=== PATIENT | male | born 1940 | race African-American/Black ===

== ENCOUNTER 2019-05-12 14:08 | Emergency (ER) | payer OTHER ==
[~2019-05-12] VITALS: Ht 182.9 cm; Wt 136.1 kg
[2019-05-12 16:12] LABS: BASOPHILS % 0.4 % (0.0-1.0); EOSINOPHILS # (AUTO) 0.2 (0.0-0.4); EOSINOPHILS % 2.2 % (0.0-6.0); HEMATOCRIT 32.4 % (38.2-49.6); HEMOGLOBIN 9.3 g/dL (14.0-18.0); LYMPHOCYTES # (AUTO) 1.9 (1.0-3.2); LYMPHOCYTES % 24.6 % (18.0-39.1); MEAN CORPUSCULAR HGB CONC 28.7 g/dL (31-35); MEAN CORPUSCULAR VOLUME 80.2 fL (81-99); MONOCYTES # (AUTO) 0.6 (0.2-0.8); MONOCYTES % 7.8 % (4.4-11.3); NEUTROPHILS # (AUTO) 4.9 (2.1-6.9); NEUTROPHILS % 64.7 % (38.7-80.0); PLATELET COUNT 280 x10e3/uL (140-360); RED BLOOD COUNT 4.04 x10e6/uL (4.3-5.7); RED CELL DISTRIBUTION WIDTH 19.4 % (11.7-14.4)
[2019-05-12 16:19] LABS: BILIRUBIN,URINE NEGATIVE (NEGATIVE); CLARITY,URINE CLEAR (CLEAR); COLOR,URINE YELLOW (YELLOW); KETONES,URINE NEGATIVE (NEGATIVE); LEUKOCYTE ESTERASE ,URINE TRACE (NEGATIVE); NITRITE,URINE NEGATIVE (NEGATIVE); PROTEIN,URINE DIPSTICK NEGATIVE (NEGATIVE); URINE UROBILINOGEN 0.2 mg/dL (0.2 - 1)
[2019-05-12 16:20] LABS: INR 1.26; PROTHROMBIN TIME 16.4 seconds (11.9-14.5)
[2019-05-12 16:21] LABS: PARTIAL THROMBOPLASTIN TIME 36.1 seconds (23.8-35.5)
[2019-05-12 16:31] LABS: BACTERIA,URINE FEW /HPF; WBC,URINE (MAN) 0-5 /HPF (0-5)
--- NOTE | 2019-05-12 17:16 | Diagnostic Imaging Report ---
CT Abdomen and Pelvis without contrast INDICATION: Hematuria ^HEMATURIA PER SCHATTE ^[id number] ^[id number] TECHNIQUE: Thin collimation axial images obtained from the diaphragm to the level of the pubic symphysis without nonionic intravenous contrast. Dose reduction techniques used: Automated exposure control, adjustment of the mAs and/or kVp according to patient size, standardized low-dose protocol, and/or iterative reconstruction technique. Images are compromised due to patient's arm positioning resulting in artifact. RADIATION DOSE: Total DLP: 822.14 mGy*cm Estimated effective dose: (DLP x 0.015 x size factor) mSv CTDIvol has been reviewed. It is below the limits set by the Radiation Protocol Committee (RPC). COMPARISON: None. ABDOMEN FINDINGS: Artifact present throughout the upper abdomen. Lung Bases: Mild bibasilar atelectasis and small posterior layering left pleural effusion. The visualized portion of the mediastinum is normal. Liver: No gross evidence of mass. Gallbladder: Present and contains subcentimeter calcified gallstones. No gallbladder wall thickening or pericholecystic fluid. No ductal dilatation. Pancreas: Diffusely atrophic without mass or ductal dilatation. No calcification. Spleen: Normal size without mass. Adrenal Glands: Poorly visualized due to artifact. The adrenal glands are thickened. A discrete mass cannot be identified. Kidneys: Right: Measures 10 cm in length. No collecting system dilatation. No calculus Left: Measures 11 cm in length No calculus. No cortical mass or hydronephrosis Lymph Nodes: No lymphadenopathy. Aorta: Normal in diameter. There are calcifications throughout. PELVIS FINDINGS: Bowel: Stomach: Contains a small amount of fluid and is grossly normal. Small Bowel: Normal in caliber with normal wall thickness. Large Bowel: Moderate burden of stool throughout. No focal mural thickening or pericolonic inflammation. Appendix: Normal. Bladder: Contains a Cleaning catheter and nondependent air. No intraluminal calculi. Prostate: Not enlarged. Ureters: No ureteral dilatation or calculus. Peritoneum/retroperitoneum: No free fluid or fluid collection.. Bones: Diffusely demineralized. No compression deformities or listhesis. Degenerative changes of the lower thoracic and lower lumbar spine. No focal osseous lesions. Soft tissues: Bilateral gynecomastia. Lipoma in the right rectus abdominis measures 2.5 x 5.6 cm. Fat-containing supraumbilical hernia measures 3.5 cm. There is a small fat-containing left inguinal hernia that may contain a small amount of fluid. IMPRESSION: 1. Compromised examination due to beam hardening artifact. 2. No evidence of renal calculus or obstructive uropathy. 3. Bilateral adrenal hyperplasia. Underlying nodules cannot be excluded. 4. No evidence for bowel obstruction or inflammation. Normal appendix. 5. Cholelithiasis. Signed by: Dr. Janel Sun MD on 05/12/2019 5:13 PM
[2019-05-12 17:40] LABS: ALBUMIN 3.3 g/dL (3.5-5.0); ALBUMIN/GLOBULIN RATIO 0.9 (0.8-2.0); ANION GAP 14.5 mmol/L (8-16); CALCIUM 10.6 mg/dL (8.4-10.2); CREATININE, SERUM 1.43 mg/dL (0.72-1.25); POTASSIUM 4.5 mmol/L (3.5-5.1)
== END 2019-05-12 18:38 | disposition home or self-care (01) ==
LOC: ER 14:08
DX: R31.29 Other microscopic hematuria (principal)
CPT/HCPCS: 36415; 74176; 80053; 81001; 85025; 85610; 85730; 99284

== ENCOUNTER 2019-07-29 11:08 | Emergency (ER) | payer MEDICARE ==
[~2019-07-29] VITALS: Ht 182.9 cm; Wt 136.1 kg
[~2019-07-29 11:08] MED LIST: CEFDINIR300 MG PO
--- OUTSIDE RECORDS SUMMARY | 2019-07-29 11:11 | XMS REPORT | Encounter Summary ---
Author Organization Unknown Address [address] [place] [address] Phone [phone] Care Team Providers Care Plastics Supervisor Name Role Phone Dr. Luis M Barrera 3 [phone] Luis M Barrera Jr, MD 3 [phone] Reason for Visit hyperlipidemia; Advance Care Plan; AWV Annual Wellness Visit Male (VFP); hypertension; diabetes Instructions 1. Adult health examination 2. Morbid obesity learning about healthy weight 3. Advance directive discussed with patient advance care planning: care instructions 4. Depression screening 5. Type 2 diabetes mellitus HbA1c (hemoglobin A1c), blood glucose, fingerstick, blood 6. Hypertensive heart disease with congestive heart failure CMP, serum or plasma CBC w/ auto diff TSH, serum or plasma 7. Atrial fibrillation 8. Hypertriglyceridemia lipid panel, serum 9. Secondary hyperparathyroidism PTH (parathyroid hormone), intact, serum or plasma 10. Stasis dermatitis and venous ulcer of lower extremity due to chronic peripheral venous hypertension 11. Gouty arthritis of multiple sites 12. Screening for malignant neoplasm of prostate PSA, serum or plasma 13. Major depression in remission 14. Indwelling urethral urinary catheter in situ urology referral 15. Blood in urine 16. Urinary catheter in situ Discussion Note: None recorded. Plan of Care Patient Instructions It was good to see you in the office today for your Medicare Annual Wellness Visit. You have been provided some information on healthy nutrition, including a diet rich in fruits and vegetables, minimizing simple carbohydrates, salt, and saturated fats. I want to encourage regular cardiovascular exercise such as walking at least 30 minutes daily, 5 times per week. Please remember to schedule any preventive health measures that we talked about today. You have also been provided education on fall prevention and community- based lifestyle interventions to help reduce health risks and promote healthy living in your Annual Wellness folder. Screening Recommendations 1. Vaccines Pneumonia: Influenza: 2. Colorectal Cancer Screenin. Annual Prostate Screening 4. Annual Depression Screening 5. Annual Alcohol Screening 6. Annual Fall Risk Screening 7. Annual Health Risk Assessment Patient Instructions on Filing Advance Directives Be sure that you have easy access to your paperwork for your medical power of patent attorney and advanced directives. Be sure that the designated person as well as important family members have copies of those forms as well. Please have contact information of your designee readily available. In the event of hospitalization, please bring those important documents with you for reference. Reminders Provider Appointments Home Visit 08/06/2019 9:30AM Brittni Acevedo NP Lab HbA1C (Hemoglobin a1C), Blood 07/10/2019 [facility] Glucose, Fingerstick, Blood 07/10/2019 [facility] CMP, Serum or Plasma 07/10/2019 [facility] CBC W/ Auto Diff 07/10/2019 [facility] TSH, Serum or Plasma 07/10/2019 [facility] Lipid Panel, Serum 07/10/2019 [facility] PTH (Parathyroid Hormone), Intact, Serum or Plasma 07/10/2019 [facility] PSA, Serum or Plasma 07/10/2019 [facility] Referral Urology Referral 07/10/2019 Shaka Canales MD Procedures None recorded. Surgeries None recorded. Imaging None recorded. Medications Name Start Date allopurinol 100 mg tablet TAKE 1 TABLET BY MOUTH EVERY DAY amlodipine 10 mg tablet TAKE 1 TABLET BY MOUTH EVERY DAY atorvastatin 10 mg tablet TAKE 1 TABLET BY MOUTH EVERY DAY doxazosin 8 mg tablet TAKE 1 TABLET BY MOUTH EVERY DAY Eliquis 5 mg tablet Take 1 tablet twice a day by oral route for 90 days. finasteride 5 mg tablet Take 1 tablet every day by oral route. fluticasone propionate 50 mcg/actuation nasal spray,suspension SPRAY 1 SPRAY INTO EACH NOSTRIL EVERY DAY furosemide 40 mg tablet Take 1 tablet every day by oral route for 30 days. glimepiride 1 mg tablet Take 1 tablet every day by oral route. metformin ER 500 mg 24 hr tablet,extended release Take 1 tablet every day by oral route for 90 days. olmesartan 40 mg tablet TAKE 1 TABLET BY MOUTH EVERY DAY OneTouch Delica Lancets 33 gauge USE TO TEST BLOOD GLUCOSE THREE TIMES DAILY OneTouch Verio strips USE TO TEST BLOOD GLUCOSE THREE TIMES DAILY potassium chloride ER 20 mEq tablet,extended release Take 1 tablet every day by oral route. tamsulosin 0.4 mg capsule Take 1 capsule every day by oral route. Ventolin HFA 90 mcg/actuation aerosol inhaler Inhale 2 puffs every 4 hours by inhalation route as needed. Medications Administered None recorded. Vitals Height Weight BMI Blood Pressure 6 ft 1 in 290 lbs 38.3 kg/m2 124/66 mm[Hg] Results Lab Results None recorded. 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 Hypertriglyceridemia Active 10/25/2016 Gouty Arthritis of Multiple Sites Active 10/25/2016 Morbid Obesity Active 10/25/2016 Benign Hypertensive Heart Disease without Congestive Heart Failure Active 10/25/2016 Cardiomyopathy Active 10/25/2016 Atrial Fibrillation Active 10/25/2016 Chronic Back Pain Active 10/25/2016 Long-term Current Use of Anticoagulant Active 10/25/2016 Lower Urinary Tract Symptoms Due to Benign Prostatic Hypertrophy Active 10/25/2016 Anemia Active 07/26/2017 History of Malignant Neoplasm of Prostate Active 10/29/2017 Peripheral Vascular Disease Active 12/07/2017 Lymphedema of Lower Extremity Active 12/07/2017 Type 2 Diabetes Mellitus Active 01/28/2018 Secondary Hyperparathyroidism Active 01/29/2018 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 Vaccine List Vaccine Type influenza, high dose seasonal 04/03/20170.5 mL 04/24/20180.5 mL 03/28/20190.5 mL influenza, unspecified formulation 07/27/20160.5 mL pneumococcal conjugate PCV 13 04/03/20170.5 mL pneumococcal polysaccharide PPV23 07/30/20140.5 mL Tdap 09/06/20180.5 mL zoster live 0.65 mL Social History Tobacco Smoking Status Former Smoker Past Encounters 07/10/2019 Adult Health Examination; Morbid Obesity; Advance Directive Discussed with Patient; Depression Screening; Type 2 Diabetes Mellitus; Hypertensive Heart Disease with Congestive Heart Failure; Atrial Fibrillation; Hypertriglyceridemia; Secondary Hyperparathyroidism; Stasis Dermatitis and Venous Ulcer of Lower Extremity Due to Chronic Peripheral Venous Hypertension; Gouty Arthritis of Multiple Sites; Screening for Malignant Neoplasm of Prostate; Major Depression in Remission; Indwelling Urethral Urinary Catheter in Situ; Blood in Urine; Urinary Catheter in Situ Luis M Barrera Jr, MD: [address] [facility], [address], [place] [address], Ph. 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 History of Present Illness Diabetes F/U Reported By: Patient HPI: Labs: last A1C result: 7.4. Context: no side effects from medications. Associated Symptoms: no dizziness, no sweats, no headaches, no confusion, no increased thirst, no increased appetite, no increased urination, no blurred vision, no numbness of feet Notes: Endorses medication compliance. Hypertension Reported By: Patient HPI: Severity: mild. Onset/Timing: gradual onset. Alleviating Factors: relieved with rest, medication. Self Care: not under emotional stress, blood pressure goal: 130/80. Associated Symptoms: no shortness of breath, no fatigue, no decline in exercise capacity Mini Cog Reported By: Patient Functional Ability: Personal/Social/ Draw a clock and write in the numbers in the correct place, and set the time to 10 minutes after 11 o'clock was completed correctly? Yes, 3 word recall: Your nurse or doctor will ask you to remember 3 words. In 5 minutes, they will ask you to repeat them. Patient recalled 3 words Hyperlipidemia Reported By: Patient HPI: Type of hyperlipidemia: combined, hypercholesterolemia. Duration: chronic. Control: usually well controlled, at goal. Current Therapy: currently taking: atorvastatin, last LDL level: 51 date: 51. Compliance: compliant. Complications: no coronary artery disease. Risk Factors: diabetes, hypertension, obesity Opioid Use Assessment Reported By: Patient Opioid Use Assessment:: Current Use of Opioids : no use of opioids (no further questions required) Note:I'd like to talk about what is ahead with your illness and do some thinking in advance about what is important to you so I can make sure we provide you with the care you want-is that okay? {{Yes*|No}} Review of Systems Comprehensive General Adult ROS, Diabetes F/U ROS Reported By: Patient Constitutional: Constitutional: no fever, no significant weight gain, no significant weight loss, no exercise intolerance Eyes: Eyes: no vision change Cardiovascular: Cardiovascular: no chest pain, no shortness of breath when walking, no palpitations, no lightheadedness, no SOB Respiratory: Respiratory: no cough, no wheezing, no shortness of breath Gastrointestinal: Gastrointestinal: no abdominal pain, no nausea, no vomiting, no constipation, normal appetite, no diarrhea Genitourinary: Genitourinary: no increased frequency, difficulty urinating, hematuria, incomplete emptying Musculoskeletal: Musculoskeletal: no muscle weakness, no arthralgias/joint pain Integumentary: Skin: no rashes, no laceration Neurologic: Neurologic: no weakness, no numbness, no dizziness Endocrine: Endocrine: no fatigue Extremities: Extremities: no edema, no ulcers Physical Exam General Adult Exam (male), Cardiology Exam, Diabetes, Diabetic Foot Exam Reported By: Patient Constitutional: General Appearance: well-developed, appears stated age, morbidly obese. Level of Distress: NAD, chronically ill Psychiatric: Mental Status: active and alert, no diffuse anxiety, no paranoid ideations, lethargic, depressed. Orientation: to time, to place, to person. Memory: recent memory normal, remote memory normal Lungs: Auscultation: good air movement, CTA except as noted, no wheezing, no rales/crackles, no rhonchi Cardiovascular: Heart Auscultation: RRR, normal S1, no rubs, no gallops, physiologically split S2, no click. Pulses including femoral / pedal: full and equal in all extremities except if noted. Systolic Murmur: not heard. Diastolic Murmur: not heard Musculoskeletal:: Extremities: no cyanosis, no edema, no peripheral signs of emboli Skin: Inspection and palpation: warm and dry Back: Thoracolumbar Appearance: no chest wall tenderness"
--- OUTSIDE RECORDS SUMMARY | 2019-07-29 11:12 | XMS REPORT | Encounter Summary ---
Author Organization Unknown Address [address] [place] [address] Phone [phone] Care Team Providers Care Kitchen Supervisor Name Role Phone Dr. Luis M Barrera 3 [phone] Luis M Barrera Jr, MD 3 [phone] Reason for Visit hospital follow up - TCM (LEXI); diabetes Instructions 1. Type 2 diabetes mellitus glimepiride 1 mg tablet glucose, fingerstick, blood 2. Hypertensive heart disease with congestive heart failure amlodipine 10 mg tablet 3. Acute congestive heart failure furosemide 40 mg tablet potassium chloride ER 20 mEq tablet,extended release 4. Atrial fibrillation Eliquis 5 mg tablet 5. Morbid obesity 6. Secondary hyperparathyroidism 7. Major depression in remission 8. 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 Retention of urine 10. Indwelling urethral urinary catheter in situ Discussion Note: None recorded. Patient educational handouts: No information available. Plan of Care Patient Instructions Thank you for scheduling your post hospital visit. Please let us know if you need help in scheduling follow up tests or specialist visits. Knowing what medicines to keep taking and which to ones to stop after a hospital stay can be confusing. Contact your physicians with your questions about what medications you should be taking. Our [facility] can also help you in this area. Contact them at . [facility] can help you choose the best Home Health agency. We can also help you with social work coordinator and community resources. Call us we are here to help. If you experience any new or concerning symptoms, call us immediately at . Evening and Sunday clinic hours are now available. If you have problems after hours, you can reach the [facility] Practice doctor astronomy department chair at [phone] . Please follow up with your doctor in two weeks. Reminders Provider Appointments Home Visit 08/06/2019 9:30AM Brittni L Kristina, SERVICE STATION HELPER Lab Glucose, Fingerstick, Blood 07/14/2019 [email or web address] Referral None recorded. Procedures None recorded. Surgeries None recorded. Imaging None recorded. Medications Name Start Date allopurinol 100 mg tablet TAKE 1 TABLET BY MOUTH EVERY DAY amlodipine 10 mg tablet Take 1 tablet every day by oral route for 90 days. atorvastatin 10 mg tablet TAKE 1 TABLET BY MOUTH EVERY DAY cefdinir 300 mg capsule doxazosin 8 mg tablet TAKE 1 TABLET [...] day by oral route for 90 days. glimepiride 1 mg tablet Take 1 [...] BMI Blood Pressure 6 ft 1 in 292 lbs 38.5 kg/m2 126/66 mm[Hg] Results Lab Results Date Name Specimen Result Interpretation Description Value Range Status Address 07/10/2019 PTH (Parathyroid Hormone), Intact, Serum or Plasma High Parathyroid Hormone, Intact 224 pg/mL 14-64 pg/mL Final [facility] Laboratory: [address] 07/10/2019 Glucose, Fingerstick, Blood Blood Glucose: mg/dl 103 [facility]: [address] Allergies Code Code System Name Reaction Severity [...] Tobacco Smoking Status Former Smoker Past Encounters 07/14/2019 Type 2 Diabetes Mellitus; Hypertensive Heart Disease with Congestive Heart Failure; Acute Congestive Heart Failure; Atrial Fibrillation; Morbid Obesity; Secondary Hyperparathyroidism; Major Depression in Remission; Stasis Dermatitis and Venous Ulcer of Lower 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 07/10/2019 Adult Health Examination; Morbid Obesity; Advance [...] in Situ Luis M Barrera Jr, MD: [address], [facility] [address], [place] [address], Ph. 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 History of Present Illness Diabetes F/U Reported By: Patient HPI: Labs: last A1C result: . Context: no side effects from medications. Associated Symptoms: no dizziness, no sweats, no headaches, no confusion, no increased thirst, no increased appetite, no increased urination, no blurred vision, no numbness of feet Notes: Endorses medication compliance. Hospital Follow Up (TCM) Reported By: Patient Review of Systems Comprehensive General Adult ROS, Diabetes F/U ROS Reported By: Patient Constitutional: Constitutional: no fever, no significant weight gain, no significant weight loss, no exercise intolerance Eyes: Eyes: no vision change Cardiovascular: Cardiovascular: no chest pain, no palpitations, no lightheadedness, no SOB Respiratory: Respiratory: no wheezing, no shortness of breath Gastrointestinal: Gastrointestinal: no abdominal pain, no nausea, no vomiting, no constipation, normal appetite, no diarrhea Genitourinary: Genitourinary: no difficulty urinating, no increased frequency Musculoskeletal: Musculoskeletal: no muscle weakness, no arthralgias/joint pain Integumentary: Skin: no rashes, no laceration Neurologic: Neurologic: no weakness, no numbness, no dizziness Endocrine: Endocrine: no fatigue Extremities: Extremities: no edema, no ulcers Physical Exam General Adult Exam (male), Cardiology Exam, Diabetes, Diabetic Foot Exam Reported By: Patient Constitutional: General Appearance: well-nourished, well-developed, appears stated age. Level of Distress: NAD Lungs: Auscultation: good air movement, CTA except [...] dry Back: Thoracolumbar Appearance: no chest wall tenderness
--- OUTSIDE RECORDS SUMMARY | 2019-07-29 11:12 | XMS REPORT | Encounter Summary ---
Author Organization Unknown Address [address] [place] [address] Phone [phone] Care Team Providers Care Property Developer Name Role Phone Dr. Luis M Barrera 3 [phone] Luis M Barrera Jr, MD 3 [phone] Reason for Visit hospital follow up - TCM (LEXI); diabetes Instructions 1. Type 2 diabetes mellitus glimepiride 1 mg tablet glucose, fingerstick, blood 2. Hypertensive heart disease with congestive heart failure amlodipine 10 mg tablet 3. Acute congestive heart failure furosemide 40 mg tablet potassium chloride ER 20 mEq tablet,extended release 4. Atrial fibrillation 5. Morbid obesity 6. Secondary hyperparathyroidism 7. Major depression in remission 8. 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 Retention of urine 10. Indwelling urethral urinary catheter in situ tamsulosin 0.4 mg capsule doxazosin 8 mg tablet 11. Unable to afford medication warfarin 5 mg tablet Discussion Note: None recorded. Patient educational handouts: [...] what medications you should be taking. Our [facility] can also help you in this area. Contact them at . [facility] can help you choose the best Home Health agency. We can also help you with social service director and community resources. Call us we are here to help. If you experience any new or concerning symptoms, call us immediately at . Evening and Sunday clinic hours are now available. If you have problems after hours, you can reach the [facility] Practice doctor certification engineer at . Please follow up with your doctor in two weeks. Reminders Provider Appointments Home Visit 08/06/2019 9:30AM Brittni Acevedo NP Lab Glucose, Fingerstick, Blood 07/14/2019 [email or web address] Referral None recorded. Procedures None recorded. Surgeries [...] TAKE 1 TABLET BY MOUTH EVERY DAY finasteride 5 mg tablet Take 1 tablet [...] Take 1 capsule every day by oral route for 90 days. Ventolin HFA 90 mcg/actuation aerosol inhaler Inhale 2 puffs every 4 hours by inhalation route as needed. warfarin 5 mg tablet Take 1.5 tablets every day by oral route for 90 days. Medications Administered None recorded. Vitals Height Weight BMI Blood Pressure 6 ft 1 in 292 lbs 38.5 kg/m2 126/66 mm[Hg] Results Lab Results Date Name Specimen Result Interpretation Description Value Range Status Address 07/14/2019 Glucose, Fingerstick, Blood Blood Glucose: mg/dl 159 [facility]: [address] 07/10/2019 PTH (Parathyroid Hormone), Intact, Serum or Plasma High Parathyroid Hormone, Intact 224 pg/mL 14-64 pg/mL Final [facility] Laboratory: [address] [place] [address] 07/10/2019 Glucose, Fingerstick, Blood Blood Glucose: mg/dl 103 [facility]: [address] Allergies Code Code System Name Reaction [...] of Urine; Indwelling Urethral Urinary Catheter in Situ; Unable to Afford Medication Luis M Barrera Jr, MD: [address], [address], [place] [address], Ph. 07/10/2019 Adult Health Examination; Morbid Obesity; [...] Situ Luis M Barrera Jr, MD: [address] [facility], [address], [place] [address], Ph. 06/18/2019 Indwelling Urethral Urinary Catheter in Situ; Acute Congestive Heart Failure; Chronic Obstructive Lung Disease; Stasis Dermatitis and Venous Ulcer of Lower Extremity Due to Chronic Peripheral Venous Hypertension; Gouty Arthritis of Multiple Sites; Chronic Back Pain; Morbid Obesity Brittni Acevedo STOVE REFINISHER: [address] [facility], [address], [place] [address], Ph. History of Present Illness Diabetes F/U [...]
--- OUTSIDE RECORDS SUMMARY | 2019-07-29 11:12 | XMS REPORT | Encounter Summary ---
Author Organization Unknown Address [address] [place] [address] Phone [phone] Care Team Providers Care Fisher Seal Name Role Phone Dr. Luis M Barrera 3 [phone] Luis M Barrera Jr, MD 3 [phone] Reason for Visit Atrial fibrillation; hypertension; diabetes Instructions 1. Benign hypertensive heart disease without congestive heart failure 2. Atrial fibrillation INR, plasma 3. Long-term current use of anticoagulant 4. Type 2 diabetes mellitus glucose, fingerstick, blood 5. Low blood pressure 6. Anemia 7. Malaise and fatigue CBC w/ auto diff CMP, serum or plasma 8. Blood in urine Discussion Note: None recorded. Patient educational handouts: No information available. Plan of Care Reminders Provider Appointments Home Visit 08/06/2019 9:30AM Brittni Acevedo NP Lab INR, Plasma 07/23/2019 [facility] Glucose, Fingerstick, Blood 07/23/2019 [facility] CBC W/ Auto Diff 07/23/2019 [facility] CMP, Serum or Plasma 07/23/2019 [facility] Referral None recorded. Procedures None recorded. Surgeries [...] 1 tablet every day by oral route. 07/25/2019 olmesartan 40 mg tablet TAKE 1 TABLET [...] BMI Blood Pressure 6 ft 1 in 189 lbs 24.9 kg/m2 106/48 mm[Hg] Results Lab Results Date Name Specimen Result Interpretation Description Value Range Status Address 07/24/2019 CMP, Serum or Plasma Normal Glucose 71 mg/dL 65-99 mg/dL Final [facility] Laboratory: [address] [place] [address], [place] Urea Nitrogen (BUN) 39 mg/dL 7-25 mg/dL Final [facility] - Laboratory: [address] High Creatinine 1.87 mg/dL 0.70-1.18 mg/dL Final [facility] - Laboratory: [address] [place] [address], [place] Low eGFR Non-afr. Togolese 34 mL/min/1.73m2 > or=60 mL/min/1.73m2 Final [facility] Laboratory: [address] [place] [address], [place] Low eGFR 39 mL/min/1.73m2 > or=60 mL/min/1.73m2 Final [facility]: [address] [place] [address], [place] Normal BUN/creatinine Ratio 21 (calc) 6-22 (calc) Final [facility]: [address] [place] [address], [place] Normal Sodium 143 mmol/L 135-146 mmol/L Final [facility]: [address] [place] [address], [place] Normal Potassium 4.9 mmol/L 3.5-5.3 mmol/L Final [facility]: [address] [place] [address], [place] Chloride 112 mmol/L 98-110 mmol/L Final [facility]: [address] [place] [address], [place] Normal Carbon Dioxide 24 mmol/L 20-32 mmol/L Final [facility]: [address] [place] [address], [place] Normal Calcium 10.1 mg/dL 8.6-10.3 mg/dL Final [facility]: [address] [facility] [facility] Protein, Total 6.5 g/dL 6.1-8.1 g/dL Final [facility]: [address] [facility] [facility] Normal Albumin 3.9 g/dL 3.6-5.1 g/dL Final [facility]: [facility] Normal Globulin 2.6 g/dL (calc) 1.9-3.7 g/dL (calc) Final [facility]: [address] [facility] [facility] Normal Albumin/globulin Ratio 1.5 (calc) 1.0-2.5 (calc) Final [facility]: [facility] Normal Bilirubin, Total 0.7 mg/dL 0.2-1.2 mg/dL Final [facility]: [facility] High Alkaline Phosphatase 116 U/L 40-115 U/L Final [facility]: [facility] Normal Ast 19 U/L 10-35 U/L Final [facility]: [address] [place] [address] Normal Alt 15 U/L 9-46 U/L Final [facility]: [facility] 07/[facility]/2019 CBC W/ Auto Diff Normal White Blood Cell Count 6.4 thousand/uL 3.8-10.8 thousand/uL Final [facility]: [facility] Low Red Blood Cell Count 3.75 million/uL 4.20-5.80 million/uL Final [facility]: [address] [facility] Low Hemoglobin 8.8 g/dL 13.2-17.1 g/dL Final [facility]: [address] [facility] Hematocrit 29.6 % 38.5-50.0 % Final [facility]: [address] [facility] Low Mcv 78.9 fL 80.0-100.0 fL Final [facility]: [address] [facility] Low Mch 23.5 pg 27.0-33.0 pg Final [facility]: [address] Low Mchc 29.7 g/dL 32.0-36.0 g/dL Final [facility]: [address]w 17.4 % 11.0-15.0 % Final [facility]: [address], [place] Normal Platelet Count 242 thousand/uL 140-400 thousand/uL Final [facility]: [address] BenderlulyMalcolm Mcguire Normal Mpv 10.4 fL 7.5-12.5 fL Final [facility]: [address], [place] Normal Absolute Neutrophils 3539 cells/uL 5462-2419 cells/uL Final [facility]: [address] [place] Normal Absolute Lymphocytes 2010 cells/uL 850-3900 cells/uL Final [facility]: [address] [place] Normal Absolute Monocytes 608 cells/uL 200-950 cells/uL Final [facility]: [address] [place] Normal Absolute Eosinophils 192 cells/uL 15-500 cells/uL Final [facility]: [address] [place] Normal Absolute Basophils 51 cells/uL 0-200 cells/uL Final [facility]: [address], [place] Normal Neutrophils 55.3 % Final [facility]: [address], [place] Normal Lymphocytes 31.4 % Final [facility]: [address], [place] Normal Monocytes 9.5 % Final [facility] Laboratory: [address] Philip [facility], [place] Normal Eosinophils 3.0 % Final [facility]: [address], [place] Normal Basophils 0.8 % Final [facility]: [address] Philip [facility], [place] 07/23/2019 Glucose, Fingerstick, Blood Blood Glucose: mg/dl 83 [facility]: [address] [place] [address], [place] 07/14/2019 Glucose, Fingerstick, Blood Blood Glucose: mg/dl 159 [facility]: [address] [place] [address], [place] 07/10/2019 PTH (Parathyroid Hormone), Intact, Serum or Plasma High Parathyroid Hormone, Intact 224 pg/mL 14-64 pg/mL Final [facility]: [address] [facility] 07/10/2019 PSA, Serum or Plasma Normal PSA, Total <0.1 NG/mL < or=4.0 NG/mL Final [facility]: [address] [facility] [facility] 07/10/2019 CBC W/ Auto Diff Normal White Blood Cell Count 6.9 thousand/uL 3.8-10.8 thousand/uL Final [facility]: [address] [facility] [facility] Low Red Blood Cell Count 4.07 million/uL 4.20-5.80 million/uL Final [facility]: [address] [place] Hemoglobin 9.6 g/dL 13.2-17.1 g/dL Final [facility]: [address] [facility] [facility] Hematocrit 32.5 % 38.5-50.0 % Final [facility]: [address] [facility] Low Mcv 79.9 fL 80.0-100.0 fL Final [facility]: [address] [facility] [facility] Low Mch 23.6 pg 27.0-33.0 pg Final [facility]: [address] [place] Mchc 29.5 g/dL 32.0-36.0 g/dL Final [facility]: [address] [facility] High Rdw 18.1 % 11.0-15.0 % Final [facility]: [address] [facility] Normal Platelet Count 283 thousand/uL 140-400 thousand/uL Final [facility]: [address] [place] [address] Normal Mpv 11.6 fL 7.5-12.5 fL Final [facility]: [address] [facility] Normal Absolute Neutrophils 3636 cells/uL 1058-8826 cells/uL Final [facility]: [address] [facility] [facility] Normal Absolute Lymphocytes 2491 cells/uL 850-3900 cells/uL Final [facility]: [address] [place] [address] Normal Absolute Monocytes 531 cells/uL 200-950 cells/uL Final [facility]: [address] Philip [facility], [place] Normal Absolute Eosinophils 214 cells/uL 15-500 cells/uL Final [facility]: [address] [facility] [facility] Normal Absolute Basophils 28 cells/uL 0-200 cells/uL Final [facility]: [address] [place] [address], [place] Normal Neutrophils 52.7 % Final [facility]: [address] [place] [address], [place] Normal Lymphocytes 36.1 % Final [facility]: [address] [place] [address], [place] Normal Monocytes 7.7 % Final [facility]: [address] Normal Eosinophils 3.1 % Final [facility]: [address] [place] [address], [place] Normal Basophils 0.4 % Final [facility]: [address] [facility] [facility] 07/10/2019 CMP, Serum or Plasma Alt 13 U/L 0-55 U/L Final [facility]: [address] Ast 17 U/L 5-34 U/L Final [facility]: [address] High Bun 27.4 mg/dL 8.4-25.0 mg/dL Final [facility]: [address] Alk Phos 148 unit/L 40-150 unit/L Final [facility]: [address] Glucose 78 mg/dL 70-99 mg/dL Final [facility]: [address] Albumin 4.0 g/dL 3.4-5.1 g/dL Final [facility]: [address] High Creatinine 1.49 mg/dL 0.72-1.25 mg/dL Final [facility]: [address] ABNORMAL eGFR Non- 46 mL/min/1.73m2 Final [facility]: [address] Total Bilirubin 0.6 mg/dL 0.2-1.2 mg/dL Final [facility]: [address] ABNORMAL eGFR - 55 mL/min/1.73m2 Final [facility]: [address] [place] [address], [place] Sodium 143 mEq/L 135-145 mEq/L Final [facility]: [address] [place] [address], [place] Potassium 4.9 mEq/L 3.5-5.1 mEq/L Final [facility]: [address] [place] [address], [place] Chloride 109 mmol/L 98-110 mmol/L Final [facility]: [address] [place] [address], [place] Total Protein 7.1 g/dL 6.1-8.2 g/dL Final [facility]: [address] [place] [address], [place] Calcium 10.4 mg/dL 9.0-10.2 mg/dL Final [facility]: [address] [place] [address], [place] Co2 23.2 mmol/L 20.0-32.0 mmol/L Final [facility]: [address] [place] [address], [place] Anion Gap 11 calc Final [facility]: [address] 07/10/2019 Lipid Panel, Serum Hdl 65 mg/dL Final [facility]: [address] Triglyceride 66 mg/dL 0-150 mg/dL Final [facility]: [address] VLDL (Calculated) 13 mg/dL Final [facility]: [address] cholesterol/HDL Ratio 2.2 mg/dL Final [facility]: [address] non-HDL Cholesterol (Calculated) 76 mg/dL 0-160 mg/dL Final [facility]: [address] Cholesterol 141 mg/dL 0-200 mg/dL Final [facility]: [address] LDL (Calculated) 63 mg/dL 0-130 mg/dL Final [facility]: [address] 07/10/2019 TSH, Serum or Plasma Tsh 1.578 uIU/mL 0.350-4.940 uIU/mL Final [facility]: [facility] [address] 07/10/2019 HbA1C (Hemoglobin a1C), Blood High A1C W/eag 6.6 % 1.0-5.7 % Final [facility]: [address] Average Blood Glucose 143 mg/dL Final [facility]: [address] 07/10/2019 Iron + Total Iron-binding Capacity (TIBC), Serum Low Iron, Total 43 mcg/dL 50-180 mcg/dL Final [facility]: [facility] [address] Normal Iron Binding Capacity 412 mcg/dL (calc) 250-425 mcg/dL (calc) Final [facility]: [address] Low % Saturation 10 % (calc) 20-48 % (calc) Final [facility]: [facility] [address] 07/10/2019 Transferrin, Serum Normal Transferrin 330 mg/dL 188-341 mg/dL Final [facility]: [address] 07/10/2019 Vitamin B12 + Folate, Serum or Blood Folate 9.4 NG/mL Final [facility]: [facility] [address] Vitamin B12 364 pg/mL 213-816 pg/mL Final [facility]: [address] 07/10/2019 Glucose, Fingerstick, Blood Blood Glucose: mg/dl 103 [facility] [place]: [address] Allergies Code Code System Name Reaction [...] Tobacco Smoking Status Former Smoker Past Encounters 07/23/2019 Benign Hypertensive Heart Disease without Congestive Heart Failure; Atrial Fibrillation; Long-term Current Use of Anticoagulant; Type 2 Diabetes Mellitus; Low Blood Pressure; Anemia; Malaise and Fatigue; Blood in Urine Luis M Barrera Jr, MD: [address], [facility] [address] [address], Ph. 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 07/10/2019 Adult Health Examination; Morbid Obesity; [...] Luis M Barrera Jr, MD: [address], [address], [place] [address], Ph. History of Present Illness Diabetes F/U Reported By: Patient HPI: Labs: last A1C result: 6.6. Context: no side effects from medications. Associated [...] Reported By: Patient HPI: Type of hyperlipidemia: hypercholesterolemia. Duration: chronic. Control: usually well controlled, at goal. Current Therapy: currently taking: atorvastatin, last LDL level: 63 date: 63. Compliance: compliant. Complications: no coronary artery disease. Risk Factors: diabetes, hypertension, obesity Hospital Follow Up ([facility]) Reported By: Patient Opioid Use Assessment Reported By: Patient Opioid Use Assessment:: Current Use of Opioids : no use of opioids (no further questions required) Hypertension Reported By: Patient Note:{{Yes|No}} Review of Systems Comprehensive General Adult ROS, Diabetes F/U ROS Reported By: Patient Constitutional: Constitutional: no significant weight gain, no significant weight loss Cardiovascular: Cardiovascular: no chest pain, no shortness of breath when walking Respiratory: Respiratory: no cough, no wheezing, no shortness of breath Endocrine: Endocrine: fatigue Physical Exam General Adult Exam (male), Cardiology Exam, Diabetes, Diabetic Foot Exam Reported By: Patient Constitutional: General Appearance: healthy-appearing, well-developed, appears stated age, no signs of discomfort, no pain, not difficult to engage. Level of Distress: chronically ill Psychiatric: Insight: good judgement, good insight. Mental Status: active and alert, no diffuse anxiety, no paranoid ideations, depressed. Orientation: to time, to place, to person, oriented to time, place, and person. Memory: recent memory normal, remote memory normal Lungs: Respiratory effort: no dyspnea. Percussion: no dullness, flatness, or hyperresonance, resonant. Auscultation: breath sounds normal, good air movement, CTA except as noted, no wheezing, no rales/crackles, no rhonchi Cardiovascular: Apical Impulse: not displaced. Heart Auscultation: RRR, normal S1, normal S2, no murmurs, no rubs, no gallops, physiologically split S2, no click. Neck vessels: no carotid bruits, no jugular vein distention. Pulses including femoral / pedal: normal throughout, full and equal in all extremities except if noted. Precordial Exam: non displaced focal PMI, no heaves, no precordial thrills. Systolic Murmur: not heard. Diastolic Murmur: not heard. Right Pulses: normal dorsalis pedis pulse, normal posterior tibial pulse, no varicosities. Left Pulses: normal dorsalis pedis pulse, normal posterior tibial pulse, no varicosities"
[2019-07-29] MEDS ORDERED: PANTOPRAZOLE 40 MG 10ML VIAL IV STA (11:38)
--- NOTE | 2019-07-29 13:23 | Diagnostic Imaging Report ---
EXAMINATION: CHEST SINGLE (PORTABLE) INDICATION: Weakness, lower extremity swelling COMPARISON: None FINDINGS: LINES/TUBES:None LUNGS:The lungs are well-inflated. No focal consolidation or pulmonary edema. PLEURA:No pleural effusion or pneumothorax. MEDIASTINUM:The cardiomediastinal silhouette appears mildly enlarged, possibly due to portable technique. Atherosclerotic calcifications of the thoracic aorta. BONES/SOFT TISSUES:No acute osseous injury. ABDOMEN:No free air under the diaphragm. IMPRESSION: No focal pneumonia or pulmonary edema. Signed by: Rose Marie Lobato MD on 07/29/2019 1:20 PM
[2019-07-29 14:09] LABS: BASOPHILS % 0.7 % (0.0-1.0); EOSINOPHILS # (AUTO) 0.3 (0.0-0.4); EOSINOPHILS % 4.1 % (0.0-6.0); HEMATOCRIT 29.9 % (38.2-49.6); LYMPHOCYTES # (AUTO) 1.8 (1.0-3.2); MEAN CORPUSCULAR HEMOGLOBIN 24.1 pg (28-32); MEAN CORPUSCULAR HGB CONC 30.1 g/dL (31-35); MEAN CORPUSCULAR VOLUME 79.9 fL (81-99); MONOCYTES # (AUTO) 0.6 (0.2-0.8); MONOCYTES % 9.8 % (4.4-11.3); NEUTROPHILS # (AUTO) 3.5 (2.1-6.9); NEUTROPHILS % 56.2 % (38.7-80.0); PLATELET COUNT 208 x10e3/uL (140-360); RED BLOOD COUNT 3.74 x10e6/uL (4.3-5.7); RED CELL DISTRIBUTION WIDTH 19.8 % (11.7-14.4)
[2019-07-29 14:25] LABS: INR 2.29; PROTHROMBIN TIME 25.9 seconds (11.9-14.5)
[2019-07-29 14:26] LABS: PARTIAL THROMBOPLASTIN TIME 43.9 seconds (23.8-35.5)
[2019-07-29 14:35] LABS: ALBUMIN 3.5 g/dL (3.5-5.0); ALBUMIN/GLOBULIN RATIO 1.1 (0.8-2.0); ANION GAP 12.4 mmol/L (8-16); CALCIUM 10.2 mg/dL (8.4-10.2); CREATININE, SERUM 1.59 mg/dL (0.72-1.25); POTASSIUM 4.4 mmol/L (3.5-5.1)
[2019-07-29 14:42] LABS: CREATINE KINASE MB 2.7 ng/mL (0-5.0)
[2019-07-29 15:25] LABS: BILIRUBIN,URINE NEGATIVE (NEGATIVE); CLARITY,URINE SL CLOUDY (CLEAR); COLOR,URINE YELLOW (YELLOW); KETONES,URINE NEGATIVE (NEGATIVE); LEUKOCYTE ESTERASE ,URINE TRACE (NEGATIVE); NITRITE,URINE POSITIVE (NEGATIVE); PROTEIN,URINE DIPSTICK TRACE (NEGATIVE); URINE UROBILINOGEN 0.2 mg/dL (0.2 - 1)
[2019-07-29 15:42] LABS: BACTERIA,URINE MANY /HPF; EPITHELIAL CELLS,URINE RARE /LPF
--- NOTE | 2019-07-29 16:03 | NUR ---
PT'S PRESCRIPTION CALLED INTO [facility] @ [phone] ; PT CALLED AND NOTIFIED
[2019-08-02] MEDS ORDERED: FUROSEMIDE40 MG PO (16:19)
[2019-08-02] MEDS ORDERED: FINASTERIDE5 MG PO (16:19)
[2019-08-02] MEDS ORDERED: BENICAR20 MG PO (16:19)
[2019-08-02] MEDS ORDERED: AMLODIPINE BESY10 MG PO (16:19)
[2019-08-02] MEDS ORDERED: GLIMEPIRIDE1 MG PO (16:19)
[2019-08-02] MEDS ORDERED: ATORVASTATIN CA10 MG PO (16:19)
[2019-08-02] MEDS ORDERED: POTASSIUM CHLO20 MEQ PO (16:19)
== END 2019-07-29 15:10 | disposition home or self-care (01) ==
LOC: ER 11:16
DX: I48.20 Chronic atrial fibrillation, unspecified (principal); D63.1 Anemia in chronic kidney disease; E11.9 Type 2 diabetes mellitus without complications; I50.9 Heart failure, unspecified
CPT/HCPCS: 36415; 71045; 80053; 81001; 82550; 82553; 83735; 83880; 84484; 85025; 85610; 85730; 86850; 86900; 87040; 87086; 87186; 93005; 99284; C9113

== ENCOUNTER 2019-08-26 12:10 | Observation (INO) | payer MEDICARE, OTHER ==
[~2019-08-26] VITALS: Ht 185.4 cm; Wt 141.5 kg
[~2019-08-26 12:10] MED LIST changes: +AMLODIPINE BESY10 MG PO; +ATORVASTATIN CA10 MG PO; +BENICAR20 MG PO; +FINASTERIDE5 MG PO; +FUROSEMIDE40 MG PO; +GLIMEPIRIDE1 MG PO; +POTASSIUM CHLO20 MEQ PO
--- OUTSIDE RECORDS SUMMARY | 2019-08-26 12:15 | XMS REPORT | Encounter Summary ---
Author Organization Unknown Address [address] [place] [address] Phone [phone] Care Team Providers Care Chemical Engineering Teacher Name Role Phone Dr. Luis M Barrera 3 [phone] Luis M Barrera Jr, MD 3 [phone] Lalo Canales MD 115 [phone] Reason for Visit Type 2 diabetes mellitus; Benign hypertensive heart disease without congestive heart failure; Proteinuric nephropathy due to diabetes mellitus; Hypertensive heart disease with congestive heart failure Instructions 1. Hypertensive heart disease with congestive heart failure CMP, serum or plasma 2. Type 2 diabetes mellitus 3. Proteinuric nephropathy due to diabetes mellitus 4. Benign hypertensive heart AND renal disease 5. Chronic kidney disease stage 3 6. Suprapubic urinary catheter in situ urology referral 7. Atrial fibrillation INR, plasma 8. Anemia CBC w/ auto diff 9. Chronic pain syndrome Tylenol-Codeine #3 300 mg-30 mg tablet Discussion Note: None recorded. Patient educational handouts: No information available. Plan of Care Reminders Provider Appointments Return to Office on or around 09/11/2019 Brittni Acevedo NP Lab INR, Plasma 08/20/2019 [facility] - Laboratory CBC W/ Auto Diff 08/20/2019 [facility] - Laboratory CMP, Serum or Plasma 08/20/2019 [facility] - Laboratory Referral Urology Referral 08/20/2019 Lalo Canales MD Procedures None recorded. Surgeries None [...] day by oral route for 90 days. Tylenol-Codeine #3 300 mg-30 mg tablet Take 1 tablet twice a day by oral route as needed for 60 days. Ventolin HFA 90 mcg/actuation aerosol inhaler Inhale 2 puffs every 4 hours by inhalation route as needed. warfarin 5 mg tablet Take 1.5 tablets every day by oral route for 90 days. Medications Administered None recorded. Vitals Height Weight BMI Blood Pressure 6 ft 1 in 311 lbs 41 kg/m2 140/72 mm[Hg] Results Lab Results Date Name Specimen Result Interpretation Description Value Range Status Address 07/24/2019 CMP, Serum or Plasma Normal Glucose 71 mg/dL 65-99 mg/dL Final [facility] - Laboratory: [address] High Urea Nitrogen (BUN) 39 mg/dL 7-25 mg/dL Final [facility] - Laboratory: [address] High Creatinine 1.87 mg/dL 0.70-1.18 mg/dL Final [facility] - Laboratory: [address] Low eGFR Non-afr. Cypriot 34 mL/min/1.73m2 > or=60 mL/min/1.73m2 Final [facility] - Laboratory: [address] [place] [address], [place] Low eGFR 39 mL/min/1.73m2 > or=60 mL/min/1.73m2 Final [facility] - Laboratory: [address] [place] [address], [place] Normal BUN/creatinine Ratio 21 (calc) 6-22 (calc) Final [facility] - Laboratory: [address] [place] [address], [place] Normal Sodium 143 mmol/L 135-146 mmol/L Final [facility] - Laboratory: [address] Normal Potassium 4.9 mmol/L 3.5-5.3 mmol/L Final [facility] - Laboratory: [address] High Chloride 112 mmol/L 98-110 mmol/L Final [facility] - Laboratory: [address] [place] Normal Carbon Dioxide 24 mmol/L 20-32 mmol/L Final [facility] - Laboratory: [address] [place] Normal Calcium 10.1 mg/dL 8.6-10.3 mg/dL Final [facility] - Laboratory: [address] WadeFormerly [facility] Normal Protein, Total 6.5 g/dL 6.1-8.1 g/dL Final [facility] - Laboratory: [address], [place] Normal Albumin 3.9 g/dL 3.6-5.1 g/dL Final [facility] - Laboratory: [address] WadeFormerly [facility], [facility] Normal Globulin 2.6 g/dL (calc) 1.9-3.7 g/dL (calc) Final [facility] - Laboratory: [address] WadeFormerly [facility], [facility] Normal Albumin/globulin Ratio 1.5 (calc) 1.0-2.5 (calc) Final [facility] - Laboratory: [address] WadeFormerly [facility], [facility] Normal Bilirubin, Total 0.7 mg/dL 0.2-1.2 mg/dL Final [facility] - Laboratory: [address] WadeFormerly [facility], [facility] High Alkaline Phosphatase 116 U/L 40-115 U/L Final [facility] - Laboratory: [address] WadeFormerly [facility], [facility] Normal Ast 19 U/L 10-35 U/L Final [facility] - Laboratory: [address] WadeFormerly [facility], [facility] Normal Alt 15 U/L 9-46 U/L Final [facility] - Laboratory: [address] [place] 07/24/2019 CBC W/ Auto Diff Normal White Blood Cell Count 6.4 thousand/uL 3.8-10.8 thousand/uL Final [facility] - Laboratory: [address] WadeFormerly [facility], [facility] Low Red Blood Cell Count 3.75 million/uL 4.20-5.80 million/uL Final [facility] - Laboratory: [address] WadeFormerly [facility], [facility] Low Hemoglobin 8.8 g/dL 13.2-17.1 g/dL Final [facility] - Laboratory: [address] WadeFormerly [facility], [facility] Low Hematocrit 29.6 % 38.5-50.0 % [facility] - Laboratory: [address] Low Mcv 78.9 fL 80.0-100.0 fL Final [facility] - Laboratory: [address], [place] Low Mch 23.5 pg 27.0-33.0 pg Final [facility] - Laboratory: [address] Low Mchc 29.7 g/dL 32.0-36.0 g/dL Final [facility] - Laboratory: [address] 17.4 % 11.0-15.0 % Final [facility] - Laboratory: [address]ender[address] [place] Normal Platelet Count 242 thousand/uL 140-400 thousand/uL Final [facility] - Laboratory: [address]enderluly[address]colm [place] Normal Mpv 10.4 fL 7.5-12.5 fL Final [facility] - Laboratory: [address]enderluly[address] [place] Normal Absolute Neutrophils 3539 cells/uL 0030-9586 cells/uL Final [facility] - Laboratory: [address]enderluly[address] [place] Normal Absolute Lymphocytes 2010 cells/uL 850-3900 cells/uL Final [facility] - Laboratory: [address]enderluly[address] [place] Normal Absolute Monocytes 608 cells/uL 200-950 cells/uL Final [facility] - Laboratory: [address] [place] Normal Absolute Eosinophils 192 cells/uL 15-500 cells/uL Final [facility] - Laboratory: [address] [place] Normal Absolute Basophils 51 cells/uL 0-200 cells/uL Final [facility] - Laboratory: [address] [place] Normal Neutrophils 55.3 % Final [facility] - Laboratory: [address] [place] Normal Lymphocytes 31.4 % Final [facility] - Laboratory: [address] Arguello [place] Normal Monocytes 9.5 % Final [facility] - Laboratory: [address] [place] Normal Eosinophils 3.0 % Final [facility] - Laboratory: [address] [place] Normal Basophils 0.8 % Final [facility] - Laboratory: [address] 07/23/2019 INR, Plasma High Inr 1.5 Final [facility] - Laboratory: [address] [facility] [address], [place] High Pt 15.8 sec 9.0-11.5 sec Final [facility] - Laboratory: [address], [place] 07/23/2019 Glucose, Fingerstick, Blood Blood Glucose: mg/dl 83 [facility] - Hobby: [address], [place] CMP, Serum or Plasma No observation recorded. [facility] [address] [place] CBC W/ Auto Diff No observation recorded. 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 Vaccine List Vaccine Type influenza, high dose seasonal 04/03/20170.5 mL 04/24/20180.5 mL 03/28/20190.5 mL influenza, unspecified formulation 07/27/20160.5 mL pneumococcal conjugate PCV 13 04/03/20170.5 mL pneumococcal polysaccharide PPV23 07/30/20140.5 mL Tdap 09/06/20180.5 mL zoster live 0.65 mL Social History Tobacco Smoking Status Former Smoker Past Encounters 08/20/2019 Hypertensive Heart Disease with Congestive Heart Failure; Type 2 Diabetes Mellitus; Proteinuric Nephropathy Due to Diabetes Mellitus; Benign Hypertensive Heart and Renal Disease; Chronic Kidney Disease Stage 3; Suprapubic Urinary Catheter in Situ; Atrial Fibrillation; Anemia; Chronic Pain Syndrome Luis M Barrera Jr, MD: [address], [address], [place] [address], Ph. 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 07/23/2019 Benign Hypertensive Heart Disease without Congestive Heart Failure; Atrial Fibrillation; Long-term Current Use of Anticoagulant; Type 2 Diabetes Mellitus; Low Blood Pressure; Anemia; Malaise and Fatigue; Blood in Urine Luis M Barrera Jr, MD: [address], [address], [place] [address], Ph. History of Present Illness Diabetes F/U [...] no fatigue, no decline in exercise capacity Hyperlipidemia Reported By: Patient HPI: Type of hyperlipidemia: hypercholesterolemia. Duration: chronic. Control: usually well controlled, at goal. Current Therapy: currently taking: atorvastatin, last LDL level: 63 date: 63. Compliance: compliant. Complications: no coronary artery disease. Risk Factors: diabetes, hypertension, obesity Note:{{Yes|No}} Review of Systems Comprehensive General Adult [...] pedis pulse, normal posterior tibial pulse, no varicosities Abdomen: Hernia: ; suprapubic catheter site clean dry intact"
--- OUTSIDE RECORDS SUMMARY | 2019-08-26 12:15 | XMS REPORT | Encounter Summary ---
Author Organization Unknown Address [address] [place] [address] Phone [phone] Care Team Providers Care Product Development Engineer Name Role Phone Dr. 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 Lower urinary tract symptoms due to benign prostatic hypertrophy 3. Peripheral vascular disease 4. Type 2 diabetes mellitus 5. Lymphedema of lower extremity Discussion Note: None recorded. Patient educational handouts: No information available. Plan of Care Reminders Provider Appointments Return to Office on or around 09/11/2019 Brittni Acevedo NP Lab None recorded. Referral None recorded. Procedures None recorded. Surgeries None recorded. Imaging None recorded. Medications Name Start Date acetaminophen 300 mg-codeine 30 mg tablet allopurinol 100 mg tablet TAKE 1 TABLET BY MOUTH EVERY DAY atorvastatin 10 mg tablet TAKE 1 TABLET BY MOUTH EVERY DAY cefdinir 300 mg capsule ciprofloxacin 500 mg tablet doxazosin 8 mg tablet TAKE 1 TABLET [...] BMI Blood Pressure 6 ft 1 in 304.2 lbs 40.1 kg/m2 162/88 mm[Hg] Results Lab Results Date Name Specimen Result Interpretation Description Value Range Status Address 07/24/2019 CMP, Serum or Plasma Normal Glucose 71 mg/dL 65-99 mg/dL Final [facility] - Laboratory: [address] [place] [address], [place] High Urea Nitrogen (BUN) 39 mg/dL 7-25 mg/dL Final [facility] - Laboratory: [address] High Creatinine 1.87 mg/dL 0.70-1.18 mg/dL Final [facility] Laboratory: [address] Low eGFR Non-afr. Palauan 34 mL/min/1.73m2 > or=60 mL/min/1.73m2 Final [facility] - Laboratory: [address] [place] [address], [place] Low eGFR 39 mL/min/1.73m2 > or=60 mL/min/1.73m2 Final [facility] - Laboratory: [address] [place] [address], [place] Normal BUN/creatinine Ratio 21 (calc) 6-22 (calc) Final [facility] Laboratory: [address] [place] [address], [place] Normal Sodium 143 mmol/L 135-146 mmol/L Final [facility] - Laboratory: [address] [place] [address], [place] Normal Potassium 4.9 mmol/L 3.5-5.3 mmol/L Final [facility] - Laboratory: [address] [place] [address], [place] High Chloride 112 mmol/L 98-110 mmol/L Final [facility] Laboratory: [address] [place] [address], [place] Normal Carbon Dioxide 24 mmol/L 20-32 mmol/L Final [facility] Laboratory: [address] [place] [address], [place] Normal Calcium 10.1 mg/dL 8.6-10.3 mg/dL Final [facility] - Laboratory: [address], [place] Normal Protein, Total 6.5 g/dL 6.1-8.1 g/dL Final [facility] - Laboratory: [address], [place] Normal Albumin 3.9 g/dL 3.6-5.1 g/dL Final [facility] - Laboratory: [address] [place] Normal Globulin 2.6 g/dL (calc) 1.9-3.7 g/dL (calc) Final [facility]: [address] [facility] Normal Albumin/globulin Ratio 1.5 (calc) 1.0-2.5 (calc) Final [facility]: [address] [place] Normal Bilirubin, Total 0.7 mg/dL 0.2-1.2 mg/dL Final [facility] Laboratory: [address] [facility] High Alkaline Phosphatase 116 U/L 40-115 U/L Final [facility] Laboratory: [address] [facility] To [facility] Normal Ast 19 U/L 10-35 U/L Final [facility] Laboratory: [address] [facility] To [facility] Normal Alt 15 U/L 9-46 U/L Final [facility]: [address] [place] 07/24/2019 CBC W/ Auto Diff Normal White Blood Cell Count 6.4 thousand/uL 3.8-10.8 thousand/uL Final [facility] - Laboratory: [address] [place] Low Red Blood Cell Count 3.75 million/uL 4.20-5.80 million/uL Final [facility] - Laboratory: [address] [place] Low Hemoglobin 8.8 g/dL 13.2-17.1 g/dL Final [facility] Laboratory: [address] [place] Low Hematocrit 29.6 % 38.5-50.0 % Final [facility] Laboratory: [address] [place] Low Mcv 78.9 fL 80.0-100.0 fL Final [facility] Laboratory: [address] [place] Low Mch 23.5 pg 27.0-33.0 pg Final [facility] Laboratory: [address] [place] Low Mchc 29.7 g/dL 32.0-36.0 g/dL Final [facility] - Laboratory: [address], [place] [address] 17.4 % 11.0-15.0 % Final [facility] - Laboratory: [address], [place] Normal Platelet Count 242 thousand/uL 140-400 thousand/uL Final [facility] - Laboratory: [address] [place] Normal Mpv 10.4 fL 7.5-12.5 fL Final [facility] - Laboratory: [address], [place] Normal Absolute Neutrophils 3539 cells/uL 7677-8314 cells/uL Final [facility] Laboratory: [address], [place] Normal Absolute Lymphocytes 2010 cells/uL 850-3900 cells/uL Final [facility] Laboratory: [address], [place] Normal Absolute Monocytes 608 cells/uL 200-950 cells/uL Final [facility] Laboratory: [address] [place] Normal Absolute Eosinophils 192 cells/uL 15-500 cells/uL Final [facility] Laboratory: [address], [place] Normal Absolute Basophils 51 cells/uL 0-200 cells/uL Final [facility]: [address], [place] Normal Neutrophils 55.3 % Final [facility] Laboratory: [address], [place] Normal Lymphocytes 31.4 % Final [facility] Laboratory: [address], [place] Normal Monocytes 9.5 % Final [facility] Laboratory: [address], [place] Normal Eosinophils 3.0 % Final [facility] Laboratory: [address], [place] Normal Basophils 0.8 % Final [facility] Laboratory: [address], [place] 07/23/2019 INR, Plasma High Inr 1.5 Final [facility] - Laboratory: [address] High Pt 15.8 sec 9.0-11.5 sec Final [facility] - Laboratory: [address], [place] 07/23/2019 Glucose, Fingerstick, Blood Blood Glucose: mg/dl [address] [place] [address] Medical - Hobby: [address], [place] 07/14/2019 Glucose, Fingerstick, Blood Blood Glucose: mg/dl 159 [facility]: [address] [facility] 5, [place] CMP, Serum or Plasma No observation recorded. [facility] [address] [place] CBC W/ Auto Diff No observation recorded. [facility] [address], [place] Allergies Code Code System Name Reaction Severity [...] Tobacco Smoking Status Former Smoker Past Encounters 08/13/2019 Stasis Dermatitis and Venous Ulcer of Lower Extremity Due to Chronic Peripheral Venous Hypertension; Lower Urinary Tract Symptoms Due to Benign Prostatic Hypertrophy; Peripheral Vascular Disease; Type 2 Diabetes Mellitus; Lymphedema of Lower Extremity Brittni Acevedo PORTFOLIO MANAGER: [address], [address], [place] [address], Ph. 07/23/2019 Benign Hypertensive Heart Disease without Congestive Heart Failure; Atrial Fibrillation; Long-term Current Use of Anticoagulant; Type 2 Diabetes Mellitus; Low Blood Pressure; Anemia; Malaise and Fatigue; Blood in Urine Luis M Barrera Jr, MD: [address], [facility] [address], [place] [address], Ph. 07/14/2019 Type 2 Diabetes Mellitus; Hypertensive Heart Disease with Congestive Heart Failure; Acute Congestive Heart Failure; Atrial Fibrillation; Morbid Obesity; Secondary Hyperparathyroidism; Major Depression in Remission; Stasis Dermatitis and Venous Ulcer of Lower Extremity Due to Chronic Peripheral Venous Hypertension; Retention of Urine; Indwelling Urethral Urinary Catheter in Situ; Unable to Afford Medication Luis M Barrera Jr, MD: [address], [facility] [address], [place] [address], Ph. History of Present Illness TCM Provider Visit Reported By: Patient HPI: Timing: Date of admit:, Date of discharge:, Date of Initial Contact:, Please describe what events led up to this hospitalization:. Discharge Information: Discharge Diagnoses:, Discharged from: Other, Discharged to: Home, Hospital Records (H&P, DC Summary, Transition of Care Document) reviewed and scanned? Yes, Current Caregivers:family, Home health ordered? no, no, . Functional Status Taking medications as prescribed, Understands missed doses, Following recommended activity level, Does patient need help getting medications filled? no, Is the patient dependent upon others to leave the home? yes Review of Systems Comprehensive General Adult ROS Reported By: Patient Constitutional: Constitutional: no fever Eyes: Eyes: no dry eyes ENMT: Ears: no ear pain. Nose: no sinus problems. Mouth/Throat: no sore throat, no mouth ulcers, no teeth problems Cardiovascular: Cardiovascular: no chest pain, no shortness of breath when walking, no shortness of breath when lying down, no palpitations Respiratory: Respiratory: no cough, no wheezing, no shortness of breath Gastrointestinal: Gastrointestinal: no abdominal pain, no nausea, no vomiting, no diarrhea Genitourinary: Genitourinary: no difficulty urinating, no increased frequency, urinary loss of control; indwelling Cleaning cath Musculoskeletal: Musculoskeletal: muscle aches, muscle weakness, arthralgias/joint pain, back pain, swelling in the extremities Integumentary: Skin: no abnormal mole, rash, dry skin, growths/lesions Neurologic: Neurologic: no loss of consciousness, no weakness, no numbness, no dizziness Psychiatric: Psych: no sleep disturbances, no alcohol abuse, no suicidal thoughts Endocrine: Endocrine: no fatigue Hematologic/Lymphatic: Hematologic/Lymphatic no swollen glands Allergic/Immunologic: Allergy/Immunologic: no runny nose, no sinus pressure Physical Exam General Adult Exam (male) Reported By: Patient Constitutional: General Appearance: healthy-appearing, well-developed, morbidly obese. Level of Distress: NAD. Ambulation: limited ambulation Eyes: Lids and Conjunctivae: non-injected. Pupils: PERRLA. EOM: EOMI ENMT: Ears: no lesions on external ear. Nose: no lesions on external nose, no sinus tenderness, nasal discharge--rhinorrhea. Oropharynx: moist mucous membranes, no erythema Neck: Neck: supple. Lymph Nodes: no cervical LAD Lungs: Auscultation: breath sounds normal, good air movement, no wheezing Cardiovascular: Apical Impulse: not displaced. Heart Auscultation: RRR, normal S1, normal S2 Male : Penis: ; suprapubic catheter in place Musculoskeletal:: Motor Strength and Tone: normal tone. Joints, Bones, and Muscles: normal movement of all extremities Neurologic: Gait and Station: normal gait Skin: Inspection and palpation: no rash, ulcer; lymphedema and venous stasis ulcers, stablized at this time. Nails: normal Back: Thoracolumbar Appearance: normal curvature
--- OUTSIDE RECORDS SUMMARY | 2019-08-26 12:15 | XMS REPORT | Encounter Summary ---
Author Organization Unknown Address [address] [place] [id number] Phone [phone] Care Team Providers Care Real Estate Clerk Name Role Phone Dr. Luis M Barrera 3 [phone] Luis M Barrera Jr, MD 3 [phone] Lalo Canales MD 115 [phone] Reason for Visit Stasis dermatitis and venous [...] Normal Glucose 71 mg/dL 65-99 mg/dL Final [facility] - Laboratory: [address] [place] [address], [place] High Urea Nitrogen (BUN) 39 mg/dL 7-25 mg/dL Final [facility] - Laboratory: [address] High Creatinine 1.87 mg/dL 0.70-1.18 mg/dL Final [facility] - Laboratory: [address] Low eGFR Non-afr. German 34 mL/min/1.73m2 > or=60 mL/min/1.73m2 Final [facility] - Laboratory: [address] [place] [address], [place] Low eGFR 39 mL/min/1.73m2 > or=60 mL/min/1.73m2 Final [facility] - Laboratory: [address] [place] [address], [place] Normal BUN/creatinine Ratio 21 (calc) 6-22 (calc) Final [facility] - Laboratory: [address] [place] [address], [place] Normal Sodium 143 mmol/L 135-146 mmol/L Final [facility] - Laboratory: [address] [place] [address], [place] Normal Potassium 4.9 mmol/L 3.5-5.3 mmol/L Final [facility] - Laboratory: [address] [place] [address], [place] High Chloride 112 mmol/L 98-110 mmol/L Final [facility] - Laboratory: [address] [place] [address], [place] Normal Carbon Dioxide 24 mmol/L 20-32 mmol/L Final [facility] - Laboratory: [address] [place] [address], [place] Normal Calcium 10.1 mg/dL 8.6-10.3 mg/dL Final [facility] - Laboratory: [address], [place] Normal Protein, Total 6.5 g/dL 6.1-8.1 g/dL Final [facility] - Laboratory: [address], [place] Normal Albumin 3.9 g/dL 3.6-5.1 g/dL Final [facility] - Laboratory: [address] [place] Normal Globulin 2.6 g/dL (calc) 1.9-3.7 g/dL (calc) Final [facility] [address] [facility] Albumin/globulin Ratio 1.5 (calc) 1.0-2.5 (calc) Final [facility] - Laboratory: [address] [place] Normal Bilirubin, Total 0.7 mg/dL 0.2-1.2 mg/dL Final [facility] [address] [facility] Alkaline Phosphatase 116 U/L 40-115 U/L Final [facility]: [address] [facility] Normal Ast 19 U/L 10-35 U/L Final [facility]: [address] [facility] Alt 15 U/L 9-46 U/L Final [facility] - Laboratory: [address] [place] 07/24/2019 CBC W/ Auto Diff Normal White Blood Cell Count 6.4 thousand/uL 3.8-10.8 thousand/uL Final [facility] - Laboratory: [address] [place] Low Red Blood Cell Count 3.75 million/uL 4.20-5.80 million/uL Final [facility] - Laboratory: [address] [place] Low Hemoglobin 8.8 g/dL 13.2-17.1 g/dL Final [facility] - Laboratory: [address] [place] Low Hematocrit 29.6 % 38.5-50.0 % Final [facility] - Laboratory: [address] [place] Low Mcv 78.9 fL 80.0-100.0 fL Final [facility] - Laboratory: [address] [place] Low Mch 23.5 pg 27.0-33.0 pg Final [facility] - Laboratory: [address] [place] Low Mchc 29.7 g/dL 32.0-36.0 g/dL Final [facility] - Laboratory: [address], [place] High Rdw 17.4 % 11.0-15.0 % Final [facility] - Laboratory: [address], [place] Normal Platelet Count 242 thousand/uL 140-400 thousand/uL Final [facility] - Laboratory: [address] Normal Mpv 10.4 fL 7.5-12.5 fL Final [facility] - Laboratory: [address], [place] Normal Absolute Neutrophils 3539 cells/uL 6795-6041 cells/uL Final [facility] - Laboratory: [address], [place] Normal Absolute Lymphocytes 2010 cells/uL 850-3900 cells/uL Final [facility] - Laboratory: [address], [place] Normal Absolute Monocytes 608 cells/uL 200-950 cells/uL Final [facility] - Laboratory: [address] Normal Absolute Eosinophils 192 cells/uL 15-500 cells/uL Final [facility] - Laboratory: [address], [place] Normal Absolute Basophils 51 cells/uL 0-200 cells/uL Final [facility] - Laboratory: [address], [place] Normal Neutrophils 55.3 % Final [facility] - Laboratory: [address], [place] Normal Lymphocytes 31.4 % Final [facility] - Laboratory: [address], [place] Normal Monocytes 9.5 % Final [facility] - Laboratory: [address], [place] Normal Eosinophils 3.0 % Final [facility] - Laboratory: [address], [place] Normal Basophils 0.8 % Final [facility] - Laboratory: [address], [place] 07/23/2019 INR, Plasma High Inr 1.5 Final [facility] - Laboratory: [address] High Pt 15.8 sec 9.0-11.5 sec Final [facility] - Laboratory: [address], [place] 07/23/2019 Glucose, Fingerstick, Blood Blood Glucose: mg/dl [address] [place] [address] Medical - [facility]obby: [address], [place] 07/14/2019 Glucose, Fingerstick, Blood Blood Glucose: mg/dl [address] [facility]: [address] [facility] 5, [place] CMP, Serum or Plasma No observation recorded. [facility] [address] [place] CBC W/ Auto Diff No observation recorded. [facility] [address], [place] Allergies Code Code System Name Reaction Severity [...] Mellitus; Lymphedema of Lower Extremity Brittni Acevedo OPTICAL LAB TECHNICIAN: [address], [address], [place] [address], Ph. 07/23/2019 Benign Hypertensive Heart Disease without Congestive Heart Failure; Atrial Fibrillation; Long-term Current Use of Anticoagulant; Type 2 Diabetes Mellitus; Low Blood Pressure; Anemia; Malaise and Fatigue; Blood in Urine Luis M Barrera Jr, MD: [address], [facility] [address], [place] [address], Ph. 07/14/2019 Type 2 Diabetes Mellitus; Hypertensive [...] MD: [address], [facility] [address], [place] [address], Ph. History of Present Illness TCM Provider [...]
[2019-08-26] MEDS ORDERED: SODIUM CHLORIDE 0.9% 1000ML 1,000 ML IV SCH (12:22)
[2019-08-26 12:59] LABS: CLARITY,URINE CLOUDY (CLEAR); COLOR,URINE YELLOW (YELLOW)
[2019-08-26 13:00] LABS: BILIRUBIN,URINE NEGATIVE (NEGATIVE); KETONES,URINE NEGATIVE (NEGATIVE); LEUKOCYTE ESTERASE ,URINE SMALL (NEGATIVE); NITRITE,URINE POSITIVE (NEGATIVE); PROTEIN,URINE DIPSTICK 1+ (NEGATIVE); URINE UROBILINOGEN 0.2 mg/dL (0.2 - 1)
[2019-08-26] MEDS ORDERED: PIPER-TAZ 3.375 GM 50 ML IV SCH (13:00)
[2019-08-26 13:09] LABS: BACTERIA,URINE MANY /HPF; EPITHELIAL CELLS,URINE FEW /LPF; RBC,URINE 21-50 /HPF (0-5); WBC,URINE (MAN) >50 /HPF (0-5)
[2019-08-26 13:52] LABS: BASOPHILS % 0.4 % (0.0-1.0); EOSINOPHILS # (AUTO) 0.1 (0.0-0.4); EOSINOPHILS % 2.9 % (0.0-6.0); HEMATOCRIT 31.7 % (38.2-49.6); HEMOGLOBIN 9.5 g/dL (14.0-18.0); LYMPHOCYTES # (AUTO) 1.4 (1.0-3.2); LYMPHOCYTES % 29.3 % (18.0-39.1); MEAN CORPUSCULAR HEMOGLOBIN 24.7 pg (28-32); MEAN CORPUSCULAR VOLUME 82.6 fL (81-99); MONOCYTES # (AUTO) 0.4 (0.2-0.8); MONOCYTES % 8.8 % (4.4-11.3); NEUTROPHILS # (AUTO) 2.9 (2.1-6.9); NEUTROPHILS % 58.4 % (38.7-80.0); PLATELET COUNT 225 x10e3/uL (140-360); RED BLOOD COUNT 3.84 x10e6/uL (4.3-5.7); RED CELL DISTRIBUTION WIDTH 19.9 % (11.7-14.4)
[2019-08-26 14:06] LABS: ALBUMIN 3.7 g/dL (3.5-5.0); ALBUMIN/GLOBULIN RATIO 1.1 (0.8-2.0); CALCIUM 10.1 mg/dL (8.4-10.2); CREATININE, SERUM 1.52 mg/dL (0.72-1.25)
[2019-08-26] MEDS: ACETAMINOPHEN/CODEINE 300MG - 30MG TAB PO PRN (21:30)
[2019-08-26] MEDS: PIPER-TAZ 3.375 GM 50 ML IV SCH (21:32)
[2019-08-26 22:44] VITALS: BP 145/76
--- NOTE | 2019-08-26 22:45 | NUR ---
patient arrived to the floor via gurney, oriented to the floor and staff, AOX3, able to make needs known, NPO after midnight procedure in the am, patient and staff made aware,
[2019-08-26 22:54] VITALS: BP 145/76
[2019-08-26 23:07] VITALS: BP 145/76
[2019-08-27] VITALS (9 sets, daily range): BP systolic 117–155; BP diastolic 60–85
[2019-08-27] MEDS: PIPER-TAZ 3.375 GM 50 ML IV SCH ×4 (01:57→20:12)
--- NOTE | 2019-08-27 05:30 | NUR ---
PATIENT AWAKEN CONCERNED ABOUT INCONTIENCE BRIEF BEING SOAKED, STATING "iM URINATING OUT MY PENIS, IT HAS NEVER DONE THAT BEFORE", BLADDER SCAN RESULTED 180CC/URINE IN BLADDER, MEDICAL RESEARCHER CARLIN REPORTED OVER 300CC URINE COLLECTED FROM SUPRAPUBIC BAG, PATIENT INCONTINENCE BRIEF DRY, PATIENT MADE AWARE
[2019-08-27 05:36] LABS: BASOPHILS % 0.4 % (0.0-1.0); EOSINOPHILS # (AUTO) 0.2 (0.0-0.4); EOSINOPHILS % 4.4 % (0.0-6.0); HEMATOCRIT 28.5 % (38.2-49.6); HEMOGLOBIN 8.6 g/dL (14.0-18.0); LYMPHOCYTES # (AUTO) 1.4 (1.0-3.2); LYMPHOCYTES % 31.6 % (18.0-39.1); MEAN CORPUSCULAR HEMOGLOBIN 24.5 pg (28-32); MEAN CORPUSCULAR HGB CONC 30.2 g/dL (31-35); MEAN CORPUSCULAR VOLUME 81.2 fL (81-99); MONOCYTES # (AUTO) 0.5 (0.2-0.8); MONOCYTES % 9.9 % (4.4-11.3); NEUTROPHILS # (AUTO) 2.4 (2.1-6.9); NEUTROPHILS % 53.5 % (38.7-80.0); PLATELET COUNT 189 x10e3/uL (140-360); RED BLOOD COUNT 3.51 x10e6/uL (4.3-5.7); RED CELL DISTRIBUTION WIDTH 19.6 % (11.7-14.4)
[2019-08-27 06:01] LABS: ALANINE AMINOTRANSFERASE 12 IU/L (0-55); ALBUMIN 3.1 g/dL (3.5-5.0); ALBUMIN/GLOBULIN RATIO 1.1 (0.8-2.0); ALKALINE PHOSPHATASE 112 IU/L (40-150); ANION GAP 11.2 mmol/L (8-16); BLOOD UREA NITROGEN 17 mg/dL (7-26); BUN/CREATININE RATIO 13 (6-25); CALCIUM 9.6 mg/dL (8.4-10.2); CARBON DIOXIDE 24 mmol/L (22-29); CHLORIDE 112 mmol/L (98-107); CREATININE, SERUM 1.33 mg/dL (0.72-1.25); EST GLOMERULAR FILTRATION RATE > 60 ML/MIN (60-); GLUCOSE 126 mg/dL (74-118); POTASSIUM 4.2 mmol/L (3.5-5.1); SODIUM 143 mmol/L (136-145)
--- NOTE | 2019-08-27 07:26 | NUR ---
patient made aware of procedure to revise or replace suprapubic catheter, during rounding c/o lower abdomen pain, no urine seen in catheter bag, RN kortney assess patient, unkinked line, pt obtained relief, urine now in bag,resting comfortably
[2019-08-27] MEDS: FINASTERIDE 5 MG TAB PO SCH (08:52)
[2019-08-27] MEDS: FUROSEMIDE 40 MG TAB PO SCH (08:52)
[2019-08-27] MEDS: AMLODIPINE BESYLATE 10 MG TAB PO SCH (08:52)
[2019-08-27] MEDS: OLMESARTAN 20 MG TAB PO SCH (08:52)
[2019-08-27] MEDS ORDERED: DEXTROSE 50% SYRINGE 50 ML IV PRN (09:00)
[2019-08-27 09:52] LABS: INR 2.25; PROTHROMBIN TIME 26.5 seconds (11.9-14.5)
[2019-08-27 09:53] LABS: PARTIAL THROMBOPLASTIN TIME 42.2 seconds (23.8-35.5)
[2019-08-27] MEDS ORDERED: LIDOCAINE HCL 1% LOCAL INJ 20 ML VIAL ONE ×2 (10:04→20:27)
[2019-08-27] MEDS ORDERED: IOPAMIDOL 300MG/ML 100 ML INFUS..BTL IV ONE ×2 (10:04→20:26)
[2019-08-27] MEDS: INSULIN LISPRO 100 UNIT/1 ML 3ML VIAL SQ SCH ×3 (11:30→22:17)
[2019-08-27] MEDS ORDERED: IOPAMIDOL 370 MG/ML 200 ML INFUS..BTL INJ ONE (13:56)
[2019-08-27] MEDS ORDERED: FENTANYL CITRATE/PF 100MCG/2 ML INJ ONE (15:15)
[2019-08-27] MEDS ORDERED: MIDAZOLAM HCL 2 MG/2 ML VIAL ONE (15:15)
--- NOTE | 2019-08-27 15:45 | NUR ---
patient back from IR with 12f SPC in place. patient tolerated well.
--- NOTE | 2019-08-27 16:34 | Diagnostic Imaging Report ---
Fluoroscopic guided suprapubic catheter exchange/conversion Clinical History: Urethral stricture. Patient with indwelling 10 Grenadian pigtail suprapubic catheter. Catheter exchange and conversion to balloon retention Cleaning requested. Modality: Fluoroscopy. Correspondence School Instructor: Abilio Weems MD. Pasta Maker: None. Conscious sedation: 2 mg Versed, 100 mcg fentanyl IV. The patient was continuously monitored throughout the procedure by the nurse. Vital signs remained stable throughout. Estimated Blood Loss: Less than 10 cc. Specimen: None. Fluoroscopy Time: 3.5 min. Reference Air Kerma (Ka, r): 69.9 mGy. Technique: Discussion of risks, benefits, and alternatives were made with the patient. The patient expressed understanding and agreed to proceed. After informed consent was obtained, which included the risks of bleeding, infection, injury to adjacent structures/bowel, adverse medication reaction, the patient's abdomen was prepped and draped in the usual sterile manner. All elements maximal sterile barrier technique was utilized for this procedure, including utilization of sterile scrub solution for skin prep, a large sterile sheet to cover the areas of the patient that were not prepped, and hand hygiene, mask, head covering, and sterile gown for performing radiologist and scrub technologist. Contrast was injected via the indwelling catheter confirming position within the urinary bladder. 1% lidocaine was used for local anesthesia. The existing catheter was cut and a 0.035 wire was advanced into the catheter and coiled within the urinary bladder. Initially, a new 10 Grenadian pigtail catheter was advanced over wire into the urinary bladder. However, order clarification was obtained and request for conversion to balloon retention Cleaning was obtained. The 10 Grenadian pigtail catheter was removed over a 0.035 wire. The tract was serially dilated. A 18 Grenadian peel-away sheath (largest available) was placed. The 16 Grenadian balloon retention Cleaning could not be placed through the largest available peel-away sheath. Subsequently, a 12 Grenadian balloon retention Cleaning catheter was placed through the peel-away sheath into the urinary bladder. The balloon was inflated with 10 cc of fluid. Contrast injection confirmed intraluminal position. The patient was discharged from the department in stable condition. Impression: Successful fluoroscopic guided suprapubic catheter exchange and conversion/upsize to a 12 Grenadian balloon retention Cleaning. Please note conversion to a larger balloon retention catheter could not be performed as a larger peel-away sheath was not available at the time of the procedure. Signed by: Dr. Abilio Weems MD on 08/27/2019 4:31 PM
[2019-08-27] MEDS: ACETAMINOPHEN/CODEINE 300MG - 30MG TAB PO PRN ×2 (18:06→20:00)
--- NOTE | 2019-08-27 18:59 | NUR ---
during shift change patient c/o urinary retention, attempted to flush garcia, unable to flush, no fluid return, no urine noted, MD freedman paged for orders
--- NOTE | 2019-08-27 19:12 | NUR ---
MD FERRER CALLED BACK MADE AWARE OF THE SITUATION OF THE CLOGGED MESA CATH, IR WAS CONTACTED BY TELEPHONE TALKED WITH THE TECH MADE HIM AWARE OF THE SITUATION PER MD ORDER, TECH STATED HE WILL CALL IR DEPT DOCTOR TO MAKE HIM AWARE, OUTSIDE LABORER FREDDY MADE AWARE OF THE SITUATION, INFORMED THAT PATIENT IS AOX3 NO IV FLUIDS RUNNING, PT IS C/O SEVERE PAIN AT THIS TIME, SEEN MOANING IN PAIN
--- NOTE | 2019-08-27 19:42 | NUR ---
PATIENT SEEN STANDING AT BEDSIDE, SCREAMING IN PAIN, PATIENT PLACED BACK IN BED, CATHETER ASSESSED, APPEARS TO BE DISLODGED, TIP SITTING AT THE SUPRAPUBIC SITE, BLOODY WET DRESSING TAKEN OFF SITE, SMALL BLOOD CLOT SEEN SITTING AT WOUND OPENING, SITE CLEANSED, IR UPDATED WITH CURRENT FINDINGS
--- NOTE | 2019-08-27 19:54 | NUR ---
ATTEMPTED TO CALL IR DEPT, BOTH EXTENSION BUSY MULTIPLE TIMES, PULMONARY FELLOW MEME MADE AWARE SHE ATTMEPTED TO WALK DOWN TO THE DEPT AND ADVISED THEM, UNABLE TO GET IN TOUCH WITH ONCEDUARDO WALTER, PERIPHERAL EDP EQUIPMENT OPERATOR FREDDY MADE AWARE OF THE SITUATION, PER MD FERRER, "ADVISE YOUR PERIPHERAL EDP EQUIPMENT OPERATOR AND LIFT SUPERVISOR ABOUT THE SITUATION, THE SOLID WASTE ENGINEER IR DOCTOR NEEDS TO COME IN AND FIX IT", CONTACT PERIPHERAL EDP EQUIPMENT OPERATOR FREDDY CAMEJO AGAIN VIA TELEPHONE, SHE STATED "i HAVE THE LIFT SUPERVISOR AND EVERYONE ON THE PHONE THEY WILL CALL MD FERRER REGARDING THE SITUATION WE ARE ON IT"
[2019-08-27] MEDS ORDERED: MORPHINE SULFATE 2 MG/ML SYR 1ML IV NR (20:10)
--- NOTE | 2019-08-27 20:33 | NUR ---
informed by IR that MD Leah De La O will be performed emergent procedure for patient, patient informed consent for revision and replacement of suprapubic catheter consent signed, placed in chart,
[2019-08-27] MEDS ORDERED: ATORVASTATIN 10 MG TAB PO SCH (21:00)
--- NOTE | 2019-08-27 22:00 | NUR ---
PATIENT RETURN FROM IR VIA BED SUPRAPUBIC CATH REPLACED, BLOODY DRAINAGE NOTED IN BAG, 200CC EMPTIED, PATIENT REPORTS PAIN LEVEL DECREASED AND ABLE TO REST W/O DIFFICULTY, CALL LIGHT WITHIN REACH
[2019-08-28] VITALS (7 sets, daily range): BP systolic 133–152; BP diastolic 69–77
[2019-08-28] MEDS: PIPER-TAZ 3.375 GM 50 ML IV SCH ×2 (03:34→08:18)
--- NOTE | 2019-08-28 06:56 | NUR ---
BSSR GIVEN CHUY KHALIL PATIENT AT BEDSIDE, PATIENT AWAKE ALERT, NO DISTRESS NOTED, SKIN WARM DRY CALL LIGHT WITHIN REACH
[2019-08-28] MEDS: INSULIN LISPRO 100 UNIT/1 ML 3ML VIAL SQ SCH (07:23)
[2019-08-28] MEDS: FINASTERIDE 5 MG TAB PO SCH (08:18)
[2019-08-28] MEDS: AMLODIPINE BESYLATE 10 MG TAB PO SCH (08:18)
[2019-08-28] MEDS: OLMESARTAN 20 MG TAB PO SCH (08:18)
[2019-08-28] MEDS: FUROSEMIDE 40 MG TAB PO SCH (08:18)
--- NOTE | 2019-08-28 09:35 | Diagnostic Imaging Report ---
SUPRAPUBIC BLADDER CATHETER PLACEMENT 08/27/2019 Indication: 78-year-old male with urinary retention and an indwelling suprapubic catheter. The catheter fell out following attempted exchange earlier in the day. Replacement is requested. Comparison: Images from suprapubic catheter exchange from 08/27/2019 Sedation: None Fluoroscopy Time: 0.2 minutes Radiation Dose: 5.07 mGy Procedure: Informed consent was obtained. The patient was placed in a supine position on the fluoroscopy table. Inspection of the patient's pelvis revealed a partially closed suprapubic catheter tract. The overlying skin was prepped and draped in the usual sterile fashion. 1% lidocaine was instilled for topical analgesia. Attempts were made to access the bladder through the existing tract using a Kumpe catheter. Unfortunately, the bladder could not be accessed through the existing tract. As a result, the decision was made to create a new tract for catheter placement. Pelvic sonography revealed marked distention of the urinary bladder. Under ultrasound guidance, an 18-gauge needle was advanced into the urinary bladder through the existing skin opening. Bloody urine was encountered from the needle. An Amplatz wire was advanced through the needle and coiled within the bladder under fluoroscopic guidance. The tract was dilated up to 12 British. An attempt was made to advance a Bard 12 Fr balloon retention suprapubic catheter over the wire into the bladder; however, the balloon retention catheter would not completely track. As a result, a 12 British all-purpose pigtail drain was advanced over the wire into the urinary bladder without difficulty. The pigtail was formed within the central aspect of the urinary bladder. Contrast injection through the drain confirmed appropriate position of the catheter within the urinary bladder. Bloody urine with clots was aspirated through the new drain. The bladder was irrigated. The drain was connected to a drainage bag. The catheter was sutured to the skin and a dressing was applied. There were no immediate complications. IMPRESSION: Replacement of a suprapubic bladder catheter under ultrasound and fluoroscopic guidance. Direct access to the bladder through the existing tract could not be obtained and therefore a new tract was created through the existing skin entrance site. A 12 British pigtail catheter was placed. This may be exchanged for a balloon retention suprapubic catheter once the tract is mature. Signed by: Milo De La O MD on 08/28/2019 9:32 AM
--- NOTE | 2019-08-28 10:52 | NUR ---
Dr Mc spoke with Dr Perdomo and patient is to discharge and follow up outpatient with Dr Perdomo. waiting for transportation now.
== END 2019-08-28 11:32 | disposition home or self-care (01) ==
LOC: ER 12:10 → ERHOLD 13:00 → IMCU 22:21
PROVIDERS: ADMIT Internal Medicine; ATTEND Internal Medicine
DX: T83.090A Other mechanical complication of cystostomy catheter, initial encounter (principal); T83.510A Infection and inflammatory reaction due to cystostomy catheter, initial encounter; I50.9 Heart failure, unspecified; E66.9 Obesity, unspecified; Z85.46 Personal history of malignant neoplasm of prostate; Z68.41 Body mass index [BMI] 40.0-44.9, adult; Z86.718 Personal history of other venous thrombosis and embolism; D64.9 Anemia, unspecified; E11.22 Type 2 diabetes mellitus with diabetic chronic kidney disease; N18.9 Chronic kidney disease, unspecified; B96.20 Unspecified Escherichia coli [E. coli] as the cause of diseases classified elsewhere; B95.2 Enterococcus as the cause of diseases classified elsewhere; B96.89 Other specified bacterial agents as the cause of diseases classified elsewhere
CPT/HCPCS: 36415 ×3; 51102; 51710; 74470; 77002; 80053 ×2; 81001; 82948 ×3; 85025 ×2; 85610; 85730; 87086; 87186; 96372; 99284; C1729; C1769 ×2; G0378 ×3; J2001; J2250; J2270; J2543 ×3; J3010; J7030; Q9967 ×2; 51705; 99152

== ENCOUNTER 2019-09-07 19:13 | Inpatient (IN) | payer MEDICARE ==
[~2019-09-07] VITALS: Ht 185.4 cm; Wt 141.5 kg
--- NOTE | 2019-09-07 20:07 | Diagnostic Imaging Report ---
Examination: Single AP view of the chest. COMPARISON: 08/05/2019 INDICATION: Shortness of breath DISCUSSION: Lungs are well-inflated. New patchy consolidation in the right lower lobe. Lungs are otherwise clear. Stable enlargement of the cardiac silhouette with tortuous thoracic aorta and atherosclerotic calcification. No overt pulmonary edema. No acute osseous abnormalities. IMPRESSION: Patchy right lower lobe consolidation is concerning for pneumonia or aspiration pneumonitis. A left chest radiograph in 6-8 weeks is suggested to document resolution after appropriate treatment. Signed by: Dr. Kyle Johnson M.D. on 09/07/2019 8:05 PM
[2019-09-07] MEDS ORDERED: CEFTRIAXONE SOD 1 GM/NS 50 ML 50 ML IV ONE (20:15)
[2019-09-07] MEDS ORDERED: AZITHROMYCIN 250 MG TAB PO ONE (20:15)
[2019-09-07 20:18] LABS: BASOPHILS % 0.2 % (0.0-1.0); HEMATOCRIT 30.2 % (38.2-49.6); HEMOGLOBIN 9.4 g/dL (14.0-18.0); LYMPHOCYTES # (AUTO) 0.5 (1.0-3.2); LYMPHOCYTES % 3.6 % (18.0-39.1); MEAN CORPUSCULAR HEMOGLOBIN 25.1 pg (28-32); MEAN CORPUSCULAR HGB CONC 31.1 g/dL (31-35); MEAN CORPUSCULAR VOLUME 80.5 fL (81-99); MONOCYTES # (AUTO) 0.7 (0.2-0.8); MONOCYTES % 5.2 % (4.4-11.3); NEUTROPHILS # (AUTO) 11.8 (2.1-6.9); NEUTROPHILS % 89.6 % (38.7-80.0); PLATELET COUNT 191 x10e3/uL (140-360); RED BLOOD COUNT 3.75 x10e6/uL (4.3-5.7); RED CELL DISTRIBUTION WIDTH 18.8 % (11.7-14.4)
[2019-09-07] MEDS ORDERED: ACETAMINOPHEN 325 MG TAB PO ONE (20:30)
[2019-09-07 20:35] LABS: ALBUMIN 3.2 g/dL (3.5-5.0); ANION GAP 10.9 mmol/L (8-16); CALCIUM 10.2 mg/dL (8.4-10.2); CREATININE, SERUM 1.46 mg/dL (0.72-1.25); POTASSIUM 3.9 mmol/L (3.5-5.1)
[2019-09-07 20:41] LABS: CREATINE KINASE MB 0.9 ng/mL (0-5.0)
--- NOTE | 2019-09-07 20:55 | NUR ---
RT called for breathing treatment.
[2019-09-07] MEDS ORDERED: LEVALBUTEROL HCL SOLN NEBU 0.63 MG/3 ML NEB INH ONE (21:00)
[2019-09-07 21:10] LABS: BAND NEUTROPHILS % (MANUAL) 42 %; EOSINOPHILS % (MANUAL) 1 % (0-7); HYPOCHROMASIA SLIGHT; LYMPHOCYTES % (MANUAL) 6 % (19-48); MONOCYTES % (MANUAL) 3 % (3.4-9.0); NEUTROPHILS % (MANUAL) 47 % (40-74); POIKILOCYTOSIS SLIGHT; PROMYELOCYTES % (MANUAL) 1 % (0-0)
[2019-09-07 21:11] LABS: PLATELET ESTIMATE ADEQUATE; PLATELET MORPHOLOGY COMMENT NORMAL
[2019-09-07] MEDS ORDERED: CEFTRIAXONE SOD 1 GRAM/0.9% SOD CHL 50ML BAG IV SCH (22:00)
[2019-09-07] MEDS ORDERED: VANCOMYCIN HCL 1GM/NS 250 ML BAG IV SCH (22:30)
[2019-09-07 23:00] VITALS: BP 106/68
[2019-09-07 23:28] VITALS: BP 125/54
[2019-09-07 23:55] VITALS: BP 125/54
[2019-09-08] VITALS (11 sets, daily range): BP systolic 95–125; BP diastolic 41–70
[2019-09-08] MEDS ORDERED: DEXTROSE 50% SYRINGE 50 ML IV PRN (08:45)
[2019-09-08 09:07] LABS: INR 2.86; PROTHROMBIN TIME 32.2 seconds (11.9-14.5)
[2019-09-08] MEDS ORDERED: SODIUM CHLORIDE 0.9% 250ML 250 ML ONE (09:38)
[2019-09-08] MEDS: MEROPENEM 1GM 100 ML IV SCH ×2 (09:57→16:08)
[2019-09-08] MEDS: FINASTERIDE 5 MG TAB PO SCH (09:57)
--- NOTE | 2019-09-08 10:55 | NUR ---
LEFT FOR CT CHEST VIA W.C.
--- NOTE | 2019-09-08 12:00 | NUR ---
Had CT done this am. In no apparent distress. Calls to have leg bag emptied at times appropreiatly. Appreciative of care. Cont to have IV abx.
[2019-09-08] MEDS: INSULIN LISPRO 100 UNIT/1 ML 3ML VIAL SQ SCH ×3 (12:19→21:17)
--- NOTE | 2019-09-08 13:25 | Diagnostic Imaging Report ---
CT of the chest, without contrast, 09/08/2019 History: Pneumonia. Comparison: No chest CT comparisons available for review, comparison is made to chest radiograph dated 09/07/2019. Technique: Multidetector CT scanning of the chest was performed from the level of the thoracic inlet to the upper abdomen without IV or oral contrast. Dose reduction: The examination was performed according to departmental dose-optimization program which includes automated exposure control, adjustment of the mA and/or kV according to patient size and/or use of iterative reconstruction technique. Findings: There is no axillary lymphadenopathy. There is an anterior mediastinal mass versus a conglomeration anterior mediastinal lymph nodes which measures approximately 2.8 x 12.6 cm. The heart is mildly enlarged. There is no pericardial effusion. The thoracic aorta is of normal course and caliber. The trachea and central airways are clear. There is patchy consolidation in the right middle, right lower, lingula, and left lower lobes concerning for multifocal pneumonia. Small bilateral pleural effusions are present. There is no pneumothorax. Bilateral gynecomastia is present. Remote fracture deformity of the right sixth rib. No acute osseous abnormalities. Limited evaluation of the upper abdomen demonstrates no focal hepatic lesions in the visualized portions of the liver. IMPRESSION: 1. Multifocal pneumonia involving the right middle, right lower, lingula, and left lower lobes. 2. 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 Further evaluation can be performed with PET/CT. Of note the patient had multiple enlarged bilateral inguinal lymph nodes on abdominal CT dated 05/12/2019 which could be sampled percutaneously. 3. Mild cardiomegaly. 4. Small bilateral pleural effusions. 5. Gynecomastia. Signed by: Baldev Trevizo MD on 09/08/2019 1:22 PM
--- NOTE | 2019-09-08 13:59 | History and Physical ---
PRIMARY CARE PHYSICIAN: Pancho Germain MD CHIEF COMPLAINT: Fever and cough. HISTORY OF PRESENT ILLNESS: The patient is a 78-year-old male, morbidly obese with atrial fibrillation on anticoagulant therapy. The patient also has suprapubic catheter. The patient is on warfarin at home for his atrial fibrillation. He also has a suprapubic catheter. Apparently, he was having increase in cough and fever, came to the emergency room for evaluation. Here in the emergency room, the patient was found to have on the chest x-ray, one view right lower lobe pneumonia. He also has a fever of 100. The patient's baseline atrial fibrillation is stable. PAST MEDICAL HISTORY: 1. Atrial fibrillation. 2. Anticoagulant therapy. 3. DVT of the bilateral lower extremity. 4. Chronic lymphedema. 5. Morbid obesity. 6. Anticoagulant therapy. 7. History of prostate cancer with enlarged prostate. 8. Urinary retention with suprapubic catheter. 9. Hypertension. 10. Compensated congestive heart failure. 11. Recurrent urinary tract infection due to catheter. 12. Dyslipidemia. 13. Diabetes type 2. 14. Medical debility. PAST SURGICAL HISTORY: The patient has a suprapubic catheter. SOCIAL HISTORY: The patient does not smoke or use alcohol. No recreational drugs. ALLERGIES: NO KNOWN ALLERGIES. HOME MEDICATIONS: List will be available for review. REVIEW OF SYSTEMS: Cough and shortness of breath, but much improved. PHYSICAL EXAMINATION: VITAL SIGNS: Temperature is 100.2, blood pressure 113/62, pulse rate 93, respirations 20. GENERAL: The patient is not in acute distress. He is awake, he is resting. HEENT: Normocephalic and atraumatic. Anicteric. NECK: Supple grossly. PULMONARY: Diminished breath sounds, poor body habitus, difficult to assess, but no wheezing. No coarses. CARDIOVASCULAR: Atrial fibrillation, rate controlled. ABDOMEN: Morbidly obese. Positive bowel sounds non-distention. Suprapubic catheter. EXTREMITIES: No gross cyanosis. Positive for edema. NEUROLOGIC: The patient moving all extremities without any focal deficit. LABORATORY DATA: WBC 13, hemoglobin 9.4, hematocrit 30, platelet is 191. Chemistry; sodium 144, potassium 3.9, chloride 114, bicarb 23, BUN 24, creatinine 1.5, glucose 123. Chest x-ray, one view in the emergency room done showed patchy right lower lobe consolidation. IMPRESSION: 1. Right lower lobe consolidation pneumonia. 2. Chronic urinary tract infection with suprapubic catheter. 3. Baseline atrial fibrillation on anticoagulant therapy. 4. Multiple baseline problems. PLAN: Continue with antibiotics, meropenem and azithromycin for now. Consultation with Dr. Jin. Consultation with Dr. Perdomo for followup on the suprapubic catheter. Home medication resumed. Obtain a PT/INR first before resuming the patient on warfarin. Resume other home medication. Hold all blood pressure medication for now. Insulin sliding scale coverage. Incentive spirometry. The patient will be admitted. We will obtain a CT scan of the chest without contrast to document the stability of the pneumonia. Watch for patient lab work repeated. Check WBC. We will monitor the patient closely and adjust his medication accordingly. MD CORTEZ Tovar/AJAY /[id number]
[2019-09-08] MEDS ORDERED: AZITHROMYCIN 250MG/NS 100 ML 100 ML IV SCH (20:00)
[2019-09-08] MEDS: ATORVASTATIN 10 MG TAB PO SCH (20:53)
[2019-09-08] MEDS: VANCOMYCIN 1GM/NS 250 ML 250 ML IV SCH (20:53)
[2019-09-09] VITALS (7 sets, daily range): BP systolic 92–129; BP diastolic 53–71
--- NOTE | 2019-09-09 00:06 | Consultation ---
DATE OF CONSULTATION: 09/08/2019 REASON FOR CONSULTATION: Pneumonia. HISTORY OF PRESENT ILLNESS: This is a very pleasant 78-year-old male, history of obesity, atrial fibrillation, anticoagulation, suprapubic catheter. The patient was on Coumadin for atrial fibrillation, comes in with fever and chills, chest pain. The pain is in the lower part on his right side. The patient came to emergency room, he was found to have pneumonia by chest x-ray, he was found to have also UTI, he is on antibiotics. He is currently lying in bed comfortably. He said since he came to the hospital, he is feeling better. PAST MEDICAL HISTORY: Atrial fibrillation, on anticoagulation, DVT, bilateral lower extremities, chronic lymphedema, morbidly obese patient, history of prostate cancer with enlarged prostate, urinary retention, suprapubic catheter placement, hypertension, congestive heart failure, compensated bacteriuria, recurrent UTI, hyperlipidemia, diabetes mellitus, and morbidly obese. PAST SURGICAL HISTORY: Suprapubic catheter as above. SOCIAL HISTORY: There is no smoking, drug abuse or alcohol abuse. ALLERGIES: NKA. Medications list reviewed. REVIEW OF SYSTEMS: GENERAL: At present time, he is feeling much better. HEENT: Negative. PULMONARY: Negative. CARDIAC: Negative. : Negative. GI: Negative. SKIN: There are no other rashes. LABORATORY DATA: Reviewed. Blood cultures showing gram-positive cocci. His white count 13.15, hemoglobin 9.4. His sodium 144, potassium 3.9, creatinine 1.46. A chest x-ray was reviewed. CT of the chest showed multifocal pneumonia throughout the right middle and right lower and the lingula, also the left lower lobes. MEDICATION LIST: Currently on: 1. Meropenem. 2. Azithromycin. 3. Vancomycin. PHYSICAL EXAMINATION: GENERAL: He is currently alert, oriented, does not seem to be in acute distress. VITAL SIGNS: Stable, currently afebrile. HEENT: Not icteric. NECK: Supple. CHEST: Clear bilateral. COR: S1 and S2. No S3 or murmur. ABDOMEN: Soft. Bowel sounds present. No tenderness. No hepatomegaly. EXTREMITIES: No edema. SKIN: No rash. IMPRESSION: 1. I think the patient have sepsis present on admission. We will put him on vancomycin 1 g q.24 hours. 2. Chronic kidney disease, may be acute component. Recheck CBC. Recheck Chem panel. 3. Bacteremia, gram-positive cocci. Further recommendation depending on the type of bacteria. 4. Pneumonia, this could be pneumonia with bacteremia, concern about septic emboli with pneumonia. I think it would benefit from doing an echocardiogram. 5. Bacteriuria, suprapubic bacteria, atrial fibrillation. Further recommendations to follow. Discussed with the patient, discussed with the medical team. MD KEYANNA Acosta/AJAY /[id number]
[2019-09-09 05:14] LABS: BASOPHILS % 0.2 % (0.0-1.0); EOSINOPHILS % 0.3 % (0.0-6.0); HEMATOCRIT 28.6 % (38.2-49.6); HEMOGLOBIN 8.7 g/dL (14.0-18.0); MEAN CORPUSCULAR HEMOGLOBIN 24.9 pg (28-32); MEAN CORPUSCULAR HGB CONC 30.4 g/dL (31-35); MEAN CORPUSCULAR VOLUME 81.9 fL (81-99); MONOCYTES # (AUTO) 0.8 (0.2-0.8); MONOCYTES % 6.4 % (4.4-11.3); NEUTROPHILS % 82.2 % (38.7-80.0); PLATELET COUNT 162 x10e3/uL (140-360); RED BLOOD COUNT 3.49 x10e6/uL (4.3-5.7); RED CELL DISTRIBUTION WIDTH 18.4 % (11.7-14.4)
[2019-09-09 05:36] LABS: ANION GAP 9.8 mmol/L (8-16); BLOOD UREA NITROGEN 27 mg/dL (7-26); BUN/CREATININE RATIO 23 (6-25); CALCIUM 9.5 mg/dL (8.4-10.2); CARBON DIOXIDE 23 mmol/L (22-29); CHLORIDE 111 mmol/L (98-107); EST GLOMERULAR FILTRATION RATE > 60 ML/MIN (60-); GLUCOSE 119 mg/dL (74-118); POTASSIUM 3.8 mmol/L (3.5-5.1); SODIUM 140 mmol/L (136-145)
[2019-09-09] MEDS: INSULIN LISPRO 100 UNIT/1 ML 3ML VIAL SQ SCH ×4 (07:02→20:24)
[2019-09-09] MEDS: FINASTERIDE 5 MG TAB PO SCH (09:56)
[2019-09-09] MEDS: HYDROCODONE/APAP 7.5MG-325MG 1 EA TAB PO PRN ×2 (10:10→18:20)
[2019-09-09] MEDS ORDERED: WARFARIN SODIUM5 MG (10:51)
[2019-09-09] MEDS ORDERED: COUMADIN2 MG PO (10:51)
[2019-09-09 11:41] LABS: INR 2.1; PROTHROMBIN TIME 25.1 seconds (11.9-14.5)
--- NOTE | 2019-09-09 12:21 | Consultation ---
DATE OF CONSULTATION: 09/09/2019 Pulmonary Consultation REASON FOR CONSULT: Abnormal CT chest. HISTORY OF PRESENT ILLNESS: Mr. Flaherty is a 78-year-old male. He came to the emergency room because of shortness of breath. The patient was having cough and fever. He has smoked for few years in the past, quit many years ago. His mobility is also limited. The patient has chronic leg edema with chronic skin changes and he also has suprapubic catheter. I do not know the exact reason why suprapubic was placed. He has history of atrial fibrillation and currently, the patient's rate is controlled. He has atrial fibrillation, on Coumadin. INR is 2.86. When he came in, his white cell count was 13,000. The patient underwent Gram stain, blood cultures, then blood culture shows strep pneumonia. He underwent a CT of the chest, which I have reviewed the images that is showing an anterior mediastinal mass, looks like lymph node conglomeration 2.8 x 12.6 cm and there is multilobar consolidation as well. He denies any nausea, vomiting, or diarrhea. REVIEW OF SYSTEMS: GENERAL: Denies any fever or chills. HEAD: Denies any head trauma. ENT: Denies any earaches. CVS: Denies any chest pain. RESPIRATORY: Shortness of breath. GI: Denies any nausea or vomiting. The rest of the review of systems are negative except as in HPI. PAST MEDICAL HISTORY: Hypertension, obesity, chronic leg edema, etiology is not very clear, also has chronic skin changes, suprapubic catheter, which was placed recently. Denies any history of cancer, atrial fibrillation, on long-term anticoagulation. FAMILY AND SOCIAL HISTORY: Ex-smoker, smoked for 10 to 15 years. He is not sure and quit many years ago. PHYSICAL EXAMINATION: VITAL SIGNS: Temperature 97.3, pulse of 85, blood pressure 152/77, respiratory rate of 18, and O2 saturation 97% on room air. HEENT: Head is atraumatic and normocephalic. NECK: Supple. CHEST: Clear to auscultation bilaterally. No wheezing. HEART: S1 and S2 audible. ABDOMEN: Soft. EXTREMITIES: Pedal edema and chronic skin changes. LABORATORY DATA: White count of 13,000, hemoglobin 9.4, and platelets 191. This is from 09/07/2019, and chemistry also reviewed from 09/09/2019, came in with a creatinine of 1.46, now normal. INR on 09/07 is 2.86. Blood cultures are growing strep pneumonia. CT chest images reviewed. The patient has an anterior mediastinal mass, appears to be a conglomerate of lymph nodes. It is probably the para-aortic chain that is enlarged, which is extending in front of the pulmonary artery in the anterior mediastinum. There is small hiatal lymph node and possibly there is inguinal lymph node as well. Multilobar infiltrate, right more than the left. ASSESSMENT/PLAN: 1. Mr. Flaherty is a 78-year-old male. He is septic with two blood cultures positive for strep pneumonia. In this context, it appears to be due to multilobar pneumonia. The lymph node enlargement in the para-aortic chain possibly and anterior mediastinum could be reactive, but the size is too big to be reactive and will need biopsy. It cannot be biopsied with a bronchoscopy. I had a detailed discussion with the interventional radiologist and they recommended that they will try the inguinal lymph node biopsy first. IV antibiotics per ID recommendations. Oxygen as needed to keep the O2 saturation more than or equal to 92%. 2. Chronic atrial fibrillation. INR is 2.86. Possibly need to recheck the INR and Coumadin need to be on hold for possible biopsy. Thank you for this consult. MD BORIS Yañez/AJAY /[id number]
--- NOTE | 2019-09-09 13:40 | NUR ---
Visit made by the Spiritual Care Department Pastoral Visitor, Brenda Stpaleton. PV provided pastoral presence, hospitality, and supportive listening. Pastoral Visitor informed pt/family of the scope of [employer] and availability. [employer]N [employer] Spiritual Care Department O: [phone]
--- NOTE | 2019-09-09 14:06 | NUR ---
pt went for biopsy. stable
--- NOTE | 2019-09-09 16:00 | Diagnostic Imaging Report ---
PROCEDURE: Ultrasound-guided biopsy Procedural Personnel Attending physician(s): Rose Marie Lobato MD Fellow physician(s): None Resident physician(s): None Advanced practice provider(s): None Pre-procedure diagnosis: Lymphadenopathy Post-procedure diagnosis: Same Indication: Histopathologic diagnosis Previous biopsy of same target (QCDR): No Additional clinical history: None Complications: No immediate complications. IMPRESSION: Ultrasound-guided biopsy of right inguinal lymphadenopathy. Plan: Specimen(s) sent for evaluation. PROCEDURE SUMMARY: - Percutaneous US-guided right inguinal lymph node biopsy - Additional procedure(s): None PROCEDURE DETAILS: Pre-procedure Reference imaging for biopsy target: None Consent: Informed consent for the procedure including risks, benefits and alternatives was obtained and time-out was performed prior to the procedure. Preparation: The site was prepared and draped using maximal sterile barrier technique including cutaneous antisepsis. Anesthesia/sedation Level of anesthesia/sedation: No sedation Anesthesia/sedation administered by: Independent trained observer under attending supervision with continuous monitoring of the patient?s level of consciousness and physiologic status Total intra-service sedation time (minutes): NA Imaging prior to biopsy The patient was positioned supine. Initial ultrasound was performed. Biopsy target: - Maximal diameter (cm): 1.5 - Location: Right inguinal Other findings: None Biopsy Local anesthesia was administered. Under US guidance, the biopsy needle was advanced to the target and biopsy was performed. Coaxial needle: N/A Core needle biopsy device: Argon Core needle size: 18g Number of core specimens: 2 Fine needle aspiration device: Chiba Fine needle size: 22g Number of FNA specimens: 3 On-site biopsy touch preparation: Yes Additional sampling recommendations: None Preliminary assessment of sample adequacy: Not applicable Needle removal The biopsy needle was removed and a sterile dressing was applied. Tract embolization: None Imaging following biopsy Immediate post-biopsy ultrasound was performed. Post-biopsy imaging findings: No complications Additional Details Additional description of procedure: None Equipment details: None Specimens removed: Biopsy samples as detailed above Estimated blood loss (mL): Less than 10 Standardized report: [id number] Attestation Signer name: Rose Marie Lobato MD I attest that I was present for the entire procedure. I reviewed the stored images and agree with the report as written. Signed by: Rose Marie Lobato MD on 09/09/2019 3:56 PM
--- NOTE | 2019-09-09 19:47 | Consultation ---
DATE OF CONSULTATION: 09/08/2019 REASON FOR CONSULTATION: Sepsis. DICTATION ENDS HERE. MD KEYANNA Acosta/AJAY /[id number] LISA
[2019-09-09] MEDS: ATORVASTATIN 10 MG TAB PO SCH (20:27)
[2019-09-09] MEDS: VANCOMYCIN 1GM/NS 250 ML 250 ML IV SCH (20:32)
[2019-09-10] VITALS (8 sets, daily range): BP systolic 115–149; BP diastolic 59–75
[2019-09-10 06:19] LABS: BASOPHILS % 0.3 % (0.0-1.0); EOSINOPHILS # (AUTO) 0.1 (0.0-0.4); EOSINOPHILS % 1.5 % (0.0-6.0); HEMATOCRIT 30.3 % (38.2-49.6); HEMOGLOBIN 9.2 g/dL (14.0-18.0); LYMPHOCYTES # (AUTO) 1.1 (1.0-3.2); LYMPHOCYTES % 15.2 % (18.0-39.1); MEAN CORPUSCULAR HEMOGLOBIN 24.8 pg (28-32); MEAN CORPUSCULAR HGB CONC 30.4 g/dL (31-35); MEAN CORPUSCULAR VOLUME 81.7 fL (81-99); MONOCYTES # (AUTO) 0.6 (0.2-0.8); NEUTROPHILS # (AUTO) 5.5 (2.1-6.9); NEUTROPHILS % 74.5 % (38.7-80.0); PLATELET COUNT 176 x10e3/uL (140-360); RED BLOOD COUNT 3.71 x10e6/uL (4.3-5.7); RED CELL DISTRIBUTION WIDTH 18.4 % (11.7-14.4)
[2019-09-10 06:33] LABS: ANION GAP 7.9 mmol/L (8-16); BLOOD UREA NITROGEN 26 mg/dL (7-26); BUN/CREATININE RATIO 25 (6-25); CALCIUM 9.3 mg/dL (8.4-10.2); CARBON DIOXIDE 24 mmol/L (22-29); CHLORIDE 111 mmol/L (98-107); CREATININE, SERUM 1.05 mg/dL (0.72-1.25); EST GLOMERULAR FILTRATION RATE > 60 ML/MIN (60-); GLUCOSE 113 mg/dL (74-118); POTASSIUM 3.9 mmol/L (3.5-5.1); SODIUM 139 mmol/L (136-145)
[2019-09-10] MEDS: INSULIN LISPRO 100 UNIT/1 ML 3ML VIAL SQ SCH ×4 (07:30→21:07)
--- NOTE | 2019-09-10 07:30 | NUR ---
The pt. was received in stable condition from the off-going . Bedside rails are elevated time 2. The pt. advised to please call for assistance to get out of bed.
[2019-09-10] MEDS: FINASTERIDE 5 MG TAB PO SCH (09:15)
[2019-09-10] MEDS: CEFTRIAXONE SOD 1 GM/NS 50 ML 50 ML IV SCH ×2 (10:38→21:07)
[2019-09-10] MEDS ORDERED: WARFARIN SOD 3 MG TAB PO SCH (17:00)
--- NOTE | 2019-09-10 19:04 | NUR ---
Bedside rounding completed with the oncoming nurse.
[2019-09-10] MEDS: ATORVASTATIN 10 MG TAB PO SCH (20:55)
[2019-09-10] MEDS: HYDROCODONE/APAP 7.5MG-325MG 1 EA TAB PO PRN (21:20)
[2019-09-11] VITALS: BP 134/73
[2019-09-11] MEDS: HYDROCODONE/APAP 7.5MG-325MG 1 EA TAB PO PRN (01:36)
[2019-09-11 05:56] LABS: INR 1.47; PROTHROMBIN TIME 18.8 seconds (11.9-14.5)
[2019-09-11 06:04] LABS: ANION GAP 10.2 mmol/L (8-16); BLOOD UREA NITROGEN 22 mg/dL (7-26); BUN/CREATININE RATIO 21 (6-25); CALCIUM 9.4 mg/dL (8.4-10.2); CARBON DIOXIDE 23 mmol/L (22-29); CHLORIDE 111 mmol/L (98-107); CREATININE, SERUM 1.06 mg/dL (0.72-1.25); EST GLOMERULAR FILTRATION RATE > 60 ML/MIN (60-); GLUCOSE 97 mg/dL (74-118); POTASSIUM 4.2 mmol/L (3.5-5.1); SODIUM 140 mmol/L (136-145)
[2019-09-11] MEDS: INSULIN LISPRO 100 UNIT/1 ML 3ML VIAL SQ SCH ×4 (07:30→21:32)
[2019-09-11 07:42] VITALS: BP 141/83
[2019-09-11] MEDS ORDERED: ACETAMINOPHEN 325 MG TAB PO PRN (08:45)
[2019-09-11] MEDS: OLMESARTAN 20 MG TAB PO SCH (09:42)
[2019-09-11] MEDS: FINASTERIDE 5 MG TAB PO SCH (09:42)
[2019-09-11] MEDS: FUROSEMIDE 40 MG TAB PO SCH (09:43)
[2019-09-11 10:00] VITALS: BP 141/83
[2019-09-11] MEDS: CEFTRIAXONE SOD 1 GM/NS 50 ML 50 ML IV SCH ×2 (10:03→21:31)
[2019-09-11 11:45] VITALS: BP 146/74
[2019-09-11] MEDS: FLUCONAZOLE 200 MG/100 ML 100 ML IV SCH (14:42)
[2019-09-11 15:43] VITALS: BP 145/70
--- NOTE | 2019-09-11 20:00 | NUR ---
pt received. pt assessed. no ss of distress noted. no co pain at time. tele in place. suprapubic cath noted and draining to leg bag. will cont to follow poc. call teresa within reach.
[2019-09-11 20:19] VITALS: BP 151/72
[2019-09-11] MEDS: ATORVASTATIN 10 MG TAB PO SCH (21:29)
[2019-09-12] VITALS (8 sets, daily range): BP systolic 135–159; BP diastolic 57–89
--- NOTE | 2019-09-12 | NUR ---
pt made npo at time per orders. pt verbalized understanding. call teresa within reach.
--- NOTE | 2019-09-12 06:12 | NUR ---
assisted pt up to bathroom. bm noted. assisted pt to chair. instructed pt to call for assistance with ambulation. verbalized understanding. call teresa within reach.
[2019-09-12] MEDS: INSULIN LISPRO 100 UNIT/1 ML 3ML VIAL SQ SCH ×4 (07:30→20:23)
[2019-09-12] MEDS: FINASTERIDE 5 MG TAB PO SCH (09:00)
[2019-09-12] MEDS: FUROSEMIDE 40 MG TAB PO SCH (09:00)
[2019-09-12] MEDS: OLMESARTAN 20 MG TAB PO SCH (09:00)
[2019-09-12] MEDS: CEFTRIAXONE SOD 1 GM/NS 50 ML 50 ML IV SCH ×2 (10:45→22:01)
[2019-09-12] MEDS ORDERED: SODIUM CHLORIDE 0.9% 250ML 250 ML ONE (11:05)
[2019-09-12] MEDS ORDERED: LIDOCAINE HCL 1% LOCAL INJ 20 ML VIAL ONE (11:05)
[2019-09-12] MEDS: FLUCONAZOLE 200 MG/100 ML 100 ML IV SCH (11:27)
[2019-09-12] MEDS ORDERED: FENTANYL CITRATE/PF 100MCG/2 ML INJ ONE ×2 (12:10→12:49)
[2019-09-12] MEDS ORDERED: MIDAZOLAM HCL 2 MG/2 ML VIAL ONE ×2 (12:10→12:49)
[2019-09-12] MEDS ORDERED: IOPAMIDOL 300MG/ML 100 ML INFUS..BTL IV ONE (12:30)
--- NOTE | 2019-09-12 15:19 | Diagnostic Imaging Report ---
SUPRAPUBIC CATHETER EXCHANGE, 09/12/2019 Indication: Urinary retention. Comparison: 08/27/2019. Animation Camera Operator: Dr. Mcwilliams. Medication: 5 cc of 1% lidocaine without epinephrine. Conscious sedation: 4 mg Versed, 200 mcg fentanyl IV. Patient's vital signs were continuously monitored by radiology nursing and remained stable throughout. Physician intraservice sedation time: 40 minutes. Fluoroscopy Time: 1.2 minutes Radiation Dose: 21.3 mGy (SHAHEEN) EBL: 1 ml. Technique: After informed consent and timeout procedure, the access site was prepped and draped with the standard maximal sterile barrier technique. The patient was placed in a supine position on the fluoroscopy table. The skin was anesthetized with lidocaine. Contrast was injected through the existing suprapubic catheter. An Amplatz wire was advanced through the catheter and curled within the bladder. The old catheter was removed and serial dilatation was performed for placement of a 22 Frisian peel-away sheath, through which an 18-gauge Cleaning catheter was advanced into the bladder. Retention balloon was inflated with 10 mL of air. Evaluation is was removed. Contrast was injected confirming positioning within the bladder. There were no complications. IMPRESSION: Uncomplicated exchange of suprapubic catheter with conscious sedation. Signed by: Vikas Mcwilliams on 09/12/2019 3:17 PM
--- NOTE | 2019-09-12 19:00 | NUR ---
Received patient from day nurse, patient stable, no complains, safety and fall precautions maintained.
[2019-09-12] MEDS: ATORVASTATIN 10 MG TAB PO SCH (20:11)
[2019-09-12] MEDS: HYDROCODONE/APAP 7.5MG-325MG 1 EA TAB PO PRN (20:12)
--- NOTE | 2019-09-12 21:59 | NUR ---
patient transferred to Med surg 2, room 207.
--- NOTE | 2019-09-12 22:15 | NUR ---
Received patient from [facility]. Patient awake and resting in bed, no s/s of distress or c/o pain at this time. All safety measures in place. Will continue to monitor.
[2019-09-13] VITALS (9 sets, daily range): BP systolic 137–163; BP diastolic 67–75
--- NOTE | 2019-09-13 07:00 | NUR ---
Bedside report given to day nurse. Patient resting in bed, no s/s of distress at this time. All safety measures in place.
--- NOTE | 2019-09-13 07:00 | NUR ---
RECEIVED PATIENT RESTING IN BED. NO S/S OF DISTRESS. BED LOW, WHEELS LOCKED, SIDE RAILS X2. CALL LIGHT IN REACH WILL CONTINUE TO MONITOR PATIENT.
[2019-09-13] MEDS: INSULIN LISPRO 100 UNIT/1 ML 3ML VIAL SQ SCH ×4 (07:30→21:00)
[2019-09-13] MEDS: FINASTERIDE 5 MG TAB PO SCH (08:41)
[2019-09-13] MEDS: FUROSEMIDE 40 MG TAB PO SCH (08:41)
[2019-09-13] MEDS: OLMESARTAN 20 MG TAB PO SCH (08:41)
[2019-09-13] MEDS: CEFTRIAXONE SOD 1 GM/NS 50 ML 50 ML IV SCH ×2 (10:40→21:45)
[2019-09-13] MEDS: FLUCONAZOLE 200 MG/100 ML 100 ML IV SCH (11:59)
--- NOTE | 2019-09-13 14:58 | Progress Note ---
DATE: 09/13/2019 SUBJECTIVE: Mr. Flaherty is doing better. He is up in a chair. He said his breathing is better. He has no other complaints. This 78-year-old male with history of obesity, bilateral lower extremities lymphedema, severe with chronic venous stasis, dermatitis and ulcers, suprapubic catheter. Came in with sepsis and bacteremia with strep pneumonia on September 06. He is currently on Rocephin, clinically doing better. REVIEW OF SYSTEMS: HEENT: Negative. PULMONARY: Negative. CARDIAC: Negative. PHYSICAL EXAMINATION: GENERAL: He is currently alert, oriented, does not seem to be in acute distress. VITAL SIGNS: Stable, currently afebrile. HEENT: Not icteric. NECK: Supple. CHEST: Clear. HEART: S1, S2. No murmurs. ABDOMEN: Soft. EXTREMITIES: Legs, there is significant edema with venous stasis changes. IMPRESSION: 1. Sepsis on admission, streptococcal pneumonia. Continue Rocephin. We will recheck blood cultures. 2. Anemia of chronic disease on bilateral lower extremities, lymphedema. 3. Diabetes mellitus. 4. Component of congestive heart failure. We will follow. MD KEYANNA Acosta/AJAY /[id number]
--- NOTE | 2019-09-13 15:36 | NUR ---
Nutrition Screen Note RD Recommendation for Physician: -Continue ADA 1800 diet as ordered Plan of Care: RD following, monitoring for tolerance and adequacy Nutrition reason for involvement: LOS Primary Diagnose(s): Sepsis on admission, streptococcal pneumonia PMH: obesity, bilateral lower extremities lymphedema, severe with chronic venous stasis, dermatitis and ulcers Ht: 73in Wt: 312lb BMI: 41.2kg/m2 IBW: 184lb +/- 10% RD Assessment: (09/12) Chart reviewed. Labs and meds reviewed. 78yo M, who was admitted for PNA. Visited pt in the room. Pt reported good appetite with 75-100% recorded PO intake. Pt denied any nausea or vomiting. No complains of chewing or swallowing difficulty. Weight has been stable. Will continue to monitor and follow. Current Diet: ADA 1800 Malnutrition Evaluation (09/13/2019) The patient does not meet criteria for a specified degree of malnutrition at this time. Will re-evaluate at follow-up as appropriate. Diet Education Needs Assessment: Diet education not indicated. Pt reported BG being well controlled at home without taking any diabetic meds. Nutrition Care Level: low Signed: Verito Arreguin, MS, RD, LD
[2019-09-13] MEDS: ATORVASTATIN 10 MG TAB PO SCH (21:45)
--- NOTE | 2019-09-13 21:45 | NUR ---
PATIENT IS RESTING IN BED IN STABLE CONDITION, NO SIGNS OF RESPIRATORY DISTRESS NOTED. BREATHING IS UNLABORED AND PATIENT VOICES NO PAIN AT THIS TIME. IV ANTIBIOTICS ARE RUNNING AT ORDERED RATE. BED IS IN LOWEST POSITION, BOTH SIDE RAILS ARE UP, CALL LIGHT IS WITHIN EASY REACH, WILL CONTINUE TO MONITOR.
[2019-09-14] VITALS: BP 132/63
[2019-09-14 04:00] VITALS: BP 139/82
--- NOTE | 2019-09-14 07:00 | NUR ---
RECEIVED PATIENT RESTING IN BED NO S/S OF DISTRESS. BED LOW, WHEELS LOCKED, SIDE RAILS X2. CALL LIGHT IN REACH WILL CONTINUE TO MONITOR PATIENT.
[2019-09-14] MEDS: INSULIN LISPRO 100 UNIT/1 ML 3ML VIAL SQ SCH ×2 (07:30→11:19)
[2019-09-14 08:05] VITALS: BP 110/53
[2019-09-14] MEDS: OLMESARTAN 20 MG TAB PO SCH (08:28)
[2019-09-14] MEDS: FINASTERIDE 5 MG TAB PO SCH (08:28)
[2019-09-14] MEDS: FUROSEMIDE 40 MG TAB PO SCH (08:28)
[2019-09-14 08:42] VITALS: BP 110/53
[2019-09-14] MEDS: CEFTRIAXONE SOD 1 GM/NS 50 ML 50 ML IV SCH (10:06)
[2019-09-14] MEDS: FLUCONAZOLE 200 MG/100 ML 100 ML IV SCH (10:48)
--- NOTE | 2019-09-14 11:19 | NUR ---
Educated patient on IMM letter. Verbalized understanding and signed. Copy to pt transition folder, and original placed in chart
[2019-09-14 11:21] VITALS: BP 153/70
[2019-09-14] MEDS ORDERED: KEFLEX500 MG PO (12:43)
[2019-09-14] MEDS ORDERED: TYLENOL WITH C1 EACH PO (12:43)
[2019-09-14] MEDS ORDERED: TESSALON PERLE100 MG PO (12:44)
--- NOTE | 2019-09-14 12:55 | NUR ---
removed patients iv. catheter tip intact and pressure dressing applied.
--- NOTE | 2019-09-14 13:03 | NUR ---
PATIENT DISCHARGED FROM FACILITY. PATIENT GATHERED ALL PERSONAL BELONGINGS, DISCHARGE INSTRUCTIONS AND FOLLOW UP INFORMATION. PATIENT LEFT UNIT IN WHEELCHAIR AND WENT HOME VIA PRIVATE AUTO.
--- NOTE | 2019-09-15 05:38 | Discharge Summary ---
CONSULTANTS: 1. Dr. Concha Jin. 2. Dr. Sp Perdomo. 3. Dr. Kyle Hair. FINAL DIAGNOSES: 1. Multilobar pneumonia associated with Strep pneumonia. 2. Status post sepsis and bacteremia. 3. Baseline suprapubic catheter due to urinary retention. SUMMARY: The patient is a 78-year-old male with recurrent hospitalizations, but this time for increase in breathing problem. Apparently, the patient was septic on admission. There was no shock, however. The patient also had complicated urinary tract infection with his suprapubic catheter, which has been managed. The patient's CT scan show multilobe pneumonia, found now that the patient has Strep pneumonia in his blood and the patient has been receiving Rocephin since. The patient is doing much better. He is afebrile. He is slept well, eat well, and comfortable. He does want to go home. The patient is otherwise stable. Leukocytosis resolved. He is doing well. The patient will go home with Keflex 500 mg 3 times a day for 7 days. He will continue with his home medication. Tylenol No. 3 refill for his pain. The patient is otherwise stable, comfortable. He did have a pneumonia vaccine. I advised the patient to revaccinate probably in the near future. The patient is otherwise stable, discharged home today. MD CORTEZ Tovar/AJAY /[id number]
== END 2019-09-14 13:03 | disposition home or self-care (01) | DRG 853 ==
LOC: ER 19:13 → ERHOLD 21:48 → IMCU 23:14 → OBSVTOIN 09-08 08:43 → MED/SURG2 09-12 21:44
PROVIDERS: ADMIT Internal Medicine; ATTEND Internal Medicine
PROC: 07BH3ZX Excision of Right Inguinal Lymphatic, Percutaneous Approach, Diagnostic (ICD-10-PCS; principal; 2019-09-09)
PROC: 0T2BX0Z Change Drainage Device in Bladder, External Approach (ICD-10-PCS; 2019-09-14)
DX: A40.3 Sepsis due to Streptococcus pneumoniae (principal); J15.9 Unspecified bacterial pneumonia; I50.33 Acute on chronic diastolic (congestive) heart failure; T83.510A Infection and inflammatory reaction due to cystostomy catheter, initial encounter; I13.0 Hypertensive heart and chronic kidney disease with heart failure and stage 1 through stage 4 chronic kidney disease, or unspecified chronic kidney disease; N17.9 Acute kidney failure, unspecified; I48.20 Chronic atrial fibrillation, unspecified; Z68.41 Body mass index [BMI] 40.0-44.9, adult; B37.41 Candidal cystitis and urethritis; E66.01 Morbid (severe) obesity due to excess calories; Z79.01 Long term (current) use of anticoagulants; E78.5 Hyperlipidemia, unspecified; Z85.46 Personal history of malignant neoplasm of prostate; N18.9 Chronic kidney disease, unspecified; Z87.891 Personal history of nicotine dependence; R59.0 Localized enlarged lymph nodes; D63.8 Anemia in other chronic diseases classified elsewhere; I87.2 Venous insufficiency (chronic) (peripheral)
CPT/HCPCS: 10005; 36415; 38505; 51102; 51700; 71045; 71250; 74470; 80048; 80053; 82550; 82553; 82948; 83605; 83880; 84484; 85025; 85379; 85610; 87040; 87071; 87086; 87186; 87205; 88112; 88172; 88173; 88304; 88305; 93005; 94640; 96367; 96372; 97139; 99152; 99153; 99284; G0378; J0696; J1450; J2001; J2250; J3010; J3370; J7050; Q9967

== ENCOUNTER 2020-05-29 09:19 | Emergency (ER) | payer MEDICARE ==
[~2020-05-29] VITALS: Ht 185.4 cm; Wt 131.1 kg
[~2020-05-29 09:19] MED LIST changes: +COUMADIN2 MG PO; +KEFLEX500 MG PO; +TESSALON PERLE100 MG PO; +TYLENOL WITH C1 EACH PO; +WARFARIN SODIUM5 MG
--- NOTE | 2020-05-29 09:58 | Emergency Department Note ---
History of Present Illnes History of Present Illness Chief Complaint: General Medicine Complaints History of Present Illness This is a 79 year old male arrived to the ED with complaints of suprapubic abdominal pain and inability to urinate after his suprapubic catheter. Chief Complaint Comment PATIENT IN FROM HOME WITH COMPLAINTS OF SUPRAPUBIC CATHETER COMING OUT LAST NIGHT; RATES PAIN 10/10, STATES THAT HE HAS URINE COM ING OUT OF HIS RECTUM. PATIENT ALERT AND ORIENTED, RESP EVEN AND NONLABORED, APPEARS IN NO DISTRESS Historian: Patient Arrival Mode: Car Onset (how long ago): hour(s) Severity: mild Onset quality: sudden Duration (how long): hour(s) Timing of current episode: constant Progression: worsening Chronicity: recurrent Past Medical/Family History Physician Review I have reviewed the patient's past medical and family history. Any updates have been documented here. Past Medical History Recent Fever: No Clinical Suspicion of Infectio: No New/Unexplained Change in Ment: No Past Medical History: Hypertension, Diabetes, CHF, Cancer, UTI's, DVT/PE Other Medical History: BPH ,PROSTRATE CANCER AND LYMPH EDEMA Past Surgical History: None Other Surgery: suprapubic cath Social History Physically hurt or threatened: No Other Last Tetanus: UNK Review of Systems Review of Systems Constitutional: Reports no symptoms EENTM: Reports no symptoms Cardiovascular: Reports no symptoms Respiratory: Reports no symptoms Gastrointestinal: Reports no symptoms Genitourinary: Reports as per HPI Musculoskeletal: Reports no symptoms Integumentary: Reports no symptoms Neurological: Reports no symptoms Psychological: Reports no symptoms Endocrine: Reports no symptoms Hematological/Lymphatic: Reports no symptoms Physical Exam Related Data Allergies: Coded Allergies: No Known Allergies (Unverified , 05/12/19) Triage Vital Signs Vital Signs Date Time Temp Pulse Resp B/P (MAP) Pulse Ox O2 Delivery O2 Flow Rate FiO2 05/29/20 09:36 97.8 96 22 155/72 100 Room Air Vital signs reviewed: Yes Physical Exam CONSTITUTIONAL Constitutional: Present well-developed, Present well-nourished HENT HENT: Present normocephalic, Present atraumatic, Present oropharynx clear/moist, Present nose normal HENT L/R: Present left ext ear normal, Present right ext ear normal EYES Eyes: Reports PERRL, Reports conjunctivae normal NECK Neck: Present ROM normal PULMONARY Pulmonary: Present effort normal, Present breath sounds normal CARDIOVASCULAR Cardiovascular: Present regular rhythm, Present heart sounds normal, Present capillary refill normal, Present normal rate GASTROINTESTINAL Abdominal: Present soft, Present nontender, Present bowel sounds normal, Present other (stoma patent, no superimposed cellulitis) GENITOURINARY Genitourinary: Present exam deferred SKIN Skin: Present warm, Present dry MUSCULOSKELETAL Musculoskeletal: Present ROM normal NEUROLOGICAL Neurological: Present alert, Present oriented x 3, Present no gross motor or sensory deficits PSYCHOLOGICAL Psychological: Present mood/affect normal, Present judgement normal Results Imaging Imaging results reviewed: Yes Assessment & Plan Medical Decision Making MDM 79-year-old male arrived to the ED with complaints of suprapubic abdominal pain and urinary retention after his suprapubic catheter fell out yesterday. Patient's urologist Dr. Snider consulted, recommended IR. Unable to pass Bedside, patient required IR for catheter placement. Catheter successfully passed the patient stable for discharge home. Assessment & Plan Final Impression: (1) Cleaning catheter problem (2) Stricture, urethra (3) Urinary retention Depart Disposition: HOME, SELF-CARE Last Vital Signs Date Time Temp Pulse Resp B/P (MAP) Pulse Ox O2 Delivery O2 Flow Rate FiO2 05/29/20 09:36 97.8 96 22 155/72 100 Room Air Home Meds Active Scripts Cefuroxime Axetil (CEFUROXIME) 250 Mg Tablet, 250 MG PO Q12H, #20 TAB Prov:OLIVIA NGUYEN DO 05/29/20 Reported Medications Benzonatate (TESSALON PERLE) 100 Mg Capsule, 100 MG PO Q6H PRN for COUGH 09/14/19 Cephalexin Monohydrate (KEFLEX) 500 Mg Capsule, 500 MG PO TID 09/14/19 Acetaminophen With Codeine (TYLENOL WITH CODEINE #3 TABLET) 1 Each Tablet, 300 MG PO Q6H PRN for Mild Pain (1-3) or Fever>100.8, TAB 09/14/19 Warfarin Sodium (COUMADIN) 2 Mg Tablet, 3 MG PO 1700, #7 TAB 09/09/19 Warfarin Sodium (COUMADIN) 5 Mg Tablet, DAILY 5mg in am and 3mg in pm for daily total of 8mg 09/09/19 Furosemide (FUROSEMIDE) 40 Mg Tablet, 40 MG PO Daily, #30 TAB 08/02/19 Finasteride (FINASTERIDE) 5 Mg Tablet, 5 MG PO DAILY, #30 TAB 08/02/19 Atorvastatin Calcium (ATORVASTATIN CALCIUM) 10 Mg Tablet, 10 MG PO 2100, #30 TAB 08/02/19 Amlodipine Besylate (AMLODIPINE BESYLATE) 10 Mg Tablet, 10 MG PO DAILY, #30 TAB 08/02/19 Olmesartan Medoxomil (BENICAR) 20 Mg Tablet, 40 MG PO DAILY, #30 TAB 08/02/19 Potassium Chloride (POTASSIUM CHLORIDE) 20 Meq Packet, MEQ PO DAILY 08/02/19 Glimepiride (GLIMEPIRIDE) 1 Mg Tablet, MG PO DAILY 08/02/19 OLIVIA NGUYEN, May 29, 2020 09:58
--- OUTSIDE RECORDS SUMMARY | 2020-05-29 10:37 | XMS REPORT | Continuity of Care Document ---
Author Author [facility] t Organization [facility] Address [address] [place] [address] Phone Unavailable Care Team Providers Care Tower Observer Name Role Phone Ciera PERSAUD MD PCP MIL, VELMA Attphys Unavailable SWEET, A LAIRD Attphys Unavailable SANDHIROLIVIA Attphys Unavailable JAEGER, VELMA Admphys Unavailable Payers Payer Name Policy Type Policy Number Effective Date Expiration Date Sha palomo [facility] [id number] 2019 00:00:00 [facility] [id number] 2019 00:00:00 [facility] Problems Condition Name Condition Details Condition Category Status Onset Date Resolution Date Last Treatment Date Treating Clinician Comments Source Care of suprapubic urinary catheter Care of Suprapubic Urinary C atheter Problem Active 2020-02-13 00:00:00 [facility] Chronic kidney disease stage 3 Chronic Kidney Disease Stage 3 Probl em Active 2019-09-17 00:00:00 [facility] 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 Ty pe 2 Diabetes Mellitus with Peripheral Angiopathy Problem Active 2019-08-28 00:00:00 [facility] Hyperparathyroidism due to renal insufficiency Hyperpa rathyroidism Due to Renal Insufficiency Problem Active 2019-08-07 00:00:00 [facility] Hypertensive heart disease with congestive heart failu re Hypertensive Heart Disease with Congestive Heart Failure Problem Active 2019-04-16 00:00:00 [facility] Stasis dermatitis and venous ulcer of lo wer extremity due to chronic peripheral venous hypertension Stasis Dermatitis and Venous Ulcer of Lo wer Extremity Due to Chronic Peripheral Venous Hypertension Problem Active 2018-03-15 00:00:00 [facility] Peripheral vascular disease Peripheral Vascular Disease Problem Active 2017-12-07 00:00:00 [facility] Lymphedema of lower extremity Lymphedema of Lower Extremity Problem Active 2017-12-07 00:00:00 [facility] History of malignant neoplasm of prostate History of M alignant Neoplasm of Prostate Problem Active 2017-10-29 00:00:00 Radha mouna [facility] Anemia Anemia Problem Active 2017-07-26 00:00:00 [facility] 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 Due to Diabetes Mellitus Problem Active 2016-10-25 00:00:00 [facility] Hypertriglyceridemia Hypertriglyceridemia Problem Active 00:00:00 [facility] Gouty arthritis of multiple sites Gouty Arthritis of Multiple Si carine Problem Active 2016-10-25 00:00:00 Luis [facility] Morbid obesity Morbid Obesity Problem Active 2016-10-25 00:00:00 [facility] Cardiomyopathy Cardiomyopathy Problem Active 2016-10-25 00:00:00 [facility] Atrial fibrillation Atrial Fibrillation Problem Active 2016-10-25 00:00 :00 [facility] Chronic back pain Chronic Back Pain Problem Active 2016-10-25 00:00:00 [facility] Long-term current use of anticoagulant Long-term Current Use of Anticoagulant Problem Active 2016-10-25 00:00:00 [facility] Lower urinary tract symptoms due to benign prostatic h ypertrophy Lower Urinary Tract Symptoms Due to Benign Prostatic Hypertrophy Problem Active 2016-10-25 00:00:00 [facility] Urethral stricture Stricture, urethra Problem Active [facility] Urinary tract infection UTI (urinary tract infection) Problem Active [facility] Retention of urine Urinary retention Problem Active [facility] Pneumonia Pneumonia Problem Active [facility] Allergies, Adverse Reactions, Alerts This patient has no known allergies or adverse reactions. Social History Smoking Status Start Date Stop Date Source Former Smoker [facility]ayne Medications Ordered Medication Name Filled Medication Name Start Date Stop Da te Current Medication? Ordering Clinician Indication Dosage Frequency Signature (SIG) Comments Components Source Cefdinir (Omnicef) 300 Mg Capsule, 300 Mg Oral Cefdini r (Omnicef) 300 Mg Capsule, 300 Mg Oral 2019-07-11 00:00:00 2019-08-08 00:00:00 No Ines Magallanes [employer] 300 Twice A Day [facility] amlodipine 10 mg tablet TAKE 1 TABLET BY MOUTH EVERY D AY amlodipine 10 mg tablet TAKE 1 TABLET BY MOUTH EVERY DAY No amlodipine 10 mg tablet TAKE 1 TABLET BY MOUTH EVERY DAY [facility] atorvastatin 10 mg tablet TAKE 1 TABLET BY MOUTH EVERY DAY atorvastatin 10 mg tablet TAKE 1 TABLET BY MOUTH EVERY DAY No atorvastatin 10 mg tablet TAKE 1 TABLET BY MOUTH EVERY DAY [facility] Colcrys 0.6 mg tablet Take 1 tablet every day by oral route. Colcrys 0.6 mg tablet Take 1 tablet every day by oral route. No Colcrys 0.6 mg tablet Take 1 tablet every day by oral route. [facility] donepezil 10 mg tablet Take 1 tablet every day by oral route for 90 days. donepezil 10 mg tablet Take 1 tablet every day by oral route for 90 days. No donepezil 10 mg tablet Take 1 tablet every day by oral route for 90 days. [facility] doxazosin 8 mg tablet TAKE 1 TABLET BY MOUTH EVERY DAY doxazosin 8 mg tablet TAKE 1 TABLET BY MOUTH EVERY DAY No doxazosin 8 mg tablet TAKE 1 TABLET BY MOUTH EVERY DAY [facility] ferrous sulfate 325 mg (65 mg iron) tablet TAKE 1 TABL ET BY MOUTH EVERY DAY ferrous sulfate 325 mg (65 mg iron) tablet TAKE 1 TABLET BY MOUTH EVERY DAY No ferrous sulfate 325 mg (65 mg iron) tablet TAKE 1 TABLET BY MOUTH EVERY DAY [facility] finasteride 5 mg tablet Take 1 tablet every day by ora l route for 90 days. finasteride 5 mg tablet Take 1 tablet every day by oral route for 90 days. No finasteride 5 m g tablet Take 1 tablet every day by oral route for 90 days. [facility] furosemide 40 mg tablet TAKE 1 TABLET BY MOUTH EVERY D AY furosemide 40 mg tablet TAKE 1 TABLET BY MOUTH EVERY DAY No furosemide 40 mg tablet TAKE 1 TABLET BY MOUTH EVERY DAY [facility] glimepiride 1 mg tablet TAKE 1 TABLET BY MOUTH EVERY D AY glimepiride 1 mg tablet TAKE 1 TABLET BY MOUTH EVERY DAY No glimepiride 1 mg tablet TAKE 1 TABLET BY MOUTH EVERY DAY [facility] nitrofurantoin monohydrate/macrocrystals 100 mg capsul e nitrofurantoin monohydrate/macrocrystals 100 mg capsule No nitrofurantoin monohydrate/macrocrystals 100 mg capsule [facility] olmesartan 40 mg tablet TAKE 1 TABLET BY MOUTH EVERY D AY olmesartan 40 mg tablet TAKE 1 TABLET BY MOUTH EVERY DAY No olmesartan 40 mg tablet TAKE 1 TABLET BY MOUTH EVERY DAY [facility] OneTouch Delica Lancets 33 gauge USE TO TEST BLOOD GLU COSE THREE TIMES DAILY OneTouch Delica Lancets 33 gauge USE TO TEST BLOOD GLUCOSE THREE TIMES DAILY No OneTouch Delic a Lancets 33 gauge USE TO TEST BLOOD GLUCOSE THREE TIMES DAILY [facility] OneTouch Verio test strips USE TO TEST BLOOD GLUCOSE T HREE TIMES DAILY OneTouch Verio test strips USE TO TEST BLOOD GLUCOSE THREE TIMES DAILY No OneTouch Verio test strips USE TO TEST BLOOD GLUCOSE THREE TIMES DAILY [facility] potassium chloride ER 20 mEq tablet,exte nded release TAKE 1 TABLET BY MOUTH EVERY DAY potassium chloride ER 20 mEq tablet,exte nded release TAKE 1 TABLET BY MOUTH EVERY DAY No potassiu m chloride ER 20 mEq tablet,extended release TAKE 1 TABLET BY MOUTH EVERY DAY [facility] Ventolin HFA 90 mcg/actuation aerosol in haler Inhale 2 puffs every 4 hours by inhalation route as needed. Ventolin HFA 90 mcg/actuation aerosol in haler Inhale 2 puffs every 4 hours by inhalation route as needed. No Ventolin HFA 90 mcg/actuation aerosol inhaler Inhale 2 puffs every 4 hours by inhalation route as needed. [facility] Vitamin C 500 mg tablet Take 1 tablet ev berna day by oral route as directed for 90 days. Vitamin C 500 mg tablet Take 1 tablet ev berna day by oral route as directed for 90 days. No 1 Q1D Vitamin C 5 00 mg tablet Take 1 tablet every day by oral route as directed for 90 days. [facility] Vitamin D3 2000 IU one cap Qday Vitamin D3 2000 IU one cap Qday No Vitamin D3 2000 IU one cap Qday [facility] warfarin 3 mg tablet TAKE 1 TABLET BY MOUTH EVERY DAY warfarin 3 mg tablet TAKE 1 TABLET BY MOUTH EVERY DAY No warfarin 3 mg tablet TAKE 1 TABLET BY MOUTH EVERY DAY [facility] warfarin 5 mg tablet TAKE 1 TABLET BY MOUTH EVERY DAY warfarin 5 mg tablet TAKE 1 TABLET BY MOUTH EVERY DAY No warfarin 5 mg tablet TAKE 1 TABLET BY MOUTH EVERY DAY [facility] Acetaminophen With Codeine (Tylenol With Codeine #3 Ta blet) 1 Each Tablet Acetaminophen With Codeine (Tylenol With Codeine #3 Tablet) 1 Each Tablet Yes 300 Every 6 Hours as needed for Mild Pain (1 -3) Or Fever>100.8 [facility] Amlodipine Besylate 10 Mg Tablet Amlodipine Besylate 10 Mg Tablet Yes 10 Daily [facility] Atorvastatin Calcium 10 Mg Tablet Atorvastatin Calcium 10 Mg Tablet Yes 10 Today At 9:00PM [facility] Benzonatate (Tessalon Perle) 100 Mg Capsule Benzonatat e (Tessalon Perle) 100 Mg Capsule Yes 100 Every 6 Hours as needed for Co ugh [facility] Cephalexin Monohydrate (Keflex) 500 Mg Capsule Cephale ade Monohydrate (Keflex) 500 Mg Capsule Yes 500 Three Times A Day [facility] Finasteride 5 Mg Tablet Finasteride 5 Mg Tablet Yes 5 Daily [facility] Furosemide 40 Mg Tablet Furosemide 40 Mg Tablet Yes 40 Daily [facility] Glimepiride 1 Mg Tablet Glimepiride 1 Mg Tablet Yes Daily [facility] Olmesartan Medoxomil (Benicar) 20 Mg Tablet Olmesartan Medoxomil (Benicar) 20 Mg Tablet Yes 40 Daily [facility] Potassium Chloride 20 Meq Packet Potassium Chloride 20 Meq Packet Yes Daily [facility] Warfarin Sodium (Coumadin) 2 Mg Tablet Warfarin Sodium (Coumadin ) 2 Mg Tablet Yes 3 Today At 5:00PM [facility] Warfarin Sodium (Coumadin) 5 Mg Tablet Warfarin Sodium (Coumadin ) 5 Mg Tablet Yes Daily [facility] Immunizations Ordered Immunization Name Filled Immunization Name Date Status Comments Source influenza, high-dose, quadrivalent influenza, high-dose, yudi drivalent 2020-04-07 14:23:00 Completed [facility] influenza, high dose seasonal influenza, high dose seasonal 2018 13:26:00 Completed [facility] Tdap Tdap 2018-09-06 00:00:00 Completed Luis [facility] influenza, high dose seasonal influenza, high dose seasonal 2017 18:51:00 Completed [facility] influenza, high dose seasonal influenza, high dose seasonal 2016 10:34:23 Completed [facility] pneumococcal conjugate PCV 13 pneumococcal conjugate PCV 13 2016 10:33:31 Completed [facility] influenza, unspecified formulation influenza, unspecified fo rmulation 2016-07-27 00:00:00 Completed [facility] ice pneumococcal polysaccharide PPV23 pneumococcal polysaccharid e PPV23 2014-07-30 00:00:00 Completed [facility] ice zoster live zoster live Unknown Completed [facility] Vital Signs Vital Name Observation Time Observation Value Comments Source BP Diastolic 2020-04-07 00:00:00 68 mm[Hg] [facility] Height 2020-04-07 00:00:00 73 [in_i] [facility] BMI (Body Mass Index) 2020-04-07 00:00:00 39.6 kg/m2 [facility] BP Systolic 2020-04-07 00:00:00 138 mm[Hg] [facility] Body Weight 2020-04-07 00:00:00 299.8 [lb_av] [facility] BP Diastolic 2020-03-11 00:00:00 58 mm[Hg] [facility] Height 2020-03-11 00:00:00 73 [in_i] [facility] BMI (Body Mass Index) 2020-03-11 00:00:00 38.9 kg/m2 [facility] BP Systolic 2020-03-11 00:00:00 132 mm[Hg] [facility] Body Weight 2020-03-11 00:00:00 295 [lb_av] [facility] BP Diastolic 2020-02-02 00:00:00 75 mm[Hg] [facility] Height 2020-02-02 00:00:00 73 [in_i] [facility] BMI (Body Mass Index) 2020-02-02 00:00:00 41 kg/m2 [facility] BP Systolic 2020-02-02 00:00:00 155 mm[Hg] [facility] Body Weight 2020-02-02 00:00:00 311 [lb_av] [facility] BP Diastolic 2019-09-18 00:00:00 70 mm[Hg] [facility] Height 2019-09-18 00:00:00 73 [in_i] [facility] BMI (Body Mass Index) 2019-09-18 00:00:00 41 kg/m2 [facility] BP Systolic 2019-09-18 00:00:00 142 mm[Hg] [facility] Body Weight 2019-09-18 00:00:00 311 [lb_av] [facility] BP Diastolic 2019-08-20 00:00:00 72 mm[Hg] [facility] Height 2019-08-20 00:00:00 73 [in_i] [facility] BMI (Body Mass Index) 2019-08-20 00:00:00 41 kg/m2 [facility] BP Systolic 2019-08-20 00:00:00 140 mm[Hg] [facility] Body Weight 2019-08-20 00:00:00 311 [lb_av] [facility] BP Diastolic 2019-08-13 00:00:00 88 mm[Hg] [facility] Height 2019-08-13 00:00:00 73 [in_i] [facility] BMI (Body Mass Index) 2019-08-13 00:00:00 40.1 kg/m2 [facility] BP Systolic 2019-08-13 00:00:00 162 mm[Hg] [facility] Body Weight 2019-08-13 00:00:00 304.2 [lb_av] [facility] BP Diastolic 2019-07-23 00:00:00 48 mm[Hg] [facility] Height 2019-07-23 00:00:00 73 [in_i] [facility] BMI (Body Mass Index) 2019-07-23 00:00:00 24.9 kg/m2 [facility] BP Systolic 2019-07-23 00:00:00 106 mm[Hg] [facility] Body Weight 2019-07-23 00:00:00 189 [lb_av] [facility] BP Diastolic 2019-07-14 00:00:00 66 mm[Hg] [facility] Height 2019-07-14 00:00:00 73 [in_i] [facility] BMI (Body Mass Index) 2019-07-14 00:00:00 38.5 kg/m2 [facility] BP Systolic 2019-07-14 00:00:00 126 mm[Hg] [facility] Body Weight 2019-07-14 00:00:00 292 [lb_av] [facility] BP Diastolic 2019-07-10 00:00:00 66 mm[Hg] [facility] Height 2019-07-10 00:00:00 73 [in_i] [facility] BMI (Body Mass Index) 2019-07-10 00:00:00 38.3 kg/m2 [facility] BP Systolic 2019-07-10 00:00:00 124 mm[Hg] [facility] Body Weight 2019-07-10 00:00:00 290 [lb_av] [facility] BP Diastolic 2019-06-18 00:00:00 82 mm[Hg] [facility] Height 2019-06-18 00:00:00 73 [in_i] [facility] BMI (Body Mass Index) 2019-06-18 00:00:00 37.3 kg/m2 [facility] BP Systolic 2019-06-18 00:00:00 137 mm[Hg] [facility] Body Weight 2019-06-18 00:00:00 282.9 [lb_av] [facility] BP Diastolic 2019-05-27 00:00:00 78 mm[Hg] [facility] Height 2019-05-27 00:00:00 73 [in_i] [facility] BMI (Body Mass Index) 2019-05-27 00:00:00 37.7 kg/m2 [facility] BP Systolic 2019-05-27 00:00:00 124 mm[Hg] [facility] Body Weight 2019-05-27 00:00:00 286 [lb_av] [facility] BP Diastolic 2019-04-16 00:00:00 68 mm[Hg] [facility] Height 2019-04-16 00:00:00 73 [in_i] [facility] BMI (Body Mass Index) 2019-04-16 00:00:00 46.6 kg/m2 [facility] BP Systolic 2019-04-16 00:00:00 120 mm[Hg] [facility] Body Weight 2019-04-16 00:00:00 353 [lb_av] [facility] BP Diastolic 2019-04-03 00:00:00 88 mm[Hg] [facility] Height 2019-04-03 00:00:00 73 [in_i] [facility] BMI (Body Mass Index) 2019-04-03 00:00:00 48.6 kg/m2 [facility] BP Systolic 2019-04-03 00:00:00 156 mm[Hg] [facility] Body Weight 2019-04-03 00:00:00 368 [lb_av] [facility] BP Diastolic 2019-03-28 00:00:00 84 mm[Hg] [facility] Height 2019-03-28 00:00:00 73 [in_i] [facility] BMI (Body Mass Index) 2019-03-28 00:00:00 50 kg/m2 [facility] BP Systolic 2019-03-28 00:00:00 162 mm[Hg] [facility] Body Weight 2019-03-28 00:00:00 379 [lb_av] [facility] BP Diastolic 2018-12-26 00:00:00 72 mm[Hg] [facility] Height 2018-12-26 00:00:00 73 [in_i] [facility] BMI (Body Mass Index) 2018-12-26 00:00:00 47.8 kg/m2 [facility] BP Systolic 2018-12-26 00:00:00 134 mm[Hg] [facility] Body Weight 2018-12-26 00:00:00 362 [lb_av] [facility] BP Diastolic 2018-10-25 00:00:00 70 mm[Hg] [facility] Height 2018-10-25 00:00:00 73 [in_i] [facility] BMI (Body Mass Index) 2018-10-25 00:00:00 48.4 kg/m2 [facility] BP Systolic 2018-10-25 00:00:00 152 mm[Hg] [facility] Body Weight 2018-10-25 00:00:00 367 [lb_av] [facility] BP Diastolic 2018-09-20 00:00:00 76 mm[Hg] [facility] Height 2018-09-20 00:00:00 73 [in_i] [facility] BMI (Body Mass Index) 2018-09-20 00:00:00 46.6 kg/m2 [facility] BP Systolic 2018-09-20 00:00:00 122 mm[Hg] [facility] Body Weight 2018-09-20 00:00:00 353 [lb_av] [facility] BP Diastolic 2018-09-18 00:00:00 82 mm[Hg] [facility] Height 2018-09-18 00:00:00 73 [in_i] [facility] BMI (Body Mass Index) 2018-09-18 00:00:00 46.2 kg/m2 [facility] BP Systolic 2018-09-18 00:00:00 122 mm[Hg] [facility] Body Weight 2018-09-18 00:00:00 350 [lb_av] [facility] BP Diastolic 2018-09-10 00:00:00 64 mm[Hg] [facility] Height 2018-09-10 00:00:00 73 [in_i] [facility] BMI (Body Mass Index) 2018-09-10 00:00:00 46.2 kg/m2 [facility] BP Systolic 2018-09-10 00:00:00 128 mm[Hg] [facility] Body Weight 2018-09-10 00:00:00 350 [lb_av] [facility] BP Diastolic 2018-08-29 00:00:00 66 mm[Hg] [facility] Height 2018-08-29 00:00:00 73 [in_i] [facility] BMI (Body Mass Index) 2018-08-29 00:00:00 47.8 kg/m2 [facility] BP Systolic 2018-08-29 00:00:00 126 mm[Hg] [facility] Body Weight 2018-08-29 00:00:00 362 [lb_av] [facility] Procedures Procedure Date / Time Performed Performing Clinician [facility] e Computed tomography of chest without contrast 2019-09-08 00:00:0 0 VELMA JAEGER [facility] CHANGE OF BLADDER TUBE 2019-08-26 00:00:00 ABILIO WEEMS [facility] NEEDLE LOCALIZATION BY XRAY 2019-08-26 00:00:00 MILO ALARCON [facility] EXCISION OF DUODENUM, ENDO, DIAGN 2019-08-07 00:00:00 Emile EPSTEIN [facility] EXCISION OF STOMACH, PYLORUS, ENDO, DIAGN 2019-08-07 00:00:00 TEENA RED [facility] EXCISION OF LOWER ESOPHAGUS, ENDO, DIAGN 2019-08-07 00:00:00 TEENA PURI [facility] INSERTION OF INFUSION DEV INTO SUP VENA CAVA, PERC APPROACH 2019-08-05 00:00:00 DALIA SMITH [facility] Testicular ultrasound 2019-08-04 00:00:00 DIPESH TAVARES [facility] Dup-scan artl syed abdl/pel/scrot&/RPR orgn lmt 2019-08-04 00 :00:00 DIPESH TAVARES [facility] Echo guide for biopsy 2019-08-02 00:00:00 DIPESH TAVARES [facility] DRAINAGE OF BLADDER WITH DRAINAGE DEVICE, VIA OPENING 08-02 00:00:00 DALIA SMITH [facility] INSERT TEMP BLADDER CATH 2019-07-30 00:00:00 MADONNA YUSUF [facility] CT of abdomen and pelvis without contrast 2019-05-12 00:00:00 SA NDJEFFOLIVIA Carballo [facility] electrocardiogram 2019-04-03 00:00:00 [facility] X-RAY OF CHEST 2 VIEW 2018-09-18 00:00:00 [facility] X-RAY OF CHEST 2 VIEW 2018-08-29 00:00:00 [facility] Plan of Care Planned Activity Planned Date Details Comments Source Future Appointment 2020-06-07 00:00:00 [place]omy [place], [address]; [address], [place] [address] [facility] Instructions [facility] Encounters Start Date/Time End Date/Time Encounter Type Admission Type Attendi [facility] Facility Care Department Encounter ID Source 2018-12-11 12:17:36 Outpatient [facility] PUL [id number] [facility] 2020-05-10 00:00:00 2020-05-10 00:00:00 Romy Grove, [employer] TEACHER: [id number], [address], [place] [address], Ph. [facility] - _HOU_[facility] [id number] [facility] 2020-04-15 00:00:00 2020-04-15 00:00:00 Shavonne Durhamom: [address], [address], [place] [address], Ph. [facility] - _HOU_Care Management [id number] [facility] 2020-04-07 00:00:00 2020-04-07 00:00:00 Luis M Barrera Jr, MD: [id number], [address], [place] [address], Ph. [facility] - VM_HOU_[facility] [id number] [facility] 2020-03-18 00:00:00 2020-03-18 00:00:00 Shavonnealan Durhamom: [address], [address], [place] [address], Ph. [facility] - VM_HOU_Care Management [id number] [facility] 2020-03-11 00:00:00 2020-03-11 00:00:00 Romy [place], [employer] TEACHER: [address], [address], [place] [address], Ph. [facility] VM[facility] [id number] [facility] 2020-02-27 00:00:00 2020-02-27 00:00:00 Romy Grove, VISION IMP[employer] TEACHER: [address], [address], [place] [address], Ph. [facility] - VM[facility] [id number] [facility] 2020-02-16 00:00:00 2020-02-16 00:00:00 Romy [place], VISION IMP[employer] TEACHER: [address], [address], [place] [address], Ph. [facility] - VM_HOU_[facility] [id number] [facility] 2020-02-11 00:00:00 2020-02-11 00:00:00 Shavonne Durhamom: [address], [address], [place] [address], Ph. [facility] - VM_HOU_[facility] [id number] [facility] 2020-02-02 00:00:00 2020-02-02 00:00:00 Joann Madsen, Elda P: [id number] [facility], [address], [place] [address], Ph. [facility] - VM_HOU_[facility] [id number] [facility] 2020-01-14 00:00:00 2020-01-14 00:00:00 Romy Grove, VISION [employer] TEACHER: [address], [address], [place] [address], Ph. [facility] - [facility] [id number] [facility] 2020-01-13 00:00:00 2020-01-13 00:00:00 Shavonnealan Durhamom: [address] [facility], [address], [place] [address], Ph. [facility] - VM_HOU_Care Management [id number] [facility] 2019-12-15 00:00:00 2019-12-15 00:00:00 Romy rGove, VISION IMPAIRED TEACHER: [address] [facility], [address], [place] [address], Ph. [facility] - VM_HOU_Village at Home [id number] [facility] 2019-12-11 00:00:00 2019-12-11 00:00:00 Shavonne Durhamom: [address] [facility], [address], [place] [address], Ph. [facility] Medical - VM_HOU_Care Management [id number] [facility] 2019-12-05 00:00:00 2019-12-05 00:00:00 Luis M Barrera Jr, MD: [address] [facility], [facility] [address], [place] [address], Ph. [facility] Medical - VM_HOU_Hobby [id number] [facility] 2019-11-20 00:00:00 2019-11-20 00:00:00 Luis M Barrera Jr, MD: [address], [address], [place] [address], Ph. [facility] - VM_HOU_Care Management [id number] [facility] 2019-11-18 00:00:2019-11-18 00:00:00 Romy Grove, VISION IMPAIRED TEACHER: [address], [address], [place] [address], Ph. [facility] [place] - [facility] Medical - VM_MAGDALENOU_Azra at Home [id number] [facility] 2019-10-28 00:00:00 2019-10-28 00:00:00 Romy Grove, VISION IMPAIRED TEACHER: [address], [address], [place] [address], Ph. [facility] [place] [facility] Medical - VM_HOU_Village at Home [id number] [facility] 2019-10-07 00:00:00 2019-10-07 00:00:00 oRmy Grove, VISION IMPAIRED TEACHER: [address] [facility], [address], [place] [address], Ph. [facility] - [facility] Medical - VM_MAGDALENOU_Village at Home [id number] [facility] 2019-09-18 00:00:00 2019-09-18 00:00:00 Romy Grove, VISION IMPAIRED TEACHER: [address] [facility], [address], [place] [address], Ph. [facility] - [facility] Medical - VM_MAGDALENOU_Azra at Home [id number] [facility] 2019-09-08 08:43:00 2019-09-14 13:03:00 Discharged Inpatient 1 MIL [facility] [id number] [facility] 2019-08-26 13:00:00 2019-08-28 11:32:00 Discharged Inpatient (obs) 1 JAEGER [facility] [id number] [facility] 2019-08-20 00:00:00 2019-08-20 00:00:00 Luis M Barrera Jr, MD: [address], [address], [place] [address], Ph. [facility] - VMGuruby [id number] [facility] 2019-08-13 00:00:00 2019-08-13 00:00:00 Elda Rahman P: [address] [facility] [facility], [place] [address], Ph. [facility] - [facility] Medical - VM_HOU_Village at Home [id number] [facility] 2019-08-02 12:31:00 2019-08-08 13:04:00 Discharged Inpatient 1 VELMA JAEGER [facility] [id number] [facility] 2019-07-30 09:50:00 2019-07-30 12:34:00 Departed Emergency Room [facility] [id number] [facility] 2019-07-29 11:16:00 2019-07-29 15:10:00 Departed Emergency Room 1 DIPESH TAVARES [facility] [id number] [facility] 2019-07-23 00:00:00 2019-07-23 00:00:00 Luis M Barrera Jr, MD: [address] [facility], [facility] [address] [address], Ph. [facility] - VM_HOU_Hobby [id number] [facility] 2019-07-14 00:00:00 2019-07-14 00:00:00 Luis M Barrera Jr, MD: [address] [facility], [facility] [address], [place] [address], Ph. [facility] - VM_HOU_Hobby [id number] [facility] 2019-07-11 12:38:00 2019-07-11 15:12:00 Departed Emergency Room [facility] [id number] [facility] 2019-07-10 00:00:00 2019-07-10 00:00:00 Luis M Barrera Jr, MD: [address], [facility] [address], [place] [address], Ph. [facility] - VM_HOU_Hobby [id number] [facility] 2019-06-18 00:00:00 2019-06-18 00:00:00 Elda Rahman P: [address], [address], [place] [address], Ph. [facility] - VM_HOU_[facility] at Home [id number] [facility] y Practice 2019-06-01 00:57:00 2019-06-01 00:57:00 Emergency E [facility] [id number] [facility] 2019-05-27 00:00:00 2019-05-27 00:00:00 Luis M Barrera Jr, MD: [address], [address], [place] [address], Ph. [facility] - _HOU_Hobby [id number] [facility] 2019-05-12 14:08:00 2019-05-12 18:38:00 Departed Emergency Room 1 OLIVIA NGUYEN [facility] [id number] [facility] 2019-04-18 21:19:00 2019-04-18 21:19:00 Outpatient E MHSE MED [id number] [facility] 2019-04-17 00:00:00 2019-04-17 00:00:00 Luis M Barrera Jr, MD: [address], [address], [place] [address], Ph. [facility] - VFP-Hobby [id number] [facility] 2019-04-16 00:00:00 2019-04-16 00:00:00 Luis M Barrera Jr, MD: [address], [facility] [address], [place] [address], Ph. [facility] - VFP-Hobby [id number] [facility] 2019-04-04 11:24:00 2019-04-03 18:18:00 Inpatient E MHSE MED [id number] [facility] 2019-04-03 00:00:00 2019-04-03 00:00:00 Luis M Barrera Jr, MD: [address], [address], [place] [address], Ph. [facility] - P-Hobby [id number] [facility] 2019-04-01 00:00:00 2019-04-01 00:00:00 Luis M Barrera Jr, MD: [address], [address], [place] [address], Ph. [facility] - VFP-Hobby [id number] [facility] 2019-03-28 00:00:00 2019-03-28 00:00:00 Luis M Barrera Jr, MD: [address], [address], [place] [address], Ph. [facility] - VFP-Hobby [id number] [facility] 2019-01-30 14:00:00 2019-01-30 14:00:00 [facility] [id number] [facility] 2018-12-26 00:00:00 2018-12-26 00:00:00 Luis M Barrera Jr, MD: [address], [address], [place] [address], Ph. [facility] - VFP-Hobby [id number] [facility] 2018-12-24 09:08:00 2018-12-24 09:08:00 [facility] [id number] [facility] 2018-11-12 08:40:00 2018-11-12 08:40:00 [facility] [id number] [facility] 2018-10-25 00:00:00 2018-10-25 00:00:00 Luis M Barrera Jr, MD: [address], [address], [place] [address], Ph. [facility] - VFP-Hobby [id number] [facility] 2018-09-20 00:00:00 2018-09-20 00:00:00 Luis M Barrera Jr, MD: [address], [address], [place] [address], Ph. [facility] - VFP-Hobby [id number] [facility] 2018-09-18 00:00:00 2018-09-18 00:00:00 Luis M Barrera Jr, MD: [address], [address], [place] [address], Ph. [facility] [id number] [facility] 2018-09-10 00:00:00 2018-09-10 00:00:00 Luis M Barrera Jr, MD: [address], [address], [place] [address], Ph. [facility] [id number] [facility] 2018-08-29 00:00:00 2018-08-29 00:00:00 Luis M Barrera Jr, MD: [address], [address], [place] [address], Ph. [facility] [id number] [facility] Results Test Description Test Time Test Comments Results Result Comments Source Glucose [Mass/volume] in Capillary blood 2020-04-07 13:59:00 Test Item Blood Glucose: mg/dl (test code = Blood Glucose: mg/dl) 92 [facility] W Auto Differential panel - [id number] 00:00:00 * Test Item Value Reference Range Interpretation Comments white blood cell count (test code = white blood cell count) 4.7 thousand/uL 3.8-10.8 red blood cell count (test code = red blood cell count) 3.60 million/uL 4.20-5.80 L hemoglobin (test code = hemoglobin) 9.3 g/dL 13.2-17.1 L hematocrit (test code = hematocrit) 30.9 % 38.5-50.0 L MCV (test code = MCV) 85.8 fL 80.0-100.0 MCH (test code = MCH) 25.8 pg 27.0-33.0 L MCHC (test code = MCHC) 30.1 g/dL 32.0-36.0 L RDW (test code = RDW) 16.7 % 11.0-15.0 H platelet count (test code = platelet count) 176 thousand/uL 140-400 MPV (test code = MPV) 11.0 fL 7.5-12.5 absolute neutrophils (test code = absolute neutrophils) 2839 mariam ls/uL 9980-2022 absolute lymphocytes (test code = absolute lymphocytes) 1217 mariam ls/uL 850-3900 absolute monocytes (test code = absolute monocytes) 418 cells/uL 20 0-950 absolute eosinophils (test code = absolute eosinophils) 197 cells/u L 15-500 absolute basophils (test code = absolute basophils) 28 cells/uL 0- 200 neutrophils (test code = neutrophils) 60.4 % lymphocytes (test code = lymphocytes) 25.9 % monocytes (test code = monocytes) 8.9 % eosinophils (test code = eosinophils) 4.2 % basophils (test code = basophils) 0.6 % [facility] Platelet poor plasma by Coagulation assay 2020-03-12 00:00:00* Test Item Value Reference Range Interpretation Comments INR (test code = INR) 3.2 H PT (test code = PT) 32.3 sec 9.0-11.5 H [facility] CenterLipid 1995 panel - Serum or [id number] 18:28:00* Test Item Value Reference Range Interpretation Comments HDL (test code = HDL) 67 mg/dL triglyceride (test code = triglyceride) 33 mg/dL <150 VLDL (calculated) (test code = VLDL (calculated)) 7 mg/dL cholesterol/HDL ratio (test code = cholesterol/HDL ratio) 2.1 mg/dL non-HDL cholesterol (calculated) (test code = non-HDL cholesterol (calculated)) 71 mg/dL <160 cholesterol (test code = cholesterol) 138 mg/dL <200 Cholesterol in LDL [Mass/volume] in Serum or Plasma (t est code = 2089-1) 64 mg/dL <130 [facility] Center[facility] + TIBC + ferritin, [id number] 18:28:00* Test Item Value Reference Range Interpretation Comments ferritin (test code = ferritin) 35.86 NG/mL 21.81-274.66 iron, total (test code = iron, total) 76 mcg/dL 50-180 transferrin (test code = transferrin) 288 mg/dL 163-344 total iron binding capacity (calculated) (test code = total iron binding capacity (calculated)) 412 mcg/dL 250-425 % saturation (test code = % saturation) 18.5 % 15.0-60.0 [facility] CenterComprehensive metabolic 2000 panel - Serum or Plasma 2020-03-11 00:00:00* Test Item Value Reference Range Interpretation Comments ALT (test code = ALT) 18 U/L 0-55 AST (test code = AST) 20 U/L 5-34 BUN (test code = BUN) 30.7 mg/dL 8.4-25.0 H alk phos (test code = alk phos) 128 unit/L 40-150 glucose (test code = glucose) 173 mg/dL 70-99 H albumin (test code = albumin) 3.5 g/dL 3.4-5.1 creatinine (test code = creatinine) 1.50 mg/dL 0.72-1.25 H eGFR non- (test code = eGFR non-pasquale n chinese) 45 mL/min/1.73m2 A total bilirubin (test code = total bilirubin) 1.0 mg/dL 0.2-1.2 eGFR - (test code = eGFR - ) 55 mL/min/1.73m2 A sodium (test code = sodium) 141 mEq/L 135-145 potassium (test code = potassium) 4.3 mEq/L 3.5-5.3 chloride (test code = chloride) 109 mmol/L 98-110 total protein (test code = total protein) 6.3 g/dL 6.1-8.2 calcium (test code = calcium) 9.9 mg/dL 9.0-10.2 CO2 (test code = CO2) 25.2 mmol/L 20.0-32.0 anion gap (test code = anion gap) 7 calc [facility] CenterHemoglobin A1c/Hemoglobin.total in [id number] 00:00:00* Test Item Value Reference Range Interpretation Comments Hemoglobin A1c/Hemoglobin.total in Blood (test code = 4548-4) 6.1 % 1.0-5.7 H average blood glucose (calculated) (test code = average blood glucose (calculated)) 128 mg/dL [facility] Center[facility] in Platelet poor plasma by Coagulation assay 2019-10-24 04:21:00* Test Item Value Reference Range Interpretation Comments INR (test code = INR) 3.2 H PT (test code = PT) 32.6 sec 9.0-11.5 H [facility] Center[facility] in Platelet poor plasma by Coagulation assay 2019-10-24 04:21:00* Test Item Value Reference Range Interpretation Comments INR (test code = INR) 3.2 H PT (test code = PT) 32.6 sec 9.0-11.5 H [facility] Practice[facility] in Platelet poor plasma by Coagulation assay 2019-10-24 04:21:00* Test Item Value Reference Range Interpretation Comments INR (test code = INR) 3.2 H PT (test code = PT) 32.6 sec 9.0-11.5 H [facility] PracticeINR in Platelet poor plasma by Coagulation assay 2019-10-24 04:21:00* Test Item Value Reference Range Interpretation Comments INR (test code = INR) 3.2 H PT (test code = PT) 32.6 sec 9.0-11.5 H [facility] PracticeINR in Platelet poor plasma by Coagulation assay 2019-10-24 04:21:00* Test Item Value Reference Range Interpretation Comments INR (test code = INR) 3.2 H PT (test code = PT) 32.6 sec 9.0-11.5 H [facility] PracticeINR in Platelet poor plasma by Coagulation assay 2019-10-24 04:21:00* Test Item Value Reference Range Interpretation Comments INR (test code = INR) 3.2 H PT (test code = PT) 32.6 sec 9.0-11.5 H [facility] PracticeB[facility] Dufiyrz1407-89-93 11:24:00* Test Item Value Reference Range Interpretation Comments Bedside Glucose (test code = 28963-6) 111 70-120 Meter ID: [id number] [facility] 2019-09-13 08:16:00* Test Item Value Reference Range Interpretation Comments Urine Culture (test code = 630-4) No Result Data Provided [facility] Hospital[facility] ADD 15 MIN>6SYX3623-40-17 15:11:00 [facility] [address] [place] [address] Patient Name: AMAURI FLAHERTY MR #: [id number] : 1940 Age/Sex: 78/M Req #: [id number] Adm Physician: VELMA JAEGER MD Ordered by: VIKAS MCWILLIAMS MD Report #: [id number] Location: MED/SURG2 Room/Bed: [facility] Procedure: [id number] DX/MO D SEDATE ADD 15 MIN>5YRS Exam Date: 09/12/19 Exam Time: 1258 REPORT STATUS: Signed SUPRAPUBIC CATHETER EXCHANGE, 09/12/2019 Indication: Urinary retention. Comparison: 08/27/2019. Grain Elevator Motor Starter: Dr. Mcwilliams. Medication: 5 cc of 1% lidocaine without epinephrine. Conscious sedation: 4 mg Versed, 200 mcg fentanyl IV. Patient's vital signs were continuously monitored by radiology nursing and remained stable throughout. Physician intraservice sedation time: 40 minutes. Fluoroscopy Time: 1.2 minutes Radiation Dose: 21.3 mGy (SHAHEEN) EBL: 1 ml. Technique: After informed consent and timeout procedure, the access site was prepped and draped with the standard maximal sterile barrier technique. The patient was placed in a supine position on the fluoroscopy table. The skin was anesthetized with lidocaine. Contrast was injected through the existing suprapubic catheter. An Amplatz wire was advanced through the catheter and curled within the bladder. The old catheter was removed and serial dilatation was performed for placement of a 22 [place] peel-away sheath, through which an 18-gauge Cleaning catheter was advanced into the bladder. Retention balloon was inflated with 10 mL of air. Evaluation is was removed. Contrast was injected confirming positioning within the bladder. There were no complications. IMPRESSION: Uncomplicated exchange of suprapubic catheter with conscious sedation. Signed by: Vikas Mcwilliams on 09/12/2019 3:17 PM Dictated By: VIKAS MCWILLIAMS MD 1440 Transcribed By: JEB on 09/23/19 1440 COPY TO: VIKAS MCWILLIAMS MD MOD SEDATE INITIAL >5 [id number] 15:11:00 [facility] [address] [address] Patient Name: AMAURI FLAHERTY MR #: [id number] : 1940 Age/Sex: 78/M Req #: [id number] [facility] Physician: VELMA JAEGER MD Ordered by: VIKAS MCWILLIAMS MD Report #: [id number] Location: MED/SURG2 Room/Bed: [facility] Procedure: [id number] DX/MO D SEDATE INITIAL >5 YRS Exam Date: 09/12/19 Exam Time: 1227 REPORT STATUS: Signed SUPRAPUBIC CATHETER EXCHANGE, 09/12/2019 Indication: Urinary retention. Comparison: 08/27/2019. Grain Elevator Motor Starter: Dr. Mcwilliams. Medication: 5 cc of 1% lidocaine without epinephrine. Conscious sedation: 4 mg Versed, 200 mcg fentanyl IV. Patient's vital signs were continuously monitored by radiology nursing and remained stable throughout. Physician intraservice sedation time: 40 minutes. Fluoroscopy Time: 1.2 minutes Radiation Dose: 21.3 mGy (SHAHEEN) EBL: 1 ml. Technique: After informed consent and timeout procedure, the access site was prepped and draped with the standard maximal sterile barrier technique. The patient was placed in a supine position on the fluoroscopy table. The skin was anesthetized with lidocaine. Contrast was injected through the existing suprapubic catheter. An Amplatz wire was advanced through the catheter and curled within the bladder. The old catheter was removed and serial dilatation was performed for placement of a 22 [place] peel-away sheath, through which an 18-gauge Cleaning catheter was advanced into the bladder. Retention balloon was inflated with 10 mL of air. Evaluation is was removed. Contrast was injected confirming positioning within the bladder. There were no complications. IMPRESSION: Uncomplicated exchange of suprapubic catheter with conscious sedation. Signed by: Vikas Mcwilliams on 09/12/2019 3:17 PM Dictated By: VIKAS MCWILLIAMS MD 1440 Transcribed By: JEB on 09/23/19 1440 COPY TO: VIKAS MCWILLIAMS MD SUPRAPUBIC CATHETER [id number] 15:11:[address] [place] [address] Patient Name: AMAURI FLAHERTY MR #: [id number] : 1940 Age/Sex: 78/M Req #: [id number] Adm Physician: VELMA JAEGER MD Ordered by: SONAM RIVERA MD Report #: [id number] Location: [facility]/SURG Room/Bed: [facility] Procedure: [id number] IR/SUPRA PUBIC CATHETER PLACEMENT Exam Date: 09/12/19 Exam Ti me: 1230 REPORT STATUS: Signed S UPRAPUBIC CATHETER EXCHANGE, 09/12/2019 Indication: Urinary retention. Comparison: 08/27/2019. Grain Elevator Motor Starter: Dr. Mcwilliams. Medication: 5 cc of 1% li docaine without epinephrine. Conscious sedation: 4 mg Versed, 200 mcg fent anyl IV. Patient's vital signs were continuously monitored by radiology ricardo desai and remained stable throughout. Physician intraservice sedation time: 40 min utes. Fluoroscopy Time: 1.2 minutes Radiation Dose: 21.3 mGy (SHAHEEN) EBL: 1 ml. Technique: After informed consent and timeout procedure, the a ccess site was prepped and draped with the standard maximal sterile barrier te chnique. The patient was placed in a supine position on the fluoroscopy table. The skin was anesthetized with lidocaine. Contrast was injected through the existing suprapubic catheter. An Amplatz wire was advanced through the cathete r and curled within the bladder. The old catheter was removed and serial dilat ation was performed for placement of a 22 [place] peel-away sheath, through [facility] an 18-gauge Cleaning catheter was advanced into the bladder. Retention balloon was inflated with 10 mL of air. Evaluation is was removed. Contrast was injec robert confirming positioning within the bladder. There were no complications. IMPRESSION: Uncomplicated exchange of suprapubic catheter with conscious se dation. Signed by: Vikas Mcwilliams on 09/12/2019 3:17 PM Dictated By: YOKASTA MCWILLIAMS MD 1440 Tra nscribed By: JEB on 09/23/19 1440 COPY TO: SONAM RIVERA MD D- Dimer Quantitative (PE/DVT)2019-09-11 09:11:00* Test Item Value Reference Range Interpretation Comments D-Dimer Quantitative (PE/DVT) (test code = 73360-9) 403 0- 400 H The Triage D-Dimer Test has not been evaluated for use as sole evidence for the presence or absence of PE or DVT. As with all in vitro diagnostic tests, the te st results should be interpreted by the physician in conjunction with clinical f indings and other test results.Test results are reported in D-dimer units.[facility] Centerodium Arwgx2534-88-83 06:19:00* Test Item Value Reference Range Interpretation Comments Sodium Level (test code = 2951-2) 140 136-145 [facility] HospitalPotassium Ucrkf7025-49-69 06:19:00* Test Item Value Reference Range Interpretation Comments Potassium Level (test code = 2823-3) 4.2 3.5-5.1 [facility] HospitalChloride Flzzt0307-65-17 06:19:00* Test Item Value Reference Range Interpretation Comments Chloride Level (test code = 2075-0) 111 98-107 H [facility] HospitalCarbon Dioxide Dwmre0137-75-63 06:19:00* Test Item Value Reference Range Interpretation Comments Carbon Dioxide Level (test code = 2028-9) 23 22-29 [facility] HospitalAnion Avb1181-78-62 06:19:00* Test Item Value Reference Range Interpretation Comments Anion Gap (test code = 58723-5) 10.2 8-16 [facility] HospitalBlood Urea Njnebfvq8017-13-89 06:19:00* Test Item Value Reference Range Interpretation Comments Blood Urea Nitrogen (test code = 3094-0) 22 7-26 [facility] HospitalCreatinine2020-03-05 06:19:00* Test Item Value Reference Range Interpretation Comments Creatinine (test code = 2160-0) 1.06 0.72-1.25 [facility] HospitalBUN/Creatinine Iomyt9606-53-96 06:19:00* Test Item Value Reference Range Interpretation Comments BUN/Creatinine Ratio (test code = 3097-3) 21 6- [facility] HospitalEstimat Glomerular Filtration Rate 2019-09-11 06:19:00* Test Item Value Reference Range Interpretation Comments Estimat Glomerular Filtration Rate (test code = 659535644) > 60 >60 Ranges were taken from the National Kidney Disease Education Program and the [facility] Kidney Foundation literature.Reference ranges:60 or greater: Koxpvy29-33 ( for 3 consecutive months): Chronic kidney disease 15 or less: Kidney failureHouston Methodist West HospitalGlucose Oqcen8327-54-16 06:19:00* Test Item Value Reference Range Interpretation Comments Glucose Level (test code = TRH5167) 97 74-118 [facility] HospitalCalcium Ozhfw7562-13-10 06:19:00* Test Item Value Reference Range Interpretation Comments Calcium Level (test code = 45709-3) 9.4 8.4-10.2 [facility] HospitalProthrombin Uvsi1197-25-57 05:58:00* Test Item Value Reference Range Interpretation Comments Prothrombin Time (test code = 5902-2) 18.8 11.9-14.5 H [facility] HospitalProthromb Time International Ratio 2019-09-11 05:58:00* Test Item Value Reference Range Interpretation Comments Prothromb Time International Ratio (test code = 6301-6) 1.47 Oral Anticoagulant Therapy INR Values:1. Low Intensity Therapy 1.5 - 2.02 . Moderate Intensity Therapy 2.0 - 3.03. High Intensity Therapy(1) 2.5 - 3. 54. High Intensity Therapy(2) 3.0 - 4.05. Panic Value INR > 5.0 [facility] HospitalBlood Bbgyhmn1984-00-50 08:27:00* Test Item Value Reference Range Interpretation Comments Blood Culture (test code = 600-7) No Result Data Provided [facility] HospitalWhite Blood Xyjcu5100-24-83 06:20:00* Test Item Value Reference Range Interpretation Comments White Blood Count (test code = 6690-2) 7.42 4.8-10.8 [facility] HospitalRed Blood Vntml9189-50-25 06:20:00* Test Item Value Reference Range Interpretation Comments Red Blood Count (test code = 789-8) 3.71 4.3-5.7 L [facility] HospitalHemoglobin2020-03-04 06:20:00* Test Item Value Reference Range Interpretation Comments Hemoglobin (test code = 35899-3) 9.2 14.0-18.0 L [facility] HospitalHematocrit2020-03-04 06:20:00* Test Item Value Reference Range Interpretation Comments Hematocrit (test code = 4544-3) 30.3 38.2-49.6 L [facility] HospitalMean Corpuscular Vnwckp5063-08-96 06:20:00* Test Item Value Reference Range Interpretation Comments Mean Corpuscular Volume (test code = 787-2) 81.7 81-99 [facility] HospitalMean Corpuscular Syvrblzlpl5824-06-12 06:20:00* Test Item Value Reference Range Interpretation Comments Mean Corpuscular Hemoglobin (test code = 785-6) 24.8 28-32 L [facility] Hospital[facility] Corpuscular Hemoglobin Concent 2019-09-10 06:20:00* Test Item Value Reference Range Interpretation Comments Mean Corpuscular Hemoglobin Concent (test code = 786-4) 30.4 31-35 L [facility] HospitalRed Cell Distribution Eggey2492-79-27 06:20:00* Test Item Value Reference Range Interpretation Comments Red Cell Distribution Width (test code = 72794-5) 18.4 11.7 -14.4 H [facility] HospitalPlatelet Tasdv1868-77-87 06:20:00* Test Item Value Reference Range Interpretation Comments Platelet Count (test code = 777-3) 176 140-360 [facility] HospitalNeutrophils (%) (Auto)2019-09-10 06:20:00 * Test Item Value Reference Range Interpretation Comments Neutrophils (%) (Auto) (test code = 89412-7) 74.5 38.7-80.0 [facility] HospitalLymphocytes (%) (Auto)2019-09-10 06:20:00 * Test Item Value Reference Range Interpretation Comments Lymphocytes (%) (Auto) (test code = 736-9) 15.2 18.0-39.1 L [facility] HospitalMonocytes (%) (Auto)2019-09-10 06:20:00* Test Item Value Reference Range Interpretation Comments Monocytes (%) (Auto) (test code = 5905-5) 8.0 4.4-11.3 [facility] HospitalEosinophils (%) (Auto)2019-09-10 06:20:00 * Test Item Value Reference Range Interpretation Comments Eosinophils (%) (Auto) (test code = 713-8) 1.5 0.0-6.0 [facility] HospitalBasophils (%) (Auto)2019-09-10 06:20:00* Test Item Value Reference Range Interpretation Comments Basophils (%) (Auto) (test code = 706-2) 0.3 0.0-1.0 [facility] HospitalIM GRANULOCYTES %2019-09-10 06:20:00* Test Item Value Reference Range Interpretation Comments IM GRANULOCYTES % (test code = IM GRANULOCYTES %) 0.5 0.0- 1.0 [facility] HospitalNeutrophils # (Auto)2019-09-10 06:20:00* Test Item Value Reference Range Interpretation Comments Neutrophils # (Auto) (test code = 751-8) 5.5 2.1-6.9 [facility] HospitalLymphocytes # (Auto)2019-09-10 06:20:00* Test Item Value Reference Range Interpretation Comments Lymphocytes # (Auto) (test code = 93669-9) 1.1 1.0-3.2 [facility] HospitalMonocytes # (Auto)2019-09-10 06:20:00* Test Item Value Reference Range Interpretation Comments Monocytes # (Auto) (test code = 742-7) 0.6 0.2-0.8 [facility] HospitalEosinophils # (Auto)2019-09-10 06:20:00* Test Item Value Reference Range Interpretation Comments Eosinophils # (Auto) (test code = 711-2) 0.1 0.0-0.4 [facility] HospitalBasophils # (Auto)2019-09-10 06:20:00* Test Item Value Reference Range Interpretation Comments Basophils # (Auto) (test code = 704-7) 0.0 0.0-0.1 [facility] HospitalAbsolute Immature Granulocyte (auto 2019-09-10 06:20:00* Test Item Value Reference Range Interpretation Comments Absolute Immature Granulocyte (auto (carine t code = Absolute Immature Granulocyte (auto) 0.04 0-0.1 [facility] HospitalIR [id number] 15:54:00 [facility] [address] [place] [address] Patient Name: AMUARI FLAHERTY MR #: [id number] : 1940 Age/Sex: 78/M Req #: [id number] Adm Physician: VELMA JAEGER MD Ordered by: EDER SYLVESTER MD Report #: [id number] Location: [facility] Room/Bed: [place] [address] Procedure: [id number] DX/ IR CONSULT Exam Date: Exam Time: REPORT STATUS: Signed PROCEDURE: Ultrasound-guide d biopsy Procedural Personnel Attending physician(s): MD Lizeth Gutierrezw physician(s): None Resident physician(s): None Advanced practice provid er(s): None Pre-procedure diagnosis: Lymphadenopathy Post-procedure diagn osis: Same Indication: Histopathologic diagnosis Previous biopsy of same tar get (QCDR): No Additional clinical history: None Complications: No immedi ate complications. IMPRESSION: Ultrasound-guided biopsy of right ingui nal lymphadenopathy. Plan: Specimen(s) sent for evaluation. PROCEDURE SUMMARY: - Percutaneous US-guided right inguinal lymph node biopsy - Additional proc edure(s): None PROCEDURE DETAILS: Pre-procedure Reference imaging fo r biopsy target: None Consent: Informed consent for the procedure including ri sks, benefits and alternatives was obtained and time-out was performed prior t o the procedure. Preparation: The site was prepared and draped using maximal s terile barrier technique including cutaneous antisepsis. Anesthesia/sedat ion Level of anesthesia/sedation: No sedation Anesthesia/sedation administer ed by: Independent trained observer under attending supervision with continuou s monitoring of the patient?s level of consciousness and physiologic status Total intra-service sedation time (minutes): NA Imaging prior to biopsy T he patient was positioned supine. Initial ultrasound was performed. Biopsy tar get: - Maximal diameter (cm): 1.5 - Location: Right inguinal Other finding s: None Biopsy Local anesthesia was administered. Under US guidance, the biopsy needle was advanced to the target and biopsy was performed. Coaxial needle: N/A Core needle biopsy device: Argon Core needle size: 18g Numb er of core specimens: 2 Fine needle aspiration device: Chiba Fine needle size: 22g Number of FNA specimens: 3 On-site biopsy touch preparation: Malcolm decker Additional sampling recommendations: None Preliminary assessment of samp le adequacy: Not applicable Needle removal The biopsy needle was removed and a sterile dressing was applied. Tract embolization: None Imaging foll owing biopsy Immediate post-biopsy ultrasound was performed. Post-biopsy janie ging findings: No complications Additional Details Additional description of procedure: None Equipment details: None Specimens removed: Biopsy sample s as detailed above Estimated blood loss (mL): Less than 10 Standardized rep ort: [id number] Attestation Signer name: Tere Pope MD I attest t hat I was present for the entire procedure. I reviewed the stored images and a gree with the report as written. Signed by: Tere Pope MD on 09/09/2019 3:56 PM Dictated By: TERE POPE MD 55 COPY TO: EDER RAMIREZ MD FNA US GUIDED 1ST [id number] 15:54:00 [place] [address] Patient Name: AMAURI FLAHERTY MR #: [id number] : 1940 Age/Sex: 78/M Req #: [id number] Adm Physician: VELMA JAEGER MD Ordered by: VELMA JAEGER MD Report #: [id number] Location: [facility]/Bed: [facility] 198-1 Procedure: [id number] IR/FNA U S GUIDED 1ST LESION Exam Date: 09/09/19 Exam Time: 1 400 REPORT STATUS: Signed PROCED URE: Ultrasound-guided biopsy Procedural Personnel Attending physician(s) : Tere Pope MD Fellow physician(s): None Resident physician(s): None Adv anced practice provider(s): None Pre-procedure diagnosis: Lymphadenopathy Post-procedure diagnosis: Same Indication: Histopathologic diagnosis Previo us biopsy of same target (QCDR): No Additional clinical history: None Com plications: No immediate complications. IMPRESSION: Ultrasound-guided biopsy of right inguinal lymphadenopathy. Plan: Specimen(s) sent for evaluation. PROCEDURE SUMMARY: - Percutaneous US-guided right inguinal lymph node biops y - Additional procedure(s): None PROCEDURE DETAILS: Pre-procedure Reference imaging for biopsy target: None Consent: Informed consent for the p rocedure including risks, benefits and alternatives was obtained and time-out was performed prior to the procedure. Preparation: The site was prepared and d raped using maximal sterile barrier technique including cutaneous antisepsis. Anesthesia/sedation Level of anesthesia/sedation: No sedation Anesthesi a/sedation administered by: Independent trained observer under attending super vision with continuous monitoring of the patient?s level of consciousness and physiologic status Total intra-service sedation time (minutes): NA Imagin g prior to biopsy The patient was positioned supine. Initial ultrasound was pe rformed. Biopsy target: - Maximal diameter (cm): 1.5 - Location: Right ing uinal Other findings: None Biopsy Local anesthesia was administered. U nder US guidance, the biopsy needle was advanced to the target and biopsy was performed. Coaxial needle: N/A Core needle biopsy device: Argon Core ne edle size: 18g Number of core specimens: 2 Fine needle aspiration device: Chiba Fine needle size: 22g Number of FNA specimens: 3 On-site biopsy touch preparation: Yes Additional sampling recommendations: None Prelimina ry assessment of sample adequacy: Not applicable Needle removal The biops y needle was removed and a sterile dressing was applied. Tract embolization: N one Imaging following biopsy Immediate post-biopsy ultrasound was perform ed. Post-biopsy imaging findings: No complications Additional Details A dditional description of procedure: None Equipment details: None Specimens r emoved: Biopsy samples as detailed above Estimated blood loss (mL): Less than 10 Standardized report: [id number]_v3 Attestation Signer name: Lacy Pope MD I attest that I was present for the entire procedure. I reviewed the stored images and agree with the report as written. Signed by: Tere Pope MD on 09/09/2019 3:56 PM Dictated By: TERE POPE MD Electronically Rachelle d By: TERE POPE MD on 09/09/191555 Transcribed By: JEB on 09/09/191555 COPY TO: VELMA JAEGER MD BIOPSY LYMPH [id number] 15:54:00 [place] [address] Patient Name: AMAURI FLAHERTY MR #: [id number] : 1940 Age/Sex: 78/M Req #: [id number] [facility] Physician: VELMA JAEGER MD Ordered by: VELMA JAEGER MD Report #: [id number] Location: [facility]/Bed: [facility] 198-1 Procedure: [id number] IR/BIOPS Y LYMPH NODE Exam Date: 09/09/19 Exam Time: 1401 REPORT STATUS: Signed PROCEDURE: Ul trasound-guided biopsy Procedural Personnel Attending physician(s): Daniel Pope MD Fellow physician(s): None Resident physician(s): None Advanced p ractice provider(s): None Pre-procedure diagnosis: Lymphadenopathy Post-p rocedure diagnosis: Same Indication: Histopathologic diagnosis Previous biop sy of same target (QCDR): No Additional clinical history: None Complicati ons: No immediate complications. IMPRESSION: Ultrasound-guided biopsy of right inguinal lymphadenopathy. Plan: Specimen(s) sent for evaluat ion. PROC EDURE SUMMARY: - Percutaneous US-guided right inguinal lymph node biopsy - A dditional procedure(s): None PROCEDURE DETAILS: Pre-procedure Refere nce imaging for biopsy target: None Consent: Informed consent for the procedur e including risks, benefits and alternatives was obtained and time-out was per formed prior to the procedure. Preparation: The site was prepared and draped u sing maximal sterile barrier technique including cutaneous antisepsis. An esthesia/sedation Level of anesthesia/sedation: No sedation Anesthesia/sedat ion administered by: Independent trained observer under attending supervision with continuous monitoring of the patient?s level of consciousness and physiol ogic status Total intra-service sedation time (minutes): NA Imaging prior to biopsy The patient was positioned supine. Initial ultrasound was performed . Biopsy target: - Maximal diameter (cm): 1.5 - Location: Right inguinal Other findings: None Biopsy Local anesthesia was administered. Under US guidance, the biopsy needle was advanced to the target and biopsy was perform ed. Coaxial needle: N/A Core needle biopsy device: Argon Core needle si ze: 18g Number of core specimens: 2 Fine needle aspiration device: Chiba Fine needle size: 22g Number of FNA specimens: 3 On-site biopsy touch p reparation: Yes Additional sampling recommendations: None Preliminary asse ssment of sample adequacy: Not applicable Needle removal The biopsy needl e was removed and a sterile dressing was applied. Tract embolization: None Imaging following biopsy Immediate post-biopsy ultrasound was performed. P ost-biopsy imaging findings: No complications Additional Details Addition al description of procedure: None Equipment details: None Specimens removed: Biopsy samples as detailed above Estimated blood loss (mL): Less than 10 St andardized report: [id number] Attestation Signer name: Emilia Gutierrez I attest that I was present for the entire procedure. I reviewed the stored images and agree with the report as written. Signed by: Tere Pope MD on 09/09/2019 3:56 PM Dictated By: TERE POPE MD [id number] Transcribed By: JEB on 09/09/19 8700 CO PY TO: VELMA JAEGER MD CT CHEST [id number] 12:49:00 [facility] [address] [place] [address] Patient Name: AMAURI FLAHERTY MR #: [id number] : 1940 Age/Sex: 78/M Req #: [id number] Adm Physician: VELMA JAEGER MD Ordered by: VELMA JAEGER MD Report #: [id number] Location: [facility] om/Bed: [facility] 198-1 Procedure: [id number] CT/CT CH EST WO Exam Date: Exam Time: REPORT STATUS: Signed CT of the chest, without contra st, 09/08/2019 History: Pneumonia. Comparison: No chest CT comparisons a vailable for review, comparison is made to chest radiograph dated 09/07/2019. Technique: Multidetector CT scanning of the chest was performed from the leve l of the thoracic inlet to the upper abdomen without IV or oral contrast. Dose reduction: The examination was performed according to departmental dose -optimization program which includes automated exposure control, adjustment of the mA and/or kV according to patient size and/or use of iterative reconstruc tion technique. Findings: There is no axillar y lymphadenopathy. There is an anterior mediastinal mass versus a conglomer ation anterior mediastinal lymph nodes which measures approximately 2.8 x 12.6 cm. The heart is mildly enlarged. There is no pericardial effusion. The th oracic aorta is of normal course and caliber. The trachea and central air ways are clear. There is patchy consolidation in the right middle, right lo wer, lingula, and left lower lobes concerning for multifocal pneumonia. S mall bilateral pleural effusions are present. There is no pneumothorax. Bilateral gynecomastia is present. Remote fracture deformity of the right sixth rib. No acute osseous abnormalities. Limited evaluation of the upp er abdomen demonstrates no focal hepatic lesions in the visualized portions of the liver. IMPRESSION: 1. Multifocal pneumonia involving the right mi ddle, right lower, lingula, and left lower lobes. 2. 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 Further evaluation can be perform ed with PET/CT. Of note the patient had multiple enlarged bilateral inguinal l ymph nodes on abdominal CT dated 05/12/2019 which could be sampled percutaneous ly. 3. Mild cardiomegaly. 4. Small bilateral pleural effusions. 5 . Gynecomastia. Signed by: Baldev Wilkes MD on 09/08/2019 1:22 PM Dictated By: BALDEV WILKES MD 1322 Transcribed By: JEB on 09/08/19 1322 COPY TO: VELMA JAEGER MD Blood Bdziwdk3556-77-93 08:04:00* Test Item Value Reference Range Interpretation Comments Blood Culture (test code = 03354125) Growth detected. Culture wo rkup ordered. [facility] HospitalB-Type Natriuretic Gibnxbs0215-62-13 21:26:00* Test Item Value Reference Range Interpretation Comments B-Type Natriuretic Peptide (test code = 23552-5) 439.9 0-100 H [facility] HospitalDifferential Total Cells Counted 2019-09-07 21:11:00* Test Item Value Reference Range Interpretation Comments Differential Total Cells Counted (test code = Differen tial Total Cells Counted) 100 [facility] HospitalNeutrophils % (Manual)2019-09-07 21:11:00 * Test Item Value Reference Range Interpretation Comments Neutrophils % (Manual) (test code = 49783-8) 47 40-74 [facility] HospitalBand Neutrophils %2019-09-07 21:11:00* Test Item Value Reference Range Interpretation Comments Band Neutrophils % (test code = 764-1) 42 [facility] HospitalLymphocytes % (Manual)2019-09-07 21:11:00 * Test Item Value Reference Range Interpretation Comments Lymphocytes % (Manual) (test code = 737-7) 6 19-48 L [facility] HospitalMonocytes % (Manual)2019-09-07 21:11:00* Test Item Value Reference Range Interpretation Comments Monocytes % (Manual) (test code = 744-3) 3 3.4-9.0 L [facility] HospitalEosinophils % (Manual)2019-09-07 21:11:00 * Test Item Value Reference Range Interpretation Comments Eosinophils % (Manual) (test code = 714-6) 1 0-7 [facility] HospitalPromyelocytes %2019-09-07 21:11:00* Test Item Value Reference Range Interpretation Comments Promyelocytes % (test code = 60208-5) 1 0-0 H [facility] HospitalPlatelet Lieuqsak8518-47-66 21:11:00* Test Item Value Reference Range Interpretation Comments Platelet Estimate (test code = 83479-0) ADEQUATE [facility] HospitalPlatelet Morphology Gqqsfqa5734-25-12 21:11:00* Test Item Value Reference Range Interpretation Comments Platelet Morphology Comment (test code = 58444-4) NORMAL [facility] HospitalHypochromasia2020-03-01 21:11:00* Test Item Value Reference Range Interpretation Comments Hypochromasia (test code = 728-6) SLIGHT [facility] HospitalPoikilocytosis2020-03-01 21:11:00* Test Item Value Reference Range Interpretation Comments Poikilocytosis (test code = 779-9) SLIGHT [facility] HospitalTotal Hdrtxijpx4837-95-68 20:46:00* Test Item Value Reference Range Interpretation Comments Total Bilirubin (test code = 1975-2) 2.5 0.2-1.2 H [facility] HospitalAspartate Amino Transf (AST/SGOT) 2019-09-07 20:46:00* Test Item Value Reference Range Interpretation Comments Aspartate Amino Transf (AST/SGOT) (test code = Aspartate Amino Transf (AST/SGOT)) 17 5-34 [facility] HospitalAlanine Aminotransferase (ALT/SGPT) 2019-09-07 20:46:00* Test Item Value Reference Range Interpretation Comments Alanine Aminotransferase (ALT/SGPT) (test code = 1742-6) 7 0-55 [facility] HospitalTotal Gfrtlma0985-85-51 20:46:00* Test Item Value Reference Range Interpretation Comments Total Protein (test code = 2885-2) 6.3 6.5-8.1 L [facility] HospitalAlbumin2020-03-01 20:46:00* Test Item Value Reference Range Interpretation Comments Albumin (test code = 1751-7) 3.2 3.5-5.0 L [facility] HospitalGlobulin2020-03-01 20:46:00* Test Item Value Reference Range Interpretation Comments Globulin (test code = 03932-3) 3.1 2.3-3.5 [facility] HospitalAlbumin/Globulin Isaeg7653-88-69 20:46:00 * Test Item Value Reference Range Interpretation Comments Albumin/Globulin Ratio (test code = 1759-0) 1.0 0.8-2.0 [facility] HospitalAlkaline Zqpwpwhkgrz0258-48-27 20:46:00* Test Item Value Reference Range Interpretation Comments Alkaline Phosphatase (test code = 6768-6) 97 40-150 [facility] HospitalCreatine Nxwefa5195-39-24 20:46:00* Test Item Value Reference Range Interpretation Comments Creatine Kinase (test code = 2157-6) 125 30-200 [facility] HospitalCreatine Kinase [id number] 20:46:00* Test Item Value Reference Range Interpretation Comments Creatine Kinase MB (test code = 67167-0) 0.90 0-5.0 [facility] HospitalTroponin B2720-07-07 20:46:00* Test Item Value Reference Range Interpretation Comments Troponin I (test code = WCL1105) 0.046 0-0.300 [facility] HospitalLactic Acid Ttleu1137-95-34 20:45:00* Test Item Value Reference Range Interpretation Comments Lactic Acid Level (test code = Lactic Acid Level) 1.9 0.5- 2.0 [facility] HospitalCHEST SINGLE (PORTABLE)2019-09-07 20:00:00 [facility] [address] [place] [id number] Patient Name: AMAURI FLAHERTY MR #: [id number] : 1940 Age/Sex: 78/M Req #: [id number] [facility] Physician: Ordered by: OLIVIA NGUYEN DO Report #: [id number] Location: ER Room/Bed: Procedure: [id number] DX /CHEST SINGLE (PORTABLE) Exam Date: 09/07/19 Exam Ti me: 1944 REPORT STATUS: Signed E xamination: Single AP view of the chest. COMPARISON: 08/05/2019 INDICAT ION: Shortness of breath DISCUSSION: Lungs are well-inflated. Ne w patchy consolidation in the right lower lobe. Lungs are otherwise clear. Stable enlargement of the cardiac silhouette with tortuous thoracic aorta and atherosclerotic calcification. No overt pulmonary edema. No acute osseo us abnormalities. IMPRESSION: Patchy right lower lobe consolidation i s concerning for pneumonia or aspiration pneumonitis. A left chest radiograph in 6-8 weeks is suggested to document resolution after appropriate treatment. Signed by: Dr. Trinh Johnson M.D. on 09/07/2019 8:05 PM Dictated By: TRINH JOHNSON MD 04 T ranscribed By: JEB on 09/07/192004 COPY TO: OLIVIA NGUYEN DO Urine Pgidgwl8519-56-43 06:24:00* Test Item Value Reference Range Interpretation Comments Urine Culture (test code = 630-4) No Result Data Provided [facility] [id number] 09:24:00 [place] [address] Patient Name: AMAURI FLAHERTY MR #: [id number] : 1940 Age/Sex: 78/M Req #: [id number] [facility] Physician: VELMA JAEGER MD Ordered by: DUONG FERRER MD Report #: [id number] Location: [facility] Room/Bed: [place] [address] Procedure: [id number] DX/I R CONSULT Exam Date: Exam Time: REPORT STATUS: Signed SUPRAPUBIC BLADDER CATHETER PLACEMENT 08/27/2019 Indication: 78-year-old male with urinary retention a nd an indwelling suprapubic catheter. The catheter fell out following attempte d exchange earlier in the day. Replacement is requested. Comparison: Imag es from suprapubic catheter exchange from 08/27/2019 Sedation: None Flu oroscopy Time: 0.2 minutes Radiation Dose: 5.07 mGy Procedure: In formed consent was obtained. The patient was placed in a supine position on e fluoroscopy table. Inspection of the patient's pelvis revealed a partially c losed suprapubic catheter tract. The overlying skin was prepped and draped in the usual sterile fashion. 1% lidocaine was instilled for topical analgesia. Attempts were made to access the bladder through the existing tract using a Kumpe catheter. Unfortunately, the bladder could not be accessed through the e xisting tract. As a result, the decision was made to create a new tract for ca theter placement. Pelvic sonography revealed marked distention of the urinary bladder. Under ultrasound guidance, an 18-gauge needle was advanced into the u rinary bladder through the existing skin opening. Bloody urine was encountered from the needle. An Amplatz wire was advanced through the needle and coiled w ithin the bladder under fluoroscopic guidance. The tract was dilated up to 12 [place]. An attempt was made to advance a Bard 12 Fr balloon retention suprapub ic catheter over the wire into the bladder; however, the balloon retention cat heter would not completely track. As a result, a 12 [place] all-purpose pigtail drain was advanced over the wire into the urinary bladder without difficulty. The pigtail was formed within the central aspect of the urinary bladder. Cont rast injection through the drain confirmed appropriate position of the cathete r within the urinary bladder. Bloody urine with clots was aspirated through th e new drain. The bladder was irrigated. The drain was connected to a drainage bag. The catheter was sutured to the skin and a dressing was applied. The re were no immediate complications. IMPRESSION: Replacement of a supra pubic bladder catheter under ultrasound and fluoroscopic guidance. Direct acce ss to the bladder through the existing tract could not be obtained and therefo re a new tract was created through the existing skin entrance site. A 12 Frenc h pigtail catheter was placed. This may be exchanged for a balloon retention s uprapubic catheter once the tract is mature. Signed by: Milo Alarcon MD on 08/28/2019 9:32 AM Dictated By: MILO ALARCON MD Electronically Rachelle d By: MILO ALARCON MD on 08/28/19931 Transcribed By: JEB on 08/28/19 COPY TO: DUONG FERRER MD SUPRAPUBIC CATHETER PLACEMENT 2019-08-28 09:24:00 [place] [address] Patient Name: AMAURI FLAHERTY MR #: [id number] : 1940 Age/Sex: 78/M Req #: [id number] Adm Physician: VELMA JAEGER MD Ordered by: DUONG FERRER MD Report #: [id number] Location: [facility] Room/Bed: [place] [address] Procedure: [id number] IR/S UPRAPUBIC CATHETER PLACEMENT Exam Date: 08/27/19 Vashti savage Time: 1400 REPORT STATUS: Signed SUPRAPUBIC BLADDER CATHETER PLACEMENT 08/27/2019 Indication: 78-year-ol d male with urinary retention and an indwelling suprapubic catheter. The aliyah ter fell out following attempted exchange earlier in the day. Replacement is r equested. Comparison: Images from suprapubic catheter exchange from 08/27/19 Sedation: None Fluoroscopy Time: 0.2 minutes Radiation Dose: 5 .07 mGy Procedure: Informed consent was obtained. The patient was plac ed in a supine position on the fluoroscopy table. Inspection of the patient's pelvis revealed a partially closed suprapubic catheter tract. The overlying sk in was prepped and draped in the usual sterile fashion. 1% lidocaine was insti lled for topical analgesia. Attempts were made to access the bladder throug h the existing tract using a Kumpe catheter. Unfortunately, the bladder could not be accessed through the existing tract. As a result, the decision was made to create a new tract for catheter placement. Pelvic sonography revealed lian ed distention of the urinary bladder. Under ultrasound guidance, an 18-gauge n eedle was advanced into the urinary bladder through the existing skin opening. Bloody urine was encountered from the needle. An Amplatz wire was advanced th rough the needle and coiled within the bladder under fluoroscopic guidance. Th e tract was dilated up to [place]. An attempt was made to advance a Bard 12 Fr balloon retention suprapubic catheter over the wire into the bladder; howev er, the balloon retention catheter would not completely track. As a result, a 12 [place] all-purpose pigtail drain was advanced over the wire into the urinar y bladder without difficulty. The pigtail was formed within the central aspect of the urinary bladder. Contrast injection through the drain confirmed approp riate position of the catheter within the urinary bladder. Bloody urine with c lots was aspirated through the new drain. The bladder was irrigated. The drain was connected to a drainage bag. The catheter was sutured to the skin and a dressing was applied. There were no immediate complications. IMPRESSI ON: Replacement of a suprapubic bladder catheter under ultrasound and fluor oscopic guidance. Direct access to the bladder through the existing tract coul d not be obtained and therefore a new tract was created through the existing s kin entrance site. A 12 [place] pigtail catheter was placed. This may be exchan ged for a balloon retention suprapubic catheter once the tract is mature. Signed by: Milo Alarcon MD on 08/28/2019 9:32 AM Dictated By: MILO ALARCON MD 1 Transcr ibed By: JEB on 08/28/19931 COPY TO: DUONG FERRER MD Bedside Speemxo6349-02-78 07:53:00* Test Item Value Reference Range Interpretation Comments Bedside Glucose (test code = 69736-2) 86 70-120 Meter ID: [id number] [facility] 2019-08-28 06:39:00* Test Item Value Reference Range Interpretation Comments Urine Culture (test code = 630-4) No Result Data Provided [facility] [id number] 16:24:00 [place] [address] Patient Name: AMAURI FLAHERTY MR #: [id number] : 1940 Age/Sex: 78/M Req #: [id number] Adm Physician: VELMA AJEGER MD Ordered by: VELMA JAEGER MD Report #: [id number] Location: [facility]/Bed: [place] [address] Procedure: [id number] DX/IR CO NSULT Exam Date: Exam Time: REPORT STATUS: Signed Fluoroscopic guided suprapubic c atheter exchange/conversion Clinical History: Urethral stricture. Patient w ith indwelling 10 [place] pigtail suprapubic catheter. Catheter exchange and co nversion to balloon retention Cleaning requested. Modality: Fluoroscopy. Dry House Worker: Abilio Weems MD. Ware Carrier: None. Cons cious sedation: 2 mg Versed, 100 mcg fentanyl IV. The patient was continuousl y monitored throughout the procedure by the nurse. Vital signs remained stable throughout. Estimated Blood Loss: Less than 10 cc. Specimen: None. Fluoroscopy Time: 3.5 min. Reference Air Kerma (Ka, r): 69.9 mGy. Technique: Discussion of risks, benefits, and alternatives were made with the patient. The patient expressed understanding and agreed to proceed. After in formed consent was obtained, which included the risks of bleeding, infection, injury to adjacent structures/bowel, adverse medication reaction, the patient' s abdomen was prepped and draped in the usual sterile manner. All elements max imal sterile barrier technique was utilized for this procedure, including ut ilization of sterile scrub solution for skin prep, a large sterile sheet to co ilya the areas of the patient that were not prepped, and hand hygiene, mask, he ad covering, and sterile gown for performing radiologist and scrub technologis t. Contrast was injected via the indwelling catheter confirming position within the urinary bladder. 1% lidocaine was used for local anesthesia. The e xisting catheter was cut and a 0.035 wire was advanced into the catheter and c oiled within the urinary bladder. Initially, a new 10 [place] pigtail catheter was advanced over wire into the urinary bladder. However, order clarification was obtained and request for conversion to balloon retention Cleaning was obtaine d. The 10 [place] pigtail catheter was removed over a 0.035 wire. The tract was serially dilated. A 18 [place] peel-away sheath (largest available) was placed . The 16 [place] balloon retention Cleaning could not be placed through the larges t available peel-away sheath. Subsequently, a 12 [place] balloon retention Fole y catheter was placed through the peel-away sheath into the urinary bladder. The balloon was inflated with 10 cc of fluid. Contrast injection confirmed i ntraluminal position. The patient was discharged from the department in sta ble condition. Impression: Successful fluoroscopic guided suprapub ic catheter exchange and conversion/upsize to a 12 [place] balloon retention Fo connie. Please note conversion to a larger balloon retention catheter could not b e performed as a larger peel-away sheath was not available at the time of the procedure. Signed by: Dr. Abilio Weems MD on 08/27/2019 4:31 PM Dict ated By: ABILIO WEEMS MD 30 Transcribed By: JEB on 08/27/191630 COPY TO: VELMA JAEGER MD Change cystostmy/suprapub [id number] 16:24:00 [place] [address] Patient Name: AMAURI FLAHERTY MR #: [id number] : 1940 Age/Sex: 78/M Req #: [id number] [facility] Physician: VELMA JAEGER MD Ordered by: VELMA JAEGER MD Report #: [id number] Location: [facility] Room/Bed: [place] [address] Procedure: [id number] IR/Milian e cystostmy/suprapub tube Exam Date: Exam Time: REPORT STATUS: Signed Fluoroscopic guided suprapubic catheter exchange/conversion Clinical History: Urethral stricture. Patient with indwelling 10 [place] pigtail suprapubic catheter. Cath eter exchange and conversion to balloon retention Cleaning requested. Modali ty: Fluoroscopy. Dry House Worker: Abilio Weems MD. Ware Carrier: None. Conscious sedation: 2 mg Versed, 100 mcg fentanyl IV. The patie nt was continuously monitored throughout the procedure by the nurse. Vital sig ns remained stable throughout. Estimated Blood Loss: Less than 10 cc. Specimen: None. Fluoroscopy Time: 3.5 min. Reference Air Kerma (Ka, r) : 69.9 mGy. Technique: Discussion of risks, benefits, and alternative s were made with the patient. The patient expressed understanding and agreed t o proceed. After informed consent was obtained, which included the risks of b leeding, infection, injury to adjacent structures/bowel, adverse medication re action, the patient's abdomen was prepped and draped in the usual sterile hernández er. All elements maximal sterile barrier technique was utilized for this proce dure, including utilization of sterile scrub solution for skin prep, a large s terile sheet to cover the areas of the patient that were not prepped, and hand hygiene, mask, head covering, and sterile gown for performing radiologist and scrub technologist. Contrast was injected via the indwelling catheter confirming position within the urinary bladder. 1% lidocaine was used for loc al anesthesia. The existing catheter was cut and a 0.035 wire was advanced int o the catheter and coiled within the urinary bladder. Initially, a new 10 Fren ch pigtail catheter was advanced over wire into the urinary bladder. However, order clarification was obtained and request for conversion to balloon retenti on Cleaning was obtained. The 10 [place] pigtail catheter was removed over a 0.035 wire. The tract was serially dilated. A 18 [place] peel-away sheath (largest a vailable) was placed. The 16 [place] balloon retention Cleaning could not be place d through the largest available peel-away sheath. Subsequently, a 12 [place] ba lloon retention Cleaning catheter was placed through the peel-away sheath into t urinary bladder. The balloon was inflated with 10 cc of fluid. Contrast inj ection confirmed intraluminal position. The patient was discharged from t department in stable condition. Impression: Successful fluorosc opic guided suprapubic catheter exchange and conversion/upsize to a 12 [place] balloon retention Cleaning. Please note conversion to a larger balloon retention catheter could not be performed as a larger peel-away sheath was not available at the time of the procedure. Signed by: Dr. Abilio Weems MD on 08/27/2019 4:31 PM Dictated By: ABILIO WEEMS MD 30 Transcribed By: JEB on 08/27/19 1631 COPY TO : VELMA JAEGER MD Prothrombin [id number] 10:06:00* Test Item Value Reference Range Interpretation Comments Prothrombin Time (test code = 5902-2) 26.5 11.9-14.5 H [facility]th[facility] International Ratio 2019-08-27 10:06:00* Test Item Value Reference Range Interpretation Comments Prothromb Time International Ratio (test code = 6301-6) 2.25 Oral Anticoagulant Therapy INR Values:1. Low Intensity Therapy 1.5 - 2.02 . Moderate Intensity Therapy 2.0 - 3.03. High Intensity Therapy(1) 2.5 - 3. 54. High Intensity Therapy(2) 3.0 - 4.05. Panic Value INR > 5.0 [facility] HospitalActivated Partial Thromboplast Time 2019-08-27 10:06:00* Test Item Value Reference Range Interpretation Comments Activated Partial Thromboplast Time (test code = 16385-3) 42.2 23.8-35.5 H [facility] HospitalActivated Partial Thromboplast Time 2019-08-27 10:06:00* Test Item Value Reference Range Interpretation Comments Activated Partial Thromboplast Time (test code = 09521-1) 42.2 23.8-35.5 [facility] Yalzb1777-28-66 06:10:00* Test Item Value Reference Range Interpretation Comments Sodium Level (test code = 2951-2) 143 136-145 [facility] HospitalPotassium Wzvfj2841-39-13 06:10:00* Test Item Value Reference Range Interpretation Comments Potassium Level (test code = 2823-3) 4.2 3.5-5.1 [facility] HospitalChloride Rmdmh0968-20-91 06:10:00* Test Item Value Reference Range Interpretation Comments Chloride Level (test code = 2075-0) 112 98-107 H [facility] HospitalCarbon Dioxide Ucetk3757-05-89 06:10:00* Test Item Value Reference Range Interpretation Comments Carbon Dioxide Level (test code = 2028-9) 24 22-29 [facility] HospitalAnion Bgb7413-73-08 06:10:00* Test Item Value Reference Range Interpretation Comments Anion Gap (test code = 80653-1) 11.2 8-16 [facility] HospitalBlood Urea Mhmvrabp5227-39-57 06:10:00* Test Item Value Reference Range Interpretation Comments Blood Urea Nitrogen (test code = 3094-0) 17 7-26 [facility] HospitalCreatinine2020-02-19 06:10:00* Test Item Value Reference Range Interpretation Comments Creatinine (test code = 2160-0) 1.33 0.72-1.25 H [facility] HospitalBUN/Creatinine Avvau4684-30-32 06:10:00* Test Item Value Reference Range Interpretation Comments BUN/Creatinine Ratio (test code = 3097-3) 13 6-25 [facility] HospitalEstimat Glomerular Filtration Rate 2019-08-27 06:10:00* Test Item Value Reference Range Interpretation Comments Estimat Glomerular Filtration Rate (test code = 953451944) > 60 >60 Ranges were taken from the National Kidney Disease Education Program and the [facility] Kid[facility] Foundation literature.Reference ranges:60 or greater: Hiwjhc04-27 ( for 3 consecutive months): Chronic kidney disease 15 or less: Kidney failureHouston Methodist West HospitalGlucose Hczpe6491-87-70 06:10:00* Test Item Value Reference Range Interpretation Comments Glucose Level (test code = SCN7271) 126 74-118 H [facility] HospitalCalcium Pptec3768-31-04 06:10:00* Test Item Value Reference Range Interpretation Comments Calcium Level (test code = 78720-9) 9.6 8.4-10.2 [facility] HospitalTotal Mjvccrgla6388-98-14 06:10:00* Test Item Value Reference Range Interpretation Comments Total Bilirubin (test code = 1975-2) 0.9 0.2-1.2 [facility] HospitalAspartate Amino Transf (AST/SGOT) 2019-08-27 06:10:00* Test Item Value Reference Range Interpretation Comments Aspartate Amino Transf (AST/SGOT) (test code = Aspartate Amino Transf (AST/SGOT)) 14 5-34 [facility] HospitalAlanine Aminotransferase (ALT/SGPT) 2019-08-27 06:10:00* Test Item Value Reference Range Interpretation Comments Alanine Aminotransferase (ALT/SGPT) (test code = 1742-6) 12 0-55 [facility] HospitalTotal Ociftkz1928-26-10 06:10:00* Test Item Value Reference Range Interpretation Comments Total Protein (test code = 2885-2) 6.0 6.5-8.1 L [facility] HospitalAlbumin2020-02-19 06:10:00* Test Item Value Reference Range Interpretation Comments Albumin (test code = 1751-7) 3.1 3.5-5.0 L [facility] HospitalGlobulin2020-02-19 06:10:00* Test Item Value Reference Range Interpretation Comments Globulin (test code = 61533-2) 2.9 2.3-3.5 [facility] HospitalAlbumin/Globulin Tcgqy0692-98-44 06:10:00 * Test Item Value Reference Range Interpretation Comments Albumin/Globulin Ratio (test code = 1759-0) 1.1 0.8-2.0 [facility] HospitalAlkaline Vxwetbqsrdv5765-70-87 06:10:00* Test Item Value Reference Range Interpretation Comments Alkaline Phosphatase (test code = 6768-6) 112 40-150 [facility] HospitalWhite Blood Shhqk9416-68-05 05:37:00* Test Item Value Reference Range Interpretation Comments White Blood Count (test code = 6690-2) 4.53 4.8-10.8 L [facility] HospitalRed Blood Nuqqu4885-50-96 05:37:00* Test Item Value Reference Range Interpretation Comments Red Blood Count (test code = 789-8) 3.51 4.3-5.7 L [facility] HospitalHemoglobin2020-02-19 05:37:00* Test Item Value Reference Range Interpretation Comments Hemoglobin (test code = 62968-5) 8.6 14.0-18.0 L [facility] HospitalHematocrit2020-02-19 05:37:00* Test Item Value Reference Range Interpretation Comments Hematocrit (test code = 4544-3) 28.5 38.2-49.6 L [facility] HospitalMean Corpuscular Lxxhuz6216-36-69 05:37:00* Test Item Value Reference Range Interpretation Comments Mean Corpuscular Volume (test code = 787-2) 81.2 81-99 [facility] HospitalMean Corpuscular Wtjvpcxyre2200-53-95 05:37:00* Test Item Value Reference Range Interpretation Comments Mean Corpuscular Hemoglobin (test code = 785-6) 24.5 28-32 L [facility] HospitalMean Corpuscular Hemoglobin Concent 2019-08-27 05:37:00* Test Item Value Reference Range Interpretation Comments Mean Corpuscular Hemoglobin Concent (test code = 786-4) 30.2 31-35 L [facility] HospitalRed Cell Distribution Chsvc7926-34-65 05:37:00* Test Item Value Reference Range Interpretation Comments Red Cell Distribution Width (test code = 88624-6) 19.6 11.7 -14.4 H [facility] HospitalPlatelet Dcbxz7625-63-01 05:37:00* Test Item Value Reference Range Interpretation Comments Platelet Count (test code = 777-3) 189 140-360 [facility] HospitalNeutrophils (%) (Auto)2019-08-27 05:37:00 * Test Item Value Reference Range Interpretation Comments Neutrophils (%) (Auto) (test code = 72757-2) 53.5 38.7-80.0 [facility] HospitalLymphocytes (%) (Auto)2019-08-27 05:37:00 * Test Item Value Reference Range Interpretation Comments Lymphocytes (%) (Auto) (test code = 736-9) 31.6 18.0-39.1 [facility] HospitalMonocytes (%) (Auto)2019-08-27 05:37:00* Test Item Value Reference Range Interpretation Comments Monocytes (%) (Auto) (test code = 5905-5) 9.9 4.4-11.3 [facility] HospitalEosinophils (%) (Auto)2019-08-27 05:37:00 * Test Item Value Reference Range Interpretation Comments Eosinophils (%) (Auto) (test code = 713-8) 4.4 0.0-6.0 [facility] HospitalBasophils (%) (Auto)2019-08-27 05:37:00* Test Item Value Reference Range Interpretation Comments Basophils (%) (Auto) (test code = 706-2) 0.4 0.0-1.0 [facility] HospitalIM GRANULOCYTES %2019-08-27 05:37:00* Test Item Value Reference Range Interpretation Comments IM GRANULOCYTES % (test code = IM GRANULOCYTES %) 0.2 0.0- 1.0 [facility] HospitalNeutrophils # (Auto)2019-08-27 05:37:00* Test Item Value Reference Range Interpretation Comments Neutrophils # (Auto) (test code = 751-8) 2.4 2.1-6.9 [facility] HospitalLymphocytes # (Auto)2019-08-27 05:37:00* Test Item Value Reference Range Interpretation Comments Lymphocytes # (Auto) (test code = 25148-2) 1.4 1.0-3.2 [facility] HospitalMonocytes # (Auto)2019-08-27 05:37:00* Test Item Value Reference Range Interpretation Comments Monocytes # (Auto) (test code = 742-7) 0.5 0.2-0.8 [facility] HospitalEosinophils # (Auto)2019-08-27 05:37:00* Test Item Value Reference Range Interpretation Comments Eosinophils # (Auto) (test code = 711-2) 0.2 0.0-0.4 [facility] HospitalBasophils # (Auto)2019-08-27 05:37:00* Test Item Value Reference Range Interpretation Comments Basophils # (Auto) (test code = 704-7) 0.0 0.0-0.1 [facility] HospitalAbsolute Immature Granulocyte (auto 2019-08-27 05:37:00* Test Item Value Reference Range Interpretation Comments Absolute Immature Granulocyte (auto (carine t code = Absolute Immature Granulocyte (auto) 0.01 0-0.1 [facility] HospitalUrine [id number] 13:09:00* Test Item Value Reference Range Interpretation Comments Urine WBC (test code = 5821-4) >50 0-5 H [facility] HospitalUrine OPR7134-77-54 13:09:00* Test Item Value Reference Range Interpretation Comments Urine RBC (test code = 60987-2) 21-50 0-5 H [facility] HospitalUrine Dbbdvtzs0535-52-43 13:09:00* Test Item Value Reference Range Interpretation Comments Urine Bacteria (test code = 35941-3) MANY NONE H [facility] HospitalUrine Epithelial Dnpqy0077-76-01 13:09:00 * Test Item Value Reference Range Interpretation Comments Urine Epithelial Cells (test code = 26345-6) FEW NONE [facility] HospitalUrine RIZ8903-91-96 13:09:00* Test Item Value Reference Range Interpretation Comments Urine WBC (test code = 5821-4) >50 0-5 H [facility] HospitalUrine SCJ6822-57-67 13:09:00* Test Item Value Reference Range Interpretation Comments Urine RBC (test code = 09222-9) 21-50 0-5 H [facility] HospitalUrine Lxroesrc0870-82-16 13:09:00* Test Item Value Reference Range Interpretation Comments Urine Bacteria (test code = 40911-9) MANY NONE H [facility] HospitalUrine Epithelial Yysrv2085-75-80 13:09:00 * Test Item Value Reference Range Interpretation Comments Urine Epithelial Cells (test code = 44799-6) FEW NONE [facility] HospitalUrine Bjvem4824-76-65 13:01:00* Test Item Value Reference Range Interpretation Comments Urine Color (test code = 5778-6) YELLOW YELLOW [facility] HospitalUrine Qlijtbr6894-10-34 13:01:00* Test Item Value Reference Range Interpretation Comments Urine Clarity (test code = 62621-9) CLOUDY CLEAR H [facility] HospitalUrine Specific Mqxzpsd1730-65-24 13:01:00 * Test Item Value Reference Range Interpretation Comments Urine Specific [place] (test code = 5811-5) 1.020 1.010-1.02 5 [facility] HospitalUrine [id number] 13:01:00* Test Item Value Reference Range Interpretation Comments Urine pH (test code = 43040-4) 5.5 5-7 [facility] HospitalUrine Leukocyte Wjqzkwid8686-56-87 13:01:00* Test Item Value Reference Range Interpretation Comments Urine Leukocyte Esterase (test code = 5799-2) SMALL NEGATIVE [facility] Ckaiwwt3361-99-86 13:01:00* Test Item Value Reference Range Interpretation Comments Urine Nitrite (test code = 37798-5) POSITIVE NEGATIVE H [facility] Rnkholu9780-56-05 13:01:00* Test Item Value Reference Range Interpretation Comments Urine Protein (test code = 5804-0) 1+ NEGATIVE H [facility] HospitalUrine Glucose (UA)2019-08-26 13:01:00* Test Item Value Reference Range Interpretation Comments Urine Glucose (UA) (test code = 2349-9) NEGATIVE NEGATIVE [facility] Mqjvitr1161-46-66 13:01:00* Test Item Value Reference Range Interpretation Comments Urine Ketones (test code = 68113-0) NEGATIVE NEGATIVE [facility] Mxdlwejqvkno8957-88-67 13:01:00* Test Item Value Reference Range Interpretation Comments Urine Urobilinogen (test code = 57464-6) 0.2 0.2-1 [facility] Hnjlvuyfm9702-33-46 13:01:00* Test Item Value Reference Range Interpretation Comments Urine Bilirubin (test code = 1978-6) NEGATIVE NEGATIVE [facility] HospitalU[facility] Ydbhj2767-07-89 13:01:00* Test Item Value Reference Range Interpretation Comments Urine Blood (test code = 66596-5) MODERATE NEGATIVE [facility] HospitalU[facility] Lqfwx0453-46-53 13:01:00* Test Item Value Reference Range Interpretation Comments Urine Color (test code = 5778-6) YELLOW YELLOW [facility] HospitalU[facility] Idevsjo7817-45-26 13:01:00* Test Item Value Reference Range Interpretation Comments Urine Clarity (test code = 90334-6) CLOUDY CLEAR H [facility] HospitalUrine Specific Wwoevcy1939-86-79 13:01:00 * Test Item Value Reference Range Interpretation Comments Urine Specific [place] (test code = 5811-5) 1.020 1.010-1.02 5 [facility] HospitalUrine [id number] 13:01:00* Test Item Value Reference Range Interpretation Comments Urine pH (test code = 25394-9) 5.5 5-7 [facility] HospitalU[facility] Leukocyte Nisjszot1686-47-64 13:01:00* Test Item Value Reference Range Interpretation Comments Urine Leukocyte Esterase (test code = 5799-2) SMALL NEGATIVE [facility] HospitalUrine Dksqjbo4356-13-24 13:01:00* Test Item Value Reference Range Interpretation Comments Urine Nitrite (test code = 64731-2) POSITIVE NEGATIVE H [facility] Jcgnhak8697-10-04 13:01:00* Test Item Value Reference Range Interpretation Comments Urine Protein (test code = 5804-0) 1+ NEGATIVE H [facility] Glucose (UA)2019-08-26 13:01:00* Test Item Value Reference Range Interpretation Comments Urine Glucose (UA) (test code = 2349-9) NEGATIVE NEGATIVE [facility] HospitalU[facility] Mqvwral8264-80-18 13:01:00* Test Item Value Reference Range Interpretation Comments Urine Ketones (test code = 06565-8) NEGATIVE NEGATIVE [facility] Desulrwfwuvk3538-95-39 13:01:00* Test Item Value Reference Range Interpretation Comments Urine Urobilinogen (test code = 39619-8) 0.2 0.2-1 [facility] HospitalU[facility] Klewkxpxe0202-68-97 13:01:00* Test Item Value Reference Range Interpretation Comments Urine Bilirubin (test code = 1978-6) NEGATIVE NEGATIVE [facility] HospitalU[facility] Pqsys5649-90-95 13:01:00* Test Item Value Reference Range Interpretation Comments Urine Blood (test code = 07155-6) MODERATE NEGATIVE [facility] HospitalCBC W Auto Differential panel - Blood 2019-08-21 16:18:00* Test Item Value Reference Range Interpretation Comments WBC (test code = WBC) 5.24 x10*3/?L 4.23-9.07 RBC (test code = RBC) 3.78 10*12/L 4.63-6.08 L hemoglobin (test code = hemoglobin) 9.30 g/dL 13.70-17.50 L hematocrit (test code = hematocrit) 30.6 % 40.1-51.0 L MCV (test code = MCV) 81.0 fL 80.0-100.0 MCH (test code = MCH) 24.6 pg 25.7-32.2 L MCHC (test code = MCHC) 30.4 g/dL 32.3-36.5 L RDW-SD (test code = RDW-SD) 55.8 fL 35.1-43.9 H platelet count (test code = platelet count) 235.0 k/uL 163.0-337. 0 MPV (test code = MPV) 11.1 fL 7.5-11.5 neut% (test code = neut%) 55.6 % 34.0-67.9 lymph% (test code = lymph%) 30.5 % 21.8-53.1 mon% (test code = mon%) 9.9 % 5.3-12.2 eos% (test code = eos%) 3.4 % 0.8-7.0 baso% (test code = baso%) 0.6 % 0.2-1.2 neut# (test code = neut#) 2.9 x10*3/?L 1.8-5.4 lymph# (test code = lymph#) 1.6 x10*3/?L 1.3-3.6 mon# (test code = mon#) 0.5 x10*3/?L 0.3-0.8 eos# (test code = eos#) 0.18 x10*3/?L 0.04-0.54 baso# (test code = baso#) 0.03 x10*3/?L 0.01-0.08 [facility] W Auto Differential panel - [id number] 16:18:00 * Test Item Value Reference Range Interpretation Comments WBC (test code = WBC) 5.24 x10*3/?L 4.23-9.07 RBC (test code = RBC) 3.78 10*12/L 4.63-6.08 L hemoglobin (test code = hemoglobin) 9.30 g/dL 13.70-17.50 L hematocrit (test code = hematocrit) 30.6 % 40.1-51.0 L MCV (test code = MCV) 81.0 fL 80.0-100.0 MCH (test code = MCH) 24.6 pg 25.7-32.2 L MCHC (test code = MCHC) 30.4 g/dL 32.3-36.5 L RDW-SD (test code = RDW-SD) 55.8 fL 35.1-43.9 H platelet count (test code = platelet count) 235.0 k/uL 163.0-337. 0 MPV (test code = MPV) 11.1 fL 7.5-11.5 neut% (test code = neut%) 55.6 % 34.0-67.9 lymph% (test code = lymph%) 30.5 % 21.8-53.1 mon% (test code = mon%) 9.9 % 5.3-12.2 eos% (test code = eos%) 3.4 % 0.8-7.0 baso% (test code = baso%) 0.6 % 0.2-1.2 neut# (test code = neut#) 2.9 x10*3/?L 1.8-5.4 lymph# (test code = lymph#) 1.6 x10*3/?L 1.3-3.6 mon# (test code = mon#) 0.5 x10*3/?L 0.3-0.8 eos# (test code = eos#) 0.18 x10*3/?L 0.04-0.54 baso# (test code = baso#) 0.03 x10*3/?L 0.01-0.08 [facility] 2000 [facility] - Serum or Plasma 2019-08-21 16:00:00* Test Item Value Reference Range Interpretation Comments ALT (test code = ALT) 19 U/L 0-55 AST (test code = AST) 23 U/L 5-34 BUN (test code = BUN) 15.4 mg/dL 8.4-25.0 alk phos (test code = alk phos) 139 unit/L 40-150 glucose (test code = glucose) 98 mg/dL 70-99 albumin (test code = albumin) 4.0 g/dL 3.4-5.1 creatinine (test code = creatinine) 1.43 mg/dL 0.72-1.25 H eGFR non- (test code = eGFR non-pasquale n chinese) 48 mL/min/1.73m2 A total bilirubin (test code = total bilirubin) 1.4 mg/dL 0.2-1.2 H eGFR - (test code = eGFR - ) 58 mL/min/1.73m2 A sodium (test code = sodium) 144 mEq/L 135-145 potassium (test code = potassium) 5.2 mEq/L 3.5-5.3 chloride (test code = chloride) 110 mmol/L 98-110 total protein (test code = total protein) 7.0 g/dL 6.1-8.2 calcium (test code = calcium) 10.3 mg/dL 9.0-10.2 H CO2 (test code = CO2) 30.8 mmol/L 20.0-32.0 anion gap (test code = anion gap) 3 [facility] - Serum or Plasma 2019-08-21 16:00:00* Test Item Value Reference Range Interpretation Comments ALT (test code = ALT) 19 U/L 0-55 AST (test code = AST) 23 U/L 5-34 BUN (test code = BUN) 15.4 mg/dL 8.4-25.0 alk phos (test code = alk phos) 139 unit/L 40-150 glucose (test code = glucose) 98 mg/dL 70-99 albumin (test code = albumin) 4.0 g/dL 3.4-5.1 creatinine (test code = creatinine) 1.43 mg/dL 0.72-1.25 H eGFR non- (test code = eGFR non-pasquale n chinese) 48 mL/min/1.73m2 A total bilirubin (test code = total bilirubin) 1.4 mg/dL 0.2-1.2 H eGFR - (test code = eGFR - ) 58 mL/min/1.73m2 A sodium (test code = sodium) 144 mEq/L 135-145 potassium (test code = potassium) 5.2 mEq/L 3.5-5.3 chloride (test code = chloride) 110 mmol/L 98-110 total protein (test code = total protein) 7.0 g/dL 6.1-8.2 calcium (test code = calcium) 10.3 mg/dL 9.0-10.2 H CO2 (test code = CO2) 30.8 mmol/L 20.0-32.0 anion gap (test code = anion gap) 3 calc [facility] Center[facility] Platelet poor plasma by Coagulation assay 2019-08-21 00:00:00* Test Item Value Reference Range Interpretation Comments INR (test code = INR) 1.7 H PT (test code = PT) 17.7 sec 9.0-11.5 H [facility] CenterIN[facility] in Platelet poor plasma by Coagulation assay 2019-08-21 00:00:00* Test Item Value Reference Range Interpretation Comments INR (test code = INR) 1.7 H PT (test code = PT) 17.7 sec 9.0-11.5 H [facility] CenterBedside Dmrzaja8813-36-23 08:46:00* Test Item Value Reference Range Interpretation Comments Bedside Glucose (test code = 30929-6) 88 70-120 Meter ID: [id number] Hermann[facility] Centerodium Level 2019-08-07 05:35:00* Test Item Value Reference Range Interpretation Comments Sodium Level (test code = 2951-2) 139 136-145 [facility] HospitalPotassium Dyvhj3268-28-69 05:35:00* Test Item Value Reference Range Interpretation Comments Potassium Level (test code = 2823-3) 4.5 3.5-5.1 [facility] HospitalChloride Qjban0939-41-87 05:35:00* Test Item Value Reference Range Interpretation Comments Chloride Level (test code = 2075-0) 109 98-107 H [facility] HospitalCarbon Dioxide Lwacc9621-84-22 05:35:00* Test Item Value Reference Range Interpretation Comments Carbon Dioxide Level (test code = 2028-9) 22 22-29 [facility] HospitalAnion Idk1115-15-33 05:35:00* Test Item Value Reference Range Interpretation Comments Anion Gap (test code = 18596-7) 12.5 8-16 [facility] HospitalBlood Urea Rtqqycdg5931-38-72 05:35:00* Test Item Value Reference Range Interpretation Comments Blood Urea Nitrogen (test code = 3094-0) 18 7-26 [facility] HospitalCreatinine2020-01-30 05:35:00* Test Item Value Reference Range Interpretation Comments Creatinine (test code = 2160-0) 1.03 0.72-1.25 [facility] HospitalBUN/Creatinine Rqfaj5800-24-42 05:35:00* Test Item Value Reference Range Interpretation Comments BUN/Creatinine Ratio (test code = 3097-3) 17 6- [facility] HospitalEstimat Glomerular Filtration Rate 2019-08-07 05:35:00* Test Item Value Reference Range Interpretation Comments Estimat Glomerular Filtration Rate (test code = 863659715) > 60 >60 Ranges were taken from the National Kidney Disease Education Program and the [facility] Kidney Foundation literature.Reference ranges:60 or greater: Hhulsu31-65 ( for 3 consecutive months): Chronic kidney disease 15 or less: Kidney failureHouston Methodist West HospitalGlucose Shbjn9361-92-37 05:35:00* Test Item Value Reference Range Interpretation Comments Glucose Level (test code = GLR5103) 82 74-118 [facility] HospitalCalcium Agmov3174-26-67 05:35:00* Test Item Value Reference Range Interpretation Comments Calcium Level (test code = 83558-9) 9.8 8.4-10.2 [facility] HospitalWhite Blood Lbmyh8121-62-28 05:15:00* Test Item Value Reference Range Interpretation Comments White Blood Count (test code = 6690-2) 5.37 4.8-10.8 [facility] HospitalRed Blood Frime4794-85-57 05:15:00* Test Item Value Reference Range Interpretation Comments Red Blood Count (test code = 789-8) 3.35 4.3-5.7 L [facility] HospitalHemoglobin2020-01-30 05:15:00* Test Item Value Reference Range Interpretation Comments Hemoglobin (test code = 22639-9) 8.1 14.0-18.0 L [facility] HospitalHematocrit2020-01-30 05:15:00* Test Item Value Reference Range Interpretation Comments Hematocrit (test code = 4544-3) 27.1 38.2-49.6 L [facility] HospitalMean Corpuscular Qfezbu4727-97-96 05:15:00* Test Item Value Reference Range Interpretation Comments Mean Corpuscular Volume (test code = 787-2) 80.9 81-99 L [facility] HospitalMean Corpuscular Mwtwegpoit3140-09-31 05:15:00* Test Item Value Reference Range Interpretation Comments Mean Corpuscular Hemoglobin (test code = 785-6) 24.2 28-32 L [facility] HospitalMean Corpuscular Hemoglobin Concent 2019-08-07 05:15:00* Test Item Value Reference Range Interpretation Comments Mean Corpuscular Hemoglobin Concent (test code = 786-4) 29.9 31-35 L [facility] HospitalRed Cell Distribution Ppsui5541-03-04 05:15:00* Test Item Value Reference Range Interpretation Comments Red Cell Distribution Width (test code = 51543-4) 19.2 11.7 -14.4 H [facility] HospitalPlatelet Wrhcl4539-46-46 05:15:00* Test Item Value Reference Range Interpretation Comments Platelet Count (test code = 777-3) 194 140-360 [facility] HospitalNeutrophils (%) (Auto)2019-08-07 05:15:00 * Test Item Value Reference Range Interpretation Comments Neutrophils (%) (Auto) (test code = 67598-5) 52.3 38.7-80.0 [facility] HospitalLymphocytes (%) (Auto)2019-08-07 05:15:00 * Test Item Value Reference Range Interpretation Comments Lymphocytes (%) (Auto) (test code = 736-9) 31.3 18.0-39.1 [facility] HospitalMonocytes (%) (Auto)2019-08-07 05:15:00* Test Item Value Reference Range Interpretation Comments Monocytes (%) (Auto) (test code = 5905-5) 11.2 4.4-11.3 [facility] HospitalEosinophils (%) (Auto)2019-08-07 05:15:00 * Test Item Value Reference Range Interpretation Comments Eosinophils (%) (Auto) (test code = 713-8) 4.8 0.0-6.0 [facility] HospitalBasophils (%) (Auto)2019-08-07 05:15:00* Test Item Value Reference Range Interpretation Comments Basophils (%) (Auto) (test code = 706-2) 0.2 0.0-1.0 [facility] HospitalIM GRANULOCYTES %2019-08-07 05:15:00* Test Item Value Reference Range Interpretation Comments IM GRANULOCYTES % (test code = IM GRANULOCYTES %) 0.2 0.0- 1.0 [facility] HospitalNeutrophils # (Auto)2019-08-07 05:15:00* Test Item Value Reference Range Interpretation Comments Neutrophils # (Auto) (test code = 751-8) 2.8 2.1-6.9 [facility] HospitalLymphocytes # (Auto)2019-08-07 05:15:00* Test Item Value Reference Range Interpretation Comments Lymphocytes # (Auto) (test code = 20497-6) 1.7 1.0-3.2 [facility] HospitalMonocytes # (Auto)2019-08-07 05:15:00* Test Item Value Reference Range Interpretation Comments Monocytes # (Auto) (test code = 742-7) 0.6 0.2-0.8 [facility] HospitalEosinophils # (Auto)2019-08-07 05:15:00* Test Item Value Reference Range Interpretation Comments Eosinophils # (Auto) (test code = 711-2) 0.3 0.0-0.4 [facility] HospitalBasophils # (Auto)2019-08-07 05:15:00* Test Item Value Reference Range Interpretation Comments Basophils # (Auto) (test code = 704-7) 0.0 0.0-0.1 [facility] HospitalAbsolute Immature Granulocyte (auto 2019-08-07 05:15:00* Test Item Value Reference Range Interpretation Comments Absolute Immature Granulocyte (auto (carine t code = Absolute Immature Granulocyte (auto) 0.01 0-0.1 [facility] HospitalCHEST XRAY LINE OZLBOAWVW7497-35-07 22:44:00 [facility] [address] [address] Patient Name: AMAURI FLAHERTY MR #: [id number] : 1940 Age/Sex: 78/M Req #: [id number] Adm Physician: VELMA JAEGER MD Ordered by: VELMA JAEGER MD Report #: [id number] Location: [facility]/SURG Room/Bed: [facility] Procedure: [id number] DX/CHEST XRAY LINE PLACEMENT Exam Date: 08/05/19 Exam Time: 2219 REPORT STATUS: Signed EXAMI NATION: CHEST XRAY LINE PLACEMENT COMPARISON: Chest x-ray 07/29/2019 INDICATION: PICC LINE PLACEMENT [id number] DISCUSSION: Frontal view of the chest obtained at 2227 hours. There is an artifact or skin fold at the upper chest over the clavicular heads. HEART AND MEDIASTINUM: Stable cardiomegaly and aortic tortuosity LINES: Right PICC line termin ates in the SVC without pneumothorax LUNGS: Patchy right posterior space o pacity has developed. Left lung is clear. PLEURA: No pleural effusion or p neumothorax. BONES AND SOFT TISSUES: No focal osseous lesion. The soft tis sues are normal. IMPRESSION: Right PICC line terminates in the SVC wi thout pneumothorax. Right posterior space opacity may represent atelectasis or developing pneumonia. Signed by: Dr. Janel Smith MD on 08/05/19 10:46 PM Dictated By: JANEL SMITH MD 45 Transcribed By: JEB on 08/05/192245 COPY TO: VELMA JAEGER MD Prostate Specific Dwaikkw1001-43-10 22:26:00* Test Item Value Reference Range Interpretation Comments Prostate Specific Antigen (test code = 2857-1) <0.1 0.0-4.0 Roxanne ECLIA methodology.According to the [place] [employer], Serum PSAshould decrease and remain at undetectable levels afterradical prostatectomy. The AUA defines biochemicalrecurrence as an initial PSA value 0.2 ng/mL or grea terfollowed by a subsequent confirmatory PSA value 0.2 ng/mLor greater. Values o btained with different assay methods orkits cannot be used interchangeably. Resu lts cannot beinterpreted as absolute evidence of the presence or absenceof malig nant disease.Performed at: [employer] [address] [id number] Director: Vahid Manuel MD, Phone: [phone] Methodist West HospitalProstate Specific Vfilyxk2613-96-57 22:26:00* Test Item Value Reference Range Interpretation Comments Prostate Specific Antigen (test code = 2857-1) <0.1 0.0-4.0 Roxanne ECLIA methodology.According to the [place] [employer], Serum PSAshould decrease and remain at undetectable levels afterradical prostatectomy. The AUA defines biochemicalrecurrence as an initial PSA value 0.2 ng/mL or grea terfollowed by a subsequent confirmatory PSA value 0.2 ng/mLor greater. Values o btained with different assay methods orkits cannot be used interchangeably. Resu lts cannot beinterpreted as absolute evidence of the presence or absenceof malig nant disease.Performed at: [employer] [address] [id number] Director: Vahid Manuel MD, Phone: [phone] Methodist West HospitalProstate Specific Xwdtlnn7482-39-76 22:26:00* Test Item Value Reference Range Interpretation Comments Prostate Specific Antigen (test code = 2857-1) <0.1 0.0-4.0 Roxanne ECLIA methodology.According to the [place] [employer], Serum PSAshould decrease and remain at undetectable levels afterradical prostatectomy. The AUA defines biochemicalrecurrence as an initial PSA value 0.2 ng/mL or grea terfollowed by a subsequent confirmatory PSA value 0.2 ng/mLor greater. Values o btained with different assay methods orkits cannot be used interchangeably. Resu lts cannot beinterpreted as absolute evidence of the presence or absenceof malig nant disease.Performed at: - [facility] [address] [id number] Director: Vahid Manuel MD, Phone: [phone] Methodist HospitalIR KTKLHFF6535-52-62 11:41:00 [facility] [address] [place] [address] Patient Name: AMAURI FLAHERTY MR #: [id number] : 1940 Age/Sex: 78/M Req #: [id number] Adm Physician: VELMA JAEGER MD Ordered by: DIPESH TAVAERS MD Report #: [id number] Location: [facility] Room/Bed: [facility] Procedure: [id number] DX/IR CONSULT Exam Date: Exam Time: REPORT STATUS: Signed SUPRAPUBIC CATHETER PLACEMENT 08/02/2018 Indication: 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 Comparison: None Sedation: None Fluoroscopy Time: 0.1 seconds Radiation Dose: 2.42 mGy Procedure : Informed consent was obtained. The patient was placed in a supine positio n on the fluoroscopy table. Pelvic sonography revealed adequate distention of the urinary bladder. The overlying skin was prepped and draped in the usual st erile fashion. 1% lidocaine was instilled for topical analgesia. Under ultraso und guidance, a 10 [place] pigtail catheter was advanced into the urinary bladd er through the anterior pelvic wall using trocar technique. Clear yellow urine was encountered from the drain. A small amount of contrast was injected throu gh the catheter and visualized under fluoroscopy confirming intraluminal posit ioning. The catheter was sutured to the skin and a dressing applied. There wer e no complications. IMPRESSION: 1. Uncomplicated placement of a 10 F rench pigtail suprapubic bladder catheter under ultrasound and fluoroscopic gu idance. 2. The pigtail catheter may be exchanged for a balloon locking cath eter at a future date if clinically desired. Signed by: Emilia Thomas on 08/05/2019 11:46 AM Dictated By: MILO ALARCON MD Electronically Si gned By: MILO ALARCON MD on 08/05/19 1146 Transcribed By: JEB on 08/05/19 1146 COPY TO: DIPESH TAVARES MD US GUIDANCE FOR PROCEDURE 2019-08-05 11:41:[address] [address] Patient Name: AMAURI FLAHERTY MR #: [id number] : 1940 Age/Sex: 78/M Req #: [id number] Adm Physician: VELMA JAEGER MD Ordered by: DIPESH TAVARES MD Report #: [id number] Location: MED/SURG2 Room/Bed: [facility] Procedure: [id number] US/US GUIDANCE FOR PROCEDURE Exam Date: 08/02/19 Exam Dougie e: 1438 REPORT STATUS: Signed FOWLER PRAPUBIC CATHETER PLACEMENT 08/02/2018 Indication: Urinary retention due t o urethral stricture with inability to place ureteral catheter. Compariso n: None Sedation: None Fluoroscopy Time: 0.1 seconds Radiation Do se: 2.42 mGy Procedure: Informed consent was obtained. The patient was placed in a supine position on the fluoroscopy table. Pelvic sonography revea led adequate distention of the urinary bladder. The overlying skin was prepped and draped in the usual sterile fashion. 1% lidocaine was instilled for topic al analgesia. Under ultrasound guidance, a 10 [place] pigtail catheter was adva nced into the urinary bladder through the anterior pelvic wall using trocar te chnique. Clear yellow urine was encountered from the drain. A small amount of contrast was injected through the catheter and visualized under fluoroscopy co nfirming intraluminal positioning. The catheter was sutured to the skin and a dressing applied. There were no complications. IMPRESSION: 1. Uncomp licated placement of a 10 [place] pigtail suprapubic bladder catheter under ult rasound and fluoroscopic guidance. 2. The pigtail catheter may be exchanged for a balloon locking catheter at a future date if clinically desired. S igned by: Milo Alarcon MD on 08/05/2019 11:46 AM Dictated By: MILO PERDUE MD 1146 Transcri bed By: JEB on 08/05/19 1146 COPY TO: DIPESH TAVARES MD SUPRAPUBIC CATHETER GHLZXCZSI9307-40-94 11:41:00 [address] [address] Patient Name: AMAURI FLAHERTY MR #: [id number] : 1940 Age/Sex: 78/M Req #: [id number] Adm Physician: VELMA JAEGER MD Ordered by: DIPESH TAVARES MD Report #: [id number] Location: MED/SURG2 Room/Bed: [facility] Procedure: [id number] IR/FOWLER PRAPUBIC CATHETER PLACEMENT Exam Date: 08/02/19 Exam Time: 1521 REPORT STATUS: Signed SUPRAPUBIC CATHETER PLACEMENT 08/02/2018 Indication: Urinary retention d ue to urethral stricture with inability to place ureteral catheter. Narciso rison: None Sedation: None Fluoroscopy Time: 0.1 seconds Radiatio n Dose: 2.42 mGy Procedure: Informed consent was obtained. The patient was placed in a supine position on the fluoroscopy table. Pelvic sonography r evealed adequate distention of the urinary bladder. The overlying skin was pre pped and draped in the usual sterile fashion. 1% lidocaine was instilled for t opical analgesia. Under ultrasound guidance, a 10 [place] pigtail catheter was advanced into the urinary bladder through the anterior pelvic wall using troca r technique. Clear yellow urine was encountered from the drain. A small amount of contrast was injected through the catheter and visualized under fluoroscop y confirming intraluminal positioning. The catheter was sutured to the skin an d a dressing applied. There were no complications. IMPRESSION: 1. Un complicated placement of a 10 [place] pigtail suprapubic bladder catheter under ultrasound and fluoroscopic guidance. 2. The pigtail catheter may be excha nged for a balloon locking catheter at a future date if clinically desired. Signed by: Milo Alarcon MD on 08/05/2019 11:46 AM Dictated By: MILO ALARCON MD 1146 Jaeger scribed By: JEB on 08/05/19 1146 COPY TO: DIPESH TAVARES MD Prothrombin Cmbj4967-12-94 05:26:00* Test Item Value Reference Range Interpretation Comments Prothrombin Time (test code = 5902-2) 18.7 11.9-14.5 H [facility] HospitalProthromb Time International Ratio 2019-08-05 05:26:00* Test Item Value Reference Range Interpretation Comments Prothromb Time International Ratio (test code = 6301-6) 1.50 Oral Anticoagulant Therapy INR Values:1. Low Intensity Therapy 1.5 - 2.02 . Moderate Intensity Therapy 2.0 - 3.03. High Intensity Therapy(1) 2.5 - 3. 54. High Intensity Therapy(2) 3.0 - 4.05. Panic Value INR > 5.0 [facility] HospitalFolate2020-01-28 05:13:00* Test Item Value Reference Range Interpretation Comments Folate (test code = 2284-8) 4.8 >3.0 A serum folate concentration of less than 3.1 ng/mL isconsidered to represent cl inical deficiency.Performed at: [address] [id number] Director: Vahid Manuel MD, Phone: [phone] Methodist West HospitalFolate2020-01-28 05:13:00* Test Item Value Reference Range Interpretation Comments Folate (test code = 2284-8) 4.8 >3.0 A serum folate concentration of less than 3.1 ng/mL isconsidered to represent cl inical deficiency.Performed at: [address] [id number] Director: Vahid Manuel MD, Phone: [phone] Methodist West HospitalFolate2020-01-28 05:13:00* Test Item Value Reference Range Interpretation Comments Folate (test code = 2284-8) 4.8 >3.0 A serum folate concentration of less than 3.1 ng/mL isconsidered to represent cl inical deficiency.Performed at: [address] [id number] Director: Vahid Manuel MD, Phone: [phone] Methodist West HospitalUS TESTICULAR DOPPLER [id number] 16:08:00 [address] [address] Patient Name: AMAURI FLAHERTY MR #: [id number] : 1940 Age/Sex: 78/M Req #: [id number] Adm Physician: VELMA JAEGER MD Ordered by: DIPESH TAVARES MD Report #: [id number] Location: MED/SURG2 Room/Bed: Procedure: [id number] US/US TESTICULAR DOPPLER LTD Exam Date: 08/04/19 Exam Dougie e: 0834 REPORT STATUS: Signed Ex am: Testicular ultrasound. Clinical History: Nonpalpable left testicle Findings: Sonographic evaluation of the testicles. Right: The right test icle measures 2.8 x 2.0 x 2.8 cm and appears unremarkable with no intratesticu lar mass. Normal blood flow. The right epididymis measures 1.1 x 0.6 x 0.8 cm and appears unremarkable. Moderate right hydrocele. No varicocele. Left: The left testicle is absent from the scrotum. The patient denies history of or chiectomy. Impression: Absent left testicle. Normal appearance of ri ght testicle. Moderate right hydrocele. Signed by: Tere Pope MD on 020 4:10 PM Dictated By: TERE POPE MD 09 Transcribed By: JEB on 08/04/191609 COPY TO: DIPESH TAVARES MD OBUSJUAZAG7948-17-28 16:08:00 [address] [address] Patient Name: AMAURI FLAHERTY MR #: [id number] : 1940 Age/Sex: 78/M Req #: [id number] [facility] Physician: VELMA JAEGER MD Ordered by: DIPESH TAVARES MD Report #: [id number] Location: MED/SURG2 Room/Bed: 205 Procedure: [id number] US/US TESTICULAR Exam Date: 08/04/19 Exam Time: 0834 REPORT STATUS: Signed Exam: Testicul ar ultrasound. Clinical History: Nonpalpable left testicle Findings: Sonographic evaluation of the testicles. Right: The right testicle measure s 2.8 x 2.0 x 2.8 cm and appears unremarkable with no intratesticular mass. No rmal blood flow. The right epididymis measures 1.1 x 0.6 x 0.8 cm and appears unremarkable. Moderate right hydrocele. No varicocele. Left: The left carine ticle is absent from the scrotum. The patient denies history of orchiectomy. Impression: Absent left testicle. Normal appearance of right testicle . Moderate right hydrocele. Signed by: Tere Pope MD on 08/04/2019 4:10 PM Dictated By: TERE POPE MD 09 COPY TO: NAI TAVARES RD, MD Urine Lpvggfm1556-17-84 10:24:00* Test Item Value Reference Range Interpretation Comments Urine Culture (test code = 630-4) No Result Data Provided [facility] HospitalUrine Tqlpcvt7753-54-85 10:24:00* Test Item Value Reference Range Interpretation Comments Urine Culture (test code = 630-4) No Result Data Provided [facility] Zobgrlq5427-70-66 10:24:00* Test Item Value Reference Range Interpretation Comments Urine Culture (test code = 630-4) No Result Data Provided [facility] HospitalVitamin B12 Eipks0155-04-05 06:35:00* Test Item Value Reference Range Interpretation Comments Vitamin B12 Level (test code = 31785-4) 447 421-545 [facility] HospitalVitamin B12 Layoa6499-00-92 06:35:00* Test Item Value Reference Range Interpretation Comments Vitamin B12 Level (test code = 82193-6) 276 213-816 [facility] HospitalVitamin B12 Wjgyv3848-86-13 06:35:00* Test Item Value Reference Range Interpretation Comments Vitamin B12 Level (test code = 72652-9) 276 213-816 [facility] HospitalFerritin2020-01-27 06:02:00* Test Item Value Reference Range Interpretation Comments Ferritin (test code = 2276-4) 40.88 21.81-274.66 [facility] Xytangqmy9303-81-32 06:02:00* Test Item Value Reference Range Interpretation Comments Free Thyroxine (test code = 3024-7) 0.73 0.8-1.8 L [facility] HospitalThyroid Stimulating Hormone (TSH) 2019-08-04 06:02:00* Test Item Value Reference Range Interpretation Comments Thyroid Stimulating Hormone (TSH) (test code = 24775-9) 4.116 0.350-4.940 [facility] HospitalFerritin2020-01-27 06:02:00* Test Item Value Reference Range Interpretation Comments Ferritin (test code = 2276-4) 40.88 21.81-274.66 [facility] Vkldrxxut2239-99-40 06:02:00* Test Item Value Reference Range Interpretation Comments Free Thyroxine (test code = 3024-7) 0.73 0.8-1.8 L [facility] HospitalThyroid Stimulating Hormone (TSH) 2019-08-04 06:02:00* Test Item Value Reference Range Interpretation Comments Thyroid Stimulating Hormone (TSH) (test code = 64081-9) 4.116 0.350-4.940 [facility] HospitalFerritin2020-01-27 06:02:00* Test Item Value Reference Range Interpretation Comments Ferritin (test code = 2276-4) 40.88 21.81-274.66 [facility] Pemoiqyha7071-69-72 06:02:00* Test Item Value Reference Range Interpretation Comments Free Thyroxine (test code = 3024-7) 0.73 0.8-1.8 L [facility] HospitalThyroid Stimulating Hormone (TSH) 2019-08-04 06:02:00* Test Item Value Reference Range Interpretation Comments Thyroid Stimulating Hormone (TSH) (test code = 18570-9) 4.116 0.350-4.940 [facility]2020-01-27 05:42:00* Test Item Value Reference Range Interpretation Comments Iron Level (test code = 2498-4) 19 65-175 L [facility] Iron Binding Habgifie1864-59-29 05:42:00* Test Item Value Reference Range Interpretation Comments Total Iron Binding Capacity (test code = 2500-7) 357 261-4 78 [facility] Iron Xbgmxrieng8788-64-07 05:42:00* Test Item Value Reference Range Interpretation Comments Percent Iron Saturation (test code = 2502-3) 5 15-50 L [facility] HospitalTransferrin2020-01-27 05:42:00* Test Item Value Reference Range Interpretation Comments Transferrin (test code = 3034-6) 255 174-364 [facility]2020-01-27 05:42:00* Test Item Value Reference Range Interpretation Comments Iron Level (test code = 2498-4) 19 65-175 L [facility] Iron Binding Nxieufms8971-40-66 05:42:00* Test Item Value Reference Range Interpretation Comments Total Iron Binding Capacity (test code = 2500-7) 357 261-4 78 [facility] Iron Ivqdxtnkud6178-67-18 05:42:00* Test Item Value Reference Range Interpretation Comments Percent Iron Saturation (test code = 2502-3) 5 15-50 L [facility] HospitalTransferrin2020-01-27 05:42:00* Test Item Value Reference Range Interpretation Comments Transferrin (test code = 3034-6) 255 174-364 [facility]2020-01-27 05:42:00* Test Item Value Reference Range Interpretation Comments Iron Level (test code = 2498-4) 19 65-175 L [facility] Iron Binding Enazwdgd5904-68-48 05:42:00* Test Item Value Reference Range Interpretation Comments Total Iron Binding Capacity (test code = 2500-7) 357 261-4 78 [facility] HospitalPercent Iron Rmphyfomqh4065-34-91 05:42:00* Test Item Value Reference Range Interpretation Comments Percent Iron Saturation (test code = 2502-3) 5 15-50 L [facility] HospitalTransferrin2020-01-27 05:42:00* Test Item Value Reference Range Interpretation Comments Transferrin (test code = 3034-6) 255 174-364 [facility] Occult Xrkvv6240-95-18 02:54:00* Test Item Value Reference Range Interpretation Comments Stool Occult Blood (test code = 2335-8) POSITIVE NEGATIVE [facility] Occult Pevdh0674-92-34 02:54:00* Test Item Value Reference Range Interpretation Comments Stool Occult Blood (test code = 2335-8) POSITIVE NEGATIVE [facility] Occult Ogcka3839-05-14 02:54:00* Test Item Value Reference Range Interpretation Comments Stool Occult Blood (test code = 2335-8) [facility] Nrmnroc6418-59-00 14:05:00* Test Item Value Reference Range Interpretation Comments Blood Culture (test code = 89595537) NO GROWTH AFTER 5 DAYS, [facility] Xxklgwr8864-91-60 14:05:00* Test Item Value Reference Range Interpretation Comments Blood Culture (test code = 17323289) NO GROWTH AFTER 5 DAYS, FINAL REPORT [facility] HospitalUrine Vnwtzac4032-67-30 08:16:00* Test Item Value Reference Range Interpretation Comments Urine Culture (test code = 630-4) No Result Data Provided [facility] Poleizmab0592-60-15 06:59:00* Test Item Value Reference Range Interpretation Comments Total Bilirubin (test code = 1975-2) 1.2 0.2-1.2 [facility] HospitalAspartate Amino Transf (AST/SGOT) 2019-08-03 06:59:00* Test Item Value Reference Range Interpretation Comments Aspartate Amino Transf (AST/SGOT) (test code = Aspartate Amino Transf (AST/SGOT)) 21 5-34 [facility] HospitalAlanine Aminotransferase (ALT/SGPT) 2019-08-03 06:59:00* Test Item Value Reference Range Interpretation Comments Alanine Aminotransferase (ALT/SGPT) (test code = 1742-6) 16 0-55 [facility] HospitalTotal Bidflrj4652-48-74 06:59:00* Test Item Value Reference Range Interpretation Comments Total Protein (test code = 2885-2) 5.9 6.5-8.1 L [facility] HospitalAlbumin2020-01-26 06:59:00* Test Item Value Reference Range Interpretation Comments Albumin (test code = 1751-7) 3.1 3.5-5.0 L [facility] HospitalGlobulin2020-01-26 06:59:00* Test Item Value Reference Range Interpretation Comments Globulin (test code = 77569-0) 2.8 2.3-3.5 [facility] HospitalAlbumin/Globulin Nzuok7790-66-78 06:59:00 * Test Item Value Reference Range Interpretation Comments Albumin/Globulin Ratio (test code = 1759-0) 1.1 0.8-2.0 [facility] HospitalAlkaline Tasoqjcscpc7108-08-63 06:59:00* Test Item Value Reference Range Interpretation Comments Alkaline Phosphatase (test code = 6768-6) 104 40-150 [facility] HospitalActivated Partial Thromboplast Time 2019-08-03 06:53:00* Test Item Value Reference Range Interpretation Comments Activated Partial Thromboplast Time (test code = 80949-2) 46.8 23.8-35.5 H [facility] HospitalUrine TGZ5029-57-74 10:58:00* Test Item Value Reference Range Interpretation Comments Urine WBC (test code = 5821-4) 21-50 0-5 H [facility] HospitalUrine OIU4350-24-70 10:58:00* Test Item Value Reference Range Interpretation Comments Urine RBC (test code = 38744-9) 6-10 0-5 H [facility] HospitalUrine Vmgkdbxs1962-11-88 10:58:00* Test Item Value Reference Range Interpretation Comments Urine Bacteria (test code = 07797-5) MANY NONE H [facility] HospitalUrine Epithelial Hderu3006-02-68 10:58:00 * Test Item Value Reference Range Interpretation Comments Urine Epithelial Cells (test code = 66992-8) FEW NONE [facility] HospitalUrine Gxawz5077-78-81 10:58:00* Test Item Value Reference Range Interpretation Comments Urine Mucus (test code = 8247-9) FEW RARE H [facility] HospitalUrine Yvkci0330-05-86 10:58:00* Test Item Value Reference Range Interpretation Comments Urine Mucus (test code = 8247-9) FEW RARE H [facility] HospitalUrine Lmrzh3009-33-00 10:58:00* Test Item Value Reference Range Interpretation Comments Urine Mucus (test code = 8247-9) FEW RARE H [facility] HospitalUrine Cvvkg6594-16-58 10:49:00* Test Item Value Reference Range Interpretation Comments Urine Color (test code = 5778-6) YELLOW YELLOW [facility] HospitalUrine Ovcjfsf5344-47-68 10:49:00* Test Item Value Reference Range Interpretation Comments Urine Clarity (test code = 09371-2) HAZY CLEAR [facility] HospitalUrine Specific Rdwmzcm0854-05-90 10:49:00 * Test Item Value Reference Range Interpretation Comments Urine Specific [place] (test code = 5811-5) 1.025 1.010-1.02 5 [facility] HospitalUrine hB7623-89-35 10:49:00* Test Item Value Reference Range Interpretation Comments Urine pH (test code = 87666-9) 5.5 5-7 [facility] HospitalU[facility] Leukocyte Watzlobc7903-35-70 10:49:00* Test Item Value Reference Range Interpretation Comments Urine Leukocyte Esterase (test code = 5799-2) 1+ NEGATIVE H [facility] HospitalUrine Jptyijd0284-64-15 10:49:00* Test Item Value Reference Range Interpretation Comments Urine Nitrite (test code = 97640-0) POSITIVE NEGATIVE [facility] Awkdgzi6900-51-44 10:49:00* Test Item Value Reference Range Interpretation Comments Urine Protein (test code = 5804-0) 2+ NEGATIVE H [facility] Glucose (UA)2019-08-02 10:49:00* Test Item Value Reference Range Interpretation Comments Urine Glucose (UA) (test code = 2349-9) NEGATIVE NEGATIVE [facility] Cjjvzfn3887-94-13 10:49:00* Test Item Value Reference Range Interpretation Comments Urine Ketones (test code = 32705-6) NEGATIVE NEGATIVE [facility] Xsyqohrrgrcj2304-71-93 10:49:00* Test Item Value Reference Range Interpretation Comments Urine Urobilinogen (test code = 61537-6) 0.2 0.2-1 [facility] Wvzhiccae2311-26-45 10:49:00* Test Item Value Reference Range Interpretation Comments Urine Bilirubin (test code = 1978-6) NEGATIVE NEGATIVE [facility] Rypkr2391-10-52 10:49:00* Test Item Value Reference Range Interpretation Comments Urine Blood (test code = 41620-8) 2+ NEGATIVE H [facility] Tnvlxmo6715-24-32 09:00:00* Test Item Value Reference Range Interpretation Comments Urine Culture (test code = 630-4) No Result Data Provided [facility] OUC5725-07-95 15:42:00* Test Item Value Reference Range Interpretation Comments Urine WBC (test code = 5821-4) 11-20 0-5 H [facility] VHX0705-12-63 15:42:00* Test Item Value Reference Range Interpretation Comments Urine RBC (test code = 52825-5) 6-10 0-5 H [facility] Qmcncvzn9111-52-95 15:42:00* Test Item Value Reference Range Interpretation Comments Urine Bacteria (test code = 93863-3) MANY NONE H [facility] Epithelial Cuvfl2311-89-05 15:42:00 * Test Item Value Reference Range Interpretation Comments Urine Epithelial Cells (test code = 36105-2) RARE NONE [facility] HospitalU[facility] LQV1200-68-47 15:42:00* Test Item Value Reference Range Interpretation Comments Urine WBC (test code = 5821-4) 11-20 0-5 H [facility] HospitalU[facility] OFN8894-55-21 15:42:00* Test Item Value Reference Range Interpretation Comments Urine RBC (test code = 64730-2) 6-10 0-5 H [facility] HospitalU[facility] Oirrqjei6007-06-40 15:42:00* Test Item Value Reference Range Interpretation Comments Urine Bacteria (test code = 93270-5) MANY NONE [facility]helial Viiqb4180-19-82 15:42:00 * Test Item Value Reference Range Interpretation Comments Urine Epithelial Cells (test code = 97947-4) RARE NONE [facility] HospitalU[facility] Nptfv7186-01-80 15:25:00* Test Item Value Reference Range Interpretation Comments Urine Color (test code = 5778-6) YELLOW YELLOW [facility] HospitalUrine Nubzdvn4958-72-86 15:25:00* Test Item Value Reference Range Interpretation Comments Urine Clarity (test code = 50154-4) SL CLOUDY CLEAR [facility] Specific Pinjqzo3308-73-01 15:25:00 * Test Item Value Reference Range Interpretation Comments Urine Specific [place] (test code = 5811-5) 1.020 1.010-1.02 5 [facility] HospitalUrine nA4266-86-92 15:25:00* Test Item Value Reference Range Interpretation Comments Urine pH (test code = 81723-4) 5 5-7 [facility] HospitalU[facility] Leukocyte Jddnzimt1814-24-43 15:25:00* Test Item Value Reference Range Interpretation Comments Urine Leukocyte Esterase (test code = 5799-2) TRACE NEGATIVE [facility] Xdsqzkb2635-19-36 15:25:00* Test Item Value Reference Range Interpretation Comments Urine Nitrite (test code = 48925-5) POSITIVE NEGATIVE [facility] Wfopkav2815-84-11 15:25:00* Test Item Value Reference Range Interpretation Comments Urine Protein (test code = 5804-0) TRACE NEGATIVE H [facility] HospitalUrine Glucose (UA)2019-07-29 15:25:00* Test Item Value Reference Range Interpretation Comments Urine Glucose (UA) (test code = 2349-9) NEGATIVE NEGATIVE [facility] HospitalU[facility] Ixzqyzh2903-51-08 15:25:00* Test Item Value Reference Range Interpretation Comments Urine Ketones (test code = 36013-9) NEGATIVE NEGATIVE [facility] HospitalU[facility] Pofzgcorwhlf5918-42-52 15:25:00* Test Item Value Reference Range Interpretation Comments Urine Urobilinogen (test code = 72730-8) 0.2 0.2-1 [facility] HospitalU[facility] Pgggmymgt0865-28-83 15:25:00* Test Item Value Reference Range Interpretation Comments Urine Bilirubin (test code = 1978-6) NEGATIVE NEGATIVE [facility] HospitalU[facility] Mxzcg9196-89-81 15:25:00* Test Item Value Reference Range Interpretation Comments Urine Blood (test code = 79178-0) 2+ NEGATIVE H [facility] HospitalU[facility] Lajcz5903-70-34 15:25:00* Test Item Value Reference Range Interpretation Comments Urine Color (test code = 5778-6) YELLOW YELLOW [facility] HospitalU[facility] Fdmlhhb3603-43-34 15:25:00* Test Item Value Reference Range Interpretation Comments Urine Clarity (test code = 92788-1) SL CLOUDY CLEAR H [facility] HospitalUrine Specific Sgdcvxa0542-08-92 15:25:00 * Test Item Value Reference Range Interpretation Comments Urine Specific [place] (test code = 5811-5) 1.020 1.010-1.02 5 [facility] HospitalU[facility] qD6474-72-93 15:25:00* Test Item Value Reference Range Interpretation Comments Urine pH (test code = 76760-1) 5 5-7 [facility] HospitalU[facility] Leukocyte Ogioduud1400-57-56 15:25:00* Test Item Value Reference Range Interpretation Comments Urine Leukocyte Esterase (test code = 5799-2) TRACE NEGATIVE H [facility] HospitalUrine Jzrfiml3096-16-32 15:25:00* Test Item Value Reference Range Interpretation Comments Urine Nitrite (test code = 35633-0) POSITIVE NEGATIVE H [facility] HospitalUrine Mpqzxfa0957-47-07 15:25:00* Test Item Value Reference Range Interpretation Comments Urine Protein (test code = 5804-0) TRACE NEGATIVE H [facility] HospitalU[facility] Glucose (UA)2019-07-29 15:25:00* Test Item Value Reference Range Interpretation Comments Urine Glucose (UA) (test code = 2349-9) NEGATIVE NEGATIVE [facility] HospitalU[facility] Fyiyjfh7775-62-07 15:25:00* Test Item Value Reference Range Interpretation Comments Urine Ketones (test code = 14826-0) NEGATIVE NEGATIVE [facility] HospitalU[facility] Lmrphpxwgoaa9185-78-52 15:25:00* Test Item Value Reference Range Interpretation Comments Urine Urobilinogen (test code = 81019-5) 0.2 0.2-1 [facility] HospitalU[facility] Kwvhkzxmc8021-34-00 15:25:00* Test Item Value Reference Range Interpretation Comments Urine Bilirubin (test code = 1978-6) NEGATIVE NEGATIVE [facility] HospitalU[facility] Xytva9085-83-36 15:25:00* Test Item Value Reference Range Interpretation Comments Urine Blood (test code = 08662-4) 2+ NEGATIVE H [facility] HospitalCreatine Kinase EZ0531-27-63 14:45:00* Test Item Value Reference Range Interpretation Comments Creatine Kinase MB (test code = 49354-0) 2.70 0-5.0 [facility] HospitalTroponin X8938-85-95 14:45:00* Test Item Value Reference Range Interpretation Comments Troponin I (test code = PFK0062) 0.061 0-0.300 [facility] HospitalCreatine Kinase ZJ6723-20-26 14:45:00* Test Item Value Reference Range Interpretation Comments Creatine Kinase MB (test code = 00703-3) 2.70 0-5.0 [facility] HospitalTroponin K1018-73-39 14:45:00* Test Item Value Reference Range Interpretation Comments Troponin I (test code = XRQ8896) 0.061 0-0.300 [facility] HospitalCreatine Kinase PY5761-20-62 14:45:00* Test Item Value Reference Range Interpretation Comments Creatine Kinase MB (test code = 27708-6) 2.70 0-5.0 [facility] HospitalTroponin O0274-30-97 14:45:00* Test Item Value Reference Range Interpretation Comments Troponin I (test code = PWY6862) 0.061 0-0.300 [facility] HospitalCreatine Kinase QZ1566-63-79 14:45:00* Test Item Value Reference Range Interpretation Comments Creatine Kinase MB (test code = 33489-6) 2.70 0-5.0 [facility] N1120-77-73 14:45:00* Test Item Value Reference Range Interpretation Comments Troponin I (test code = EWV5579) 0.061 0-0.300 [facility] HospitalB-Type Natriuretic Ooqqynn4989-46-82 14:42:00* Test Item Value Reference Range Interpretation Comments B-Type Natriuretic Peptide (test code = 49536-3) 95.9 0-100 [facility] HospitalB-Type Natriuretic Gefqkqp1191-70-86 14:42:00* Test Item Value Reference Range Interpretation Comments B-Type Natriuretic Peptide (test code = 90378-2) 95.9 0-100 [facility] HospitalB-Type Natriuretic Jltwvzp8328-68-33 14:42:00* Test Item Value Reference Range Interpretation Comments B-Type Natriuretic Peptide (test code = 46414-4) 95.9 0-100 [facility] HospitalB-Type Natriuretic Dfdsfwo9553-14-85 14:42:00* Test Item Value Reference Range Interpretation Comments B-Type Natriuretic Peptide (test code = 51696-4) 95.9 0-100 [facility] Fqhii8829-43-80 14:36:00* Test Item Value Reference Range Interpretation Comments Sodium Level (test code = 2951-2) 144 136-145 [facility] HospitalPotassium Sdubx6510-37-08 14:36:00* Test Item Value Reference Range Interpretation Comments Potassium Level (test code = 2823-3) 4.4 3.5-5.1 [facility] HospitalChloride Lmvuc8016-31-39 14:36:00* Test Item Value Reference Range Interpretation Comments Chloride Level (test code = 2075-0) 113 98-107 H [facility] HospitalCarbon Dioxide Sxrdg6516-35-07 14:36:00* Test Item Value Reference Range Interpretation Comments Carbon Dioxide Level (test code = 2028-9) 23 22-29 [facility] HospitalAnion Ocs5289-92-36 14:36:00* Test Item Value Reference Range Interpretation Comments Anion Gap (test code = 59831-6) 12.4 8-16 [facility] HospitalBlood Urea Gffyzvds1143-43-22 14:36:00* Test Item Value Reference Range Interpretation Comments Blood Urea Nitrogen (test code = 3094-0) 30 7-26 H [facility] HospitalCreatinine2020-01-21 14:36:00* Test Item Value Reference Range Interpretation Comments Creatinine (test code = 2160-0) 1.59 0.72-1.25 H [facility] HospitalBUN/Creatinine Nkxrk3123-39-66 14:36:00* Test Item Value Reference Range Interpretation Comments BUN/Creatinine Ratio (test code = 3097-3) 19 6-25 [facility] HospitalEstimat Glomerular Filtration Rate 2019-07-29 14:36:00* Test Item Value Reference Range Interpretation Comments Estimat Glomerular Filtration Rate (test code = 450223233) 51 >60 L Ranges were taken from the National Kidney Disease Education Program and the [facility]ney Foundation literature.Reference ranges:60 or greater: Wbbgjr02-13 ( for 3 consecutive months): Chronic kidney disease 15 or less: Kidney failureHouston Methodist West HospitalGlucose Kbrka9806-12-31 14:36:00* Test Item Value Reference Range Interpretation Comments Glucose Level (test code = RGL3403) 68 74-118 L [facility] HospitalCalcium Zshzs1966-00-62 14:36:00* Test Item Value Reference Range Interpretation Comments Calcium Level (test code = 27595-8) 10.2 8.4-10.2 [facility] HospitalMagnesium Qwjih9598-61-89 14:36:00* Test Item Value Reference Range Interpretation Comments Magnesium Level (test code = 03613-9) 2.0 1.3-2.1 [facility] HospitalTotal Soxxoihrh1011-66-58 14:36:00* Test Item Value Reference Range Interpretation Comments Total Bilirubin (test code = 1975-2) 0.5 0.2-1.2 [facility] HospitalAspartate Amino Transf (AST/SGOT) 2019-07-29 14:36:00* Test Item Value Reference Range Interpretation Comments Aspartate Amino Transf (AST/SGOT) (test code = Aspartate Amino Transf (AST/SGOT)) 21 5-34 [facility] HospitalAlanine Aminotransferase (ALT/SGPT) 2019-07-29 14:36:00* Test Item Value Reference Range Interpretation Comments Alanine Aminotransferase (ALT/SGPT) (test code = 1742-6) 19 0-55 [facility] HospitalTotal Nqaoavy3611-12-01 14:36:00* Test Item Value Reference Range Interpretation Comments Total Protein (test code = 2885-2) 6.6 6.5-8.1 [facility] HospitalAlbumin2020-01-21 14:36:00* Test Item Value Reference Range Interpretation Comments Albumin (test code = 1751-7) 3.5 3.5-5.0 [facility] HospitalGlobulin2020-01-21 14:36:00* Test Item Value Reference Range Interpretation Comments Globulin (test code = 49960-7) 3.1 2.3-3.5 [facility] HospitalAlbumin/Globulin Iraiq0679-92-98 14:36:00 * Test Item Value Reference Range Interpretation Comments Albumin/Globulin Ratio (test code = 1759-0) 1.1 0.8-2.0 [facility] HospitalAlkaline Iyhctmxywha8051-03-58 14:36:00* Test Item Value Reference Range Interpretation Comments Alkaline Phosphatase (test code = 6768-6) 130 40-150 [facility] HospitalCreatine Qwaoix5880-40-19 14:36:00* Test Item Value Reference Range Interpretation Comments Creatine Kinase (test code = 2157-6) 71 30-200 [facility] Centerodium Vudiq2834-93-55 14:36:00* Test Item Value Reference Range Interpretation Comments Sodium Level (test code = 2951-2) 144 136-145 [facility] HospitalPotassium Pqwhm5465-30-56 14:36:00* Test Item Value Reference Range Interpretation Comments Potassium Level (test code = 2823-3) 4.4 3.5-5.1 [facility] HospitalChloride Okbbc7955-84-90 14:36:00* Test Item Value Reference Range Interpretation Comments Chloride Level (test code = 2075-0) 113 98-107 H [facility] HospitalCarbon Dioxide Wlmzh2729-91-62 14:36:00* Test Item Value Reference Range Interpretation Comments Carbon Dioxide Level (test code = 2028-9) 23 22-29 [facility] HospitalAnion Lzn4967-47-73 14:36:00* Test Item Value Reference Range Interpretation Comments Anion Gap (test code = 87517-0) 12.4 8-16 [facility] HospitalBlood Urea Icmhzvij6519-19-33 14:36:00* Test Item Value Reference Range Interpretation Comments Blood Urea Nitrogen (test code = 3094-0) 30 7-26 H [facility] HospitalCreatinine2020-01-21 14:36:00* Test Item Value Reference Range Interpretation Comments Creatinine (test code = 2160-0) 1.59 0.72-1.25 H [facility] HospitalBUN/Creatinine Xrqhn3628-82-84 14:36:00* Test Item Value Reference Range Interpretation Comments BUN/Creatinine Ratio (test code = 3097-3) 19 6-25 [facility] HospitalEstimat Glomerular Filtration Rate 2019-07-29 14:36:00* Test Item Value Reference Range Interpretation Comments Estimat Glomerular Filtration Rate (test code = 776662176) 51 >60 L Ranges were taken from the National Kidney Disease Education Program and the [facility] literature.Reference ranges:60 or greater: Gthiup02-74 ( for 3 consecutive months): Chronic kidney disease 15 or less: Kidney failureHouston [facility] HospitalGlucose Hfpfs8578-13-32 14:36:00* Test Item Value Reference Range Interpretation Comments Glucose Level (test code = FPP4651) 68 74-118 L [facility] HospitalCalcium Wyzls1958-78-24 14:36:00* Test Item Value Reference Range Interpretation Comments Calcium Level (test code = 89222-8) 10.2 8.4-10.2 [facility] HospitalMagnesium Svexg7281-45-71 14:36:00* Test Item Value Reference Range Interpretation Comments Magnesium Level (test code = 30372-8) 2.0 1.3-2.1 [facility] HospitalTotal Zhrfkeigd9809-91-42 14:36:00* Test Item Value Reference Range Interpretation Comments Total Bilirubin (test code = 1975-2) 0.5 0.2-1.2 [facility] HospitalAspartate Amino Transf (AST/SGOT) 2019-07-29 14:36:00* Test Item Value Reference Range Interpretation Comments Aspartate Amino Transf (AST/SGOT) (test code = Aspartate Amino Transf (AST/SGOT)) 21 5-34 [facility] HospitalAlanine Aminotransferase (ALT/SGPT) 2019-07-29 14:36:00* Test Item Value Reference Range Interpretation Comments Alanine Aminotransferase (ALT/SGPT) (test code = 1742-6) 19 0-55 [facility] HospitalTotal Puzmsqf4062-74-91 14:36:00* Test Item Value Reference Range Interpretation Comments Total Protein (test code = 2885-2) 6.6 6.5-8.1 [facility] HospitalAlbumin2020-01-21 14:36:00* Test Item Value Reference Range Interpretation Comments Albumin (test code = 1751-7) 3.5 3.5-5.0 [facility] HospitalGlobulin2020-01-21 14:36:00* Test Item Value Reference Range Interpretation Comments Globulin (test code = 12304-4) 3.1 2.3-3.5 [facility] HospitalAlbumin/Globulin Pijyg7113-79-86 14:36:00 * Test Item Value Reference Range Interpretation Comments Albumin/Globulin Ratio (test code = 1759-0) 1.1 0.8-2.0 [facility] HospitalAlkaline Rwusbdejydf5634-99-30 14:36:00* Test Item Value Reference Range Interpretation Comments Alkaline Phosphatase (test code = 6768-6) 130 40-150 [facility] HospitalCreatine Ehmjtq2813-82-77 14:36:00* Test Item Value Reference Range Interpretation Comments Creatine Kinase (test code = 2157-6) 71 30-200 [facility] HospitalMagnesium Rsfia3729-51-21 14:36:00* Test Item Value Reference Range Interpretation Comments Magnesium Level (test code = 91796-2) 2.0 1.3-2.1 [facility] HospitalCreatine Czawrv8508-96-30 14:36:00* Test Item Value Reference Range Interpretation Comments Creatine Kinase (test code = 2157-6) 71 30-200 [facility] HospitalMagnesium Eucuh7933-55-00 14:36:00* Test Item Value Reference Range Interpretation Comments Magnesium Level (test code = 63669-1) 2.0 1.3-2.1 [facility] HospitalCreatine Xvxhtr6144-59-30 14:36:00* Test Item Value Reference Range Interpretation Comments Creatine Kinase (test code = 2157-6) 71 30-200 [facility] HospitalMagnesium Rqxft3289-20-38 14:36:00* Test Item Value Reference Range Interpretation Comments Magnesium Level (test code = 11498-8) 2.0 1.3-2.1 [facility] HospitalProthrombin Jxva0899-49-93 14:27:00* Test Item Value Reference Range Interpretation Comments Prothrombin Time (test code = 5902-2) 25.9 11.9-14.5 H [facility] HospitalProthromb Time International Ratio 2019-07-29 14:27:00* Test Item Value Reference Range Interpretation Comments Prothromb Time International Ratio (test code = 6301-6) 2.29 Oral Anticoagulant Therapy INR Values:1. Low Intensity Therapy 1.5 - 2.02 . Moderate Intensity Therapy 2.0 - 3.03. High Intensity Therapy(1) 2.5 - 3. 54. High Intensity Therapy(2) 3.0 - 4.05. Panic Value INR > 5.0 [facility] HospitalActivated Partial Thromboplast Time 2019-07-29 14:27:00* Test Item Value Reference Range Interpretation Comments Activated Partial Thromboplast Time (test code = 68206-3) 43.9 23.8-35.5 H [facility] HospitalProthrombin Pbhd3975-79-51 14:27:00* Test Item Value Reference Range Interpretation Comments Prothrombin Time (test code = 5902-2) 25.9 11.9-14.5 H [facility] HospitalProthromb Time International Ratio 2019-07-29 14:27:00* Test Item Value Reference Range Interpretation Comments Prothromb Time International Ratio (test code = 6301-6) 2.29 Oral Anticoagulant Therapy INR Values:1. Low Intensity Therapy 1.5 - 2.02 . Moderate Intensity Therapy 2.0 - 3.03. High Intensity Therapy(1) 2.5 - 3. 54. High Intensity Therapy(2) 3.0 - 4.05. Panic Value INR > 5.0 [facility] HospitalActivated Partial Thromboplast Time 2019-07-29 14:27:00* Test Item Value Reference Range Interpretation Comments Activated Partial Thromboplast Time (test code = 75694-1) 43.9 23.8-35.5 H [facility] HospitalWhite Blood Qppni2590-48-54 14:11:00* Test Item Value Reference Range Interpretation Comments White Blood Count (test code = 6690-2) 6.13 4.8-10.8 [facility] HospitalRed Blood Ttwtk4622-14-91 14:11:00* Test Item Value Reference Range Interpretation Comments Red Blood Count (test code = 789-8) 3.74 4.3-5.7 L [facility] HospitalHemoglobin2020-01-21 14:11:00* Test Item Value Reference Range Interpretation Comments Hemoglobin (test code = 23249-8) 9.0 14.0-18.0 L [facility] HospitalHematocrit2020-01-21 14:11:00* Test Item Value Reference Range Interpretation Comments Hematocrit (test code = 4544-3) 29.9 38.2-49.6 L [facility] HospitalMean Corpuscular Roxkbw4217-37-07 14:11:00* Test Item Value Reference Range Interpretation Comments Mean Corpuscular Volume (test code = 787-2) 79.9 81-99 L [facility] HospitalMean Corpuscular Nnhkcjgumg5920-55-69 14:11:00* Test Item Value Reference Range Interpretation Comments Mean Corpuscular Hemoglobin (test code = 785-6) 24.1 28-32 L [facility] HospitalMean Corpuscular Hemoglobin Concent 2019-07-29 14:11:00* Test Item Value Reference Range Interpretation Comments Mean Corpuscular Hemoglobin Concent (test code = 786-4) 30.1 31-35 L [facility] HospitalRed Cell Distribution Ikbfd3393-75-42 14:11:00* Test Item Value Reference Range Interpretation Comments Red Cell Distribution Width (test code = 43530-6) 19.8 11.7 -14.4 H [facility] HospitalPlatelet Grppv4802-61-88 14:11:00* Test Item Value Reference Range Interpretation Comments Platelet Count (test code = 777-3) 208 140-360 [facility] HospitalNeutrophils (%) (Auto)2019-07-29 14:11:00 * Test Item Value Reference Range Interpretation Comments Neutrophils (%) (Auto) (test code = 11335-4) 56.2 38.7-80.0 [facility] HospitalLymphocytes (%) (Auto)2019-07-29 14:11:00 * Test Item Value Reference Range Interpretation Comments Lymphocytes (%) (Auto) (test code = 736-9) 29.0 18.0-39.1 [facility] HospitalMonocytes (%) (Auto)2019-07-29 14:11:00* Test Item Value Reference Range Interpretation Comments Monocytes (%) (Auto) (test code = 5905-5) 9.8 4.4-11.3 [facility] HospitalEosinophils (%) (Auto)2019-07-29 14:11:00 * Test Item Value Reference Range Interpretation Comments Eosinophils (%) (Auto) (test code = 713-8) 4.1 0.0-6.0 [facility] HospitalBasophils (%) (Auto)2019-07-29 14:11:00* Test Item Value Reference Range Interpretation Comments Basophils (%) (Auto) (test code = 706-2) 0.7 0.0-1.0 [facility] HospitalIM GRANULOCYTES %2019-07-29 14:11:00* Test Item Value Reference Range Interpretation Comments IM GRANULOCYTES % (test code = IM GRANULOCYTES %) 0.2 0.0- 1.0 [facility] HospitalNeutrophils # (Auto)2019-07-29 14:11:00* Test Item Value Reference Range Interpretation Comments Neutrophils # (Auto) (test code = 751-8) 3.5 2.1-6.9 [facility] HospitalLymphocytes # (Auto)2019-07-29 14:11:00* Test Item Value Reference Range Interpretation Comments Lymphocytes # (Auto) (test code = 89026-9) 1.8 1.0-3.2 [facility] HospitalMonocytes # (Auto)2019-07-29 14:11:00* Test Item Value Reference Range Interpretation Comments Monocytes # (Auto) (test code = 742-7) 0.6 0.2-0.8 [facility] HospitalEosinophils # (Auto)2019-07-29 14:11:00* Test Item Value Reference Range Interpretation Comments Eosinophils # (Auto) (test code = 711-2) 0.3 0.0-0.4 [facility] HospitalBasophils # (Auto)2019-07-29 14:11:00* Test Item Value Reference Range Interpretation Comments Basophils # (Auto) (test code = 704-7) 0.0 0.0-0.1 [facility] HospitalAbsolute Immature Granulocyte (auto 2019-07-29 14:11:00* Test Item Value Reference Range Interpretation Comments Absolute Immature Granulocyte (auto (carine t code = Absolute Immature Granulocyte (auto) 0.01 0-0.1 [facility] HospitalWhite Blood Zgrwc0456-55-93 14:11:00* Test Item Value Reference Range Interpretation Comments White Blood Count (test code = 6690-2) 6.13 4.8-10.8 [facility] HospitalRed Blood Qlozv9401-99-13 14:11:00* Test Item Value Reference Range Interpretation Comments Red Blood Count (test code = 789-8) 3.74 4.3-5.7 L [facility] HospitalHemoglobin2020-01-21 14:11:00* Test Item Value Reference Range Interpretation Comments Hemoglobin (test code = 89220-6) 9.0 14.0-18.0 L [facility] HospitalHematocrit2020-01-21 14:11:00* Test Item Value Reference Range Interpretation Comments Hematocrit (test code = 4544-3) 29.9 38.2-49.6 L [facility] HospitalMean Corpuscular Mgwgus6236-50-58 14:11:00* Test Item Value Reference Range Interpretation Comments Mean Corpuscular Volume (test code = 787-2) 79.9 81-99 L [facility] HospitalMean Corpuscular Nhhmwtflpw7563-25-75 14:11:00* Test Item Value Reference Range Interpretation Comments Mean Corpuscular Hemoglobin (test code = 785-6) 24.1 28-32 L [facility] HospitalMean Corpuscular Hemoglobin Concent 2019-07-29 14:11:00* Test Item Value Reference Range Interpretation Comments Mean Corpuscular Hemoglobin Concent (test code = 786-4) 30.1 31-35 L [facility] HospitalRed Cell Distribution Nrwwg4619-68-14 14:11:00* Test Item Value Reference Range Interpretation Comments Red Cell Distribution Width (test code = 17948-1) 19.8 11.7 -14.4 H [facility] HospitalPlatelet Nuibw3468-84-82 14:11:00* Test Item Value Reference Range Interpretation Comments Platelet Count (test code = 777-3) 208 140-360 [facility] HospitalNeutrophils (%) (Auto)2019-07-29 14:11:00 * Test Item Value Reference Range Interpretation Comments Neutrophils (%) (Auto) (test code = 91042-3) 56.2 38.7-80.0 [facility] HospitalLymphocytes (%) (Auto)2019-07-29 14:11:00 * Test Item Value Reference Range Interpretation Comments Lymphocytes (%) (Auto) (test code = 736-9) 29.0 18.0-39.1 [facility] HospitalMonocytes (%) (Auto)2019-07-29 14:11:00* Test Item Value Reference Range Interpretation Comments Monocytes (%) (Auto) (test code = 5905-5) 9.8 4.4-11.3 [facility] HospitalEosinophils (%) (Auto)2019-07-29 14:11:00 * Test Item Value Reference Range Interpretation Comments Eosinophils (%) (Auto) (test code = 713-8) 4.1 0.0-6.0 [facility] HospitalBasophils (%) (Auto)2019-07-29 14:11:00* Test Item Value Reference Range Interpretation Comments Basophils (%) (Auto) (test code = 706-2) 0.7 0.0-1.0 [facility] HospitalIM GRANULOCYTES %2019-07-29 14:11:00* Test Item Value Reference Range Interpretation Comments IM GRANULOCYTES % (test code = IM GRANULOCYTES %) 0.2 0.0- 1.0 [facility] HospitalNeutrophils # (Auto)2019-07-29 14:11:00* Test Item Value Reference Range Interpretation Comments Neutrophils # (Auto) (test code = 751-8) 3.5 2.1-6.9 [facility] HospitalLymphocytes # (Auto)2019-07-29 14:11:00* Test Item Value Reference Range Interpretation Comments Lymphocytes # (Auto) (test code = 50444-4) 1.8 1.0-3.2 [facility] HospitalMonocytes # (Auto)2019-07-29 14:11:00* Test Item Value Reference Range Interpretation Comments Monocytes # (Auto) (test code = 742-7) 0.6 0.2-0.8 [facility] HospitalEosinophils # (Auto)2019-07-29 14:11:00* Test Item Value Reference Range Interpretation Comments Eosinophils # (Auto) (test code = 711-2) 0.3 0.0-0.4 [facility] HospitalBasophils # (Auto)2019-07-29 14:11:00* Test Item Value Reference Range Interpretation Comments Basophils # (Auto) (test code = 704-7) 0.0 0.0-0.1 [facility] HospitalAbsolute Immature Granulocyte (auto 2019-07-29 14:11:00* Test Item Value Reference Range Interpretation Comments Absolute Immature Granulocyte (auto (carine t code = Absolute Immature Granulocyte (auto) 0.01 0-0.1 [facility] HospitalCHEST SINGLE (PORTABLE)2019-07-29 13:19:00 [facility] [address] [place] [address] Patient Name: AMAURI FLAHERTY MR #: [id number] : 1940 Age/Sex: 78/M Req #: [id number] Adm Physician: Ordered by: DIPESH TAVARES MD Report #: [id number] Location: ER Room/Bed: Procedure: [id number] DX/CH EST SINGLE (PORTABLE) Exam Date: Exam Time: REPORT STATUS: Signed EXAMINATION: EST SINGLE (PORTABLE) INDICATION: Weakness, lower extremity swelling COMPARISON: None FINDINGS: LINES/TUBES:None LUNGS:The almita gs are well-inflated. No focal consolidation or pulmonary edema. PLEURA:No pleural effusion or pneumothorax. MEDIASTINUM:The cardiomediastinal silhoue tte appears mildly enlarged, possibly due to portable technique. Atherosclerot ic calcifications of the thoracic aorta. BONES/SOFT TISSUES:No acute osse ous injury. ABDOMEN:No free air under the diaphragm. IMPRESSION: No focal pneumonia or pulmonary edema. Signed by: Tere Pope MD on 020 1:20 PM Dictated By: TERE POPE MD 1320 Transcribed By: JEB on 07/29/19 1320 COPY TO: DIPESH TAVARES MD INR in Platelet poor plasma by Coagulation assay 2019-07-24 07:09:00* Test Item Value Reference Range Interpretation Comments INR (test code = INR) 1.5 H PT (test code = PT) 15.8 sec 9.0-11.5 H [facility] poor plasma by Coagulation assay 2019-07-24 07:09:00* Test Item Value Reference Range Interpretation Comments INR (test code = INR) 1.5 H PT (test code = PT) 15.8 sec 9.0-11.5 H [facility] CenterIN[facility] in Platelet poor plasma by Coagulation assay 2019-07-24 07:09:00* Test Item Value Reference Range Interpretation Comments INR (test code = INR) 1.5 H PT (test code = PT) 15.8 sec 9.0-11.5 H [facility] CenterComprehensive metabolic 2000 panel - Serum or Plasma 2019-07-23 21:12:00* Test Item Value Reference Range Interpretation Comments glucose (test code = glucose) 71 mg/dL 65-99 urea nitrogen (BUN) (test code = urea nitrogen (BUN)) 39 mg/dL 7-25 H creatinine (test code = creatinine) 1.87 mg/dL 0.70-1.18 H eGFR non-afr. chinese (test code = eGFR non-afr. chinese) 34 mL/min/1.73m2 > or = 60 L eGFR (test code = eGFR ) 39 mL/min/1.73m2 > or = 60 L BUN/creatinine ratio (test code = BUN/creatinine ratio) 21 (calc) 6-22 sodium (test code = sodium) 143 mmol/L 135-146 potassium (test code = potassium) 4.9 mmol/L 3.5-5.3 chloride (test code = chloride) 112 mmol/L 98-110 H carbon dioxide (test code = carbon dioxide) 24 mmol/L 20-32 calcium (test code = calcium) 10.1 mg/dL 8.6-10.3 protein, total (test code = protein, total) 6.5 g/dL 6.1-8.1 albumin (test code = albumin) 3.9 g/dL 3.6-5.1 globulin (test code = globulin) 2.6 g/dL (calc) 1.9-3.7 albumin/globulin ratio (test code = albumin/globulin ratio) 1.5 (calc) 1.0-2.5 bilirubin, total (test code = bilirubin, total) 0.7 mg/dL 0.2-1. 2 alkaline phosphatase (test code = alkaline phosphatase) 116 U/L 40-115 H AST (test code = AST) 19 U/L 10-35 ALT (test code = ALT) 15 U/L 9-46 [facility] Auto Differential panel - [id number] 21:12:00 * Test Item Value Reference Range Interpretation Comments white blood cell count (test code = white blood cell count) 6.4 thousand/uL 3.8-10.8 red blood cell count (test code = red blood cell count) 3.75 million/uL 4.20-5.80 L hemoglobin (test code = hemoglobin) 8.8 g/dL 13.2-17.1 L hematocrit (test code = hematocrit) 29.6 % 38.5-50.0 L MCV (test code = MCV) 78.9 fL 80.0-100.0 L MCH (test code = MCH) 23.5 pg 27.0-33.0 L MCHC (test code = MCHC) 29.7 g/dL 32.0-36.0 L RDW (test code = RDW) 17.4 % 11.0-15.0 H platelet count (test code = platelet count) 242 thousand/uL 140-400 MPV (test code = MPV) 10.4 fL 7.5-12.5 absolute neutrophils (test code = absolute neutrophils) 3539 mariam ls/uL 6722-0214 absolute lymphocytes (test code = absolute lymphocytes) 2010 mariam ls/uL 850-3900 absolute monocytes (test code = absolute monocytes) 608 cells/uL 20 0-950 absolute eosinophils (test code = absolute eosinophils) 192 cells/u L 15-500 absolute basophils (test code = absolute basophils) 51 cells/uL 0- 200 neutrophils (test code = neutrophils) 55.3 % lymphocytes (test code = lymphocytes) 31.4 % monocytes (test code = monocytes) 9.5 % eosinophils (test code = eosinophils) 3.0 % basophils (test code = basophils) 0.8 % [facility] CenterCom[facility] 2000 panel - Serum or Plasma 2019-07-23 21:12:00* Test Item Value Reference Range Interpretation Comments glucose (test code = glucose) 71 mg/dL 65-99 urea nitrogen (BUN) (test code = urea nitrogen (BUN)) 39 mg/dL 7-25 H creatinine (test code = creatinine) 1.87 mg/dL 0.70-1.18 H eGFR non-afr. chinese (test code = eGFR non-afr. chinese) 34 mL/min/1.73m2 > or = 60 L eGFR (test code = eGFR ) 39 mL/min/1.73m2 > or = 60 L BUN/creatinine ratio (test code = BUN/creatinine ratio) 21 (calc) 6-22 sodium (test code = sodium) 143 mmol/L 135-146 potassium (test code = potassium) 4.9 mmol/L 3.5-5.3 chloride (test code = chloride) 112 mmol/L 98-110 H carbon dioxide (test code = carbon dioxide) 24 mmol/L 20-32 calcium (test code = calcium) 10.1 mg/dL 8.6-10.3 protein, total (test code = protein, total) 6.5 g/dL 6.1-8.1 albumin (test code = albumin) 3.9 g/dL 3.6-5.1 globulin (test code = globulin) 2.6 g/dL (calc) 1.9-3.7 albumin/globulin ratio (test code = albumin/globulin ratio) 1.5 (calc) 1.0-2.5 bilirubin, total (test code = bilirubin, total) 0.7 mg/dL 0.2-1. 2 alkaline phosphatase (test code = alkaline phosphatase) 116 U/L 40-115 H AST (test code = AST) 19 U/L 10-35 ALT (test code = ALT) 15 U/L 9-46 [facility] W Auto Differential panel - [id number] 21:12:00 * Test Item Value Reference Range Interpretation Comments white blood cell count (test code = white blood cell count) 6.4 thousand/uL 3.8-10.8 red blood cell count (test code = red blood cell count) 3.75 million/uL 4.20-5.80 L hemoglobin (test code = hemoglobin) 8.8 g/dL 13.2-17.1 L hematocrit (test code = hematocrit) 29.6 % 38.5-50.0 L MCV (test code = MCV) 78.9 fL 80.0-100.0 L MCH (test code = MCH) 23.5 pg 27.0-33.0 L MCHC (test code = MCHC) 29.7 g/dL 32.0-36.0 L RDW (test code = RDW) 17.4 % 11.0-15.0 H platelet count (test code = platelet count) 242 thousand/uL 140-400 MPV (test code = MPV) 10.4 fL 7.5-12.5 absolute neutrophils (test code = absolute neutrophils) 3539 mariam ls/uL 1266-5712 absolute lymphocytes (test code = absolute lymphocytes) 2010 mariam ls/uL 850-3900 absolute monocytes (test code = absolute monocytes) 608 cells/uL 20 0-950 absolute eosinophils (test code = absolute eosinophils) 192 cells/u L 15-500 absolute basophils (test code = absolute basophils) 51 cells/uL 0- 200 neutrophils (test code = neutrophils) 55.3 % lymphocytes (test code = lymphocytes) 31.4 % monocytes (test code = monocytes) 9.5 % eosinophils (test code = eosinophils) 3.0 % basophils (test code = basophils) 0.8 % [facility] CenterComprehensive [facility] 2000 panel - Serum or Plasma 2019-07-23 21:12:00* Test Item Value Reference Range Interpretation Comments glucose (test code = glucose) 71 mg/dL 65-99 urea nitrogen (BUN) (test code = urea nitrogen (BUN)) 39 mg/dL 7-25 H creatinine (test code = creatinine) 1.87 mg/dL 0.70-1.18 H eGFR non-afr. chinese (test code = eGFR non-afr. chinese) 34 mL/min/1.73m2 > or = 60 L eGFR (test code = eGFR ) 39 mL/min/1.73m2 > or = 60 L BUN/creatinine ratio (test code = BUN/creatinine ratio) 21 (calc) 6-22 sodium (test code = sodium) 143 mmol/L 135-146 potassium (test code = potassium) 4.9 mmol/L 3.5-5.3 chloride (test code = chloride) 112 mmol/L 98-110 H carbon dioxide (test code = carbon dioxide) 24 mmol/L 20-32 calcium (test code = calcium) 10.1 mg/dL 8.6-10.3 protein, total (test code = protein, total) 6.5 g/dL 6.1-8.1 albumin (test code = albumin) 3.9 g/dL 3.6-5.1 globulin (test code = globulin) 2.6 g/dL (calc) 1.9-3.7 albumin/globulin ratio (test code = albumin/globulin ratio) 1.5 (calc) 1.0-2.5 bilirubin, total (test code = bilirubin, total) 0.7 mg/dL 0.2-1. 2 alkaline phosphatase (test code = alkaline phosphatase) 116 U/L 40-115 H AST (test code = AST) 19 U/L 10-35 ALT (test code = ALT) 15 U/L 9-46 [facility] W Auto Differential panel - [id number] 21:12:00 * Test Item Value Reference Range Interpretation Comments white blood cell count (test code = white blood cell count) 6.4 thousand/uL 3.8-10.8 red blood cell count (test code = red blood cell count) 3.75 million/uL 4.20-5.80 L hemoglobin (test code = hemoglobin) 8.8 g/dL 13.2-17.1 L hematocrit (test code = hematocrit) 29.6 % 38.5-50.0 L MCV (test code = MCV) 78.9 fL 80.0-100.0 L MCH (test code = MCH) 23.5 pg 27.0-33.0 L MCHC (test code = MCHC) 29.7 g/dL 32.0-36.0 L RDW (test code = RDW) 17.4 % 11.0-15.0 H platelet count (test code = platelet count) 242 thousand/uL 140-400 MPV (test code = MPV) 10.4 fL 7.5-12.5 absolute neutrophils (test code = absolute neutrophils) 3539 mariam ls/uL 3801-2964 absolute lymphocytes (test code = absolute lymphocytes) 2010 mariam ls/uL 850-3900 absolute monocytes (test code = absolute monocytes) 608 cells/uL 20 0-950 absolute eosinophils (test code = absolute eosinophils) 192 cells/u L 15-500 absolute basophils (test code = absolute basophils) 51 cells/uL 0- 200 neutrophils (test code = neutrophils) 55.3 % lymphocytes (test code = lymphocytes) 31.4 % monocytes (test code = monocytes) 9.5 % eosinophils (test code = eosinophils) 3.0 % basophils (test code = basophils) 0.8 % [facility] PracticeComprehensive metabolic 2000 panel - Serum or Plasma 2019-07-23 21:12:00* Test Item Value Reference Range Interpretation Comments glucose (test code = glucose) 71 mg/dL 65-99 urea nitrogen (BUN) (test code = urea nitrogen (BUN)) 39 mg/dL 7-25 H creatinine (test code = creatinine) 1.87 mg/dL 0.70-1.18 H eGFR non-afr. chinese (test code = eGFR non-afr. chinese) 34 mL/min/1.73m2 > or = 60 L eGFR (test code = eGFR ) 39 mL/min/1.73m2 > or = 60 L BUN/creatinine ratio (test code = BUN/creatinine ratio) 21 (calc) 6-22 sodium (test code = sodium) 143 mmol/L 135-146 potassium (test code = potassium) 4.9 mmol/L 3.5-5.3 chloride (test code = chloride) 112 mmol/L 98-110 H carbon dioxide (test code = carbon dioxide) 24 mmol/L 20-32 calcium (test code = calcium) 10.1 mg/dL 8.6-10.3 protein, total (test code = protein, total) 6.5 g/dL 6.1-8.1 albumin (test code = albumin) 3.9 g/dL 3.6-5.1 globulin (test code = globulin) 2.6 g/dL (calc) 1.9-3.7 albumin/globulin ratio (test code = albumin/globulin ratio) 1.5 (calc) 1.0-2.5 bilirubin, total (test code = bilirubin, total) 0.7 mg/dL 0.2-1. 2 alkaline phosphatase (test code = alkaline phosphatase) 116 U/L 40-115 H AST (test code = AST) 19 U/L 10-35 ALT (test code = ALT) 15 U/L 9-46 [facility] Auto Differential panel - [id number] 21:12:00 * Test Item Value Reference Range Interpretation Comments white blood cell count (test code = white blood cell count) 6.4 thousand/uL 3.8-10.8 red blood cell count (test code = red blood cell count) 3.75 million/uL 4.20-5.80 L hemoglobin (test code = hemoglobin) 8.8 g/dL 13.2-17.1 L hematocrit (test code = hematocrit) 29.6 % 38.5-50.0 L MCV (test code = MCV) 78.9 fL 80.0-100.0 L MCH (test code = MCH) 23.5 pg 27.0-33.0 L MCHC (test code = MCHC) 29.7 g/dL 32.0-36.0 L RDW (test code = RDW) 17.4 % 11.0-15.0 H platelet count (test code = platelet count) 242 thousand/uL 140-400 MPV (test code = MPV) 10.4 fL 7.5-12.5 absolute neutrophils (test code = absolute neutrophils) 3539 mariam ls/uL 4344-1796 absolute lymphocytes (test code = absolute lymphocytes) 2010 mariam ls/uL 850-3900 absolute monocytes (test code = absolute monocytes) 608 cells/uL 20 0-950 absolute eosinophils (test code = absolute eosinophils) 192 cells/u L 15-500 absolute basophils (test code = absolute basophils) 51 cells/uL 0- 200 neutrophils (test code = neutrophils) 55.3 % lymphocytes (test code = lymphocytes) 31.4 % monocytes (test code = monocytes) 9.5 % eosinophils (test code = eosinophils) 3.0 % basophils (test code = basophils) 0.8 % [facility] PracticeGlucose [Mass/volume] in Capillary fsgvg0170-03-60 15:04:00* Test Item Value Reference Range Interpretation Comments Blood Glucose: mg/dl (test code = Blood Glucose: mg/dl) 83 [facility] PracticeGlucose [Mass/volume] in Capillary olvrn0552-36-71 15:04:00* Test Item Value Reference Range Interpretation Comments Blood Glucose: mg/dl (test code = Blood Glucose: mg/dl) 83 [facility] PracticeGlucose [Mass/volume] in Capillary ukpuc6946-19-87 15:04:00* Test Item Value Reference Range Interpretation Comments Blood Glucose: mg/dl (test code = Blood Glucose: mg/dl) 83 [facility] PracticeGlucose [Mass/volume] in Capillary xafco3677-60-28 15:04:00* Test Item Value Reference Range Interpretation Comments Blood Glucose: mg/dl (test code = Blood Glucose: mg/dl) 83 [facility] - Serum or Plasma 2019-07-16 16:27:00* Test Item Value Reference Range Interpretation Comments iron, total (test code = iron, total) 43 mcg/dL 50-180 L iron binding capacity (test code = iron binding capacity) 41 2 mcg/dL (calc) 250-425 % saturation (test code = % saturation) 10 % (calc) 20-48 L [facility] CenterTransferrin [Mass/volume] in Serum or Yemjes8066-00-37 16:27:00* Test Item Value Reference Range Interpretation Comments transferrin (test code = transferrin) 330 mg/dL 188-341 [facility] PracticeUrine Gcyatwl6887-25-77 14:09:00* Test Item Value Reference Range Interpretation Comments Urine Culture (test code = 630-4) No Result Data Provided [facility]yan[facility]obalamin [interpretation] in Serum or Enskp7416-26-42 17:31:00* Test Item Value Reference Range Interpretation Comments folate (test code = folate) 9.4 NG/mL vitamin B12 (test code = vitamin B12) 364 pg/mL 213-816 [facility] CenterComprehensive metabolic 2000 panel - Serum or Plasma 2019-07-14 17:10:00* Test Item Value Reference Range Interpretation Comments ALT (test code = ALT) 13 U/L 0-55 AST (test code = AST) 17 U/L 5-34 BUN (test code = BUN) 27.4 mg/dL 8.4-25.0 H alk phos (test code = alk phos) 148 unit/L 40-150 glucose (test code = glucose) 78 mg/dL 70-99 albumin (test code = albumin) 4.0 g/dL 3.4-5.1 creatinine (test code = creatinine) 1.49 mg/dL 0.72-1.25 H eGFR non- (test code = eGFR non-pasquale n chinese) 46 mL/min/1.73m2 A total bilirubin (test code = total bilirubin) 0.6 mg/dL 0.2-1.2 eGFR - (test code = eGFR - ) 55 mL/min/1.73m2 A sodium (test code = sodium) 143 mEq/L 135-145 potassium (test code = potassium) 4.9 mEq/L 3.5-5.1 chloride (test code = chloride) 109 mmol/L 98-110 total protein (test code = total protein) 7.1 g/dL 6.1-8.2 calcium (test code = calcium) 10.4 mg/dL 9.0-10.2 H CO2 (test code = CO2) 23.2 mmol/L 20.0-32.0 anion gap (test code = anion gap) 11 calc [facility] CenterGlucose [Mass/volume] in Capillary lduwr5683-14-36 15:11:00* Test Item Value Reference Range Interpretation Comments Blood Glucose: mg/dl (test code = Blood Glucose: mg/dl) 159 [facility] CenterGlucose [Mass/volume] in Capillary gclxi2416-11-86 15:11:00* Test Item Value Reference Range Interpretation Comments Blood Glucose: mg/dl (test code = Blood Glucose: mg/dl) 159 [facility] PracticeGlucose [Mass/volume] in Capillary nkkca7926-72-66 15:11:00* Test Item Value Reference Range Interpretation Comments Blood Glucose: mg/dl (test code = Blood Glucose: mg/dl) 159 [facility] CenterGlucose [Mass/volume] in Capillary bzprh1003-85-04 15:11:00* Test Item Value Reference Range Interpretation Comments Blood Glucose: mg/dl (test code = Blood Glucose: mg/dl) 159 [facility] CenterLipid 1996 panel - Serum or Rpheay2395-29-05 13:33:00* Test Item Value Reference Range Interpretation Comments HDL (test code = HDL) 65 mg/dL triglyceride (test code = triglyceride) 66 mg/dL 0-150 VLDL (calculated) (test code = VLDL (calculated)) 13 mg/dL cholesterol/HDL ratio (test code = cholesterol/HDL ratio) 2.2 mg/dL non-HDL cholesterol (calculated) (test code = non-HDL cholesterol (calculated)) 76 mg/dL 0-160 cholesterol (test code = cholesterol) 141 mg/dL 0-200 Cholesterol in LDL [Mass/volume] in Serum or Plasma (t est code = 2089-1) 63 mg/dL 0-130 [facility] CenterThyrotropin [Units/volume] in Serum or Ijplav1807-76-50 13:33:00* Test Item Value Reference Range Interpretation Comments TSH (test code = TSH) 1.578 uIU/mL 0.350-4.940 [facility] CenterHemoglobin A1c/Hemoglobin.total in Mqzxk3271-61-43 11:00:00* Test Item Value Reference Range Interpretation Comments Hemoglobin A1c/Hemoglobin.total in Blood (test code = 4548-4) 6.6 % 1.0-5.7 H average blood glucose (test code = average blood glucose) 143 mg/dL [facility] CenterParathyrin.intact [Mass/volume] in Serum or Plasma 2019-07-12 15:17:00* Test Item Value Reference Range Interpretation Comments parathyroid hormone, intact (test code = parathyroid hormone , intact) 224 pg/mL 14-64 H [facility] CenterParathyrin.intact [Mass/volume] in Serum or Plasma 2019-07-12 15:17:00* Test Item Value Reference Range Interpretation Comments parathyroid hormone, intact (test code = parathyroid hormone , intact) 224 pg/mL 14-64 H [facility] CenterParathyrin.intact [Mass/volume] in Serum or Plasma 2019-07-12 15:17:00* Test Item Value Reference Range Interpretation Comments parathyroid hormone, intact (test code = parathyroid hormone , intact) 224 pg/mL 14-64 H [facility] CenterPSA, serum or tsstmt0916-52-88 07:40:00* Test Item Value Reference Range Interpretation Comments PSA, total (test code = PSA, total) <0.1 < or = 4.0 [facility] CenterCBC W Auto Differential panel - Tgfnv4111-03-56 07:40:00 * Test Item Value Reference Range Interpretation Comments white blood cell count (test code = white blood cell count) 6.9 thousand/uL 3.8-10.8 red blood cell count (test code = red blood cell count) 4.07 million/uL 4.20-5.80 L hemoglobin (test code = hemoglobin) 9.6 g/dL 13.2-17.1 L hematocrit (test code = hematocrit) 32.5 % 38.5-50.0 L MCV (test code = MCV) 79.9 fL 80.0-100.0 L MCH (test code = MCH) 23.6 pg 27.0-33.0 L MCHC (test code = MCHC) 29.5 g/dL 32.0-36.0 L RDW (test code = RDW) 18.1 % 11.0-15.0 H platelet count (test code = platelet count) 283 thousand/uL 140-400 MPV (test code = MPV) 11.6 fL 7.5-12.5 absolute neutrophils (test code = absolute neutrophils) 3636 mariam ls/uL 8654-5545 absolute lymphocytes (test code = absolute lymphocytes) 2491 mariam ls/uL 850-3900 absolute monocytes (test code = absolute monocytes) 531 cells/uL 20 0-950 absolute eosinophils (test code = absolute eosinophils) 214 cells/u L 15-500 absolute basophils (test code = absolute basophils) 28 cells/uL 0- 200 neutrophils (test code = neutrophils) 52.7 % lymphocytes (test code = lymphocytes) 36.1 % monocytes (test code = monocytes) 7.7 % eosinophils (test code = eosinophils) 3.1 % basophils (test code = basophils) 0.4 % [facility] CenterUrine [id number] 14:59:00* Test Item Value Reference Range Interpretation Comments Urine WBC (test code = 5821-4) 21-50 0-5 H [facility] [id number] 14:59:00* Test Item Value Reference Range Interpretation Comments Urine RBC (test code = 70431-6) 11-20 0-5 H [facility] HospitalU[facility] Fhmlesut8414-26-78 14:59:00* Test Item Value Reference Range Interpretation Comments Urine Bacteria (test code = 28233-0) RARE NONE [facility] HospitalU[facility] Epithelial Ivjzy2053-69-87 14:59:00 * Test Item Value Reference Range Interpretation Comments Urine Epithelial Cells (test code = 76303-5) NONE NONE [facility] HospitalU[facility] Wlhrc0888-14-44 13:58:00* Test Item Value Reference Range Interpretation Comments Urine Color (test code = 5778-6) RED YELLOW H [facility] HospitalUrine Nftcbpj5621-56-35 13:58:00* Test Item Value Reference Range Interpretation Comments Urine Clarity (test code = 27390-1) TURBID CLEAR H [facility] HospitalUrine Specific Djevein7632-75-73 13:58:00 * Test Item Value Reference Range Interpretation Comments Urine Specific [place] (test code = 5811-5) 1.020 1.010-1.02 5 [facility] HospitalU[facility] [id number] 13:58:00* Test Item Value Reference Range Interpretation Comments Urine pH (test code = 90972-2) 6 5-7 [facility] Hospital[facility] Leukocyte Ayphlezt7519-63-70 13:58:00* Test Item Value Reference Range Interpretation Comments Urine Leukocyte Esterase (test code = 02632-2) LARGE NEGATIV E [facility] HospitalU[facility] Blmjuet8156-88-83 13:58:00* Test Item Value Reference Range Interpretation Comments Urine Nitrite (test code = 52630-4) NEGATIVE NEGATIVE [facility] HospitalU[facility] Gyupcfr0729-13-49 13:58:00* Test Item Value Reference Range Interpretation Comments Urine Protein (test code = 73984-2) 2+ NEGATIVE H [facility] HospitalUrine Glucose (UA)2019-07-11 13:58:00* Test Item Value Reference Range Interpretation Comments Urine Glucose (UA) (test code = 08869-0) NEGATIVE NEGATIVE [facility] HospitalU[facility] Koacskm3140-43-79 13:58:00* Test Item Value Reference Range Interpretation Comments Urine Ketones (test code = 80419-8) NEGATIVE NEGATIVE [facility] HospitalU[facility] Dvslltoujnav1190-83-59 13:58:00* Test Item Value Reference Range Interpretation Comments Urine Urobilinogen (test code = 32050-5) 2 0.2-1 [facility] HospitalU[facility] Sxtmfprkw2818-64-81 13:58:00* Test Item Value Reference Range Interpretation Comments Urine Bilirubin (test code = 1977-8) SMALL NEGATIVE [facility] Cftnz7924-76-67 13:58:00* Test Item Value Reference Range Interpretation Comments Urine Blood (test code = 33373-5) 3+ NEGATIVE [facility] HospitalGlucose [Mass/volume] in Capillary blood 2019-07-10 17:10:00* Test Item Value Reference Range Interpretation Comments Blood Glucose: mg/dl (test code = Blood Glucose: mg/dl) 103 [facility] CenterGlucose [Mass/volume] in Capillary mflke6865-61-72 17:10:00* Test Item Value Reference Range Interpretation Comments Blood Glucose: mg/dl (test code = Blood Glucose: mg/dl) 103 [facility] CenterGlucose [Mass/volume] in Capillary zluhy3802-60-52 17:10:00* Test Item Value Reference Range Interpretation Comments Blood Glucose: mg/dl (test code = Blood Glucose: mg/dl) 103 [facility] Centerfecal occult blood, ujkec7239-78-14 10:56:00* Test Item Value Reference Range Interpretation Comments fecal globin (medicare) by drafter heating and ventilating ry (test code = fecal globin (medicare) by immunochemistry) not detected [facility] Centerfecal occult blood, ifqwd1373-05-87 10:56:00* Test Item Value Reference Range Interpretation Comments fecal globin (medicare) by drafter heating and ventilating ry (test code = fecal globin (medicare) by immunochemistry) not detected [facility] Vvwxl8060-02-55 17:40:00* Test Item Value Reference Range Interpretation Comments Sodium Level (test code = 2951-2) 141 136-145 [facility] HospitalPotassium Raraw8693-30-24 17:40:00* Test Item Value Reference Range Interpretation Comments Potassium Level (test code = 2823-3) 4.5 3.5-5.1 [facility] HospitalChloride Rellf6734-31-28 17:40:00* Test Item Value Reference Range Interpretation Comments Chloride Level (test code = 2075-0) 107 98-107 [facility] HospitalCarbon Dioxide Tfoav4335-44-20 17:40:00* Test Item Value Reference Range Interpretation Comments Carbon Dioxide Level (test code = 2028-9) 24 22-29 [facility] HospitalAnion Nxp4805-79-23 17:40:00* Test Item Value Reference Range Interpretation Comments Anion Gap (test code = 66489-6) 14.5 8-16 [facility] HospitalBlood Urea Nlxbshhj7204-37-02 17:40:00* Test Item Value Reference Range Interpretation Comments Blood Urea Nitrogen (test code = 3094-0) 21 7-26 [facility] HospitalCreatinine2019-11-04 17:40:00* Test Item Value Reference Range Interpretation Comments Creatinine (test code = 2160-0) 1.43 0.72-1.25 H [facility] HospitalBUN/Creatinine Squui8284-01-32 17:40:00* Test Item Value Reference Range Interpretation Comments BUN/Creatinine Ratio (test code = 3097-3) 15 6-25 [facility] HospitalEstimat Glomerular Filtration Rate 2019-05-12 17:40:00* Test Item Value Reference Range Interpretation Comments Estimat Glomerular Filtration Rate (test code = 726865378) 58 >60 L Ranges were taken from the National Kidney Disease Education Program and the [facility] Kidney Foundation literature.Reference ranges:60 or greater: Bgryvc08-81 ( for 3 consecutive months): Chronic kidney disease 15 or less: Kidney failureHouston Methodist West HospitalGlucose Xuvxn1386-09-35 17:40:00* Test Item Value Reference Range Interpretation Comments Glucose Level (test code = WWF9551) 113 74-118 [facility] HospitalCalcium Lzhcd9329-06-79 17:40:00* Test Item Value Reference Range Interpretation Comments Calcium Level (test code = 43116-4) 10.6 8.4-10.2 H [facility] HospitalTotal Zregpdnii5001-66-32 17:40:00* Test Item Value Reference Range Interpretation Comments Total Bilirubin (test code = 1975-2) 0.9 0.2-1.2 [facility] HospitalAspartate Amino Transf (AST/SGOT) 2019-05-12 17:40:00* Test Item Value Reference Range Interpretation Comments Aspartate Amino Transf (AST/SGOT) (test code = Aspartate Amino Transf (AST/SGOT)) 22 5-34 [facility] HospitalAlanine Aminotransferase (ALT/SGPT) 2019-05-12 17:40:00* Test Item Value Reference Range Interpretation Comments Alanine Aminotransferase (ALT/SGPT) (test code = 1742-6) 17 0-55 [facility] HospitalTotal Yqktnmp0062-04-23 17:40:00* Test Item Value Reference Range Interpretation Comments Total Protein (test code = 2885-2) 6.9 6.5-8.1 [facility] HospitalAlbumin2019-11-04 17:40:00* Test Item Value Reference Range Interpretation Comments Albumin (test code = 1751-7) 3.3 3.5-5.0 L [facility] HospitalGlobulin2019-11-04 17:40:00* Test Item Value Reference Range Interpretation Comments Globulin (test code = 99111-1) 3.6 2.3-3.5 H [facility] HospitalAlbumin/Globulin Mlbcg4138-25-82 17:40:00 * Test Item Value Reference Range Interpretation Comments Albumin/Globulin Ratio (test code = 1759-0) 0.9 0.8-2.0 [facility] HospitalAlkaline Acidsotifwy4557-48-92 17:40:00* Test Item Value Reference Range Interpretation Comments Alkaline Phosphatase (test code = 6768-6) 147 40-150 [facility] Iuczq9999-08-23 17:40:00* Test Item Value Reference Range Interpretation Comments Sodium Level (test code = 2951-2) 141 136-145 [facility] HospitalPotassium Avhcd9642-02-31 17:40:00* Test Item Value Reference Range Interpretation Comments Potassium Level (test code = 2823-3) 4.5 3.5-5.1 [facility] HospitalChloride Zgsnk7705-31-69 17:40:00* Test Item Value Reference Range Interpretation Comments Chloride Level (test code = 2075-0) 107 98-107 [facility] HospitalCarbon Dioxide Nnzgy1472-05-81 17:40:00* Test Item Value Reference Range Interpretation Comments Carbon Dioxide Level (test code = 2028-9) 24 22-29 [facility] HospitalAnion Odq8328-29-33 17:40:00* Test Item Value Reference Range Interpretation Comments Anion Gap (test code = 59445-2) 14.5 8-16 [facility] HospitalBlood Urea Zwgdfbxa8735-89-85 17:40:00* Test Item Value Reference Range Interpretation Comments Blood Urea Nitrogen (test code = 3094-0) 21 7-26 [facility] HospitalCreatinine2019-11-04 17:40:00* Test Item Value Reference Range Interpretation Comments Creatinine (test code = 2160-0) 1.43 0.72-1.25 H [facility] HospitalBUN/Creatinine Ijjyp2717-00-85 17:40:00* Test Item Value Reference Range Interpretation Comments BUN/Creatinine Ratio (test code = 3097-3) 15 6-25 [facility] HospitalEstimat Glomerular Filtration Rate 2019-05-12 17:40:00* Test Item Value Reference Range Interpretation Comments Estimat Glomerular Filtration Rate (test code = 530142799) 58 >60 L Ranges were taken from the National Kidney Disease Education Program and the [facility] Kidney Foundation literature.Reference ranges:60 or greater: Uioqvu98-53 ( for 3 consecutive months): Chronic kidney disease 15 or less: Kidney failureHouston Methodist West HospitalGlucose Onyvd5932-87-12 17:40:00* Test Item Value Reference Range Interpretation Comments Glucose Level (test code = SIM5156) 113 74-118 [facility] HospitalCalcium Nmkvs3361-18-93 17:40:00* Test Item Value Reference Range Interpretation Comments Calcium Level (test code = 19731-2) 10.6 8.4-10.2 H [facility] HospitalTotal Lhdmduzez1063-31-57 17:40:00* Test Item Value Reference Range Interpretation Comments Total Bilirubin (test code = 1975-2) 0.9 0.2-1.2 [facility] HospitalAspartate Amino Transf (AST/SGOT) 2019-05-12 17:40:00* Test Item Value Reference Range Interpretation Comments Aspartate Amino Transf (AST/SGOT) (test code = Aspartate Amino Transf (AST/SGOT)) 22 5-34 [facility] HospitalAlanine Aminotransferase (ALT/SGPT) 2019-05-12 17:40:00* Test Item Value Reference Range Interpretation Comments Alanine Aminotransferase (ALT/SGPT) (test code = 1742-6) 17 0-55 [facility] HospitalTotal Olwogsk0953-68-06 17:40:00* Test Item Value Reference Range Interpretation Comments Total Protein (test code = 2885-2) 6.9 6.5-8.1 [facility] HospitalAlbumin2019-11-04 17:40:00* Test Item Value Reference Range Interpretation Comments Albumin (test code = 1751-7) 3.3 3.5-5.0 L [facility] HospitalGlobulin2019-11-04 17:40:00* Test Item Value Reference Range Interpretation Comments Globulin (test code = 19003-1) 3.6 2.3-3.5 H [facility] HospitalAlbumin/Globulin Ekuvo6760-57-06 17:40:00 * Test Item Value Reference Range Interpretation Comments Albumin/Globulin Ratio (test code = 1759-0) 0.9 0.8-2.0 [facility] HospitalAlkaline Fptbidtxrui4336-00-46 17:40:00* Test Item Value Reference Range Interpretation Comments Alkaline Phosphatase (test code = 6768-6) 147 40-150 [facility] HospitalCT ABDOMEN/PELVIS [id number] 17:04:00 [facility] [address] [address] Patient Name: AMAURI FLAHERTY MR #: [id number] : 1940 Age/Sex: 78/M Req #: [id number] Adm Physician: Ordered by: OLIVIA NGUYEN DO Report #: [id number] Location: ER Room/Bed: Procedure: [id number] CT /CT ABDOMEN/PELVIS WO Exam Date: 05/12/19 Exam Time: 1618 REPORT STATUS: Signed CT A bdomen and Pelvis without contrast INDICATION: Hematuria HEMATURIA PER COUNT INCLUDES THE [facility] [id number] TECHNIQUE: Thin collimation axial images obtain ed from the diaphragm to the level of the pubic symphysis without nonionic int ravenous contrast. Dose reduction techniques used: Automated exposure cont rol, adjustment of the mAs and/or kVp according to patient size, standardized low-dose protocol, and/or iterative reconstruction technique. Images are compromised due to patient's arm positioning resulting in artifact. RADIAT ION DOSE: Total DLP: 822.14 mGy*cm Estimated effective dose: (DLP x 0.015 x size factor) mSv CTDIvol has been reviewed. It is below the walker its set by the Radiation Protocol Committee (RPC). COMPARISON: None. ABDOMEN FINDINGS: Artifact present throughout the upper abdomen. Lung B ases: Mild bibasilar atelectasis and small posterior layering left pleural eff usion. The visualized portion of the mediastinum is normal. Liver: No gross evidence of mass. Gallbladder: Present and contains subcentimeter calcif ied gallstones. No gallbladder wall thickening or pericholecystic fluid. No d uctal dilatation. Pancreas: Diffusely atrophic without mass or ductal dilat ation. No calcification. Spleen: Normal size without mass. Adrenal G lands: Poorly visualized due to artifact. The adrenal glands are thickened. A discrete mass cannot be identified. Kidneys: Right: Measures 10 cm in le ngth. No collecting system dilatation. No calculus Left: Measures 11 cm in length No calculus. No cortical mass or hydronephrosis Lymph Nodes: No ly mphadenopathy. Aorta: Normal in diameter. There are calcifications through out. PELVIS FINDINGS: Bowel: Stomach: Contains a small amount of fluid and is grossly normal. Small Bowel: Normal in caliber with normal wall t hickness. Large Bowel: Moderate burden of stool throughout. No focal mural thi ckening or pericolonic inflammation. Appendix: Normal. Bladder: Contain s a Cleaning catheter and nondependent air. No intraluminal calculi. Prostat e: Not enlarged. Ureters: No ureteral dilatation or calculus. Peritone um/retroperitoneum: No free fluid or fluid collection.. Bones: Diffusely de mineralized. No compression deformities or listhesis. Degenerative changes of the lower thoracic and lower lumbar spine. No focal osseous lesions. Soft tissues: Bilateral gynecomastia. Lipoma in the right rectus abdominis measure s 2.5 x 5.6 cm. Fat-containing supraumbilical hernia measures 3.5 cm. There i s a small fat-containing left inguinal hernia that may contain a small amount of fluid. IMPRESSION: 1. Compromised examination due to beam hardenin g artifact. 2. No evidence of renal calculus or obstructive uropathy. 3. Bi lateral adrenal hyperplasia. Underlying nodules cannot be excluded. 4. No evid ence for bowel obstruction or inflammation. Normal appendix. 5. Cholelithiasis . Signed by: Dr. Janel Smith MD on 05/12/2019 5:13 PM Dictated By: JANEL SMITH MD 12 COPY TO: Eva NGUYEN DO Urine RRZ0288-02-90 16:31:00* Test Item Value Reference Range Interpretation Comments Urine WBC (test code = 5821-4) 0-5 0-5 [facility] HospitalUrine NPN9310-08-82 16:31:00* Test Item Value Reference Range Interpretation Comments Urine RBC (test code = 54192-2) 11-20 0-5 H [facility] HospitalUrine Wunfdpag1147-56-47 16:31:00* Test Item Value Reference Range Interpretation Comments Urine Bacteria (test code = 18169-9) FEW NONE [facility] HospitalUrine Epithelial Rhumg7440-62-59 16:31:00 * Test Item Value Reference Range Interpretation Comments Urine Epithelial Cells (test code = 35142-9) NONE NONE [facility] HospitalProthrombin Jlxy2060-95-59 16:28:00* Test Item Value Reference Range Interpretation Comments Prothrombin Time (test code = 5902-2) 16.4 11.9-14.5 H [facility] HospitalProthromb Time International Ratio 2019-05-12 16:28:00* Test Item Value Reference Range Interpretation Comments Prothromb Time International Ratio (test code = 6301-6) 1.26 Oral Anticoagulant Therapy INR Values:1. Low Intensity Therapy 1.5 - 2.02 . Moderate Intensity Therapy 2.0 - 3.03. High Intensity Therapy(1) 2.5 - 3. 54. High Intensity Therapy(2) 3.0 - 4.05. Panic Value INR > 5.0 [facility] HospitalActivated Partial Thromboplast Time 2019-05-12 16:28:00* Test Item Value Reference Range Interpretation Comments Activated Partial Thromboplast Time (test code = 46692-7) 36.1 23.8-35.5 H [facility]th[facility]bin [id number] 16:28:00* Test Item Value Reference Range Interpretation Comments Prothrombin Time (test code = 5902-2) 16.4 11.9-14.5 H [facility] HospitalProthromb Time International Ratio 2019-05-12 16:28:00* Test Item Value Reference Range Interpretation Comments Prothromb Time International Ratio (test code = 6301-6) 1.26 Oral Anticoagulant Therapy INR Values:1. Low Intensity Therapy 1.5 - 2.02 . Moderate Intensity Therapy 2.0 - 3.03. High Intensity Therapy(1) 2.5 - 3. 54. High Intensity Therapy(2) 3.0 - 4.05. Panic Value INR > 5.0 [facility] HospitalActivated Partial Thromboplast Time 2019-05-12 16:28:00* Test Item Value Reference Range Interpretation Comments Activated Partial Thromboplast Time (test code = 95476-2) 36.1 23.8-35.5 H [facility] HospitalUrine [id number] 16:24:00* Test Item Value Reference Range Interpretation Comments Urine Color (test code = 5778-6) YELLOW YELLOW [facility] HospitalUrine [id number] 16:24:00* Test Item Value Reference Range Interpretation Comments Urine Clarity (test code = 41493-2) CLEAR CLEAR [facility] HospitalUrine Specific [id number] 16:24:00 * Test Item Value Reference Range Interpretation Comments Urine Specific [place] (test code = 5811-5) 1.010 1.010-1.02 5 [facility] HospitalUrine [id number] 16:24:00* Test Item Value Reference Range Interpretation Comments Urine pH (test code = 59016-4) 6 5-7 [facility] Leukocyte [id number] 16:24:00* Test Item Value Reference Range Interpretation Comments Urine Leukocyte Esterase (test code = 19129-0) TRACE NEGATIV E H [facility] HospitalUrine Ktjxrzt4467-97-22 16:24:00* Test Item Value Reference Range Interpretation Comments Urine Nitrite (test code = 95847-8) NEGATIVE NEGATIVE [facility] HospitalU[facility] [id number] 16:24:00* Test Item Value Reference Range Interpretation Comments Urine Protein (test code = 21737-4) NEGATIVE NEGATIVE [facility] HospitalU[facility] Glucose (UA)2019-05-12 16:24:00* Test Item Value Reference Range Interpretation Comments Urine Glucose (UA) (test code = 85624-0) NEGATIVE NEGATIVE [facility] HospitalUrine [id number] 16:24:00* Test Item Value Reference Range Interpretation Comments Urine Ketones (test code = 00387-8) NEGATIVE NEGATIVE [facility] HospitalU[facility] Fqiyzazegqyt4904-63-01 16:24:00* Test Item Value Reference Range Interpretation Comments Urine Urobilinogen (test code = 21235-1) 0.2 0.2-1 [facility] HospitalU[facility] Alwqfhrnv4413-58-22 16:24:00* Test Item Value Reference Range Interpretation Comments Urine Bilirubin (test code = 1977-8) NEGATIVE NEGATIVE [facility] HospitalU[facility] [id number] 16:24:00* Test Item Value Reference Range Interpretation Comments Urine Blood (test code = 87233-1) 3+ NEGATIVE [facility] HospitalWhite Blood [id number] 16:14:00* Test Item Value Reference Range Interpretation Comments White Blood Count (test code = 6690-2) 7.56 4.8-10.8 [facility] HospitalRed Blood Zpyti8280-12-52 16:14:00* Test Item Value Reference Range Interpretation Comments Red Blood Count (test code = 789-8) 4.04 4.3-5.7 L [facility] HospitalHemoglobin2019-11-04 16:14:00* Test Item Value Reference Range Interpretation Comments Hemoglobin (test code = 48077-6) 9.3 14.0-18.0 L [facility] HospitalHematocrit2019-11-04 16:14:00* Test Item Value Reference Range Interpretation Comments Hematocrit (test code = 4544-3) 32.4 38.2-49.6 L [facility] HospitalMean Corpuscular [id number] 16:14:00* Test Item Value Reference Range Interpretation Comments Mean Corpuscular Volume (test code = 787-2) 80.2 81-99 L [facility] HospitalMean Corpuscular Aejoycefwo1633-76-00 16:14:00* Test Item Value Reference Range Interpretation Comments Mean Corpuscular Hemoglobin (test code = 785-6) 23.0 28-32 L [facility] HospitalMean Corpuscular Hemoglobin Concent 2019-05-12 16:14:00* Test Item Value Reference Range Interpretation Comments Mean Corpuscular Hemoglobin Concent (test code = 786-4) 28.7 31-35 L [facility] HospitalRed Cell Distribution [id number] 16:14:00* Test Item Value Reference Range Interpretation Comments Red Cell Distribution Width (test code = 74781-2) 19.4 11.7 -14.4 H [facility] HospitalPlatelet [id number] 16:14:00* Test Item Value Reference Range Interpretation Comments Platelet Count (test code = 777-3) 280 140-360 [facility] HospitalNeutrophils (%) (Auto)2019-05-12 16:14:00 * Test Item Value Reference Range Interpretation Comments Neutrophils (%) (Auto) (test code = 27754-7) 64.7 38.7-80.0 [facility] HospitalLymphocytes (%) (Auto)2019-05-12 16:14:00 * Test Item Value Reference Range Interpretation Comments Lymphocytes (%) (Auto) (test code = 736-9) 24.6 18.0-39.1 [facility] HospitalMonocytes (%) (Auto)2019-05-12 16:14:00* Test Item Value Reference Range Interpretation Comments Monocytes (%) (Auto) (test code = 5905-5) 7.8 4.4-11.3 [facility] HospitalEosinophils (%) (Auto)2019-05-12 16:14:00 * Test Item Value Reference Range Interpretation Comments Eosinophils (%) (Auto) (test code = 713-8) 2.2 0.0-6.0 [facility] HospitalBasophils (%) (Auto)2019-05-12 16:14:00* Test Item Value Reference Range Interpretation Comments Basophils (%) (Auto) (test code = 706-2) 0.4 0.0-1.0 [facility] HospitalIM GRANULOCYTES %2019-05-12 16:14:00* Test Item Value Reference Range Interpretation Comments IM GRANULOCYTES % (test code = IM GRANULOCYTES %) 0.3 0.0- 1.0 [facility] HospitalNeutrophils # (Auto)2019-05-12 16:14:00* Test Item Value Reference Range Interpretation Comments Neutrophils # (Auto) (test code = 751-8) 4.9 2.1-6.9 [facility] HospitalLymphocytes # (Auto)2019-05-12 16:14:00* Test Item Value Reference Range Interpretation Comments Lymphocytes # (Auto) (test code = 49490-5) 1.9 1.0-3.2 [facility] HospitalMonocytes # (Auto)2019-05-12 16:14:00* Test Item Value Reference Range Interpretation Comments Monocytes # (Auto) (test code = 742-7) 0.6 0.2-0.8 [facility] HospitalEosinophils # (Auto)2019-05-12 16:14:00* Test Item Value Reference Range Interpretation Comments Eosinophils # (Auto) (test code = 711-2) 0.2 0.0-0.4 [facility] HospitalBasophils # (Auto)2019-05-12 16:14:00* Test Item Value Reference Range Interpretation Comments Basophils # (Auto) (test code = 704-7) 0.0 0.0-0.1 [facility] HospitalAbsolute Immature Granulocyte (auto 2019-05-12 16:14:00* Test Item Value Reference Range Interpretation Comments Absolute Immature Granulocyte (auto (carine t code = Absolute Immature Granulocyte (auto) 0.02 0-0.1 [facility] HospitalWhite Blood [id number] 16:14:00* Test Item Value Reference Range Interpretation Comments White Blood Count (test code = 6690-2) 7.56 4.8-10.8 [facility] HospitalRed Blood Kzosf0482-58-05 16:14:00* Test Item Value Reference Range Interpretation Comments Red Blood Count (test code = 789-8) 4.04 4.3-5.7 L [facility] HospitalHemoglobin2019-11-04 16:14:00* Test Item Value Reference Range Interpretation Comments Hemoglobin (test code = 93415-5) 9.3 14.0-18.0 L [facility] HospitalHematocrit2019-11-04 16:14:00* Test Item Value Reference Range Interpretation Comments Hematocrit (test code = 4544-3) 32.4 38.2-49.6 L [facility] HospitalMean Corpuscular [id number] 16:14:00* Test Item Value Reference Range Interpretation Comments Mean Corpuscular Volume (test code = 787-2) 80.2 81-99 L [facility] HospitalMean Corpuscular Imqgflqlef1288-72-76 16:14:00* Test Item Value Reference Range Interpretation Comments Mean Corpuscular Hemoglobin (test code = 785-6) 23.0 28-32 [facility] Hemoglobin Concent 2019-05-12 16:14:00* Test Item Value Reference Range Interpretation Comments Mean Corpuscular Hemoglobin Concent (test code = 786-4) 28.7 31-35 L [facility] HospitalRed Cell Distribution Mhmrv5350-04-86 16:14:00* Test Item Value Reference Range Interpretation Comments Red Cell Distribution Width (test code = 63519-4) 19.4 11.7 -14.4 H [facility] HospitalPlatelet [id number] 16:14:00* Test Item Value Reference Range Interpretation Comments Platelet Count (test code = 777-3) 280 140-360 [facility] HospitalNeutrophils (%) (Auto)2019-05-12 16:14:00 * Test Item Value Reference Range Interpretation Comments Neutrophils (%) (Auto) (test code = 38119-3) 64.7 38.7-80.0 [facility] HospitalLymphocytes (%) (Auto)2019-05-12 16:14:00 * Test Item Value Reference Range Interpretation Comments Lymphocytes (%) (Auto) (test code = 736-9) 24.6 18.0-39.1 [facility] HospitalMonocytes (%) (Auto)2019-05-12 16:14:00* Test Item Value Reference Range Interpretation Comments Monocytes (%) (Auto) (test code = 5905-5) 7.8 4.4-11.3 [facility] HospitalEosinophils (%) (Auto)2019-05-12 16:14:00 * Test Item Value Reference Range Interpretation Comments Eosinophils (%) (Auto) (test code = 713-8) 2.2 0.0-6.0 [facility] HospitalBasophils (%) (Auto)2019-05-12 16:14:00* Test Item Value Reference Range Interpretation Comments Basophils (%) (Auto) (test code = 706-2) 0.4 0.0-1.0 [facility] HospitalIM GRANULOCYTES %2019-05-12 16:14:00* Test Item Value Reference Range Interpretation Comments IM GRANULOCYTES % (test code = IM GRANULOCYTES %) 0.3 0.0- 1.0 [facility] HospitalNeutrophils # (Auto)2019-05-12 16:14:00* Test Item Value Reference Range Interpretation Comments Neutrophils # (Auto) (test code = 751-8) 4.9 2.1-6.9 [facility] HospitalLymphocytes # (Auto)2019-05-12 16:14:00* Test Item Value Reference Range Interpretation Comments Lymphocytes # (Auto) (test code = 19613-4) 1.9 1.0-3.2 [facility] HospitalMonocytes # (Auto)2019-05-12 16:14:00* Test Item Value Reference Range Interpretation Comments Monocytes # (Auto) (test code = 742-7) 0.6 0.2-0.8 [facility] HospitalEosinophils # (Auto)2019-05-12 16:14:00* Test Item Value Reference Range Interpretation Comments Eosinophils # (Auto) (test code = 711-2) 0.2 0.0-0.4 [facility] HospitalBasophils # (Auto)2019-05-12 16:14:00* Test Item Value Reference Range Interpretation Comments Basophils # (Auto) (test code = 704-7) 0.0 0.0-[address] [facility] Granul[facility] (auto 2019-05-12 16:14:00* Test Item Value Reference Range Interpretation Comments Absolute Immature Granulocyte (auto (carine t code = Absolute Immature Granulocyte (auto) 0.02 0-0.1 [facility] [id number] 14:32:00* Test Item Value Reference Range Interpretation Comments Rate & Rhythm (test code = Rate & Rhythm) atrial fibri llation, rapid ventricular response QRS (test code = QRS) OH Interval (test code = OH Interval) QRS Duration (test code = QRS Duration) QT Interval (test code = QT Interval) [facility] [id number] 14:32:00* Test Item Value Reference Range Interpretation Comments Rate & Rhythm (test code = Rate & Rhythm) atrial fibri llation, rapid ventricular response QRS (test code = QRS) OH Interval (test code = OH Interval) QRS Duration (test code = QRS Duration) QT Interval (test code = QT Interval) [facility] [id number] 14:32:00* Test Item Value Reference Range Interpretation Comments Rate & Rhythm (test code = Rate & Rhythm) atrial fibri llation, rapid ventricular response QRS (test code = QRS) OH Interval (test code = OH Interval) QRS Duration (test code = QRS Duration) QT Interval (test code = QT Interval) [facility] 12:11:00* Test Item Value Reference Range Interpretation Comments Type Flu A (test code = Type Flu A) negative Type Flu B (test code = Type Flu B) [facility] 12:11:00* Test Item Value Reference Range Interpretation Comments Type Flu A (test code = Type Flu A) negative Type Flu B (test code = Type Flu B) negative [facility]2019-04-03 12:11:00* Test Item Value Reference Range Interpretation Comments Type Flu A (test code = Type Flu A) negative Type Flu B (test code = Type Flu B) negative [facility] CenterUrinalysis macro (dipstick) panel - [id number] 10:50:00* Test Item Value Reference Range Interpretation Comments Color Color (test code = Color Color) dark yellow Color Appearance (test code = Color Appearance) clear Color Glucose (test code = Color Glucose) negative Color Bilirubin (test code = Color Bilirubin) negative Color Ketones (test code = Color Ketones) trace Color Specific [place] (test code = Color Specific [place]) 1.020 Color Blood (test code = Color Blood) negative Color PH (test code = Color PH) 7.0 Color Protein (test code = Color Protein) 100 Color Urobilinogen (test code = Color Urobilinogen) 4 Color Nitrites (test code = Color Nitrites) negative Color Leukocytes (test code = Color Leukocytes) negative [facility] PracticeUrinalysis macro (dipstick) panel - [id number] 10:50:00* Test Item Value Reference Range Interpretation Comments Color Color (test code = Color Color) dark yellow Color Appearance (test code = Color Appearance) clear Color Glucose (test code = Color Glucose) negative Color Bilirubin (test code = Color Bilirubin) negative Color Ketones (test code = Color Ketones) trace Color Specific [place] (test code = Color Specific [place]) 1.020 Color Blood (test code = Color Blood) negative Color PH (test code = Color PH) 7.0 Color Protein (test code = Color Protein) 100 Color Urobilinogen (test code = Color Urobilinogen) 4 Color Nitrites (test code = Color Nitrites) negative Color Leukocytes (test code = Color Leukocytes) negative [facility] PracticeUrinalysis macro (dipstick) panel - [id number] 10:50:00* Test Item Value Reference Range Interpretation Comments Color Color (test code = Color Color) dark yellow Color Appearance (test code = Color Appearance) clear Color Glucose (test code = Color Glucose) negative Color Bilirubin (test code = Color Bilirubin) negative Color Ketones (test code = Color Ketones) trace Color Specific [place] (test code = Color Specific [place]) 1.020 Color Blood (test code = Color Blood) negative Color PH (test code = Color PH) 7.0 Color Protein (test code = Color Protein) 100 Color Urobilinogen (test code = Color Urobilinogen) 4 Color Nitrites (test code = Color Nitrites) negative Color Leukocytes (test code = Color Leukocytes) negative [facility] PracticeGlucose [Mass/volume] in Capillary [id number] 10:25:00* Test Item Value Reference Range Interpretation Comments Blood Glucose: mg/dl (test code = Blood Glucose: mg/dl) 134 [facility] PracticeGlucose [Mass/volume] in Capillary [id number] 10:25:00* Test Item Value Reference Range Interpretation Comments Blood Glucose: mg/dl (test code = Blood Glucose: mg/dl) 134 [facility] PracticeGlucose [Mass/volume] in Capillary [id number] 10:25:00* Test Item Value Reference Range Interpretation Comments Blood Glucose: mg/dl (test code = Blood Glucose: mg/dl) 134 [facility] PracticeINR in Platelet poor plasma by Coagulation assay 2019-04-02 07:23:00* Test Item Value Reference Range Interpretation Comments INR (test code = INR) 4.6 H PT (test code = PT) 44.2 sec 9.0-11.5 [facility] poor plasma by Coagulation assay 2019-04-02 07:23:00* Test Item Value Reference Range Interpretation Comments INR (test code = INR) 4.6 H PT (test code = PT) 44.2 sec 9.0-11.5 [facility] PracticeINR in Platelet poor plasma by Coagulation assay 2019-04-02 07:23:00* Test Item Value Reference Range Interpretation Comments INR (test code = INR) 4.6 H PT (test code = PT) 44.2 sec 9.0-11.5 [facility] PracticeINR in Platelet poor plasma by Coagulation assay 2019-03-29 04:54:00* Test Item Value Reference Range Interpretation Comments INR (test code = INR) 4.6 H PT (test code = PT) 43.6 sec 9.0-11.5 [facility] PracticeIN[facility] in Platelet poor plasma by Coagulation assay 2019-03-29 04:54:00* Test Item Value Reference Range Interpretation Comments INR (test code = INR) 4.6 H PT (test code = PT) 43.6 sec 9.0-11.5 [facility] PracticeINR in Platelet poor plasma by Coagulation assay 2019-03-29 04:54:00* Test Item Value Reference Range Interpretation Comments INR (test code = INR) 4.6 H PT (test code = PT) 43.6 sec 9.0-11.5 [facility] PracticeINR in Platelet poor plasma by Coagulation assay 2019-03-29 04:54:00* Test Item Value Reference Range Interpretation Comments INR (test code = INR) 4.6 H PT (test code = PT) 43.6 sec 9.0-11.5 [facility] PracticeGlucose [Mass/volume] in Capillary [id number] 11:38:00* Test Item Value Reference Range Interpretation Comments Blood Glucose: mg/dl (test code = Blood Glucose: mg/dl) 132 [facility] PracticeGlucose [Mass/volume] in Capillary [id number] 11:38:00* Test Item Value Reference Range Interpretation Comments Blood Glucose: mg/dl (test code = Blood Glucose: mg/dl) 132 [facility] PracticeGlucose [Mass/volume] in Capillary [id number] 11:38:00* Test Item Value Reference Range Interpretation Comments Blood Glucose: mg/dl (test code = Blood Glucose: mg/dl) 132 [facility] PracticeGlucose [Mass/volume] in Capillary [id number] 11:38:00* Test Item Value Reference Range Interpretation Comments Blood Glucose: mg/dl (test code = Blood Glucose: mg/dl) 132 [facility] PracticeGlucose [Mass/volume] in Capillary [id number] 11:38:00* Test Item Value Reference Range Interpretation Comments Blood Glucose: mg/dl (test code = Blood Glucose: mg/dl) 132 [facility] PracticeGlucose [Mass/volume] in Capillary [id number] 17:02:00* Test Item Value Reference Range Interpretation Comments Blood Glucose: mg/dl (test code = Blood Glucose: mg/dl) 129 [facility] PracticeGlucose [Mass/volume] in Capillary [id number] 17:02:00* Test Item Value Reference Range Interpretation Comments Blood Glucose: mg/dl (test code = Blood Glucose: mg/dl) 129 [facility] PracticeGlucose [Mass/volume] in Capillary [id number] 15:47:00* Test Item Value Reference Range Interpretation Comments Blood Glucose: mg/dl (test code = Blood Glucose: mg/dl) 142 [facility] PracticeGlucose [Mass/volume] in Capillary [id number] 15:47:00* Test Item Value Reference Range Interpretation Comments Blood Glucose: mg/dl (test code = Blood Glucose: mg/dl) 142 [facility] PracticeGlucose [Mass/volume] in Capillary [id number] 15:47:00* Test Item Value Reference Range Interpretation Comments Blood Glucose: mg/dl (test code = Blood Glucose: mg/dl) 142 [facility] W Auto Differential panel - [id number] 18:56:00 * Test Item Value Reference Range Interpretation Comments WBC (test code = WBC) 6.08 x10*3/?L 4.23-9.07 RBC (test code = RBC) 3.98 10*12/L 4.63-6.08 L hemoglobin (test code = hemoglobin) 10.20 g/dL 13.70-17.50 L hematocrit (test code = hematocrit) 32.3 % 40.1-51.0 L MCV (test code = MCV) 81.2 fL 80.0-100.0 MCH (test code = MCH) 25.6 pg 25.7-32.2 L MCHC (test code = MCHC) 31.6 g/dL 32.3-36.5 L RDW-SD (test code = RDW-SD) 47.1 fL 35.1-43.9 H platelet count (test code = platelet count) 247.0 k/uL 163.0-337. 0 MPV (test code = MPV) 11.8 fL 7.5-11.5 H neut% (test code = neut%) 61.7 % 34.0-67.9 lymph% (test code = lymph%) 25.5 % 21.8-53.1 mon% (test code = mon%) 10.5 % 5.3-12.2 eos% (test code = eos%) 1.8 % 0.8-7.0 baso% (test code = baso%) 0.5 % 0.2-1.2 neut# (test code = neut#) 3.8 x10*3/?L 1.8-5.4 lymph# (test code = lymph#) 1.6 x10*3/?L 1.3-3.6 mon# (test code = mon#) 0.6 x10*3/?L 0.3-0.8 eos# (test code = eos#) 0.11 x10*3/?L 0.04-0.54 baso# (test code = baso#) 0.03 x10*3/?L 0.01-0.08 [facility] W Auto Differential panel - [id number] 18:56:00 * Test Item Value Reference Range Interpretation Comments WBC (test code = WBC) 6.08 x10*3/?L 4.23-9.07 RBC (test code = RBC) 3.98 10*12/L 4.63-6.08 L hemoglobin (test code = hemoglobin) 10.20 g/dL 13.70-17.50 L hematocrit (test code = hematocrit) 32.3 % 40.1-51.0 L MCV (test code = MCV) 81.2 fL 80.0-100.0 MCH (test code = MCH) 25.6 pg 25.7-32.2 L MCHC (test code = MCHC) 31.6 g/dL 32.3-36.5 L RDW-SD (test code = RDW-SD) 47.1 fL 35.1-43.9 H platelet count (test code = platelet count) 247.0 k/uL 163.0-337. 0 MPV (test code = MPV) 11.8 fL 7.5-11.5 H neut% (test code = neut%) 61.7 % 34.0-67.9 lymph% (test code = lymph%) 25.5 % 21.8-53.1 mon% (test code = mon%) 10.5 % 5.3-12.2 eos% (test code = eos%) 1.8 % 0.8-7.0 baso% (test code = baso%) 0.5 % 0.2-1.2 neut# (test code = neut#) 3.8 x10*3/?L 1.8-5.4 lymph# (test code = lymph#) 1.6 x10*3/?L 1.3-3.6 mon# (test code = mon#) 0.6 x10*3/?L 0.3-0.8 eos# (test code = eos#) 0.11 x10*3/?L 0.04-0.54 baso# (test code = baso#) 0.03 x10*3/?L 0.01-0.08 [facility]CBC [facility] Auto Differential panel - [id number] 18:56:00 * Test Item Value Reference Range Interpretation Comments WBC (test code = WBC) 6.08 x10*3/?L 4.23-9.07 RBC (test code = RBC) 3.98 10*12/L 4.63-6.08 L hemoglobin (test code = hemoglobin) 10.20 g/dL 13.70-17.50 L hematocrit (test code = hematocrit) 32.3 % 40.1-51.0 L MCV (test code = MCV) 81.2 fL 80.0-100.0 MCH (test code = MCH) 25.6 pg 25.7-32.2 L MCHC (test code = MCHC) 31.6 g/dL 32.3-36.5 L RDW-SD (test code = RDW-SD) 47.1 fL 35.1-43.9 H platelet count (test code = platelet count) 247.0 k/uL 163.0-337. 0 MPV (test code = MPV) 11.8 fL 7.5-11.5 H neut% (test code = neut%) 61.7 % 34.0-67.9 lymph% (test code = lymph%) 25.5 % 21.8-53.1 mon% (test code = mon%) 10.5 % 5.3-12.2 eos% (test code = eos%) 1.8 % 0.8-7.0 baso% (test code = baso%) 0.5 % 0.2-1.2 neut# (test code = neut#) 3.8 x10*3/?L 1.8-5.4 lymph# (test code = lymph#) 1.6 x10*3/?L 1.3-3.6 mon# (test code = mon#) 0.6 x10*3/?L 0.3-0.8 eos# (test code = eos#) 0.11 x10*3/?L 0.04-0.54 baso# (test code = baso#) 0.03 x10*3/?L 0.01-0.08 [facility] W Auto Differential panel - [id number] 18:56:00 * Test Item Value Reference Range Interpretation Comments WBC (test code = WBC) 6.08 x10*3/?L 4.23-9.07 RBC (test code = RBC) 3.98 10*12/L 4.63-6.08 L hemoglobin (test code = hemoglobin) 10.20 g/dL 13.70-17.50 L hematocrit (test code = hematocrit) 32.3 % 40.1-51.0 L MCV (test code = MCV) 81.2 fL 80.0-100.0 MCH (test code = MCH) 25.6 pg 25.7-32.2 L MCHC (test code = MCHC) 31.6 g/dL 32.3-36.5 L RDW-SD (test code = RDW-SD) 47.1 fL 35.1-43.9 H platelet count (test code = platelet count) 247.0 k/uL 163.0-337. 0 MPV (test code = MPV) 11.8 fL 7.5-11.5 H neut% (test code = neut%) 61.7 % 34.0-67.9 lymph% (test code = lymph%) 25.5 % 21.8-53.1 mon% (test code = mon%) 10.5 % 5.3-12.2 eos% (test code = eos%) 1.8 % 0.8-7.0 baso% (test code = baso%) 0.5 % 0.2-1.2 neut# (test code = neut#) 3.8 x10*3/?L 1.8-5.4 lymph# (test code = lymph#) 1.6 x10*3/?L 1.3-3.6 mon# (test code = mon#) 0.6 x10*3/?L 0.3-0.8 eos# (test code = eos#) 0.11 x10*3/?L 0.04-0.54 baso# (test code = baso#) 0.03 x10*3/?L 0.01-0.08 [facility]Com[facility] 2000 [facility] - Serum or Plasma 2018-08-30 16:11:00* Test Item Value Reference Range Interpretation Comments ALT (test code = ALT) 23 U/L 0-55 AST (test code = AST) 22 U/L 5-34 BUN (test code = BUN) 14.5 mg/dL 8.4-25.7 alk phos (test code = alk phos) 110 unit/L 40-150 glucose (test code = glucose) 84 mg/dL 70-99 albumin (test code = albumin) 3.7 g/dL 3.5-5.0 creatinine (test code = creatinine) 1.11 mg/dL 0.72-1.25 eGFR non- (test code = eGFR non-) > 60 total bilirubin (test code = total bilirubin) 1.3 mg/dL 0.2-1.2 H eGFR - (test code = eGFR - ) >60 sodium (test code = sodium) 141 mEq/L 136-145 potassium (test code = potassium) 4.5 mEq/L 3.5-5.1 chloride (test code = chloride) 109 mmol/L 98-107 H total protein (test code = total protein) 6.8 g/dL 6.4-8.3 calcium (test code = calcium) 10.1 mg/dL 8.8-10.0 H CO2 (test code = CO2) 26.4 mmol/L 23.0-31.0 anion gap (test code = anion gap) 6 [facility] 2000 [facility] - Serum or Plasma 2018-08-30 16:11:00* Test Item Value Reference Range Interpretation Comments ALT (test code = ALT) 23 U/L 0-55 AST (test code = AST) 22 U/L 5-34 BUN (test code = BUN) 14.5 mg/dL 8.4-25.7 alk phos (test code = alk phos) 110 unit/L 40-150 glucose (test code = glucose) 84 mg/dL 70-99 albumin (test code = albumin) 3.7 g/dL 3.5-5.0 creatinine (test code = creatinine) 1.11 mg/dL 0.72-1.25 eGFR non- (test code = eGFR non-) > 60 total bilirubin (test code = total bilirubin) 1.3 mg/dL 0.2-1.2 H eGFR - (test code = eGFR - ) >60 sodium (test code = sodium) 141 mEq/L 136-145 potassium (test code = potassium) 4.5 mEq/L 3.5-5.1 chloride (test code = chloride) 109 mmol/L 98-107 H total protein (test code = total protein) 6.8 g/dL 6.4-8.3 calcium (test code = calcium) 10.1 mg/dL 8.8-10.0 H CO2 (test code = CO2) 26.4 mmol/L 23.0-31.0 anion gap (test code = anion gap) 6 [facility] metabolic 1999 panel - Serum or Plasma 2018-08-30 16:11:00* Test Item Value Reference Range Interpretation Comments ALT (test code = ALT) 23 U/L 0-55 AST (test code = AST) 22 U/L 5-34 BUN (test code = BUN) 14.5 mg/dL 8.4-25.7 alk phos (test code = alk phos) 110 unit/L 40-150 glucose (test code = glucose) 84 mg/dL 70-99 albumin (test code = albumin) 3.7 g/dL 3.5-5.0 creatinine (test code = creatinine) 1.11 mg/dL 0.72-1.25 eGFR non- (test code = eGFR non-) > 60 total bilirubin (test code = total bilirubin) 1.3 mg/dL 0.2-1.2 H eGFR - (test code = eGFR - ) >60 sodium (test code = sodium) 141 mEq/L 136-145 potassium (test code = potassium) 4.5 mEq/L 3.5-5.1 chloride (test code = chloride) 109 mmol/L 98-107 H total protein (test code = total protein) 6.8 g/dL 6.4-8.3 calcium (test code = calcium) 10.1 mg/dL 8.8-10.0 H CO2 (test code = CO2) 26.4 mmol/L 23.0-31.0 anion gap (test code = anion gap) 6 [facility] 1999 panel - Serum or Plasma 2018-08-30 16:11:00* Test Item Value Reference Range Interpretation Comments ALT (test code = ALT) 23 U/L 0-55 AST (test code = AST) 22 U/L 5-34 BUN (test code = BUN) 14.5 mg/dL 8.4-25.7 alk phos (test code = alk phos) 110 unit/L 40-150 glucose (test code = glucose) 84 mg/dL 70-99 albumin (test code = albumin) 3.7 g/dL 3.5-5.0 creatinine (test code = creatinine) 1.11 mg/dL 0.72-1.25 eGFR non- (test code = eGFR non-) > 60 total bilirubin (test code = total bilirubin) 1.3 mg/dL 0.2-1.2 H eGFR - (test code = eGFR - ) >60 sodium (test code = sodium) 141 mEq/L 136-145 potassium (test code = potassium) 4.5 mEq/L 3.5-5.1 chloride (test code = chloride) 109 mmol/L 98-107 H total protein (test code = total protein) 6.8 g/dL 6.4-8.3 calcium (test code = calcium) 10.1 mg/dL 8.8-10.0 H CO2 (test code = CO2) 26.4 mmol/L 23.0-31.0 anion gap (test code = anion gap) 6 [facility] or [id number] 16:10:00* Test Item Value Reference Range Interpretation Comments HDL (test code = HDL) 60 mg/dL 40-60 triglyceride (test code = triglyceride) 52 mg/dL 0-149 VLDL calc. (test code = VLDL calc.) 10 mg/dL cholesterol/HDL ratio (test code = cholesterol/HDL ratio) 2.1 mg/dL non-HDL cholesterol calc. (test code = non-HDL cholesterol c alc.) 67 mg/dL 0-160 cholesterol (test code = cholesterol) 127 mg/dL 0-199 Cholesterol in LDL [Mass/volume] in Serum or Plasma (t est code = 2089-1) 57 mg/dL 0-130 [facility] or [id number] 16:10:00* Test Item Value Reference Range Interpretation Comments HDL (test code = HDL) 60 mg/dL 40-60 triglyceride (test code = triglyceride) 52 mg/dL 0-149 VLDL calc. (test code = VLDL calc.) 10 mg/dL cholesterol/HDL ratio (test code = cholesterol/HDL ratio) 2.1 mg/dL non-HDL cholesterol calc. (test code = non-HDL cholesterol c alc.) 67 mg/dL 0-160 cholesterol (test code = cholesterol) 127 mg/dL 0-199 Cholesterol in LDL [Mass/volume] in Serum or Plasma (t est code = 2088-) 57 mg/dL 0-130 [facility] 1995 panel - Serum or [id number] 16:10:00* Test Item Value Reference Range Interpretation Comments HDL (test code = HDL) 60 mg/dL 40-60 triglyceride (test code = triglyceride) 52 mg/dL 0-149 VLDL calc. (test code = VLDL calc.) 10 mg/dL cholesterol/HDL ratio (test code = cholesterol/HDL ratio) 2.1 mg/dL non-HDL cholesterol calc. (test code = non-HDL cholesterol c alc.) 67 mg/dL 0-160 cholesterol (test code = cholesterol) 127 mg/dL 0-199 Cholesterol in LDL [Mass/volume] in Serum or Plasma (t est code = 2088-07) 57 mg/dL 0-130 [facility] 1995 panel - Serum or [id number] 16:10:00* Test Item Value Reference Range Interpretation Comments HDL (test code = HDL) 60 mg/dL 40-60 triglyceride (test code = triglyceride) 52 mg/dL 0-149 VLDL calc. (test code = VLDL calc.) 10 mg/dL cholesterol/HDL ratio (test code = cholesterol/HDL ratio) 2.1 mg/dL non-HDL cholesterol calc. (test code = non-HDL cholesterol c alc.) 67 mg/dL 0-160 cholesterol (test code = cholesterol) 127 mg/dL 0-199 Cholesterol in LDL [Mass/volume] in Serum or Plasma (t est code = 2088-07) 57 mg/dL 0-130 [facility] [Units/volume] in Serum or [id number] 16:09:00* Test Item Value Reference Range Interpretation Comments TSH (test code = TSH) 2.694 uIU/mL 0.350-4.940 [facility] PracticeTh[facility]ropin [Units/volume] in Serum or [id number] 16:09:00* Test Item Value Reference Range Interpretation Comments TSH (test code = TSH) 2.694 uIU/mL 0.350-4.940 [facility]/volume] in Serum or [id number] 16:09:00* Test Item Value Reference Range Interpretation Comments TSH (test code = TSH) 2.694 uIU/mL 0.350-4.940 [facility]/volume] in Serum or [id number] 16:09:00* Test Item Value Reference Range Interpretation Comments TSH (test code = TSH) 2.694 uIU/mL 0.350-4.940 [facility] [id number] 13:41:00* Test Item Value Reference Range Interpretation Comments clinical information (test code = clinical information) pathologist (test code = pathologist) report notes (test code = report notes) ` A source (test code = A source) left flank A procedure (test code = A procedure) A gross description (test code = A gross description) A micro description (test code = A micro description) A diagnosis (test code = A diagnosis) [facility]2019-02-22 13:41:00* Test Item Value Reference Range Interpretation Comments clinical information (test code = clinical information) pathologist (test code = pathologist) report notes (test code = report notes) ` A source (test code = A source) left flank A procedure (test code = A procedure) A gross description (test code = A gross description) A micro description (test code = A micro description) A diagnosis (test code = A diagnosis) [facility]2019-02-22 13:41:00* Test Item Value Reference Range Interpretation Comments clinical information (test code = clinical information) pathologist (test code = pathologist) report notes (test code = report notes) ` A source (test code = A source) left flank A procedure (test code = A procedure) A gross description (test code = A gross description) A micro description (test code = A micro description) A diagnosis (test code = A diagnosis) [facility]2019-02-22 13:41:00* Test Item Value Reference Range Interpretation Comments clinical information (test code = clinical information) pathologist (test code = pathologist) report notes (test code = report notes) ` A source (test code = A source) left flank A procedure (test code = A procedure) A gross description (test code = A gross description) A micro description (test code = A micro description) A diagnosis (test code = A diagnosis) [facility] by Coagulation assay 2018-08-30 07:05:00* Test Item Value Reference Range Interpretation Comments INR (test code = INR) 2.8 H PT (test code = PT) 27.4 sec 9.0-11.5 [facility] Coagulation assay 2018-08-30 07:05:00* Test Item Value Reference Range Interpretation Comments INR (test code = INR) 2.8 H PT (test code = PT) 27.4 sec 9.0-11.5 [facility] poor [facility] by Coagulation assay 2018-08-30 07:05:00* Test Item Value Reference Range Interpretation Comments INR (test code = INR) 2.8 H PT (test code = PT) 27.4 sec 9.0-11.5 H [facility] Platelet poor plasma by Coagulation assay 2018-08-30 07:05:00* Test Item Value Reference Range Interpretation Comments INR (test code = INR) 2.8 H PT (test code = PT) 27.4 sec 9.0-11.5 H [facility] PracticeGlucose [Mass/volume] in Capillary [id number] 16:51:00* Test Item Value Reference Range Interpretation Comments Blood Glucose: mg/dl (test code = Blood Glucose: mg/dl) 98 [facility] PracticeGl[facility] [Mass/volume] in Capillary [id number] 16:51:00* Test Item Value Reference Range Interpretation Comments Blood Glucose: mg/dl (test code = Blood Glucose: mg/dl) 98 [facility] PracticeGl[facility] [Mass/volume] in Capillary [id number] 16:51:00* Test Item Value Reference Range Interpretation Comments Blood Glucose: mg/dl (test code = Blood Glucose: mg/dl) 98 [facility] PracticeGlucose [Mass/volume] in Capillary [id number] 16:51:00* Test Item Value Reference Range Interpretation Comments Blood Glucose: mg/dl (test code = Blood Glucose: mg/dl) 98 [facility] PracticeGlucose [Mass/volume] in Capillary [id number] 16:51:00* Test Item Value Reference Range Interpretation Comments Blood Glucose: mg/dl (test code = Blood Glucose: mg/dl) 98 [facility]
[2020-05-29 11:46] LABS: BILIRUBIN,URINE SMALL (NEGATIVE); CLARITY,URINE CLOUDY (CLEAR); COLOR,URINE YELLOW (YELLOW); KETONES,URINE NEGATIVE (NEGATIVE); LEUKOCYTE ESTERASE ,URINE LARGE (NEGATIVE); NITRITE,URINE POSITIVE (NEGATIVE); PROTEIN,URINE DIPSTICK 2+ (NEGATIVE); URINE UROBILINOGEN 1 mg/dL (0.2 - 1)
[2020-05-29 11:50] LABS: BACTERIA,URINE MODERATE /HPF; EPITHELIAL CELLS,URINE FEW /LPF; MUCUS,URINE FEW (RARE); RBC,URINE >50 /HPF (0-5); WBC,URINE (MAN) 21-50 /HPF (0-5)
[2020-05-29] MEDS ORDERED: LIDOCAINE HCL 1% LOCAL INJ 20 ML VIAL ONE (12:25)
[2020-05-29] MEDS ORDERED: SODIUM CHLORIDE 0.9% 500ML 1,000 ML ONE (13:24)
[2020-05-29] MEDS ORDERED: FENTANYL CITRATE/PF 100MCG/2 ML INJ IV ONE (13:30)
[2020-05-29] MEDS ORDERED: MIDAZOLAM HCL 5 MG/ML VIAL INJ ONE ×2 (13:30)
[2020-05-29] MEDS ORDERED: MIDAZOLAM HCL 2 MG/2 ML VIAL INJ ONE (13:30)
[2020-05-29] MEDS ORDERED: CEFUROXIME250 MG PO (15:18)
[2020-05-29 15:45] VITALS: BP 159/88
--- NOTE | 2020-05-31 13:39 | Diagnostic Imaging Report ---
OR Fluoroscopy: IMPRESSION: Fluoroscopy service provided in the OR. Interpretation not requested. Signed by: Jeff Whittaker MD on 05/31/2020 1:36 PM
== END 2020-05-29 15:47 | disposition home or self-care (01) ==
LOC: ER 09:49
DX: Z46.6 Encounter for fitting and adjustment of urinary device (principal); R33.9 Retention of urine, unspecified; N35.919 Unspecified urethral stricture, male, unspecified site; I10 Essential (primary) hypertension; E11.9 Type 2 diabetes mellitus without complications; I50.9 Heart failure, unspecified; Z85.46 Personal history of malignant neoplasm of prostate; Z86.718 Personal history of other venous thrombosis and embolism
CPT/HCPCS: 51102; 74470; 81001; 99284; C1769; C1892; J2001; J2250; J3010; J7040

== ENCOUNTER 2020-07-22 10:51 | Emergency (ER) | payer MEDICARE ==
[~2020-07-22] VITALS: Ht 185.4 cm; Wt 131.1 kg
[~2020-07-22 10:51] MED LIST changes: +CEFUROXIME250 MG PO
[2020-07-22 12:29] VITALS: BP 147/77
== END 2020-07-22 12:30 | disposition home or self-care (01) ==
LOC: ER 11:21
DX: Z46.6 Encounter for fitting and adjustment of urinary device (principal); R33.9 Retention of urine, unspecified; I10 Essential (primary) hypertension; E11.9 Type 2 diabetes mellitus without complications; I50.9 Heart failure, unspecified; Z85.46 Personal history of malignant neoplasm of prostate; Z86.718 Personal history of other venous thrombosis and embolism
CPT/HCPCS: 99283

== ENCOUNTER 2021-01-25 10:49 | Inpatient (IN) | payer MEDICARE ==
[~2021-01-25] VITALS: Ht 185.4 cm; Wt 135.2 kg
[2021-01-25] VITALS (7 sets, daily range): BP systolic 101–136; BP diastolic 57–79
[2021-01-25 11:53] LABS: BASOPHILS % 0.2 % (0.0-1.0); EOSINOPHILS % 0.1 % (0.0-6.0); HEMATOCRIT 27.8 % (38.2-49.6); HEMOGLOBIN 8.2 g/dL (14.0-18.0); LYMPHOCYTES # (AUTO) 0.4 (1.0-3.2); LYMPHOCYTES % 2.5 % (18.0-39.1); MEAN CORPUSCULAR HGB CONC 29.5 g/dL (31-35); MEAN CORPUSCULAR VOLUME 81.3 fL (81-99); MONOCYTES # (AUTO) 0.9 (0.2-0.8); MONOCYTES % 5.1 % (4.4-11.3); NEUTROPHILS # (AUTO) 15.1 (2.1-6.9); NEUTROPHILS % 90.7 % (38.7-80.0); PLATELET COUNT 285 x10e3/uL (140-360); RED BLOOD COUNT 3.42 x10e6/uL (4.3-5.7); RED CELL DISTRIBUTION WIDTH 19.5 % (11.7-14.4)
[2021-01-25] MEDS ORDERED: Vancomycin IV 1 GM in SODIUM CHLORIDE 0.9% 250ML 250 ML IV ONE (12:00)
[2021-01-25 12:27] LABS: ALBUMIN 2.7 g/dL (3.5-5.0); ALBUMIN/GLOBULIN RATIO 0.7 (0.8-2.0); ANION GAP 16.3 mmol/L (8-16); CALCIUM 9.5 mg/dL (8.4-10.2); CREATININE, SERUM 2.17 mg/dL (0.72-1.25); POTASSIUM 4.3 mmol/L (3.5-5.1)
[2021-01-25] MEDS ORDERED: SODIUM CHLORIDE 0.9% 1000ML 1,000 ML IV ONE (12:30)
[2021-01-25 12:35] LABS: CREATINE KINASE MB 0.3 ng/mL (0-5.0)
[2021-01-25] MEDS ORDERED: CEFEPIME 1 GM in SODIUM CHLORIDE 0.9% 50ML 50 ML IV SCH (14:00)
[2021-01-25] MEDS ORDERED: WARFARIN SODIUM5 MG PO (16:54)
[2021-01-25] MEDS ORDERED: FERROUS SULFAT325 MG PO (16:55)
[2021-01-25] MEDS ORDERED: ARICEPT5 MG PO (16:56)
[2021-01-25] MEDS ORDERED: GLIPIZIDE ER5 MG PO (16:59)
[2021-01-25] MEDS ORDERED: ALLOPURINOL100 MG PO (17:00)
[2021-01-25] MEDS ORDERED: DEXTROSE 50% SYRINGE 50 ML IV PRN (19:00)
[2021-01-25] MEDS ORDERED: ONDANSETRON HCL INJ 2MG/ML 2ML 2 MG/ML VIAL IV PRN (19:00)
[2021-01-25] MEDS ORDERED: BENZONATATE 100 MG CAP PO PRN (19:00)
[2021-01-25] MEDS ORDERED: ACETAMINOPHEN 325 MG TAB PO PRN (19:00)
[2021-01-25] MEDS ORDERED: SODIUM CHLORIDE 0.9% 250ML 250 ML ONE (19:14)
[2021-01-25] MEDS ORDERED: DOXAZOSIN MESYLA8 MG PO (19:39)
[2021-01-25] MEDS ORDERED: OLMESARTAN MEDO40 MG PO (19:39)
[2021-01-25 20:21] LABS: INR 1.93; PROTHROMBIN TIME 23.1 seconds (11.9-14.5)
[2021-01-25] MEDS: INSULIN LISPRO 100 UNIT/1 ML 3ML VIAL SQ SCH (21:00)
[2021-01-25] MEDS: ATORVASTATIN 10 MG TAB PO SCH (22:44)
[2021-01-25] MEDS: DONEPEZIL HCL 5 MG TAB PO SCH (22:44)
[2021-01-26] VITALS (8 sets, daily range): BP systolic 103–126; BP diastolic 54–68
[2021-01-26] MEDS: PIPERACILLIN/TAZOBACTAM 3.375 GM in SODIUM CHLORIDE 0.9% 50ML 50 ML IV SCH ×4 (00:58→21:00)
[2021-01-26 04:59] LABS: BASOPHILS % 0.2 % (0.0-1.0); EOSINOPHILS % 0.2 % (0.0-6.0); HEMATOCRIT 24.3 % (38.2-49.6); HEMOGLOBIN 7.3 g/dL (14.0-18.0); LYMPHOCYTES % 6.1 % (18.0-39.1); MEAN CORPUSCULAR HEMOGLOBIN 24.2 pg (28-32); MEAN CORPUSCULAR VOLUME 80.5 fL (81-99); MONOCYTES # (AUTO) 1.1 (0.2-0.8); MONOCYTES % 6.8 % (4.4-11.3); NEUTROPHILS # (AUTO) 14.3 (2.1-6.9); PLATELET COUNT 222 x10e3/uL (140-360); RED BLOOD COUNT 3.02 x10e6/uL (4.3-5.7); RED CELL DISTRIBUTION WIDTH 19.8 % (11.7-14.4)
[2021-01-26 05:21] LABS: ALBUMIN 2.3 g/dL (3.5-5.0); ALBUMIN/GLOBULIN RATIO 0.6 (0.8-2.0); ANION GAP 11.6 mmol/L (8-16); CALCIUM 9.1 mg/dL (8.4-10.2); CREATININE, SERUM 1.88 mg/dL (0.72-1.25); POTASSIUM 4.6 mmol/L (3.5-5.1)
[2021-01-26] MEDS: INSULIN LISPRO 100 UNIT/1 ML 3ML VIAL SQ SCH ×4 (07:55→21:00)
[2021-01-26] MEDS: APIXABAN 5 MG TABLET PO SCH ×2 (10:13→18:11)
[2021-01-26] MEDS: GLIPIZIDE 5 MG TAB ER PO SCH (10:13)
[2021-01-26] MEDS: FINASTERIDE 5 MG TAB PO SCH (10:13)
[2021-01-26] MEDS: ALLOPURINOL 100 MG TAB PO SCH (10:14)
[2021-01-26] MEDS: LINEZOLID 600 MG/D5W 300ML 300 ML IV SCH ×2 (11:49→23:15)
[2021-01-26] MEDS ORDERED: Vancomycin IV 1 GM in SODIUM CHLORIDE 0.9% 250ML 250 ML IV SCH (17:00)
[2021-01-26] MEDS: FUROSEMIDE INJ 100 MG in SODIUM CHLORIDE 0.9% 100 ML 90 ML IV SCH (18:11)
[2021-01-26] MEDS: ATORVASTATIN 10 MG TAB PO SCH (22:00)
[2021-01-26] MEDS: DONEPEZIL HCL 5 MG TAB PO SCH (22:00)
[2021-01-26] MEDS ORDERED: SODIUM CHLORIDE 0.9% 250ML 250 ML ONE (23:24)
[2021-01-27] VITALS (8 sets, daily range): BP systolic 102–142; BP diastolic 51–74
[2021-01-27] MEDS: PIPERACILLIN/TAZOBACTAM 3.375 GM in SODIUM CHLORIDE 0.9% 50ML 50 ML IV SCH ×4 (03:15→20:19)
[2021-01-27] MEDS: FUROSEMIDE INJ 100 MG in SODIUM CHLORIDE 0.9% 100 ML 90 ML IV SCH ×3 (04:00→18:15)
[2021-01-27 04:57] LABS: BASOPHILS % 0.2 % (0.0-1.0); EOSINOPHILS # (AUTO) 0.4 (0.0-0.4); HEMATOCRIT 24.7 % (38.2-49.6); HEMOGLOBIN 7.5 g/dL (14.0-18.0); LYMPHOCYTES # (AUTO) 1.3 (1.0-3.2); LYMPHOCYTES % 9.5 % (18.0-39.1); MEAN CORPUSCULAR HEMOGLOBIN 24.3 pg (28-32); MEAN CORPUSCULAR HGB CONC 30.4 g/dL (31-35); MEAN CORPUSCULAR VOLUME 79.9 fL (81-99); MONOCYTES # (AUTO) 0.7 (0.2-0.8); MONOCYTES % 5.5 % (4.4-11.3); NEUTROPHILS # (AUTO) 10.8 (2.1-6.9); NEUTROPHILS % 81.2 % (38.7-80.0); PLATELET COUNT 239 x10e3/uL (140-360); RED BLOOD COUNT 3.09 x10e6/uL (4.3-5.7); RED CELL DISTRIBUTION WIDTH 19.8 % (11.7-14.4)
[2021-01-27 05:32] LABS: ANION GAP 9.8 mmol/L (8-16); CALCIUM 8.8 mg/dL (8.4-10.2); CREATININE, SERUM 1.54 mg/dL (0.72-1.25); POTASSIUM 3.8 mmol/L (3.5-5.1)
[2021-01-27] MEDS: INSULIN LISPRO 100 UNIT/1 ML 3ML VIAL SQ SCH ×4 (07:30→20:14)
[2021-01-27] MEDS: ALLOPURINOL 100 MG TAB PO SCH (12:11)
[2021-01-27] MEDS: APIXABAN 5 MG TABLET PO SCH ×2 (12:11→16:35)
[2021-01-27] MEDS: GLIPIZIDE 5 MG TAB ER PO SCH (12:11)
[2021-01-27] MEDS: FINASTERIDE 5 MG TAB PO SCH (12:11)
[2021-01-27] MEDS: LINEZOLID 600 MG/D5W 300ML 300 ML IV SCH ×2 (12:23→22:45)
[2021-01-27] MEDS: BALSAM PERU/CASTOR OIL 60 GM OINT...G. TP SCH (20:18)
[2021-01-27] MEDS: ATORVASTATIN 10 MG TAB PO SCH (21:29)
[2021-01-27] MEDS: DONEPEZIL HCL 5 MG TAB PO SCH (21:29)
[2021-01-28] VITALS (7 sets, daily range): BP systolic 97–117; BP diastolic 44–60
[2021-01-28] MEDS: PIPERACILLIN/TAZOBACTAM 3.375 GM in SODIUM CHLORIDE 0.9% 50ML 50 ML IV SCH ×4 (03:00→20:00)
[2021-01-28 05:04] LABS: BASOPHILS % 0.3 % (0.0-1.0); EOSINOPHILS # (AUTO) 0.6 (0.0-0.4); EOSINOPHILS % 7.2 % (0.0-6.0); HEMATOCRIT 25.7 % (38.2-49.6); HEMOGLOBIN 7.8 g/dL (14.0-18.0); LYMPHOCYTES # (AUTO) 1.7 (1.0-3.2); LYMPHOCYTES % 19.1 % (18.0-39.1); MEAN CORPUSCULAR HEMOGLOBIN 24.1 pg (28-32); MEAN CORPUSCULAR HGB CONC 30.4 g/dL (31-35); MEAN CORPUSCULAR VOLUME 79.6 fL (81-99); MONOCYTES # (AUTO) 0.5 (0.2-0.8); MONOCYTES % 5.9 % (4.4-11.3); NEUTROPHILS # (AUTO) 5.9 (2.1-6.9); NEUTROPHILS % 67.2 % (38.7-80.0); PLATELET COUNT 265 x10e3/uL (140-360); RED BLOOD COUNT 3.23 x10e6/uL (4.3-5.7); RED CELL DISTRIBUTION WIDTH 19.6 % (11.7-14.4)
[2021-01-28 05:28] LABS: ANION GAP 9.8 mmol/L (8-16); CALCIUM 8.5 mg/dL (8.4-10.2); CREATININE, SERUM 1.65 mg/dL (0.72-1.25); POTASSIUM 3.8 mmol/L (3.5-5.1)
[2021-01-28] MEDS: INSULIN LISPRO 100 UNIT/1 ML 3ML VIAL SQ SCH ×4 (07:30→21:00)
[2021-01-28] MEDS: FINASTERIDE 5 MG TAB PO SCH (09:22)
[2021-01-28] MEDS: APIXABAN 5 MG TABLET PO SCH ×2 (09:22→15:56)
[2021-01-28] MEDS: GLIPIZIDE 5 MG TAB ER PO SCH (09:23)
[2021-01-28] MEDS: ALLOPURINOL 100 MG TAB PO SCH (09:23)
[2021-01-28] MEDS: LINEZOLID 600 MG/D5W 300ML 300 ML IV SCH ×2 (11:10→22:30)
[2021-01-28] MEDS: FUROSEMIDE INJ 100 MG in SODIUM CHLORIDE 0.9% 100 ML 90 ML IV SCH (12:17)
[2021-01-28] MEDS: BALSAM PERU/CASTOR OIL 60 GM OINT...G. TP SCH (15:03)
[2021-01-28] MEDS: ATORVASTATIN 10 MG TAB PO SCH (21:00)
[2021-01-28] MEDS: DONEPEZIL HCL 5 MG TAB PO SCH (21:00)
[2021-01-28] MEDS: FUROSEMIDE INJ 10 MG/ML 4 ML VIAL IV SCH (21:00)
[2021-01-29] VITALS (7 sets, daily range): BP systolic 107–129; BP diastolic 53–74
[2021-01-29] MEDS: PIPERACILLIN/TAZOBACTAM 3.375 GM in SODIUM CHLORIDE 0.9% 50ML 50 ML IV SCH ×4 (01:20→20:00)
[2021-01-29 05:41] LABS: BASOPHILS % 0.6 % (0.0-1.0); EOSINOPHILS # (AUTO) 0.7 (0.0-0.4); EOSINOPHILS % 10.1 % (0.0-6.0); HEMATOCRIT 26.1 % (38.2-49.6); HEMOGLOBIN 7.9 g/dL (14.0-18.0); LYMPHOCYTES # (AUTO) 1.7 (1.0-3.2); LYMPHOCYTES % 26.4 % (18.0-39.1); MEAN CORPUSCULAR HEMOGLOBIN 24.1 pg (28-32); MEAN CORPUSCULAR HGB CONC 30.3 g/dL (31-35); MEAN CORPUSCULAR VOLUME 79.6 fL (81-99); MONOCYTES # (AUTO) 0.5 (0.2-0.8); MONOCYTES % 7.8 % (4.4-11.3); NEUTROPHILS # (AUTO) 3.5 (2.1-6.9); NEUTROPHILS % 54.6 % (38.7-80.0); PLATELET COUNT 266 x10e3/uL (140-360); RED BLOOD COUNT 3.28 x10e6/uL (4.3-5.7); RED CELL DISTRIBUTION WIDTH 19.3 % (11.7-14.4)
[2021-01-29 06:11] LABS: ANION GAP 11.6 mmol/L (8-16); CALCIUM 8.5 mg/dL (8.4-10.2); CREATININE, SERUM 1.53 mg/dL (0.72-1.25); POTASSIUM 3.6 mmol/L (3.5-5.1)
[2021-01-29] MEDS: INSULIN LISPRO 100 UNIT/1 ML 3ML VIAL SQ SCH ×4 (07:30→21:00)
[2021-01-29] MEDS: BALSAM PERU/CASTOR OIL 60 GM OINT...G. TP SCH (09:00)
[2021-01-29] MEDS: ALLOPURINOL 100 MG TAB PO SCH (09:00)
[2021-01-29] MEDS: GLIPIZIDE 5 MG TAB ER PO SCH (09:00)
[2021-01-29] MEDS: FINASTERIDE 5 MG TAB PO SCH (09:00)
[2021-01-29] MEDS: FUROSEMIDE INJ 10 MG/ML 4 ML VIAL IV SCH ×2 (09:00→21:00)
[2021-01-29] MEDS: LINEZOLID 600 MG/D5W 300ML 300 ML IV SCH ×2 (10:30→22:30)
[2021-01-29] MEDS: APIXABAN 5 MG TABLET PO SCH ×2 (11:27→17:17)
[2021-01-29] MEDS: DONEPEZIL HCL 5 MG TAB PO SCH (21:00)
[2021-01-29] MEDS: ATORVASTATIN 10 MG TAB PO SCH (21:00)
[2021-01-30] VITALS (7 sets, daily range): BP systolic 111–134; BP diastolic 38–64
[2021-01-30] MEDS: PIPERACILLIN/TAZOBACTAM 3.375 GM in SODIUM CHLORIDE 0.9% 50ML 50 ML IV SCH ×4 (01:24→20:00)
[2021-01-30] MEDS: INSULIN LISPRO 100 UNIT/1 ML 3ML VIAL SQ SCH ×4 (07:30→21:00)
[2021-01-30] MEDS: APIXABAN 5 MG TABLET PO SCH ×2 (09:00→16:32)
[2021-01-30] MEDS: FUROSEMIDE INJ 10 MG/ML 4 ML VIAL IV SCH ×2 (09:00→20:49)
[2021-01-30] MEDS: BALSAM PERU/CASTOR OIL 60 GM OINT...G. TP SCH (09:00)
[2021-01-30] MEDS: ALLOPURINOL 100 MG TAB PO SCH (09:00)
[2021-01-30] MEDS: FINASTERIDE 5 MG TAB PO SCH (09:00)
[2021-01-30] MEDS: GLIPIZIDE 5 MG TAB ER PO SCH (09:00)
[2021-01-30] MEDS: LINEZOLID 600 MG/D5W 300ML 300 ML IV SCH ×2 (10:30→21:33)
[2021-01-30] MEDS ORDERED: SODIUM CHLORIDE 0.9% 250ML 250 ML ONE (20:36)
[2021-01-30] MEDS: DONEPEZIL HCL 5 MG TAB PO SCH (20:49)
[2021-01-30] MEDS: ATORVASTATIN 10 MG TAB PO SCH (20:49)
[2021-01-31] VITALS (8 sets, daily range): BP systolic 111–139; BP diastolic 55–90
[2021-01-31] MEDS: PIPERACILLIN/TAZOBACTAM 3.375 GM in SODIUM CHLORIDE 0.9% 50ML 50 ML IV SCH ×2 (02:00→08:24)
[2021-01-31 05:40] LABS: BASOPHILS # (AUTO) 0.1 (0.0-0.1); BASOPHILS % 0.7 % (0.0-1.0); EOSINOPHILS # (AUTO) 0.7 (0.0-0.4); EOSINOPHILS % 9.8 % (0.0-6.0); LYMPHOCYTES # (AUTO) 2.2 (1.0-3.2); LYMPHOCYTES % 30.8 % (18.0-39.1); MEAN CORPUSCULAR HEMOGLOBIN 24.1 pg (28-32); MEAN CORPUSCULAR HGB CONC 29.6 g/dL (31-35); MEAN CORPUSCULAR VOLUME 81.3 fL (81-99); MONOCYTES # (AUTO) 0.5 (0.2-0.8); NEUTROPHILS # (AUTO) 3.7 (2.1-6.9); NEUTROPHILS % 51.1 % (38.7-80.0); PLATELET COUNT 294 x10e3/uL (140-360); RED BLOOD COUNT 3.32 x10e6/uL (4.3-5.7); RED CELL DISTRIBUTION WIDTH 19.8 % (11.7-14.4)
[2021-01-31 06:13] LABS: ANION GAP 12.7 mmol/L (8-16); CALCIUM 8.9 mg/dL (8.4-10.2); CREATININE, SERUM 1.46 mg/dL (0.72-1.25); POTASSIUM 3.7 mmol/L (3.5-5.1)
[2021-01-31 08:11] LABS: HYPOCHROMASIA MODERATE; OVALOCYTES FEW; PLATELET ESTIMATE ADEQUATE; PLATELET MORPHOLOGY COMMENT NORMAL; RBC MORPHOLOGY COMMENT ABNORMAL
[2021-01-31 08:12] LABS: ANISOCYTOSIS MODERATE; ELLIPTOCYTE, RBC SLIGHT; SCHISTOCYTES RARE
[2021-01-31 08:15] LABS: MICROCYTOSIS MODERATE
[2021-01-31] MEDS: APIXABAN 5 MG TABLET PO SCH ×2 (08:18→17:32)
[2021-01-31] MEDS: ALLOPURINOL 100 MG TAB PO SCH (08:19)
[2021-01-31] MEDS: FINASTERIDE 5 MG TAB PO SCH (08:19)
[2021-01-31] MEDS: GLIPIZIDE 5 MG TAB ER PO SCH (08:24)
[2021-01-31] MEDS: FUROSEMIDE INJ 10 MG/ML 4 ML VIAL IV SCH ×2 (08:24→21:00)
[2021-01-31] MEDS: INSULIN LISPRO 100 UNIT/1 ML 3ML VIAL SQ SCH ×4 (08:28→21:00)
[2021-01-31] MEDS: ACETAMINOPHEN/CODEINE 300MG - 30MG TAB PO PRN ×2 (08:28→17:43)
[2021-01-31] MEDS: BALSAM PERU/CASTOR OIL 60 GM OINT...G. TP SCH (09:00)
[2021-01-31] MEDS: LEVOFLOXACIN 250 MG TAB PO SCH (12:06)
[2021-01-31] MEDS: DOXYCYCLINE HYCLATE TABLET 100 MG TAB PO SCH ×2 (13:45→21:00)
[2021-01-31] MEDS: DONEPEZIL HCL 5 MG TAB PO SCH (21:00)
[2021-01-31] MEDS: ATORVASTATIN 10 MG TAB PO SCH (21:00)
[2021-02-01] VITALS: BP 124/66
[2021-02-01 04:00] VITALS: BP 119/60
[2021-02-01] MEDS: INSULIN LISPRO 100 UNIT/1 ML 3ML VIAL SQ SCH ×2 (07:30→11:30)
[2021-02-01] MEDS ORDERED: GLIPIZIDE 5 MG TAB ER PO SCH (07:30)
[2021-02-01 07:40] VITALS: BP 125/67
[2021-02-01 07:46] VITALS: BP 125/67
[2021-02-01] MEDS: DOXYCYCLINE HYCLATE TABLET 100 MG TAB PO SCH (09:11)
[2021-02-01] MEDS: APIXABAN 5 MG TABLET PO SCH (09:11)
[2021-02-01] MEDS: FINASTERIDE 5 MG TAB PO SCH (09:11)
[2021-02-01] MEDS: ALLOPURINOL 100 MG TAB PO SCH (09:11)
[2021-02-01] MEDS: FUROSEMIDE INJ 10 MG/ML 4 ML VIAL IV SCH (09:12)
[2021-02-01] MEDS: ACETAMINOPHEN/CODEINE 300MG - 30MG TAB PO PRN (09:23)
[2021-02-01] MEDS ORDERED: ONDANSETRON HCL 4 MG ORAL DISINTEGRATING TAB PO PRN (11:30)
[2021-02-01] MEDS: LEVOFLOXACIN 250 MG TAB PO SCH (11:46)
[2021-02-01] MEDS ORDERED: IOPAMIDOL 300MG/ML 100 ML INFUS..BTL IV ONE (11:47)
[2021-02-01] MEDS ORDERED: LIDOCAINE HCL 1% LOCAL INJ 20 ML VIAL ONE (11:47)
[2021-02-01 11:52] VITALS: BP 120/55
[2021-02-01] MEDS ORDERED: ELIQUIS5 MG PO (12:51)
[2021-02-01] MEDS ORDERED: LEVOFLOXACIN250 MG PO (12:51)
[2021-02-01] MEDS ORDERED: DOXYCYCLINE (12:53)
[2021-02-01] MEDS ORDERED: LASIX40 MG PO (12:55)
[2021-02-01] MEDS ORDERED: DOXYCYCLINE MO100 MG (12:55)
[2021-02-01] MEDS ORDERED: DOXYCYCLINE MO100 MG PO (12:56)
[2021-02-01] MEDS: BALSAM PERU/CASTOR OIL 60 GM OINT...G. TP SCH (13:37)
== END 2021-02-01 14:00 | disposition home health service (06) | DRG 872 ==
LOC: ER 11:10 → ERHOLD 12:17 → MED/SURG2 14:59
PROVIDERS: ADMIT Internal Medicine; ATTEND Internal Medicine
PROC: 0T2BX0Z Change Drainage Device in Bladder, External Approach (ICD-10-PCS; principal; 2021-02-01)
DX: A41.9 Sepsis, unspecified organism (principal); T83.511A Infection and inflammatory reaction due to indwelling urethral catheter, initial encounter; N39.0 Urinary tract infection, site not specified; I83.218 Varicose veins of right lower extremity with both ulcer of other part of lower extremity and inflammation; I83.228 Varicose veins of left lower extremity with both ulcer of other part of lower extremity and inflammation; L97.811 Non-pressure chronic ulcer of other part of right lower leg limited to breakdown of skin; L97.821 Non-pressure chronic ulcer of other part of left lower leg limited to breakdown of skin; L03.116 Cellulitis of left lower limb; L03.115 Cellulitis of right lower limb; I13.0 Hypertensive heart and chronic kidney disease with heart failure and stage 1 through stage 4 chronic kidney disease, or unspecified chronic kidney disease; L89.626 Pressure-induced deep tissue damage of left heel; R65.20 Severe sepsis without septic shock; I50.9 Heart failure, unspecified; Z86.718 Personal history of other venous thrombosis and embolism; N40.0 Benign prostatic hyperplasia without lower urinary tract symptoms; Z85.46 Personal history of malignant neoplasm of prostate; E66.01 Morbid (severe) obesity due to excess calories; I48.91 Unspecified atrial fibrillation; Z79.01 Long term (current) use of anticoagulants; N31.9 Neuromuscular dysfunction of bladder, unspecified; Z68.39 Body mass index [BMI] 39.0-39.9, adult; N18.30 Chronic kidney disease, stage 3 unspecified; I89.0 Lymphedema, not elsewhere classified; E11.22 Type 2 diabetes mellitus with diabetic chronic kidney disease; I89.8 Other specified noninfective disorders of lymphatic vessels and lymph nodes
CPT/HCPCS: 36415; 51705; 74470; 80048; 80053; 82550; 82553; 82948; 83605; 84484; 85025; 85610; 87040; 93005; 99251; 99284; J0692; J1940; J2001; J2020; J2543; J3370; J7030; J7050; Q9967

== ENCOUNTER 2021-09-09 11:55 | Emergency (ER) | payer MEDICARE ==
[~2021-09-09] VITALS: Ht 368.3 cm; Wt 135.2 kg
[~2021-09-09 11:55] MED LIST changes: +ALLOPURINOL100 MG PO; +ARICEPT5 MG PO; +DOXAZOSIN MESYLA8 MG PO; +DOXYCYCLINE; +DOXYCYCLINE MO100 MG; +DOXYCYCLINE MO100 MG PO; +ELIQUIS5 MG PO; +FERROUS SULFAT325 MG PO; +GLIPIZIDE ER5 MG PO; +LASIX40 MG PO; +LEVOFLOXACIN250 MG PO; +OLMESARTAN MEDO40 MG PO; +WARFARIN SODIUM5 MG PO
[2021-09-09] MEDS ORDERED: ASPIRIN 325 MG TAB PO ONE (12:15)
[2021-09-09 13:02] LABS: BASOPHILS % 0.5 % (0.0-1.0); EOSINOPHILS # (AUTO) 0.3 (0.0-0.4); EOSINOPHILS % 3.4 % (0.0-6.0); HEMATOCRIT 29.6 % (38.2-49.6); HEMOGLOBIN 8.8 g/dL (14.0-18.0); LYMPHOCYTES # (AUTO) 1.8 (1.0-3.2); LYMPHOCYTES % 22.1 % (18.0-39.1); MEAN CORPUSCULAR HGB CONC 29.7 g/dL (31-35); MEAN CORPUSCULAR VOLUME 87.3 fL (81-99); MONOCYTES # (AUTO) 0.8 (0.2-0.8); MONOCYTES % 9.3 % (4.4-11.3); NEUTROPHILS # (AUTO) 5.4 (2.1-6.9); NEUTROPHILS % 64.5 % (38.7-80.0); PLATELET COUNT 250 x10e3/uL (140-360); RED BLOOD COUNT 3.39 x10e6/uL (4.3-5.7); RED CELL DISTRIBUTION WIDTH 17.7 % (11.7-14.4)
[2021-09-09 13:55] LABS: ALBUMIN 3.3 g/dL (3.5-5.0); ALBUMIN/GLOBULIN RATIO 0.9 (0.8-2.0); ANION GAP 13.9 mmol/L (8-16); CALCIUM 10.2 mg/dL (8.4-10.2); CREATININE, SERUM 1.7 mg/dL (0.72-1.25); POTASSIUM 3.9 mmol/L (3.5-5.1)
[2021-09-09 15:17] LABS: CLARITY,URINE CLOUDY (CLEAR); COLOR,URINE YELLOW (YELLOW); KETONES,URINE NEGATIVE (NEGATIVE); LEUKOCYTE ESTERASE ,URINE 1+ (NEGATIVE); NITRITE,URINE POSITIVE (NEGATIVE); PROTEIN,URINE DIPSTICK 1+ (NEGATIVE); URINE UROBILINOGEN 0.2 mg/dL (0.2 - 1)
[2021-09-09 15:24] LABS: BACTERIA,URINE MANY /HPF; EPITHELIAL CELLS,URINE FEW /LPF; RBC,URINE >50 /HPF (0-5); WBC,URINE (MAN) >50 /HPF (0-5)
[2021-09-09] MEDS ORDERED: ASPIRIN 81 MG CHEW TAB ONE (15:33)
[2021-09-09] MEDS ORDERED: CEFDINIR300 MG PO (16:23)
[2021-09-09 16:53] VITALS: BP 140/76
[2021-09-09] MEDS ORDERED: CEFDINIR 300 MG CAP PO SCH (17:00)
== END 2021-09-09 16:56 | disposition home or self-care (01) ==
LOC: ER 12:02
DX: R07.89 Other chest pain (principal); N30.90 Cystitis, unspecified without hematuria; R10.30 Lower abdominal pain, unspecified; I12.0 Hypertensive chronic kidney disease with stage 5 chronic kidney disease or end stage renal disease; E11.22 Type 2 diabetes mellitus with diabetic chronic kidney disease; E11.65 Type 2 diabetes mellitus with hyperglycemia; N18.6 End stage renal disease; I50.9 Heart failure, unspecified
CPT/HCPCS: 36415; 71045; 80053; 81001; 84484; 85025; 87086; 87186; 93005; 99284